=== PATIENT | female | born 1960 | race Caucasian/White ===

== ENCOUNTER 2020-02-12 13:41 | Outpatient (CLI) | payer MEDICARE, OTHER, SELFPAY ==
--- NOTE | ~2020-02-12 | XR_ITS ---
EXAMINATION: XR wrist RT min 3V DATE: 02/12/2020 13:56 INDICATION: Right wrist pain post fall 2 days prior TECHNIQUE: Posteroanterior, ulnar deviation, oblique, and lateral views of the right wrist were obtai [place]. COMPARISON: none FINDINGS: Oblique fracture extending across the metaphyseal region of the distal right radius. There appears to be approximately 1 mm step-off along the articular cortex at the radial styloid process suggesting i ntra-articular extension. Although no discernible fracture gap is identified along the articular surf katie on the provided projections there is up to 3 mm palmar displacement on the lateral projection. No other fractures identified. Joint spaces are relatively preserved. Diffuse osteopenia. Extensive vas cular calcification in the right forearm and carpus along the ulnar and radial arteries. IMPRESSION: 1. Mildly displaced likely intra-articular fracture of the distal right radius. Reviewed, dictated and finalized at location A.
== END 2020-02-12 13:42 | disposition home or self-care (01) ==
PROVIDERS: PCP Family Medicine; Visit Provider Family Medicine
DX: M25.531 Pain in right wrist (principal)
CPT/HCPCS: 73110

== ENCOUNTER 2021-12-29 13:36 | Outpatient (CLI) | payer MEDICARE, OTHER, SELFPAY ==
--- NOTE | ~2021-12-29 | XR_ITS ---
EXAMINATION: XR lumbar spine 2-3V DATE: 12/29/2021 14:18 INDICATION: Low back pain TECHNIQUE: Anteroposterior and lateral views of the lumbar spine, and cone-down lateral view of the l umbosacral junction were obtained. COMPARISON: 11/04/2013 FINDINGS: There is no fracture, dislocation, or subluxation of the lumbar spine. There is an age-inde terminate compression fracture of T12 with 30% loss of anterior vertebral body height. There is compl ete loss of intervertebral disc space height at L1-2. Mild loss of disc space height is present throu ghout the remainder of the lumbar spine. The lumbar vertebral body heights are maintained. There is m ild facet osteoarthritis of the lower lumbar spine. Calcified atherosclerosis is noted. IMPRESSION: 1. Lumbar spondylosis, severe at L1-2, without acute findings of the lumbar spine. 2. Age indeterminate T12 compression fracture with 30% loss of anterior vertebral body height. Reviewed, dictated and finalized at location A. IMPRESSION: 1. Lumbar spondylosis, severe at L1-2, without acute findings of the lumbar spi ne. 2. Age indeterminate T12 compression fracture with 30% loss of anterior vertebr al body height.
[2021-12-29 13:54] LABS: Basophils Absolute Auto 0.03 K/mm3 (0.00-0.10); Basophils Percent Auto 0.4 % (0.0-1.0); Eosinophils Absolute Auto 0.29 K/mm3 (0.02-0.50); Eosinophils Percent Auto 4.1 % (1.0-6.0); Hematocrit 39.3 % (35.0-49.0); Hemoglobin 12.1 g/dL (12.0-15.0); Immature Granulocyte Absolute 0.03 K/mm3 (0.00-0.00); Immature Granulocyte Percent A 0.4 % (0.0-0.0); Lymphocytes Absolute Auto 0.58 K/mm3 (1.10-4.50); Lymphocytes Percent Auto 8.3 % (18.0-42.0); Mean Corpuscular HGB Conc 30.8 g/dL (32.0-36.0); Mean Corpuscular Hemoglobin 29.6 pg (27.0-31.0); Mean Corpuscular Volume 96.1 fL (78.0-102.0); Mean Platelet Volume 9.9 fl (9.2-11.8); Monocytes Percent Auto 7.2 % (2.0-11.0); Neutrophils Absolute Auto 5.6 K/mm3 (1.7-7.2); Neutrophils Percent Auto 79.6 % (50.0-70.0); Platelet Count Result 202 K/mm3 (150-420); Red Blood Count 4.09 M/mm3 (4.20-5.40); Red Cell Distribution Width 12.9 % (11.6-14.4)
[2021-12-29 13:59] LABS: Add Urine Microscopic? YES; Appearance Urine Clear (Clear); Bilirubin Urine Negative (Negative); Blood Urine Negative (Negative); Color Urine Light Yellow (Yellow); Glucose Urine UA Negative (Negative); Ketones Urine Negative (Negative); Leukocyte Esterase Ur 3+ (Negative); Nitrate Urine Negative (Negative); Protein Urine Negative (Negative); Specific Grav Ur <= 1.005 (1.010-1.020); Urobilinogen Urine 0.2 mg/dL (0.2-1.0)
[2021-12-29 14:10] LABS: Alanine Aminotransferase 28 U/L (14-59); Albumin Level 3.4 g/dL (3.4-5.0); Alkaline Phosphatase 94 U/L (46-116); Anion Gap 7 mmol/L (8-16); Aspartate Amino Transferase 21 U/L (15-37); Bacteria Urine Trace /hpf; Bilirubin,Total 0.4 mg/dL (0.00-1.00); Blood Urea Nitrogen 30 mg/dL (7-18); CRP < 0.5 mg/dL (0.0-0.9); Calcium 9.5 mg/dL (8.5-10.1); Carbon Dioxide 29 mmol/L (21-32); Chloride 102 mmol/L (98-108); Estimated Glomerular Filt Rate 53; Glucose 223 mg/dL (70-99); Osmolality Calculated 299 mOsm/kg (285-295); Potassium 4.8 mmol/L (3.5-5.1); RBC Urine None seen /hpf (0-2); Sodium 138 mmol/L (136-145); Squamous Epithelial Cell Urine Rare /hpf (Few); Total Protein 6.9 g/dL (6.4-8.2); WBC Urine 21-30 /hpf (0-3)
== END 2021-12-29 13:37 | disposition home or self-care (01) ==
LOC: CHSLAB 13:39
PROVIDERS: PCP Internal Medicine; Visit Provider Internal Medicine
DX: M54.50 Low back pain, unspecified (principal); Z79.899 Other long term (current) drug therapy; N39.0 Urinary tract infection, site not specified
CPT/HCPCS: 36415; 72100; 80053; 81001; 85025; 86140; 87077; 87086; 87088; 87186

== ENCOUNTER 2022-02-24 09:40 | Outpatient (CLI) | payer MEDICARE, OTHER, SELFPAY ==
--- NOTE | ~2022-02-24 | MMUS_ITS ---
EXAMINATION: MM diagnostic neto BI w lynne, US breast LT complete HISTORY: Left breast enlargement. No discrete palpable lump. TECHNIQUE: Additional 3-D tomosynthesis images of the breasts were performed and synthetic 2-D images were generated. CAD analysis was submitted and interpreted. High resolution left complete breast ult rasound was performed. Automated exposure control and iterative reconstruction technique were employe d. COMPARISON: 10/24/2012 BREAST PARENCHYMAL COMPOSITION: Breast composed of scattered areas of fibroglandular density FINDINGS: MAMMOGRAPHIC FINDINGS: The breasts are stable. No new masses, calcifications or architectural distortion ULTRASOUND: Complete bilateral US of all 4 quadrants of the left breast and retroareolar region was reviewed. Nor mal heterogeneous echotexture without focal solid or cystic mass. IMPRESSION: 1. No evidence for malignancy in either breast. 2. Routine yearly screening mammogram and regular clinical breast examination are recommended. BI-RADS Category 1: Negative Reviewed, dictated and finalized at location A. IMPRESSION: 1. No evidence for malignancy in either breast. 2. Routine yearly screening mammogram and regular clinical breast examination a re recommended. BI-RADS Category 1: Negative
== END 2022-02-24 09:41 | disposition home or self-care (01) ==
LOC: CHSIMG 09:42
PROVIDERS: PCP Internal Medicine; Visit Provider Internal Medicine
DX: N62 Hypertrophy of breast (principal); N64.4 Mastodynia
CPT/HCPCS: 76641; 77062; 77066; G0279

== ENCOUNTER 2022-03-04 11:33 | Outpatient (CLI) | payer MEDICARE, OTHER, SELFPAY ==
--- NOTE | ~2022-03-04 | XR_ITS ---
XR thoracic spine 3V DATE: 03/04/2022 11:53 INDICATION: T12 compression fracture TECHNIQUE: AP, lateral, swimmer views COMPARISON: CT thorax 06/17/2015 FINDINGS: There is moderately severe anterior wedge compression fracture deformity of T12. No other fracture or bone destruction is evident. The thoracic pedicles are intact. No paraspinal sof t tissue thickening. Diffuse osteopenia. Approximately 16 degrees dextroscoliosis of the thoracic spine. IMPRESSION: Moderately prominent anterior wedge compression fracture deformity of T12 Dextroscoliosis Osteopenia Reviewed, dictated and finalized at location B.
== END 2022-03-04 11:34 | disposition home or self-care (01) ==
LOC: CHSIMG 11:37
PROVIDERS: PCP Internal Medicine; Visit Provider Internal Medicine
DX: M48.54XD Collapsed vertebra, not elsewhere classified, thoracic region, subsequent encounter for fracture with routine healing (principal)
CPT/HCPCS: 72072

== ENCOUNTER 2022-03-10 12:27 | Outpatient (CLI) | payer MEDICARE, OTHER, SELFPAY ==
--- NOTE | ~2022-03-10 | DEXA_ITS ---
Bone Density Report Name: DEVIKA SOMERS Age: 61 Sex: Female Ethnicity: White Date of : 1960 Indication: postmenopausal; screening for osteoporosis; height loss; prior fracture; end stage renal disease; Referring Provider: Juan F Avila Study: Bone densitometry was performed. Exam Date: March 10, 2022 Accession number: [id number] Bone Density: Region BMD T-score Z-score Classification AP Spine(L1-L4) 0.905 -1.3 0.1 Osteopenia Femoral Neck (Left) 0.536 -2.8 -1.5 Osteoporosis Total Hip (Left) 0.672 -2.2 -1.3 Osteopenia Femoral Neck (Right) 0.598 -2.3 -1.0 Osteopenia Total Hip (Right) 0.718 -1.8 -0.9 Osteopenia Femoral Neck Mean 0.567 -2.5 -1.3 Osteoporosis Total Hip Mean 0.695 -2.0 -1.1 Osteopenia World Health Organization criteria for BMD impression classify patients as: Normal (T-score at or above -1.0), Osteopenia (T-score between -1.0 and -2.5), or Osteoporosis (T-score at or below -2.5). 10-year Fracture Risk: FRAX not reported because: Some T-score for Spine Total or Hip Total or Femoral Neck at or below -2.5 Clinical Information Provided by Patient: Has had a low trauma fracture Has used the following medications: Vitamin D Has the following medical conditions: End stage renal disease Patient maximum height was 61 No regular weight bearing exercise Does not regularly consume dairy products Drinks caffeinated beverages Onset of menses at age 15 Number of children 2 Impression: The patient has established osteoporosis, based on the Left Femoral Neck T-score and the existence of a prior fracture. The patient has risk factors, including: previous fracture. Discussion: HIGH RISK OF FRACTURE. BONE DENSITY IS UNDESIRABLY LOW AT ONE OR MORE SKELETAL SITES, CONSISTENT WITH POSTMENOPAUSAL OSTEOPOROSIS. This patient's lowest T-score, in a patient who has previously fractured, meets the World Health Organization's (WHO) criteria for severe osteoporosis. In untreated patients, the risk of osteoporotic fracture increases approximately two-fold for each 1.0 SD decrease in T-score. Low bone density is not the only risk factor for fracture; also consider factors such as patient's age, frailty or poor health, risk of falling, risk of injury, previous osteoporotic fracture, family history of osteoporosis, cigarette smoking, low body weight, etc. Not everyone with low bone mineral density has osteoporosis; osteomalacia and other metabolic bone disorders should also be considered. Patients who have osteoporosis should be evaluated for specific diseases and conditions (secondary causes) that may cause or contribute to bone loss. The [place] [employer] Endocrinologists (AACE) and National Osteoporosis Foundation (NOF) recommend pharmacologic intervention for all postmenopaus
== END 2022-03-10 12:28 | disposition home or self-care (01) ==
LOC: CHSIMG 12:29
PROVIDERS: PCP Internal Medicine; Visit Provider Internal Medicine
DX: M81.0 Age-related osteoporosis without current pathological fracture (principal)
CPT/HCPCS: 77080

== ENCOUNTER 2022-12-28 12:20 | Outpatient (CLI) | payer MEDICARE, OTHER, SELFPAY ==
--- NOTE | ~2022-12-28 | XR_ITS ---
Thoracolumbar spine: Clinical Indication: Back pain AP and lateral views were performed. Mild compression deformity of T12 present. No other fracture or subluxation evident. There is advance d degenerative disc narrowing at L1-L2. Paravertebral soft tissues appear normal. Impression: T12 compression fracture, essentially stable since 03/04/2022. Reviewed, dictated and finalized at [facility]. Impression: T12 compression fracture, essentially stable since 03/04/2022.
== END 2022-12-28 12:21 | disposition home or self-care (01) ==
LOC: CHSIMG 12:23
PROVIDERS: PCP Internal Medicine; Visit Provider Internal Medicine
DX: M54.50 Low back pain, unspecified (principal); M48.54XA Collapsed vertebra, not elsewhere classified, thoracic region, initial encounter for fracture
CPT/HCPCS: 72080

== ENCOUNTER 2023-12-19 11:26 | Outpatient (CLI) | payer MEDICARE, OTHER, SELFPAY ==
--- NOTE | ~2023-12-19 | XR_ITS ---
XR abdomen/kub 1V Ordering provider: Gifty Cardenas, CARBIDE OPERATOR History: . constipation STOMACH ACHE X 2 WEEKS HX OF KIDNEY TRANSPLANTS . Comparison: None. FINDINGS: BOWEL: Nonobstructive bowel gas pattern. ORGANOMEGALY: None. SIGNIFICANT PATHOLOGIC CALCIFICATIONS: None. OTHER: No free air is seen under the diaphragm. Splenic artery calcification. Degenerative spine. IMPRESSION: NO ACUTE ABDOMINAL FINDINGS. Reviewed, dictated and finalized at location A.
[2023-12-19 11:44] LABS: Basophils Absolute Auto 0.03 K/mm3 (0.00-0.10); Basophils Percent Auto 0.6 % (0.0-1.0); Eosinophils Absolute Auto 0.41 K/mm3 (0.02-0.50); Eosinophils Percent Auto 8.3 % (1.0-6.0); Hematocrit 35.6 % (35.0-49.0); Hemoglobin 11.5 g/dL (12.0-15.0); Immature Granulocyte Absolute 0.01 K/mm3 (0.00-0.00); Immature Granulocyte Percent A 0.2 % (0.0-0.0); Lymphocytes Absolute Auto 0.97 K/mm3 (1.10-4.50); Lymphocytes Percent Auto 19.7 % (18.0-42.0); Mean Corpuscular HGB Conc 32.3 g/dL (32-36); Mean Platelet Volume 10.2 fl (9.2-11.8); Monocytes Absolute Auto 0.64 K/mm3 (0.10-0.90); Neutrophils Absolute Auto 2.87 K/mm3 (1.70-7.20); Neutrophils Percent Auto 58.2 % (50.0-70.0); Platelet Count Result 182 K/mm3 (150-420); Red Blood Count 3.71 M/mm3 (4.20-5.40); Red Cell Distribution Width 12.6 % (11.6-14.4); White Blood Count 4.9 K/mm3 (4.8-10.8)
[2023-12-19 11:54] LABS: Appearance Urine Clear (Clear); Bilirubin Urine Negative (Negative); Blood Urine Negative (Negative); Color Urine Yellow (Yellow); Glucose Urine UA Negative (Negative); Ketones Urine Trace (Negative); Leukocyte Esterase Ur Negative (Negative); Nitrate Urine Negative (Negative); Protein Urine Negative (Negative); Specific Grav Ur 1.025 (1.010-1.020); Urobilinogen Urine 0.2 mg/dL (0.2-1.0)
[2023-12-19 12:06] LABS: Add Urine Microscopic? YES; RBC Urine None seen /hpf (0-2); Squamous Epithelial Cell Urine Few /hpf (Few); WBC Urine None seen /hpf (0-3)
[2023-12-19 12:07] LABS: Alanine Aminotransferase 40 U/L (14-59); Albumin Level 3.1 g/dL (3.4-5.0); Alkaline Phosphatase 95 U/L (46-116); Anion Gap 8 mmol/L (4-12); Aspartate Amino Transferase 39 U/L (15-37); Bacteria Urine None seen /hpf; Bilirubin,Total 0.3 mg/dL (0.00-1.00); Blood Urea Nitrogen 21 mg/dL (7-18); Carbon Dioxide 29 mmol/L (21-32); Chloride 105 mmol/L (98-108); Estimated Glomerular Filt Rate 55; Glucose 201 mg/dL (70-99); Osmolality Calculated 303 mOsm/kg (285-295); Potassium 4.1 mmol/L (3.5-5.1); Sodium 142 mmol/L (136-145); Total Protein 6.1 g/dL (6.4-8.2)
== END 2023-12-19 11:27 | disposition home or self-care (01) ==
LOC: CHSLAB 11:29
PROVIDERS: PCP Internal Medicine; Visit Provider Nurse Practitioner Family
DX: K59.00 Constipation, unspecified (principal); K21.9 Gastro-esophageal reflux disease without esophagitis
CPT/HCPCS: 36415; 74018; 80053; 81001; 85025

== ENCOUNTER 2024-02-29 01:31 | Day surgery (SDC) | payer MEDICARE, OTHER, SELFPAY ==
[2024-02-15 09:49] VITALS: BMI 36.9
[2024-02-29 08:54] VITALS: BP 117/51; PULSE 73; RESP 18; TEMP 36; O2SAT 97; BMI 36.4
--- NOTE | 2024-02-29 08:56 | SUR.PREOP ---
Blood sugar checked per patient dexcom.
--- NOTE | 2024-02-29 09:20 | WPDANESEPPF ---
Anes - Initial Pre Proc Eval Procedure: Operation Date: 02/29/24 10:00 Proposed Procedures p Esophagogastroduodenoscopy - Kenyon Jiang DO Date/Time: 02/29/24 09:20 Surgeon: Kenyon Jiang DO Pre Op Diagnosis: GERD Patient Data Age: 63 Gender: F Height: 1.5 m Weight: 81.9 kg Last Vital Signs Temp 96.8 F L 02/29/24 08:54 Pulse 73 02/29/24 08:54 Resp 18 02/29/24 08:54 BP 117/51 L 02/29/24 08:54 Pulse Ox 97 02/29/24 08:54 O2 Del Method Room Air 02/29/24 08:54 Allergies Allergy/AdvReac Type Severity Reaction Status Date / Time lisinopril Allergy Cough Verified 02/29/24 08:51 fentanyl AdvReac Loss of Verified 02/29/24 08:51 Consciousness Home Medications Medication Instructions Recorded Confirmed Type alendronate 35 mg tablet 35 mg PO WEEKLY 02/15/24 02/29/24 History amlodipine 5 mg tablet 5 mg PO DAILY 02/15/24 02/29/24 History aspirin 81 mg capsule 81 mg PO DAILY 02/15/24 02/29/24 History carvedilol 25 mg tablet 25 mg PO BID 02/15/24 02/29/24 History cholecalciferol (vitamin D3) 50 2,000 unit PO DAILY 02/15/24 02/29/24 History mcg (2,000 unit) tablet duloxetine 30 mg capsule,delayed 30 mg PO BID 02/15/24 02/29/24 History release famotidine 40 mg tablet 40 mg PO DAILY 02/15/24 02/29/24 History fluconazole 200 mg tablet 200 mg PO DAILY 02/15/24 02/29/24 History furosemide 40 mg tablet 40 mg PO DAILY 02/15/24 02/29/24 History glucagon 3 mg/actuation nasal 3 mg intranasal DAILY PRN low 02/15/24 02/29/24 History spray (Baqsimi) blood sugar insulin lispro 100 unit/mL 66 unit continuous subcutaneous 02/15/24 02/29/24 History subcutaneous solution (Humalog infusion DAILY U-100 Insulin) ketorolac 0.5 % eye drops 1 drp RIGHT EYE DAILY 02/15/24 02/29/24 History losartan 100 mg tablet 100 mg PO DAILY 02/15/24 02/29/24 History mycophenolate sodium 360 mg 360 mg PO DAILY 02/15/24 02/29/24 History tablet,delayed release prednisone 5 mg tablet 5 mg PO DAILY 02/15/24 02/29/24 History rosuvastatin 40 mg tablet 40 mg PO DAILY 02/15/24 02/29/24 History tacrolimus 0.75 mg tablet,extended 0.75 mg PO DAILY 02/15/24 02/29/24 History release 24 hr (Envarsus XR) Patient hx anesthesia problems: none Family hx anesthesia problems: none Results Review: All pre-operative results and documents have been reviewed as part of the pre-operative evaluation. [facility] Social History Social History Smoking status: Never smoker Alcohol intake: never Substance use: never Substance use type: does not use Living arrangements: with family Spiritual care concerns: No Anes - Eval Final PreProcedure Day of Procedure 02/29/24 09:20 Patient weight: obese Heart: regular rate and rhythm Lungs: clear to auscultation Airway: Mallampati scale class II Neurological: alert and oriented Last oral intake: >/= 8 hours ASA classification: III Emergent: no Anesthetic plan: proceed Anesthesia type and monitoring: general GIVS and standard monitoring Results Review: All pre-operative results and documents have been reviewed as part of the pre-operative evaluation. Informed Consent: The patient's anesthetic plan and its attendant risks and benefits were discussed with the patient/family/POA. Questions were solicited and answers provided to the satisfaction of the patient/family/POA.
[2024-02-29] MEDS: LACTATED RINGERS 1,000 ML 150 ML IV CONT (09:23)
--- NOTE | 2024-02-29 09:47 | PM.IMHP ---
H&P: HPI History of Present Illness Date/Time: 02/29/24 09:47 Chief Complaint: GERD Narrative: this is a 63-year-old woman who presents for EGD. She has been experiencing heartburn and acid reflux symptoms. She does take famotidine daily and occasionally takes Tums. She denies being NSAIDs blood thinners. She is on a baby aspirin. Review of Systems Review of Systems: All systems reviewed & are unremarkable except as noted in HPI and below Constitutional: Constitutional: Denies chills, Denies fever(s), Denies headache(s) and Denies weight loss Eyes: Eyes: Denies change in vision ENT: Denies dizziness, Denies headache(s), Denies neck mass and Denies throat swelling Cardiovascular: Cardiovascular: Denies chest pain, Denies lightheadedness and Denies dyspnea Respiratory: Respiratory: Denies cough, Denies dyspnea and Denies wheezing Gastrointestinal: Gastrointestinal: Denies abdominal pain, Denies change in bowel habits, Denies nausea and Denies vomiting Genitourinary: Genitourinary: Denies hematuria and Denies dysuria Musculoskeletal: Musculoskeletal: Reports as per HPI Integumentary/Breasts: Skin/Breast: Reports as per HPI Neurologic: Denies dizziness and Denies headache(s) Allergic/Immunologic: Allergic/Immunologic: Denies throat swelling and Denies wheezing PMFSH Social History Social History Smoking status: Never smoker Alcohol intake: never Substance use: never Substance use type: does not use Living arrangements: with family Spiritual care concerns: No Meds Home Medications and Allergies Home Medications Medication Instructions Recorded Confirmed Type alendronate 35 mg tablet 35 mg PO WEEKLY 02/15/24 02/29/24 History amlodipine 5 mg tablet 5 mg PO DAILY 02/15/24 02/29/24 History aspirin 81 mg capsule 81 mg PO DAILY 02/15/24 02/29/24 History carvedilol 25 mg tablet 25 mg PO BID 02/15/24 02/29/24 History cholecalciferol (vitamin D3) 50 2,000 unit PO DAILY 02/15/24 02/29/24 History mcg (2,000 unit) tablet duloxetine 30 mg capsule,delayed 30 mg PO BID 02/15/24 02/29/24 History release famotidine 40 mg tablet 40 mg PO DAILY 02/15/24 02/29/24 History fluconazole 200 mg tablet 200 mg PO DAILY 02/15/24 02/29/24 History furosemide 40 mg tablet 40 mg PO DAILY 02/15/24 02/29/24 History glucagon 3 mg/actuation nasal 3 mg intranasal DAILY PRN low 02/15/24 02/29/24 History spray (Baqsimi) blood sugar insulin lispro 100 unit/mL 66 unit continuous subcutaneous 02/15/24 02/29/24 History subcutaneous solution (Humalog infusion DAILY U-100 Insulin) ketorolac 0.5 % eye drops 1 drp RIGHT EYE DAILY 02/15/24 02/29/24 History losartan 100 mg tablet 100 mg PO DAILY 02/15/24 02/29/24 History mycophenolate sodium 360 mg 360 mg PO DAILY 02/15/24 02/29/24 History tablet,delayed release prednisone 5 mg tablet 5 mg PO DAILY 02/15/24 02/29/24 History rosuvastatin 40 mg tablet 40 mg PO DAILY 02/15/24 02/29/24 History tacrolimus 0.75 mg tablet,extended 0.75 mg PO DAILY 02/15/24 02/29/24 History release 24 hr (Envarsus XR) Allergies Allergy/AdvReac Type Severity Reaction Status Date / Time lisinopril Allergy Cough Verified 02/29/24 08:51 fentanyl AdvReac Loss of Verified 02/29/24 08:51 Consciousness Vital Signs Vital Signs - 24 hr 02/29/24 08:54 Temperature 36.0 C L Pulse Rate 73 Respiratory Rate 18 Blood Pressure 117/51 L Pulse Oximetry 97 Oxygen Delivery Room Air Exam Const: General: no acute distress and alert Orientation/consciousness: patient oriented x3 HENMT: Head: normocephalic and atraumatic Ears: hearing grossly normal bilaterally Face/Nose/Sinus: Normal nares present Mouth: Yes Normal oral and palatal mucosa present Eyes: Periorbital: periorbital findings normal Sclera: sclerae normal EOM: EOMs intact bilaterally Neck: Neck: normal visual inspection, no lymphadenopathy and trachea midline Chest: Chest palpation & inspection: normal inspect
[2024-02-29 10:06] VITALS: BP 111/51; PULSE 66; RESP 19; O2SAT 98
[2024-02-29 10:16] VITALS: BP 129/56; PULSE 70; RESP 29; O2SAT 97
[2024-02-29 10:26] VITALS: BP 136/59; PULSE 71; RESP 17; O2SAT 97
[2024-02-29 11:08] LABS: HPYLORIRESULT Negative
== END 2024-02-29 10:33 | disposition home or self-care (01) ==
PROVIDERS: PCP Internal Medicine; Visit Provider Surgery
PROC: 0DJ08ZZ Inspection of Upper Intestinal Tract, Via Natural or Artificial Opening Endoscopic (ICD-10-PCS; CPT 43235; principal; 2024-02-29 10:00)
DX: K21.00 Gastro-esophageal reflux disease with esophagitis, without bleeding (principal); K29.00 Acute gastritis without bleeding; K29.50 Unspecified chronic gastritis without bleeding; Z79.82 Long term (current) use of aspirin; Z79.4 Long term (current) use of insulin; Z79.621 Long term (current) use of calcineurin inhibitor; E66.9 Obesity, unspecified; Z68.36 Body mass index [BMI] 36.0-36.9, adult
CPT/HCPCS: 43239; 87081; 88305; J2704; J7120

== ENCOUNTER 2024-09-09 15:48 | Outpatient (CLI) | payer MEDICARE, OTHER, SELFPAY ==
--- NOTE | ~2024-09-09 | CT_ITS ---
EXAMINATION: CT abdomen pelvis wo con DATE: 09/09/2024 17:21 INDICATION: R LQ PAIN, RENAL TRANSPLANT PT TECHNIQUE: Computed tomography (CT) of the abdomen and pelvis was performed without intravenous contr ast. 16 ounces Omnipaque 340 oral contrast. Automated exposure control and iterative reconstruction t echnique were employed. The dose-length product was 689.14 mGy-cm. COMPARISON: CT abdomen 10/03/2012; x-ray abdomen 12/19/2023. FINDINGS: Lower thorax: Aortic valve and coronary artery calcification. Cardiomegaly. Mild left basilar scar/at electasis. Liver: Normal. Biliary/Gallbladder: Gallbladder is normal. No bile duct dilation. Pancreas: Moderate fatty atrophy. Spleen: Normal. Adrenals:No mass. Kidneys: Severe bilateral renal atrophy. Atrophic right lower quadrant transplant kidney. Left lower quadrant transplant kidney with grossly normal cortical thickness, no obstructing calcification, and no hydronephrosis. GI tract: No small or large bowel dilation. Appendix not confidently visualized. No acute right lower quadrant or pericecal inflammatory process detected. Mesentery/Peritoneum: No ascites, mass, or free air. Retroperitoneum: No mass. Atherosclerotic calcifications of intra-abdominal arterial vessels. Pelvis: Pelvic organs are within normal limits. Mildly prominent right gonadal vein which is a chroni c finding. Soft Tissues: Bilateral lower quadrant injection sites. Small fat-containing uncomplicated umbilical hernia. Bones: No acute osseous finding. Chronic moderate height loss at T12. L1-2 effusion. IMPRESSION: No acute abdominopelvic process detected. Reviewed, dictated and finalized at location K.
[2024-09-09 16:04] LABS: Basophils Absolute Auto 0.02 K/mm3 (0.00-0.10); Basophils Percent Auto 0.2 % (0.0-1.0); Eosinophils Absolute Auto 0.06 K/mm3 (0.02-0.50); Eosinophils Percent Auto 0.5 % (1.0-6.0); Hematocrit 40.2 % (35.0-49.0); Hemoglobin 12.3 g/dL (12.0-15.0); Immature Granulocyte Absolute 0.04 K/mm3 (0.00-0.00); Immature Granulocyte Percent A 0.3 % (0.0-0.0); Lymphocytes Absolute Auto 0.63 K/mm3 (1.10-4.50); Lymphocytes Percent Auto 5.5 % (18.0-42.0); Mean Corpuscular HGB Conc 30.6 g/dL (32-36); Mean Corpuscular Hemoglobin 28.3 pg (27.0-31.0); Mean Corpuscular Volume 92.6 fL (78.0-102.0); Mean Platelet Volume 10.2 fl (9.2-11.8); Monocytes Absolute Auto 0.75 K/mm3 (0.10-0.90); Monocytes Percent Auto 6.5 % (2.0-11.0); Neutrophils Absolute Auto 9.99 K/mm3 (1.70-7.20); Platelet Count Result 184 K/mm3 (150-420); Red Blood Count 4.34 M/mm3 (4.20-5.40); Red Cell Distribution Width 13.7 % (11.6-14.4); White Blood Count 11.5 K/mm3 (4.8-10.8)
[2024-09-09 16:16] LABS: Add Urine Microscopic? YES; Appearance Urine Clear (Clear); Bilirubin Urine Negative (Negative); Blood Urine 1+ (Negative); Color Urine Yellow (Yellow); Glucose Urine UA Negative (Negative); Ketones Urine Negative (Negative); Leukocyte Esterase Ur Trace LEU/UL (Negative); Nitrate Urine Negative (Negative); Protein Urine Negative (Negative); Specific Grav Ur 1.025 (1.010-1.020); Urobilinogen Urine 0.2 mg/dL (0.2-1.0); pH Urine 5.5 (5.0-8.0)
[2024-09-09 16:25] LABS: WBC Urine 0-3 /hpf (0-3)
[2024-09-09 16:26] LABS: Bacteria Urine Trace /hpf; Renal Epithelial Cells Urine Few /hpf; Squamous Epithelial Cell Urine Few /hpf (Few)
[2024-09-09 16:52] LABS: Alanine Aminotransferase 16 U/L (14-59); Albumin Level 3.2 g/dL (3.4-5.0); Alkaline Phosphatase 111 U/L (46-116); Amylase 24 U/L (25-115); Anion Gap 11 mmol/L (4-12); Aspartate Amino Transferase 15 U/L (15-37); Bilirubin,Total 0.6 mg/dL (0.00-1.00); Blood Urea Nitrogen 31 mg/dL (7-18); Calcium 9.1 mg/dL (8.5-10.1); Carbon Dioxide 28 mmol/L (21-32); Chloride 100 mmol/L (98-108); Estimated Glomerular Filt Rate 33; Glucose 298 mg/dL (70-99); Lipase 10 U/L (16-77); Osmolality Calculated 305 mOsm/kg (285-295); Potassium 4.1 mmol/L (3.5-5.1); Sodium 139 mmol/L (136-145); Total Protein 6.5 g/dL (6.4-8.2)
--- OUTSIDE RECORDS SUMMARY | 2024-09-09 18:29 | XMS_ITS | Encounter Summary ---
Author Organization [facility] Health Address [address] [place] [address] [place] [address] Care Team Providers Care Weighmaster Name Role Phone Juan F Avila MD Primary Care Provider [phone] Sandy White RN Unavailable [phone] Encounter Details Date Type Department Care Team (Late st Contact Info) Description 03/02/2015 [facility] DEPT Nael Bunn MD [address] [place] [phone] Social History Tobacco Use Types Packs/Day Years Used Date Smoking Tobacco: Never Smokeless Tobacco: Never Alcohol Use Standard Drinks/Week Comments No 0 (1 standard drink = 0.6 oz pur e alcohol) Sex and Gender Information Value Date Recorded Sex Assigned at Not on file Gender Identity Not on file Sexual Orientation Not on file documented as of this encounter Plan of Treatment Not on file documented as of this encounter Visit Diagnoses Not on filedocumented in this encounter Care Teams Weighmaster Relationship Specialty Start Date End Date Juan F Avila MD [address] [place] [address] PCP - General Internal Medicine 03/02/15 Sandy White, RN [address] [place] [address] Attorney Lawyer 08/18/15 documented as of this encounter
--- OUTSIDE RECORDS SUMMARY | 2024-09-09 18:29 | XMS_ITS | Referral Summary ---
Author Organization [facility] Address [address] [place] [address] Care Team Providers Care Care Administrative Tech Name Role Phone Juan F Avila MD Primary Care Provider [phone] Sandy White RN Unavailable [phone] Source Comments [facility],non-owned Affiliates and Associated Physician Practices is amultiple site organization consisting of ambulatory clinics and hospital sitesin [place], [place], [place] and [place]. This disclosure is being madepursuant to the Care Everywhere program and may not contain all information available regarding this patient. Last updated 18.[facility] Allergies Active Allergy Reactions Criticality Noted Date Comments Fentanyl Anaphylaxis High 06/05/2015 Lisinopril Cough Low 11/10/2017 Medications * Be aware that medications may not be up to date on this document. Alwaysverify current medications with the patient. Medication Sig Dispensed Refills Start Date End Date Status aspirin (ASPIRIN) 81 MG tablet Take 81 mg by mouth once daily Active Multiple Vitamin (MULTI VITAMIN DAILY PO)Indications:wit h iron Take 1 Tab by mouth once daily Reasons: with iron Active predniSONE EC (NANCY) 5 MG tablet Take 1 mg by mouth once daily [employer] [phone] (Aaliyah) Active Cholecalciferol (VITAMIN D-3 PO) Take 1 Tab by mouth once daily Active Calcium Carbonate-Vitamin D (CALCIUM + D PO) Take 500 mg by mouth 3 times daily as needed Active carvedilol (COREG) 25 MG tablet Take 25 mg by mouth 2 times daily with morning and evening meal [employer] [phone] (Aaliyah) Active insulin lispro (HUMALOG) for insulin pump Inject 50 Units subcutaneously as directed Per pharmacy: the patient uses about 50 units for a total daily dose. Active ONETOUCH ULTRA TEST STRIPS test strip 6 07/31/2015 Active nitroGLYCERIN (NITROSTAT) 0.4 MG tabletIndications: Acute Angina Pectoris Dissolve 1 Tab under the tongue intra-Procedure multiple Reasons: Acute Angina Pectoris 50 Tab 1 08/19/2015 Active PROAIR HFA 108 (90 BASE) MCG/ACT inhaler U 1 TO 2 PUFFS PO Q 4 TO 6 H PRN 2 02/02/2016 Active losartan (COZAAR) 100 MG tablet Take 100 mg by mouth once daily Active minoxidil (LONITEN) 2.5 MG tablet Take 5 mg by mouth once daily Active fluconazole (DIFLUCAN) 100 MG tablet Take 100 mg by mouth once daily Active rosuvastatin (CRESTOR) 20 MG tablet Take 20 mg by mouth once daily Active calcium carbonate (TUMS) 500 MG chew tablet Take 1 Tab by mouth 3 times daily with meals Activ e amLODIPine (NORVASC) 10 MG tablet Take 10 mg by mouth once daily 5 06/14/2017 Active Active Problems Problem Noted Date Diagnosed Date Diabetes mellitus type 2, uncomplicated 02/17/20 17 YUNI to mid LAD in 08/201510/05/2015 Bilateral carotid bruits 08/04/2015 CKD stage 5, on HD 07/31/2015 HTN (hypertension), benign 07/31/2015 Left arm swelling Complication of dialysis access insertion Resolved Problems Problem Noted Date Diagnosed Date Resolved Date Coronary artery disease invo lving [place] coronary artery of [place] heart with angina pectoris 08/19/2015 10/05/2015 Overview (08/19/2015): 08/18/15 Cath/PCI - 3.0x24 Resolute YUNI mLAD; mod mRCA and mCx; EF 65% Diabetes type 1, controlled 08/04/2015 02/16/2017 Abnormal stress test 08/04/2015 016 Syncope, needs stress test 07/31/2015 0 07/31/2015 Syncope 07/31/2015 10/05/2015 Social History Tobacco Use Types Packs/Day Years Used Date Smoking Tobacco: Never Smokeless Tobacco: Never Alcohol Use Standard Drinks/Week Comments No 0 (1 standard drink = 0.6 oz pur e alcohol) Sex and Gender Information Value Date Recorded Sex Assigned at Not on file Gender Identity Not on file Sexual Orientation Not on file Last Filed Vital Signs Vital Sign Reading Time Taken Comments Blood Pressure 169/67 04/25/2018 9:40 AM CDT Pulse 73 04/25/2018 9:40 AM CDT Temperature 36.7 C (98.1 F) 04/25/2018 8:52 AM CDT Respiratory Rate 18 04/25/2018 9:40 AM CDT Oxygen Saturation 99% 04/25/2018 9:40 AM CDT Inhaled Oxygen Concentration - - Weight 78 kg (171 lb 15.3 oz) 04/25/2018 8:52 AM CDT Height 154.9 cm (5' 1 ) 04/25/2018 8:52 AM CDT Body Mass Index 32.49 04/25/2018 8:52 AM CDT Functional Status Functional Status Response Date of Assess ment Is person deaf or have serious hearing difficult y? No 08/18/2015 Is person blind or have serious difficulty seein g? No 08/18/2015 Does person have serious dif ficulty walking/climbing stairs? No 08/18/2015 Does person have difficulty dressing/bathing? No 08/18/2015 Does person have difficulty doing errands alone? No 08/18/2015 Cognitive Status Response Date of Assessm ent Does person have difficulty concentrating/remembering/making decisions? No 08/18/2015 Plan of Treatment Not on file Medical Devices Implanted Type Area Boiler House Mechanic Device Identifier Shelf Expiration Date Model / Serial / Lot Patrick Cates Gwt-[id number] Dbl Gds 4-7mm X 35mm Implanted:Qty: 1 on 05/12/2015 by Nael Bunn MD at [facility] Left: Arm Tj 05/12/2019 [id number] / / [id number] Procedures Procedure Name Priority Date/Time Associated Diagnosis Comments HEMOGLOBIN A1C Routine 06/06/2015 4:28 AM [employer] from Last 3 Months or Most Recently Relevant to Health Maintenance Results * (ABNORMAL) HEMOGLOBIN A1C (06/06/2015 4:28 AM [employer]) Hemoglobin A1c 8.3(H) 4.2 - 6.3 % 06/06/2015 6:19 AM [employer] [facility] Estimated Average Glucose 192 mg/dL 06/06/2015 6:19 AM [employer] [facility] Whole Blood BLOOD SPECIMEN WITH EDTA / Unknown 06/06/2015 4:28 AM [employer] 06/06/2015 6:00 AM [employer] Edy Erazo DO LAB - CHEMISTRY OR DERABLES [facility] [address] [place] [address] from Last 3 Months or Most Recently Relevant to Health Maintenance Advance Directives * Full Code (Latest Code Status on File) Date Activated Date Inactivated Comments 08/18/2015 2:57 PM 08/20/2015 3:36 PM * Full Code Date Activated Date Inactivated Comments 08/18/2015 2:53 PM 08/18/2015 2:57 PM * Full Code Date Activated Date Inactivated Comments 06/05/2015 10:34 PM 06/08/2015 11:13 PM Care Teams Care Administrative Tech Relationship Specialty Start Date End Date Juan F Avila MD [address] [place] [address] PCP - General Internal Medicine 03/02/15 Sandy White, RN [address] [place] [address] Senior Program Analyst 08/18/15
--- OUTSIDE RECORDS SUMMARY | 2024-09-09 18:29 | XMS_ITS | Clinical Summary ---
Author Organization [facility] [employer] Address [address] [place] [address] Care Team Providers Care Exam Proctor Name Role Phone Juan F Avila MD Primary Care Provider [phone] Sandy White RN Unavailable [phone] Source Comments [facility],non-owned Affiliates and Associated Physician Practices is amultiple site organization consisting of ambulatory clinics and hospital sitesin [place], [place], [place] and [place]. This disclosure is being madepursuant to the Care Everywhere program and may not contain all information available regarding this patient. Last updated 18.[facility] [employer] 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 08/19/2015 10/05/2015 Overview (08/19/2015): 08/18/15 Cath/PCI - 3.0x24 Resolute YUNI mLAD; mod mRCA and mCx; EF 65% Diabetes type 1, controlled 08/04/2015 02/16/2017 Abnormal stress test 08/04/2015 016 Syncope, needs stress test 07/31/2015 0 07/31/2015 Syncope 07/31/2015 10/05/2015 Family History Medical History Relation Name Comments Diabetes Brother 4 Cancer Maternal Grandfather Diabetes Maternal Grandmother HI Mother Stroke Mother HI Paternal Grandfather HI Paternal Grandmother Relation Name Status Comments Brother 1 Alive Brother 2 Alive Brother 3 Brother 4 Father Alive Maternal Grandfather Maternal Grandmother Mother Paternal Grandfather Paternal Grandmother Sister Alive Social History Tobacco Use Types Packs/Day Years [...] Mass Index 32.49 04/25/2018 8:52 AM CDT Plan of Treatment Health Maintenance Due Date Last Done Comments COLOGUARD (AGES 45-75) - COL ON CA SCREENING 1962 COLON MONITORING 1962 COLONOSCOPY - COLON CA SCREENING 1962 CT COLONOGRAPHY - COLON CA SCREENING 1962 Colorectal Cancer Screening 1962 FIT - COLON CA SCREENING 1962 FLEX SIG - COLON CA SCREENING 1962 MAMMOGRAM 1962 MEDICARE AWV 12 MONTHS 1962 PAP SMEAR 1962 COVID-19 VACCINE (#1) 1967 HIV SCREENING 1977 HEPATITIS C SCREENING 03/31/1980 DTAP/TDAP/TD VACCINES (1 - Tdap) 1981 PNEUMOCOCCAL VACCINE 50+ (1 of 2 - PCV) 1981 PNEUMOCOCCAL VACCINE (1 of 2 - PCV) 1981 ZOSTER VACCINE (1 of 2) 1981 DIABETES RETINOPATHY SCREENING 10/06/2015 DIABETES-FOOT EXAM WITH MONOFILAMENT 10/06/2015 DIABETES-HGB A1C 12/06/2015 06/06/2015 Respiratory Syncytial Virus (RSV) Vaccine Pt: or over 60 yrs (1 - Risk 60-74 years 1-dose series) 2022 INFLUENZA VACCINE (#1) 2024 DEPRESSION SCREENING 07/03/2024 HEPATITIS B VACCINE Aged Out No longe r eligible based on patient's age to complete this topic HIB VACCINE Aged Out No longer eligi ble based on patient's age to complete this topic HPV VACCINE Aged Out No longer eligi ble based on patient's age to complete this topic MENINGOCOCCAL (Group B) VACCINE Aged Out No longer eligible based on patient's age to complete this topic MENINGOCOCCAL VACCINE Aged Out No rose bladimir eligible based on patient's age to complete this topic Medical Devices Implanted Type Area Prop Making Supervisor Device Identifier Shelf Expiration Date Model / Serial / Lot Patrick Cates Gwt-Gw Dbl Gds 4-7mm X 35mm Implanted:Qty: 1 on 05/12/2015 by Nael Bunn MD at [facility] Left: Arm Maquet 05/12/2019 [id number] / / [id number] Procedures Procedure Name Priority Date/Time Associated Diagnosis Comments HEMOGLOBIN A1C Routine 06/06/2015 4:28 AM STACKING MACHINE OPERATOR from Last 3 Months or Most Recently Relevant to Health Maintenance Results * (ABNORMAL) HEMOGLOBIN A1C (06/06/2015 4:28 AM STACKING MACHINE OPERATOR) Hemoglobin A1c 8.3(H) 4.2 - 6.3 % 06/06/2015 6:19 AM STACKING MACHINE OPERATOR [facility] Estimated Average Glucose 192 mg/dL 06/06/2015 6:19 AM STACKING MACHINE OPERATOR [facility] Whole Blood BLOOD SPECIMEN WITH EDTA / Unknown 06/06/2015 4:28 AM STACKING MACHINE OPERATOR 06/06/2015 6:00 AM STACKING MACHINE OPERATOR Edy Erazo DO LAB - CHEMISTRY OR DERABLES [facility] [address] [place] [address] from Last 3 Months or Most Recently Relevant to Health Maintenance Advance Directives * Full Code (Latest Code Status on File) Date Activated Date Inactivated Comments 08/18/2015 2:57 PM 08/20/2015 3:36 PM * Full Code Date Activated Date Inactivated Comments 08/18/2015 2:53 PM 08/18/2015 2:57 PM * Full Code Date Activated Date Inactivated Comments 06/05/2015 10:34 PM 06/08/2015 11:13 PM Care Teams Exam Proctor Relationship Specialty Start Date End Date Juan F Avila MD [address] [place] [address] PCP - General Internal Medicine 03/02/15 Sandy White RN [address] [place] [address] City Bus Driver 08/18/15
--- OUTSIDE RECORDS SUMMARY | 2024-09-09 18:29 | XMS_ITS | Patient Health Summary ---
Author Organization [facility] Address [address] [place] [address] Care Team Providers Care Manager Studio Name Role Phone Juan F Avila MD Primary Care Provider Sandy White RN Unavailable [phone] Note from [facility],non-owned Affiliates and Associated Physician Practices is amultiple site organization consisting of ambulatory clinics and hospital sitesin [place], [place], [place] and [place]. This disclosure is being madepursuant to the Care Everywhere program and may not contain all information available regarding this patient. Last updated 18.[facility] Allergies * Fentanyl(Anaphylaxis) -High Criticality * Lisinopril(Cough) -Low Criticality Medications * Be aware that medications may not be up to date on this document. Alwaysverify current medications with the patient. * aspirin (ASPIRIN) 81 MG tablet Take 81 mg by mouth once daily * Multiple Vitamin (MULTI VITAMIN DAILY PO) Take 1 Tab by mouth once daily Reasons: with iron * predniSONE EC (NANCY) 5 MG tablet Take 1 mg by mouth once daily DEMANDITs [phone] (Aaliyah) * Cholecalciferol (VITAMIN D-3 PO) Take 1 Tab by mouth once daily * Calcium Carbonate-Vitamin D (CALCIUM + D PO) Take 500 mg by mouth 3 times daily as needed * carvedilol (COREG) 25 MG tablet Take 25 mg by mouth 2 times daily with morning and evening meal [employer] [phone] (Aaliyah) * insulin lispro (HUMALOG) for insulin pump Inject 50 Units subcutaneously as directed Per pharmacy: the patient uses about 50 units for a total daily dose. * ONETOUCH ULTRA TEST STRIPS test strip(Started 07/31/2015) 6 refills left * nitroGLYCERIN (NITROSTAT) 0.4 MG tablet(Started 08/19/2015) Dissolve 1 Tab under the tongue intra-Procedure multiple Reasons: Acute Angina Pectoris 1 refill left * PROAIR HFA 108 (90 BASE) MCG/ACT inhaler(Started 02/02/2016) U 1 TO 2 PUFFS PO Q 4 TO 6 H PRN 2 refills left * losartan (COZAAR) 100 MG tablet Take 100 mg by mouth once daily * minoxidil (LONITEN) 2.5 MG tablet Take 5 mg by mouth once daily * fluconazole (DIFLUCAN) 100 MG tablet Take 100 mg by mouth once daily * rosuvastatin (CRESTOR) 20 MG tablet Take 20 mg by mouth once daily * calcium carbonate (TUMS) 500 MG chew tablet Take 1 Tab by mouth 3 times daily with meals * amLODIPine (NORVASC) 10 MG tablet(Started 06/14/2017) Take 10 mg by mouth once daily 5 refills left Active Problems Problem Noted Date Diagnosed Date Diabetes mellitus type 2, uncomplicated 02/17/20 17 YUNI to mid LAD in 08/201510/05/2015 Bilateral carotid bruits 08/04/2015 CKD stage 5, on HD 07/31/2015 HTN (hypertension), benign 07/31/2015 Left arm swelling Complication of dialysis access insertion Resolved Problems Problem Noted Date Diagnosed Date Resolved Date Coronary artery disease invo lving [place] coronary artery of [place] heart with angina pectoris 08/19/2015 10/05/2015 Diabetes type 1, controlled 08/04/2015 02/16/2017 Abnormal [...] Mass Index 32.49 04/25/2018 8:52 AM CDT Medical Devices Implanted Type Area Ferry Operator Device Identifier Shelf Expiration Date Model / Serial / Lot Grft Darryn Gwt-Gw Dbl Gds 4-7mm X 35mm Implanted:Qty: 1 on 05/12/2015 by Nael Bunn MD at [facility] Left: Arm Maquet 05/12/2019 [id number] / / [id number] Procedures * CARDIAC RHYTHM STRIP ORDER(Performed 05/03/2018) * IR AV FISTULA GRAFT ARTERIAL PLASTY(Performed 04/25/2018) Performed for Left arm swelling, Complication of dialysis access insertion, initial encounter * CARDIAC RHYTHM STRIP ORDER(Performed 11/23/2017) * IR AV FISTULA GRAFT ARTERIAL PLASTY(Performed 11/10/2017) Performed for CKD stage 5, on HD * CARDIAC RHYTHM STRIP ORDER(Performed 07/06/2017) * IR ANGIO AV SHUNT(Performed 06/23/2017) Performed for ESRD (end stage renal disease) ([facility]) * CARDIAC RHYTHM STRIP ORDER(Performed 06/06/2017) * IR ANGIO AV SHUNT(Performed 06/02/2017) Performed for End stage renal disease (HCC) * CARDIAC RHYTHM STRIP ORDER(Performed 01/24/2017) * IR ANGIO AV SHUNT(Performed 01/19/2017) Performed for End stage renal disease (HCC) * CARDIAC RHYTHM STRIP ORDER(Performed 09/28/2016) * IR ANGIO AV SHUNT(Performed 09/15/2016) Performed for End stage renal disease (HCC) * STRESS TEST LEXISCAN (NUCLEAR)(Performed 09/01/2016) * CARDIAC RHYTHM STRIP ORDER(Performed 07/29/2016) * IR ANGIO AV SHUNT(Performed 07/21/2016) Performed for End stage renal disease (HCC) * CARDIAC RHYTHM STRIP ORDER(Performed 03/01/2016) * IR ANGIO AV SHUNT(Performed 02/25/2016) Performed for CKD stage 5, on HD * CARDIAC RHYTHM STRIP ORDER(Performed 10/23/2015) * IR ANGIO AV SHUNT(Performed 10/20/2015) Performed for CKD stage 5, on HD * CARDIAC RHYTHM STRIP ORDER(Performed 09/26/2015) * IR ANGIO AV SHUNT(Performed 09/18/2015) Performed for ESRD (end stage renal disease) (HCC) * CARDIAC PROCEDURE ORDER(Performed 08/21/2015) * CARDIAC RHYTHM STRIP ORDER(Performed 08/21/2015) * GLUCOSE - POINT OF CARE(Performed 08/20/2015) * GLUCOSE - POINT OF CARE(Performed 08/20/2015) * HEPATITIS B SURFACE ANTIGEN W RFLX CONFIRMATION(Performed 08/20/2015) Performed for CKD stage 5, on HD * GLUCOSE - POINT OF CARE(Performed 08/20/2015) * GLUCOSE - POINT OF CARE(Performed 08/19/2015) * GLUCOSE - POINT OF CARE(Performed 08/19/2015) * GLUCOSE - POINT OF CARE(Performed 08/19/2015) * GLUCOSE - POINT OF CARE(Performed 08/19/2015) * GLUCOSE - POINT OF CARE(Performed 08/19/2015) * HEMODIALYSIS INPATIENT(Performed 08/19/2015) * GLUCOSE - POINT OF CARE(Performed 08/19/2015) * GLUCOSE - POINT OF CARE(Performed 08/19/2015) * GLUCOSE - POINT OF CARE(Performed 08/19/2015) * GLUCOSE - POINT OF CARE(Performed 08/18/2015) * GLUCOSE - POINT OF CARE(Performed 08/18/2015) * ACT - POINT OF CARE(Performed 08/18/2015) * CARDIAC CATH CONSULT(Performed 08/18/2015) * CARDIAC CATH(Performed 08/18/2015) * CBC W AUTO DIFFERENTIAL(Performed 08/18/2015) Performed for Pre-op testing * BASIC METABOLIC PANEL (CALCIUM TOTAL)(Performed 08/18/2015) Performed for Pre-op testing * VAS CAROTID DUPLEX BILATERAL(Performed 08/11/2015) Performed for Bilateral carotid bruits * EKG 12-LEAD(Performed 08/08/2015) Performed for Abnormal stress test * CARDIAC RHYTHM STRIP ORDER(Performed 07/13/2015) * IR ANGIO AV SHUNT(Performed 07/07/2015) Performed for ESRD (end stage renal disease) ([facility]) * CARDIAC RHYTHM STRIP ORDER(Performed 06/09/2015) * GLUCOSE - POINT OF CARE(Performed 06/08/2015) * GLUCOSE - POINT OF CARE(Performed 06/08/2015) * ECHOCARDIOGRAM 2D WITH DOPPLER(Performed 06/08/2015) Performed for Successful cardiopulmonary resuscitation, Respiratory arrest (HCC) * GLUCOSE - POINT OF CARE(Performed 06/08/2015) * GLUCOSE - POINT OF CARE(Performed 06/08/2015) * GLUCOSE - POINT OF CARE(Performed 06/07/2015) * GLUCOSE - POINT OF CARE(Performed 06/07/2015) * GLUCOSE - POINT OF CARE(Performed 06/07/2015) * GLUCOSE - POINT OF CARE(Performed 06/07/2015) * XR HAND LEFT 3VW OR MORE(Performed 06/07/2015) Performed for Hand pain, left * GLUCOSE - POINT OF CARE(Performed 06/07/2015) * GLUCOSE - POINT OF CARE(Performed 06/07/2015) * HEMODIALYSIS INPATIENT(Performed 06/07/2015) * GLUCOSE - POINT OF CARE(Performed 06/07/2015) * GLUCOSE - POINT OF CARE(Performed 06/07/2015) * CARDIAC RHYTHM STRIP ORDER(Performed 06/06/2015) * GLUCOSE - POINT OF CARE(Performed 06/06/2015) * GLUCOSE - POINT OF CARE(Performed 06/06/2015) * XR HUMERUS LEFT 2VW OR MORE(Performed 06/06/2015) Performed for Respiratory arrest (HCC) * GLUCOSE - POINT OF CARE(Performed 06/06/2015) * GLUCOSE - POINT OF CARE(Performed 06/06/2015) * GLUCOSE - POINT OF CARE(Performed 06/06/2015) * GLUCOSE - POINT OF CARE(Performed 06/06/2015) * GLUCOSE - POINT OF CARE(Performed 06/06/2015) * GLUCOSE - POINT OF CARE(Performed 06/06/2015) * HEMOGLOBIN A1C(Performed 06/06/2015) * CBC W AUTO DIFFERENTIAL(Performed 06/06/2015) * BASIC METABOLIC PANEL (CALCIUM TOTAL)(Performed 06/06/2015) * GLUCOSE - POINT OF CARE(Performed 06/05/2015) * GLUCOSE - POINT OF CARE(Performed 06/05/2015) * TROPONIN I(Performed 06/05/2015) * HEPATITIS B SURFACE ANTIGEN W RFLX CONFIRMATION(Performed 06/05/2015) Performed for ESRD (end stage renal disease) (HCC) * HEPATITIS B SURFACE ANTIBODY QUANT(Performed 06/05/2015) Performed for ESRD (end stage renal disease) (HCC) * TROPONIN I(Performed 06/05/2015) * HEMODIALYSIS INPATIENT(Performed 06/05/2015) * XR CHEST 1VW PORTABLE(Performed 06/05/2015) Performed for Successful cardiopulmonary resuscitation * EKG 12-LEAD(Performed 06/05/2015) Performed for Successful cardiopulmonary resuscitation * TROPONIN I(Performed 06/05/2015) * COMPREHENSIVE METABOLIC PANEL(Performed 06/05/2015) * CBC W AUTO DIFFERENTIAL(Performed 06/05/2015) * IR ANGIO AV SHUNT(Performed 06/05/2015) Performed for ESRD (end stage renal disease) ([facility]) * ARTERIOVENOUS ANASTOMOSIS OPEN BY UPPER ARM BASILIC VEIN TRANSPOSITION (Performed 05/12/2015) Performed for Renal failure * GLUCOSE - POINT OF CARE(Performed 05/12/2015) * GLUCOSE - POINT OF CARE(Performed 05/12/2015) * HCG URINE QUALITATIVE - POINT OF CARE(Performed 05/12/2015) * VAS DIALYSIS EXIST ACCESS SCAN(Performed 04/13/2015) Performed for End stage renal disease ([facility]) * CREATE FISTULA A-V(Performed 03/05/2015) * GLUCOSE - POINT OF CARE(Performed 03/05/2015) * VAS BILAT MAPPING FOR HEMODIALYSIS(Performed 03/02/2015) Performed for End stage renal disease ([facility]) Results * CARDIAC RHYTHM STRIP ORDER (05/03/2018 3:51 AM CDT) Only the most recent of14 resultswithin the time period is included. Narrative 05/03/2018 3:51 AM CDT Ordered by an unspecified provider. Scanned Document CARDIAC SERVICES ORD ERABLES * IR AV FISTULA GRAFT ARTERIAL PLASTY (04/25/2018 9:40 AM CDT) Only the most recent of2 resultswithin the time period is included. Anatomical Region Laterality Modality X-Ray Angiograph y Narrative 04/29/2018 7:46 AM CDT Randell Jama MD 04/29/2018 7:46 AM [facility] [place] Maureen Somers 1960 DATE OF PROCEDURE: 04/25/2018 ORDERING PHYSICIAN: Randell Jama MD PROCEDURE: Left upper arm hemodialysis graft angiogram, with angioplasty within the peripheral dialysis circuit, angioplasty within the central dialysis circuit at the left subclavian vein INDICATIONS FOR PROCEDURE: Pulsatility to left upper arm hemodialysis graft on physical examination. left arm swelling. DESCRIPTION OF PROCEDURE:The patient s left upper arm was prepped and draped in the normal sterile manner. Using local anesthesia and ultrasound guidance the graft was punctured with the needle directed towards the central circulation. A guidewire was advanced under fluoroscopy and a 5 Djiboutian catheter placed. Digital subtraction images were obtained from the arterial anastomosis to the level of the SVC. Angioplasty was performed of a moderate stenosis at the leading edge of a previously placed stent graft at the venous anastomosis of the graft with an 8 mm angioplasty balloon. Angioplasty was performed of high-grade stenosis at the level of a diseased venous valve within the left axillary vein with a 9 mm angioplasty balloon. Balloon dilatation was performed of focal moderate stenosis at the left subclavian vein at the 1st rib clavicle junction with the 12 mm angioplasty balloon. Postangioplasty views were obtained. A total of 70 ml of Isovue 300 contrast was used for the examination. Fluoroscopy time was 4.4 minutes. The patient cumulative radiation dose in milligray and milligray2, as well as the number of still images obtained are documented for the exam in PACS. FINDINGS: Left upper arm hemodialysis graft angiogram: The arterial anastomosis is patent to the brachial artery without stenosis. A patent stent graft is seen at the venous anastomosis with a moderate stenosis of the leading edge of the stent consistent with intimal hyperplasia. A high-grade web-like stenosis is seen in the axillary vein at the level of a diseased venous valve. There is high-grade stenosis seen at the left subclavian vein at the 1st rib clavicle junction. Angioplasty within the peripheral and central hemodialysis circuits: Balloon dilatation of the stenoses at the edge of the stent at the venous anastomosis of the graft with the 8 mm angioplasty balloon which showed good postangioplasty result without significant residual stenosis. Balloon dilatation of the axillary vein stenosis with a 9 mm balloon also showed good postangioplasty results. Balloon dilatation at the stenosis of the left subclavian vein at the 1st rib clavicle junction showed improvement in luminal diameter with mild elastic recoil. There was improved thrill within the graft. IMPRESSION: Patent left upper arm hemodialysis graft with venous stenoses in the peripheral and central dialysis segments which were successfully dilated as described above DICTATED BY: Randell Jama M.D. DATE DICTATED: 04/29/2018 Randell Jama MD IR ORDERABLES * IR ANGIO AV SHUNT (06/23/2017 10:05 AM FLIGHT DISPATCHER) Only the most recent of10 resultswithin the time period is included. Anatomical Region Laterality Modality Upper Extremity X-Ray Angiograph y Narrative 06/23/2017 10:12 AM FLIGHT DISPATCHER Nael Bunn MD 06/23/2017 10:12 AM [facility] [place] Maureen Ameser 1960 DATE OF PROCEDURE: 06/23/2017 ORDERING PHYSICIAN: Nael Bunn MD PROCEDURE: 1. Left upper arm AV graft fistulogram showing high-grade stenosis in the axillary vein and also in the innominate vein. 2. Central venous angioplasty of the left innominate vein with a 12 x 2 balloon with excellent results. 3. Peripheral venous angioplasty of the left axillary vein with a 9 x 4 balloon with excellent results. INDICATIONS FOR PROCEDURE: Increased pulsatility of left upper arm AV graft on physical examination by the quencher operator and a whistling sound in the graft at the dialysis center. DESCRIPTION OF PROCEDURE: Once the patient was prepped and draped in the usual sterile fashion she was given 1 percent lidocaine as local anesthetic. She tolerated this well. The micropuncture set was used to cannulate the proximal graft and fistulogram was obtained. There was excellent retrograde flow back to the arterial anastomosis. There was an excellent flow through the graft and into a axillary vein stent. There was however high-grade stenosis of the axillary vein past the stent. There was also high-grade stenosis of the left innominate vein just as the subclavian vein turns at the clavicle into the innominate vein. There was good flow into the superior vena cava. A 7 Djiboutian sheath was inserted and then a 9 x 4 balloon was inserted. Angioplasty of the peripheral axillary vein was performed with excellent results on completion angiography. We then removed this balloon and inserted a 12 x 2 balloon and angioplasty of the left innominate vein which also had excellent results on completion angiography. Patient tolerated the procedure well was found to be stable postoperatively. Preoperatively the patient understood the risks of the procedure to include bleeding, infection and recurrence stenosis. With all this in mind she want to go ahead with today's procedure. During the procedure we used 40 cc of Omnipaque and 1.5 minutes of fluoro time. DICTATED BY: Nael Bunn M.D./bertrand Interventional Post-Operative/Procedure Notes Surgeon: Nael Bunn MD Pre Procedure Diagnosis: ESRD Post Procedure Diagnosis: ESRD Anesthesia: Local 1% lidocaine and IV sedation Disposition: OPS Status: Stable Drain or Pack: None Additional Information/Complications: None Estimated Blood Loss: Negligible Specimen: None Surinder Whitaker MD IR ORDERABLES * STRESS TEST LEXISCAN (NUCLEAR) (09/01/2016) Marah Mittal MD CARDIAC SERVICES ORD ERABLES * CARDIAC PROCEDURE ORDER (08/21/2015 5:00 PM FLIGHT DISPATCHER) Narrative 08/21/2015 5:00 PM FLIGHT DISPATCHER Ordered by an unspecified provider. Scanned Document CARDIAC SERVICES ORD ERABLES * (ABNORMAL) GLUCOSE - POINT OF CARE (08/20/2015 12:49 PM FLIGHT DISPATCHER) Only the most recent of38 resultswithin the time period is included. Glucose WB/POC 127(H) 70 - 106 mg/dL 08/20/2015 1:17 PM FLIGHT DISPATCHER [facility] Blood BLOOD SPECIMEN / Unknown 08/20/2015 12:49 PM FLIGHT DISPATCHER 08/20/2015 1:17 PM FLIGHT DISPATCHER Sascha Alcaraz MD LAB - POINT OF CARE ORDERABLES [facility] [address] [place] [address] * HEPATITIS B SURFACE ANTIGEN (08/20/2015 6:11 AM FLIGHT DISPATCHER) Only the most recent of2 resultswithin the time period is included. HBsAg Non Reactive Non Reactive 08/20/2015 11:48 AM FLIGHT DISPATCHER [facility] Blood BLOOD SPECIMEN / Unknown 08/20/2015 6:11 AM FLIGHT DISPATCHER 08/20/2015 5:54 AM FLIGHT DISPATCHER Surinder Whitaker MD LAB - CHEMISTRY ORDE DANIKA [facility] [address] [place] [address] * (ABNORMAL) ACT - POINT OF CARE (08/18/2015 2:40 PM FLIGHT DISPATCHER) ACT POCT 250(A) 125 - 187 Seconds [facility] POCT TESTING QC Verified Yes Yes [facility] POC T TESTING Blood specimen (specimen) BLOOD SPECIMEN / Unknown 08/18/2015 2:40 PM FLIGHT DISPATCHER Sascha Alcaraz MD LAB - POINT OF CARE ORDERABLES [facility] POCT TESTING [address] [phone] * CARDIAC CATH PROCEDURE (08/18/2015 12:00 PM FLIGHT DISPATCHER) 08/18/2015 12:0 0 PM FLIGHT DISPATCHER Narrative Transcriptions Sascha Alcaraz MD - 08/18/2015 3:29 PM CST [facility] CARDIAC CATHETERIZATION PATIENT: MAUREEN SOMERS MR#: [id number] ADMIT DATE: 08/18/2015 CSN: [id number] PROCEDURE DATE: 08/18/2015 :1960 PHYSICIAN: Sascha Alcaraz MD ROOM: [facility] REFERRING PHYSICIAN: SASCHA ALCARAZ PROCEDURE: 1. Left heart catheterization. 2. Left ventriculography. 3. Selective coronary arteriography. CLINICAL SUMMARY: This is a 55-year-old white female with renal failureon hemodialysis. She presents with an abnormal dobutamine echo stress test showing reversible distal anterior and apical ischemia. Coronaryangiography was undertaken. TECHNIQUE: Katherin retrograde femoral percutaneous. SITE OF ENTRY: Right femoral artery. LOCAL ANESTHESIA: Xylocaine 1%. PREMEDICATIONS: Versed 2 mg IV. CATHETERS: A 5-Djiboutian arterial sheath, 5-Djiboutian pigtail, 5-Djiboutian JL4,5- [place]iboutian 3 DRC. PROCEDURE: The patient was brought to the catheterization laboratoryand prepped and draped in the usual sterile fashion. The right groin was anesthetized locally and the arterial sheath was inserted withoutdifficulty. Right heart catheterization was performed with blood gas samples andpressures obtained throughout the right heart chambers and the pulmonary artery. Cardiac outputs were determined by thermodilution and Haylie methods.Left ventriculogram was performed in the 30-degree GARCIA projection using 35 ccof Visipaque contrast at 14 cc per second. At the end of the procedure,the sheath was left in place for intervention to follow. COMPLICATIONS: None. HEMODYNAMICS: Preangiography Pressures: Aorta: 168/67 Left ventricle: 137/21. LEFT VENTRICULOGRAM: Left ventricular systolic and diastolic volumesare normal. Left ventricular contractility is normal without focalhypokinesis. No mitral valve prolapse or mitral insufficiency. CORONARY ARTERIOGRAM: This is a right dominant coronary circulation. Left main coronary artery: Normal. Left anterior descending artery: An 80% tubular mid LAD stenosis. Circumflex artery: A 60% mid circumflex stenosis. Right coronary artery: A 70% mid right coronary artery stenosis. FINDINGS: 1. Normal left ventricular systolic function. 2. Significant mid left anterior descending stenosis. 3. Borderline stenoses of the mid circumflex and mid right coronaryartery. RECOMMENDATIONS: Ad hoc stenting of the mid LAD will be undertaken. SASCHA ALCARAZ MD SIB/MODL #: [id number] cc: Juan F Avila Dr. MEDICAL/SURGICAL CARDIAC CATHETERIZATION - DP Sascha Alcaraz MD CARDIAC SERVICES ORD ERABLES [facility] * CARDIAC CATH CONSULT (for Epic Reporting) (08/18/2015 12:00 PM FLIGHT DISPATCHER) 08/18/2015 12:0 0 PM FLIGHT DISPATCHER Narrative Transcriptions Sascha Alcaraz MD - 08/18/2015 3:38 PM CST [facility] CARDIAC CATHETERIZATION PATIENT: MAUREEN SOMERS MR#: [id number] ADMIT DATE: 08/18/2015 CSN: [id number] PROCEDURE DATE: 08/18/2015 :1960 PHYSICIAN: Sascha Alcaraz MD ROOM: [facility] REFERRING PHYSICIAN: SASCHA ALCARAZ PROCEDURE: Drug-eluting stent deployment in the mid left anteriordescending artery. ARTERIAL SHEATH: A 6-Djiboutian short. GUIDING CATHETER: A 6-Djiboutian CLS 3.5. GUIDEWIRE: A 0.014 BMW and 0.014 Whisper. PROCEDURE DETAILS: The existing 5-Djiboutian arterial sheath was exchangedfor a 6-Djiboutian sheath without difficulty. Heparin 4500 units was given intravenously. The patient was given Brilinta 180 mg p.o. The leftcoronary guiding catheter was seated and guiding angiogram taken. The Whisper wirewas advanced into the 1st diagonal branch. The BMW wire was advanced to the distal LAD without difficulty. I attempted to pass a 3 x 24 mm Resolutedrug- eluting stent across the mid LAD stenosis, but it would not pass. Thestent was removed intact. The lesion was pre-dilated using a 3 x 20 mm balloonwith good expansion. Balloon was removed. The stent was readvanced acrossthe lesion and deployed at 14 atmospheres of pressure for 25 secondsinflation time with full balloon expansion. Balloon was deflated and removed.Final angiogram showed excellent angiographic result with 0% residual stenosisat the stent site. No edge dissection, thrombus formation or distal embolization. The jailed 1st diagonal branch remained patent withTIMI-3 distal flow. Guiding catheter, and guidewires were removed. Femoral angiogram showed good sheath position in the common femoralartery. The sheath was removed and a 6-Djiboutian Angio-Seal device deployed withgood hemostasis. No femoral hematoma. Pedal pulses intact. ACT at the endof procedure was 250 seconds. Patient returned to the holding area instable condition. COMPLICATIONS: None. CONCLUSIONS: Successful drug-eluting stent deployment in the mid left anterior descending coronary artery. SASCHA ALCARAZ MD SIB/MODL #: [id number] MEDICAL/SURGICAL CARDIAC CATHETERIZATION - DP Sascha Alcaraz MD ECHO ORDERABLES [facility] * (ABNORMAL) CBC W AUTO DIFFERENTIAL (08/18/2015 11:41 AM FLIGHT DISPATCHER) Only the most recent of3 resultswithin the time period is included. WBC 7.8 4.4 - 10.7 x10^9/L 08/18/2015 11:59 AM [facility] WBC Corrected x10^9/L 08/18/2015 11:59 AM [facility] RBC 3.73(L) 3.80 - 5.20 x10^12/L 08/18/2015 11:59 AM [facility] Hemoglobin 11.2(L) 12.0 - 15.6 gm/dL 08/18/2015 11:59 AM [facility] Hematocrit 36.1 35.9 - 45.5 % 08/18/2015 11:59 AM [facility] MCV 96.8 80.7 - 98.3 fl 08/18/2015 11:59 AM [facility] MCH 30.0 26.7 - 34.0 pg 08/18/2015 11:59 AM [facility] MCHC 31.0 30.8 - 35.9 gm/dL 08/18/2015 11:59 AM [facility] Platelet Count 250 153 - 416 x10^9/L 08/18/2015 11:59 AM [facility] RDW-CV 15.9(H) 12.1 - 14.9 % 08/18/2015 11:59 AM [facility] MPV 10.7 9.4 - 12.9 fl 08/18/2015 11:59 AM [facility] Neutrophils % 67.2 44.0 - 73.0 % 08/18/2015 11:59 AM [facility] Lymphocytes % 16.3(L) 20.0 - 43.0 % 08/18/2015 11:59 AM [facility] Monocytes % 9.4 5.0 - 13.0 % 08/18/2015 11:59 AM [facility] Eosinophils % 5.7 0.0 - 6.0 % 08/18/2015 11:59 AM [facility] Basophils % 0.9 0.0 - 2.0 % 08/18/2015 11:59 AM [facility] Immature Granulocytes 0.5 0 - 1 % 08/18/2015 11:59 AM [facility] Neutrophil Absolute 5.26 2.01 - 7.14 x10^9/L 08/18/2015 11:59 AM [facility] Lymphocytes Absolute 1.28 1.07 - 3.94 x10^9/L 08/18/2015 11:59 AM [facility] Monocytes Absolute 0.74 0.26 - 1.07 x10^9/L 08/18/2015 11:59 AM [facility] Eosinophils Absolute 0.45 0 - 0.47 x10^9/L 08/18/2015 11:59 AM [facility] Basophils Absolute 0.07 0 - 0.08 x10^9/L 08/18/2015 11:59 AM [facility] Immature Granulocytes Absolute 0.04 0.00 - 0.06 x10^9/L 08/18/2015 11:59 AM [facility] nRBC Auto 0 /100 WBC 08/18/2015 11:59 AM [facility] Blood BLOOD SPECIMEN / Unknown Lab Venipuncture / Unknown 08/18/2015 11:41 AM FLIGHT DISPATCHER 08/18/2015 11:54 AM [facility] Sascha Alcaraz MD LAB - HEMATOLOGY ORD ERABLES [facility] [address] [place] [address] * (ABNORMAL) BASIC METABOLIC PANEL (CALCIUM TOTAL) (08/18/2015 11:41 AM [facility]) Only the most recent of2 resultswithin the time period is included. Glucose 88 74 - 106 mg/dL 08/18/2015 12:16 PM [facility] Sodium 142 136 - 145 mmol/L 08/18/2015 12:16 PM [facility] Potassium 4.7 3.5 - 5.1 mmol/L 08/18/2015 12:16 PM [facility] Chloride 102 98 - 107 mmol/L 08/18/2015 12:16 PM [facility] CO2 35(H) 22 - 31 mmol/L 08/18/2015 12:16 PM [facility] Calcium 9.0 8.5 - 10.1 mg/dL 08/18/2015 12:16 PM [facility] Anion Gap 5 5 - 20 mmol/L 08/18/2015 12:16 PM FLIGHT DISPATCHER [facility] BUN 23(H) 7 - 21 mg/dL 08/18/2015 12:16 PM FLIGHT DISPATCHER [facility] Creatinine 2.90(H) 0.50 - 1.30 mg/dL 08/18/2015 12:16 PM FLIGHT DISPATCHER [facility] eGFR by MDRD 17(L) >60 mL/min/1.7 3m2 08/18/2015 12:16 PM FLIGHT DISPATCHER [facility] eGFR by MDRD 21(L) >60 mL/min/1.7 3m2 08/18/2015 12:16 PM FLIGHT DISPATCHER [facility] Blood BLOOD SPECIMEN / Unknown Lab Venipuncture / Unknown 08/18/2015 11:41 AM FLIGHT DISPATCHER 08/18/2015 11:54 AM FLIGHT DISPATCHER Sascha Alcaraz MD LAB - CHEMISTRY LYNDSEY [facility] Organization Address City/State/ZIP Co de Phone Number [facility] [address] [place] [id number] * VAS CAROTID DUPLEX BILATERAL (08/11/2015 9:22 AM FLIGHT DISPATCHER) Anatomical Region Laterality Modality Ultrasound 08/11/2015 8:43 AM FLIGHT DISPATCHER Narrative Procedure Note Randell Cruz MD - 08/11/[address] [address] Carotid Duplex Report Pat.Name: MAUREEN SOMERS Pat.ID: [id number] .Date: 08/11/2015 Exam Time: 8:43:00 AM Study Type:Carotid Age: 10 1960,55Y Sex: FEMALE Sonogrphr: Yasmnay Kirby RVT Pat. Stat.:Outpatient Reason for Study:Carotid bruit Procedures:Carotid Duplex - Bilateral Race: 2 Visit ID: [id number] SUMMARY: 50-69% stenosis of the left internal carotid artery. less than 50% stenosis of the right internal carotid artery. Arteriosclerotic plaque as described above. Antegrade flow in both vertebral arteries. FINDINGS: Procedure: The extracranial carotid systems were examined bilaterally with duplex and color flow imaging as well as spectral Doppler analysis. Study Quality: This study is of adequate technical quality. Rt Bulb: There is irregular, heterogenous and calcific plaque in the bulb.. Rt ICA: No obvious plaquing seen. Lt Bulb: There is irregular, heterogenous and calcific plaque in the bulb, extending into the ICA. Lt ICA: There is irregular, heterogenous and calcific plaque in the proximal ICA. Carotid Findings: Right Left Verteb.Flw Antegrade Antegrade MEASUREMENTS: DOPPLER ICA Prox ICA Prox PSV 170 cm/s ICA Prox EDV 65.5 cm/s Left CCA Dist CCA Dist PSV 89.6 cm/s CCA Dist EDV 29.1 cm/s Left CCA Mid CCA Mid PSV 96.6 cm/s CCA Mid EDV 29.9 cm/s Left CCA Prox CCA Prox PSV 130 cm/s CCA Prox EDV 28.3 cm/s Left ECA ECA PSV 137 cm/s ECA EDV 0 cm/s Left ICA Dist ICA Dist PSV 123 cm/s ICA Dist EDV 42.2 cm/s Left ICA Mid ICA Mid PSV 147 cm/s ICA Mid EDV 54.8 cm/s Left ICA/CCA ICA/CCA PSV 1.76 Left Vertebral Vertebral PSV 80.5 cm/s Vertebral EDV 29.5 cm/s Right CCA Dist CCA Dist PSV 60.4 cm/s CCA Dist EDV 9.97 cm/s Right CCA Mid CCA Mid PSV 77.4 cm/s CCA Mid EDV 6.45 cm/s Right CCA Prox CCA Prox PSV 80.9 cm/s CCA Prox EDV 7.04 cm/s Right ECA ECA PSV 101 cm/s ECA EDV 7.86 cm/s Right ICA Dist ICA Dist PSV 59.6 cm/s ICA Dist EDV 24.4 cm/s Right ICA Prox ICA Prox PSV 46 cm/s ICA Prox EDV 15.9 cm/s Right ICA/CCA ICA/CCA PSV 0.59 Right Vertebral Vertebral PSV 55.1 cm/s Vertebral EDV 9.97 cm/s Signed 08/11/2015 11:30 AM Randell Cruz MD Sascha Alcaraz MD VASCULAR LAB ORDERAB LES * EKG 12-LEAD (SPECIFY TIME) (08/08/2015 3:12 PM FLIGHT DISPATCHER) Only the most recent of2 resultswithin the time period is included. Ventricular Rate 72 BPM [facility] Atrial Rate 72 BPM [facility] P-R Interval 166 ms [facility] QRS Duration ms 92 ms [facility] Q-T Interval ms 444 ms [facility] QTC Calculation (Bezet) 486 ms [facility] Calculated P [place] 6 degrees [facility] Calculated R [place] -61 degrees [facility] Calculated T [place] 21 degrees [facility] Interpretation EKG Normal sinus rhythm Possible Left atrial enlargement Left axis deviation Anteroseptal infarct (cited on or before 05-JUN-2015) Abnormal ECG When compared with ECG of 05-JUN-2015 11:10, No significant change was found Confirmed by ISAI BISHOP ([id number]) on 08/19/2015 9:58:38 AM [facility] 08/08/2015 3:12 PM FLIGHT DISPATCHER 08/19/2015 9:58 AM FLIGHT DISPATCHER Sascha Alcaraz MD ECG ORDERABLES [facility] * ECHOCARDIOGRAM 2D WITH DOPPLER (06/08/2015 5:19 PM FLIGHT DISPATCHER) 06/08/2015 5:19 PM FLIGHT DISPATCHER [facility] CARDIAC SERVICES - 06/08/2015 7:06 PM FLIGHT DISPATCHER [address] [address] Transthoracic Echocardiogram 2D, M-mode, Doppler, and Color Doppler Patient: MAUREEN SOMERS MR number: [id number] Height: 60 in Weight: 140 lb BSA: 1.61 m Study date: 08-Jun-2015 : 1960 Age: 55 years Gender: Female Race: Allergies: FENTANYL Diagnoses: 427.5 - CARDIAC ARREST Reading Physician: Sascha Alcaraz MD Referring Physician: Earl Sin MD SCHOOL BUS DISPATCHER: Yonatan Kimbrough [facility] Cardiology Group: [facility] [facility] Room 623 @ 4415 Summary: - QUICK REPORTS: - Room 623 @ 6881 - Clinical question: - Cardiac/Pulmonary Arrest, Successful Resusitation - History: - Hypertension, Diabetes, Dialysis patient - Left ventricle: - Systolic function was normal. Ejection fraction was estimated in the range of 55 % to 65 %. - There were no regional wall motion abnormalities. - Wall thickness was normal. - Left atrium: - The atrium was mildly dilated. - Right ventricle: - The ventricle was mildly dilated. - Estimated peak pressure was 40 mmHg. - Tricuspid valve: - There was mild regurgitation. - Right atrium: - The atrium was mildly dilated. Indications: Cardiac/Pulmonary Arrest, Successful Resusitation History: Prior history: Hypertension, Diabetes, Dialysis patient Procedure: The study was performed in the [facility]. The transthoracic approach was used. The study included complete 2D imaging, M-mode, complete spectral Doppler, and color Doppler. Systolic blood pressure was 148 mmHg. Diastolic blood pressure was 57 mmHg. Image quality was adequate. Left ventricle: Size was normal. Systolic function was normal. Ejection fraction was estimated in the range of 55 % to 65 %. There were no regional wall motion abnormalities. Wall thickness was normal. Aortic valve: The valve was trileaflet. Leaflets exhibited mildly increased thickness and normal cuspal separation. Doppler: There was no stenosis. There was no regurgitation. Aorta: The root exhibited normal size. Mitral valve: Valve structure was normal. There was mild thickening. There was normal leaflet separation. Doppler: The transmitral velocity was within the normal range. There was no evidence for stenosis. There was no regurgitation. Left atrium: The atrium was mildly dilated. Right ventricle: The ventricle was mildly dilated. Systolic function was normal. Wall thickness was normal. Doppler: Estimated peak pressure was 40 mmHg. Pulmonic valve: Leaflets exhibited normal thickness, no calcification, and normal cuspal separation. Doppler: There was no regurgitation. Pulmonary artery: The size was normal. Doppler: Systolic pressure was within the normal range. Tricuspid valve: The valve structure was normal. There was normal leaflet separation. Doppler: The transtricuspid velocity was within the normal range. There was no evidence for tricuspid stenosis. There was mild regurgitation. Right atrium: The atrium was mildly dilated. Pericardium: The pericardium was normal in appearance. System measurement tables 2D LVOT Diam: 2 cm IVSd: 1.3 cm LVEDV MOD A4C: 74.7 ml LVESV MOD A4C: 35.1 ml LVIDd: 4.3 cm LVIDs: 2.8 cm LVPWd: 1.5 cm CW PV Vmax: 0.8 m/s AV Vmax: 1.3 m/s AV maxP.4 mmHg MV VTI: 47.8 cm MV Vmax: 1.7 m/s MV Vmean: 1.1 m/s MV maxP.6 mmHg MV meanP.5 mmHg PV maxP.7 mmHg TR Vmax: 2.9 m/s TR maxP.4 mmHg MM LA Diam: 4.3 cm AV Cusp: 2 cm Ao Diam: 2.6 cm PW LVOT Vmax: 1.1 m/s Septal E/e': 14.5 MIRNA Vmax, Pt: 2.9 cm2 MV A Larry: 1.2 m/s MV Dec [place]: 6.8 m/s2 MV E Larry: 1.3 m/s MV E/A Ratio: 1.1 MV PHT: 54.1 ms MVA By PHT: 4.1 cm2 Septal e': 0.1 m/s Prepared and signed by Sascha Alcaraz MD Signed 08-Jun-2015 19:06:21 Procedure Note Sascha Alcaraz MD - 06/08/[address] [address] Transthoracic Echocardiogram 2D, M-mode, Doppler, and Color Doppler Patient: MAUREEN SOMERS MR number: [id number] Height: 60 in Weight: 140 lb BSA: 1.61 m Study date: 08-Jun-2015 : 1960 Age: 55 years Gender: Female Race: Allergies: FENTANYL Diagnoses: 427.5 - CARDIAC ARREST Reading Physician: Sascha Alcaraz MD Referring Physician: Earl Sin MD SCHOOL BUS DISPATCHER: Yonatan Kimbrough [facility] Cardiology Group: [facility] Room 623 @ 7117 Summary: - QUICK REPORTS: - Room 623 @ 171 - Clinical question: - Cardiac/Pulmonary Arrest, Successful Resusitation - History: - Hypertension, Diabetes, Dialysis patient - Left ventricle: - Systolic function was normal. Ejection fraction was estimated in the range of 55 % to 65 %. - There were no regional wall motion abnormalities. - Wall thickness was normal. - Left atrium: - The atrium was mildly dilated. - Right ventricle: - The ventricle was mildly dilated. - Estimated peak pressure was 40 mmHg. - Tricuspid valve: - There was mild regurgitation. - Right atrium: - The atrium was mildly dilated. Indications: Cardiac/Pulmonary Arrest, Successful Resusitation History: Prior history: Hypertension, Diabetes, Dialysis patient Procedure: The study was performed in the [facility]. The transthoracic approach was used. The study included complete 2D imaging, M-mode, complete spectral Doppler, and color Doppler. Systolic blood pressure was 148 mmHg. Diastolic blood pressure was 57 mmHg. Image quality was adequate. Left ventricle: Size was normal. Systolic function was normal. Ejection fraction was estimated in the range of 55 % to 65 %. There were no regional wall motion abnormalities. Wall thickness was normal. Aortic valve: The valve was trileaflet. Leaflets exhibited mildly increased thickness and normal cuspal separation. Doppler: There was no stenosis. There was no regurgitation. Aorta: The root exhibited normal size. Mitral valve: Valve structure was normal. There was mild thickening. There was normal leaflet separation. Doppler: The transmitral velocity was within the normal range. There was no evidence for stenosis. There was no regurgitation. Left atrium: The atrium was mildly dilated. Right ventricle: The ventricle was mildly dilated. Systolic function was normal. Wall thickness was normal. Doppler: Estimated peak pressure was 40 mmHg. Pulmonic valve: Leaflets exhibited normal thickness, no calcification, and normal cuspal separation. Doppler: There was no regurgitation. Pulmonary artery: The size was normal. Doppler: Systolic pressure was within the normal range. Tricuspid valve: The valve structure was normal. There was normal leaflet separation. Doppler: The transtricuspid velocity was within the normal range. There was no evidence for tricuspid stenosis. There was mild regurgitation. Right atrium: The atrium was mildly dilated. Pericardium: The pericardium was normal in appearance. System measurement tables 2D LVOT Diam: 2 cm IVSd: 1.3 cm LVEDV MOD A4C: 74.7 ml LVESV MOD A4C: 35.1 ml LVIDd: 4.3 cm LVIDs: 2.8 cm LVPWd: 1.5 cm CW PV Vmax: 0.8 m/s AV Vmax: 1.3 m/s AV maxP.4 mmHg MV VTI: 47.8 cm MV Vmax: 1.7 m/s MV Vmean: 1.1 m/s MV maxP.6 mmHg MV meanP.5 mmHg PV maxP.7 mmHg TR Vmax: 2.9 m/s TR maxP.4 mmHg MM LA Diam: 4.3 cm AV Cusp: 2 cm Ao Diam: 2.6 cm PW LVOT Vmax: 1.1 m/s Septal E/e': 14.5 MIRNA Vmax, Pt: 2.9 cm2 MV A Larry: 1.2 m/s MV Dec [place]: 6.8 m/s2 MV E Larry: 1.3 m/s MV E/A Ratio: 1.1 MV PHT: 54.1 ms MVA By PHT: 4.1 cm2 Septal e': 0.1 m/s Prepared and signed by Sascha Alcaraz MD Signed 08-Jun-2015 19:06:21 Earl Sin MD ECHO ORDERABLES [facility] * XR HAND 3+ VW LEFT (06/07/2015 2:02 PM FLIGHT DISPATCHER) Anatomical Region Laterality Modality Wrist / Hand Radiographic Loli ging 06/07/2015 2:33 PM FLIGHT DISPATCHER Narrative 06/07/2015 2:34 PM FLIGHT DISPATCHER Left hand Indication for examination: Swelling and pain left hand 3 views of the left hand show no acute fracture. There is no bone destruction or erosive arthritis. There is considerable arterial calcification. Articulations appear intact. Conclusion: No fracture or bone destruction identified. Considerable arterial calcification. Procedure Note Delio Guillory MD - 06/07/2015 Left hand Indication for examination: Swelling and pain left hand 3 views of the left hand show no acute fracture. There is no bone destruction or erosive arthritis. There is considerable arterial calcification. Articulations appear intact. Conclusion: No fracture or bone destruction identified. Considerable arterial calcification. David Winkler MD DIAGNOSTIC IMAGING O RDERABLES * XR HUMERUS 2+ VW LEFT (06/06/2015 2:35 PM FLIGHT DISPATCHER) Anatomical Region Laterality Modality Upper Extremity Radiographic Loli ging 06/06/2015 3:09 PM FLIGHT DISPATCHER Narrative 06/06/2015 3:11 PM FLIGHT DISPATCHER Left humerus Indication for examination: Left arm pain and reduced range of motion A two-view examination of the left humerus shows acute fracture left humeral neck with near-anatomic alignment. No other fracture is identified. There is no bone destruction. Conclusion: Left humeral neck fracture. Dr. Sin is aware of this finding. Procedure Note Delio Guillory MD - 06/06/2015 Left humerus Indication for examination: Left arm pain and reduced range of motion A two-view examination of the left humerus shows acute fracture left humeral neck with near-anatomic alignment. No other fracture is identified. There is no bone destruction. Conclusion: Left humeral neck fracture. Dr. Sin is aware of this finding. David Winkler MD DIAGNOSTIC IMAGING O RDERABLES * (ABNORMAL) HEMOGLOBIN A1C (06/06/2015 4:28 AM FLIGHT DISPATCHER) Hemoglobin A1c 8.3(H) 4.2 - 6.3 % 06/06/2015 6:19 AM FLIGHT DISPATCHER [facility] Estimated Average Glucose 192 mg/dL 06/06/2015 6:19 AM FLIGHT DISPATCHER [facility] Whole Blood BLOOD SPECIMEN WITH EDTA / Unknown 06/06/2015 4:28 AM FLIGHT DISPATCHER 06/06/2015 6:00 AM FLIGHT DISPATCHER Edy Erazo DO LAB - CHEMISTRY OR DERABLES Performing Organization Address [facility] de Phone Number [facility] [address] [place] [address] * TROPONIN I (06/05/2015 5:19 PM FLIGHT DISPATCHER) Only the most recent of3 resultswithin the time period is included. Pathologist [facility] Troponin I 0.025 0.000 - 0.049 ng/mL 06/05/2015 5:45 PM FLIGHT DISPATCHER [facility] Blood BLOOD SPECIMEN / Unknown 06/05/2015 5:19 PM FLIGHT DISPATCHER 06/05/2015 5:19 PM FLIGHT DISPATCHER Narrative [facility] - 06/05/2015 5:45 PM FLIGHT DISPATCHER Note: Diagnosis of myocardial infarction requires symptoms of ischemia or EKG changes of ischemia and Troponin I >99th of normal (0.05 ng/mL). Troponin should be drawn on initial assessment and 3-6 hours later as clinically indicated. Any condition resulting in myocardial cell damage can increase cardiac troponin levels. In addition to myocardial infarction, these include but are not limited to congestive heart failure (CHF), arrhythmia, myocarditis, and non-cardiac related causes such as pulmonary embolism, renal failure and sepsis. Edy Grace Castro LAB - CHEMISTRY OR DERABLES Performing Organization Address [facility] de Phone Number [facility] [address] [place] [address] * HEPATITIS B SURFACE ANTIBODY QUANT (06/05/2015 2:41 PM FLIGHT DISPATCHER) [facility] Hepatitis B Virus Surface Antibody <3.10 IU/L 06/08/2015 4:21 PM FLIGHT DISPATCHER [facility] ([facility]) Comment: The anti-HBs is less than 10 IU/L and is therefore negative. There is no evidence of recovery from hepatitis B infection or evidence of antibody response to HBV vaccination. An anti-HBs result greater than or equal to 10 IU/L implies immunity. For post-vaccination antibody testing guidelines for the general public refer to MMWR June 24, 2005/Vol. 54(No. 16);1-23, and for healthcare workers refer to MMWR June 21, 2013/Vol. 62(No. 10);1-19. Reference Interval: anti-HBs 9.99 IU/L or less ....... Negative 10.00 IU/L or greater .... Positive Results greater than 1,000.00 IU/L are reported as greater than 1,000.00 IU/L. Blood specimen (specimen) BLOOD SPECIMEN / Unknown 06/05/2015 2:41 PM FLIGHT DISPATCHER 06/05/2015 2:43 PM FLIGHT DISPATCHER Surinder Whitaker MD LAB - SEROLOGY ORDER [facility] ([facility]) [address] [place], [place] [id number], [facility] * XR CHEST 1VW PORTABLE (06/05/2015 11:25 AM FLIGHT DISPATCHER) Anatomical Region Laterality Modality Chest Radiographic Loli ging 06/05/2015 11:2 8 AM FLIGHT DISPATCHER Impressions 06/05/2015 11:28 AM FLIGHT DISPATCHER Normal AP chest x-ray. Narrative 06/05/2015 11:28 AM FLIGHT DISPATCHER PORTABLE AP CHEST INDICATION: Personal history of other medical treatment unresponsive, altered mental status DATE AND TIME OF EXAMINATION: 06/05/2015 11:28 AM FINDINGS: Single AP view of the chest shows the lungs to be expanded and clear. The cardiac and mediastinal silhouettes and pulmonary vascularity are within normal limits. Procedure Note Marika Gonzales MD - 06/05/2015 PORTABLE AP CHEST INDICATION: Personal history of other medical treatment unresponsive, altered mental status DATE AND TIME OF EXAMINATION: 06/05/2015 11:28 AM FINDINGS: Single AP view of the chest shows the lungs to be expanded and clear. The cardiac and mediastinal silhouettes and pulmonary vascularity are within normal limits. IMPRESSION Normal AP chest x-ray. Edy Erazo DO DIAGNOSTIC IMAGING ORDERABLES * (ABNORMAL) COMPREHENSIVE METABOLIC PANEL (06/05/2015 10:20 AM FLIGHT DISPATCHER) Glucose 132(H) 74 - 106 mg/dL 06/05/2015 10:45 AM FLIGHT DISPATCHER [facility] Sodium 140 136 - 145 mmol/L 06/05/2015 10:45 AM FLIGHT DISPATCHER [facility] Potassium 4.7 3.5 - 5.1 mmol/L 06/05/2015 10:45 AM [facility] Chloride 105 98 - 107 mmol/L 06/05/2015 10:45 AM [facility] CO2 29 22 - 31 mmol/L 06/05/2015 10:45 AM [facility] Calcium 8.4(L) 8.5 - 10.1 mg/dL 06/05/2015 10:45 AM [facility] Anion Gap 6 5 - 20 mmol/L 06/05/2015 10:45 AM [facility] BUN 66(H) 7 - 21 mg/dL 06/05/2015 10:45 AM [facility] Creatinine 5.60(H) 0.50 - 1.30 mg/dL 06/05/2015 10:45 AM [facility] Alkaline Phosphatase 104 38 - 126 U/L 06/05/2015 10:45 AM [facility] ALT 17 12 - 78 U/L 06/05/2015 10:45 AM [facility] AST 20 5 - 40 U/L 06/05/2015 10:45 AM [facility] Protein Total 6.1(L) 6.4 - 8.2 gm/dL 06/05/2015 10:45 AM [facility] Albumin 3.0(L) 3.4 - 5.0 gm/dL 06/05/2015 10:45 AM [facility] Bilirubin Total 0.2 0.2 - 1.0 mg/dL 06/05/2015 10:45 AM [facility] eGFR by MDRD 8(L) >60 mL/min/1.7 3m2 06/05/2015 10:45 AM [facility] eGFR by MDRD 10(L) >60 mL/min/1.7 3m2 06/05/2015 10:45 AM [facility] Blood BLOOD SPECIMEN / Unknown 06/05/2015 10:20 AM [facility] 06/05/2015 10:23 AM [facility] Edy Erazo DO LAB - CHEMISTRY OR DERABLES [facility] [address] [place] [address] * HCG URINE QUALITATIVE - POINT OF CARE (IP) (05/12/2015 9:07 AM FLIGHT DISPATCHER) HCG Qual Urine Negative Negative [facility] POCT TEST[facility] QC Verified Yes Yes [facility] POC T TESTING Urine specimen (specimen) URINE / Unknown 05/12/2015 9:07 AM FLIGHT DISPATCHER Nikko Reid MD LAB - POINT OF CARE ORDERABLES [facility] [address] [phone] * VAS HEMODIALYSIS ACCESS SCAN (04/13/2015 11:07 AM CDT) Anatomical Region Laterality Modality Ultrasound 04/13/2015 10:5 4 AM CDT Narrative Procedure Note Nael Bunn MD - 04/13/2015 [facility] [address] [address] [facility], [address] [place] [address] Hemodialysis Graft Report Pat.Name: MAUREEN SOMERS Dean Pat.ID: [id number] St.Date: 04/13/2015 Exam Time: 10:54:00 AM Study Type:Hemodialysis Graft Age: 10 1960,55Y Sex: FEMALE Sonogrphr: Sam Oglesby RVT Pat. Stat.:Outpatient ICD - 9: I77.0 Arteriovenous fistula CPT - 4: 20802 Procedures:AV Fistula Evaluation Race: 1 Visit ID: [id number] SUMMARY: Patent left upper basilic AV fistula FINDINGS: Procedure: B-mode imaging, color flow Doppler and spectral analysis were used to evaluate the AV fistula in the upper arm of the left upper extremity. Study Quality: This study is of adequate technical quality. Lt Arm: There is patent AV fistula involving the Lt basilic vein and the brachial artery. The average diameter measured 4.6 mm proximally, 4.5 mm mid, and 5.6 mm distally. Signed 04/13/2015 02:42 PM Nael Bunn MD Nael Bunn MD VASCULAR LAB ORDER [facility] * VAS VESSEL MAPPING FOR HEMODIALYSIS (03/02/2015 12:17 PM CDT) Anatomical Region Laterality Modality Ultrasound 03/02/2015 11:3 5 AM CDT Narrative Procedure Note Nael Bunn MD - 03/02/2015 [facility] [address], [address] [place] [address] Vessel Mapping for Hemodialysis Report Pat.Name: MAUREEN SOMESR Pat.ID: [id number] St.Date: 03/02/2015 Exam Time: 11:35:00 AM Study Type:Vessel Mapping for Hemodialysis Age: 10 1960,54Y Sex: FEMALE Sonogrphr: Sam Oglesby RVT Pat. Stat.:Outpatient ICD - 9: 585.6 CPT - 4: G0365 Procedures:Vessel Mapping for Hemodialysis Visit ID: [id number] SUMMARY: The left basilic vein in the upper arm is adequate for access. FINDINGS: Procedure: Duplex vein mapping was carried out in the left upper extremity. Study Quality: This study is of adequate technical quality. Mapping Lt: The left cephalic vein is not patent and compressible. The left basilic vein is patent and compressible. The left basilic vein measured .31 cm just below the antecubital fossa, .36 cm in the mid arm, and .64 cm in the upper portion of the arm. Signed 03/02/2015 03:01 PM Nael Bunn MD Nael Bunn MD VASCULAR LAB ORDER [facility] Care Teams Manager Studio Relationship Specialty Start Date End Date Juan F Avila MD [address] [place] [address] PCP - General Internal Medicine 03/02/15 Sandy White, RN [address] [place] [address] Call Manager 08/18/15
--- OUTSIDE RECORDS SUMMARY | 2024-09-09 18:29 | XMS_ITS | Clinical Summary ---
Author Organization [facility] Address [address] [place] [address] Phone Care Team Providers Care Piping Designer Name Role Phone Juan F Avila MD Primary Care Provider [phone] Allergies Active Allergy Reactions Criticality Noted Date Comments Fentanyl Anaphylaxis High 08/02/2016 Heart stops Medications atorvastatin (LIPITOR) 40 MG Tablet Take 40 mg by mouth nightly. 6 Active carvedilol (COREG) 25 MG Tablet Take 25 mg by mouth 2 times daily. 7 Active clopidogrel (PLAVIX) 75 MG Tablet Take 75 mg by mouth daily. 6 Active fluconazole (DIFLUCAN) 100 MG Tablet Take 100 mg by mouth daily. 7 Active GLUCAGON EMERGENCY 1 MG Kit 1 mg by Subcutaneous route as needed. 6 Active hydrALAZINE 50 MG Tablet Take 100 mg by mouth daily. 6 Active HUMALOG 100 UNIT/ML Solution by Subcutaneous route continuous. 6 Active losartan (COZAAR) 50 MG Tablet Take 100 mg by mouth daily. 6 Active minoxidil (LONITEN) 2.5 MG Tablet Take 2.5 mg by mouth 2 times daily. 7 Active predniSONE (DELTASONE) 1 MG Tablet Take 1 mg by mouth daily. 7 Active neomycin-polymy izzy-dexamethaso ne (MAXITROL) 3.5-72015-2.1 Ointment Admin uses topical on dialysis 6 Active Active Problems Problem Noted Date Diagnosed Date Carpal tunnel syndrome, right 08/11/2016 Family History Medical History Relation Name Comments No Known Problems Father Heart Attack Mother Relation Name Status Comments Father Alive Mother Social History Tobacco Use Types Packs/Day Years Used Date Smoking Tobacco: Never Smokeless Tobacco: Never Alcohol Use Standard Drinks/Week Comments No 0 (1 standard drink = 0.6 oz pur e alcohol) Comments Unknown Sex and Gender Information Value Date Recorded Sex Assigned at Not on file Legal Sex Female 8:00 PM CDT Gender Identity Not on file Sexual Orientation Not on file Last Filed Vital Signs Vital Sign Reading Time Taken Comments Blood Pressure 157/68 08/11/2016 2:35 PM TARIFF CLERK Pulse 75 08/11/2016 2:35 PM TARIFF CLERK Temperature 35.3 C (95.5 F) 08/11/2016 2:35 PM TARIFF CLERK Respiratory Rate 16 08/11/2016 2:35 PM TARIFF CLERK Oxygen Saturation 98% 08/11/2016 2:35 PM TARIFF CLERK Inhaled Oxygen Concentration - - Weight 63.5 kg (140 lb) 08/01/2016 1:00 PM TARIFF CLERK Height 154.9 cm (5' 1 ) 08/01/2016 1:00 PM TARIFF CLERK Body Mass Index 26.45 08/01/2016 1:00 PM TARIFF CLERK Plan of Treatment Health Maintenance Due Date Last Done Comments Hepatitis C Virus (HCV) Screening 1962 TdaP Immunization 1962 SARS-COV-2 Immunization (#1) 1967 Pneumococcal Immunization Co mbined (1 of 2 - PCV) 1968 Pneumococcal Immunization (5 0+ years) (1 of 2 - PCV) 1981 Zoster Immunization (1 of 2) 1981 Pap Smear 1983 Cervical Cancer Screening (CCS) 1992 HPV/Cotest 1992 Colonoscopy 2007 Colorectal Cancer Screening 2007 Cologuard 2012 Immunochemical Fecal Occult Blood 2012 Mammogram 2012 Respiratory Syncytial Virus (RSV) Immunization (Adult) (1 - Risk 60-74 years 1-dose series) 2022 Influenza Immunization (#1) 2024 Hepatitis B Immunization Aged Out No longer eligible based on patient's age to complete this topic Meningococcal Immunization (ACWY) Aged Out No longer eligible based on patient's age to complete this topic Rotavirus Immunization Aged Out No lo nger eligible based on patient's age to complete this topic Insurance MEDICARE Care Teams Piping Designer Relationship Specialty Start Date End Date Juan F Avila MD [address] [place] [address] PCP - General Internal Medicine 07/28/16
--- OUTSIDE RECORDS SUMMARY | 2024-09-09 18:30 | XMS_ITS | Clinical Summary ---
Author Organization [facility] Address [address] [place] [id number] Care Team Providers Care Sccm Administrator Name Role Phone Unavailable Primary Care Provider Unavailabl e Social History Tobacco Use Types Packs/Day Years Used Date Smoking Tobacco: Never Assessed Comments Unknown Sex and Gender Information Value Date Recorded Sex Assigned at Not on file Legal Sex Female 9:47 PM CDT Gender Identity Not on file Sexual Orientation Not on file Last Filed Vital Signs Vital Sign Reading Time Taken Comments Blood Pressure 118/56 02/02/2016 9:35 AM CDT Pulse 77 02/02/2016 9:35 AM CDT Temperature - - Respiratory Rate - - Oxygen Saturation - - Inhaled Oxygen Concentration - - Weight 63.1 kg (139 lb) 02/02/2016 9:35 AM CDT Height 152.4 cm (5') 02/02/2016 9:35 AM CDT Body Mass Index 27.15 02/02/2016 9:35 AM CDT Plan of Treatment Health Maintenance Due Date Last Done Comments Cervical Cancer Screening Pa p Smear (Age 30 to 64) Every 3 Years 1962 Colorectal Cancer Screening Colonoscopy (10 Years) 1962 Annual Physical 1965 Hepatitis C 1980 DTaP, Tdap and Td Vaccines ( 1 - Tdap) 1981 Cervical Cancer Screening Pa p with HPV Testing (Age 30 to 64) Every 5 Years 1992 Cervical Cancer Screening with HPV 1992 Mammogram Screening 2002 Zoster Vaccines (1 of 2) 2012 COVID-19 Vaccine (2023-2 5 season) 2024 Influenza Adult (#1) 2024 04/02/2015 RSV Immunization or 60+ Years (1 - 1-dose 75+ series) 2037 Pneumococcal Vaccine: Pediat rics (0 to 5 Years) and At-Risk Patients (6 to 64 Years) Aged Out 04/02/2015 No longer eligi ble based on patient's age to complete this topic Meningococcal B Vaccine Aged Out No l onger eligible based on patient's age to complete this topic Meningococcal Vaccine Aged Out No rose bladimir eligible based on patient's age to complete this topic RSV Immunizations Under 20 Months Aged Out No longer eligible based on patient's age to complete this topic
--- OUTSIDE RECORDS SUMMARY | 2024-09-09 18:30 | XMS_ITS ---
Author Organization [facility] ([facility]) Address [address] [place] [id number] Care Team Providers Care Digital Marketing Associate Name Role Phone Unavailable Unavailable Unavailable Allergies, Adverse Reactions, Alerts This patient has no known allergies or adverse reactions. Problems This patient has no known problems.
== END 2024-09-09 15:49 | disposition home or self-care (01) ==
PROVIDERS: PCP Internal Medicine; Visit Provider Internal Medicine
DX: R10.31 Right lower quadrant pain (principal); Z94.0 Kidney transplant status
CPT/HCPCS: 36415; 74176; 80053; 81001; 82150; 83690; 85025

== ENCOUNTER 2024-09-13 12:58 | Outpatient (CLI) | payer MEDICARE, SELFPAY ==
--- OUTSIDE RECORDS SUMMARY | 2024-09-13 13:09 | XMS_ITS | Referral Summary ---
Author Organization [facility] Address [address] [place] [address] Care Team Providers Care Master Chef Name Role Phone Mayela Greenberg RN Unavailable Mayela Greenberg RN Unavailable [phone] Jacqueline Baum PT Unavailable Unavailabl Ricco Hall MD Unavailable [phone] Juan F Avila MD Primary Care Provider [phone] Encounters Date Type Department Care Team Description 09/11/2024 Telephone [facility] Endocrinology Metabolism and Lipid [address] [facility] [address] [place] [address] [place] [address] Lashay Hein RN [facility] 08/30/2024 Documentation [facility] and [facility] Transplant Kidney [address] Mailstop [id number] [place] [address] Maria Isabel Peterson 08/02/2024 Telephone [facility] Endocrinology Metabolism and Lipid [address] [facility] [address] [place] [address] [place] [address] Jovita Langford RMA CMN ([employer]) 07/21/2024 Telephone [facility] Endocrinology Metabolism and Lipid [address] [facility] [address] [place] [address] [place] [address] Lashay Hein RN [employer] pump supplies 07/17/2024 11:00 AM IGNITER CAPPER Clinical Support [facility] Endocrinology Metabolism and Lipid [address]th [place] [address] [place] [address] Maxine Freire RN 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) (Primary Dx) 07/17/2024 1:00 PM IGNITER CAPPER Office Visit [facility] Endocrinology Metabolism and Lipid [address] [place] [address] [place] [address] Ricco Dunn MD 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) (Primary Dx); Dyslipidemia 07/15/2024 Telephone [facility] Gastroenterology [address] [place] [address] [place] [address] Gillian Castillo LPN 07/15/2024 Orders Only [facility] [address] [place] [address] Shawna Jovel NP Elevated liver enzymes (Primary Dx) 07/12/2024 Orders Only [facility] Nephrology [address] 5[address] [place] [address] [place] [address] Gabby Cardoza MD 07/10/2024 2:30 PM IGNITER CAPPER - 07/10/2024 11:59 PM IGNITER CAPPER Hospital Encounter [facility] Pain Center at the [facility] Advanced Medicine [address] [place] [address] Delio Jimenez MD Connective tissue and disc stenosis of intervertebral foramina of lumbar region; Spinal stenosis of lumbar region with neurogenic claudication Discharge Disposition: Discharge to home or self care 07/05/2024 Telephone [facility] Pain Center at the [facility] [address] [place] [address] Delio Jimenez MD PMC Preprocedure from Last 3 Months Allergies Active Allergy Reactions Criticality Noted Date Comments Fentanyl Anaphylaxis High 06/05/2015 Heart stops Lisinopril Cough Low 05/12/2016 Medications aspirin 81 mg tabletIndicatio ns:prevention of thrombosis Take 1 tablet (81 mg total) by mouth every morning 04/26/20 07 Active blood-glucose sensor (DEXCOM G6 SENSOR) device Use one Dexcom G6 sensor every 10 days 1 Device 11 04/18/20 19 Active blood-glucose transmitter (DEXCOM G6 TRANSMITTER) device Use one Dexcom G6 transmitter every 90 days 1 Device 3 04/18/20 19 Active senna-docusate (PERICOLACE) 8.6-50 mgIndications:c onstipation Take 1 tablet by mouth as needed for constipation 04/24/20 19 Active multivitamin with iron tabletIndicatio ns:Vitamin Deficiency Prevention Take 1 tablet by mouth every morning 30 tablet 11 04/24/20 19 Active cholecalciferol (VITAMIN D-3) 2000 unit capsuleIndicati ons:Vitamin D Deficiency Take 1 capsule (2,000 Units total) by mouth every morning 90 capsule 3 07/31/19 21 Active triamcinolone (KENALOG) 0.1 % ointment Apply topically 2 (two) times a day as needed for rash Apply on itchy areas on upper arms/chest/back 180 g 2 11/07/19 21 Active acetaminophen (TYLENOL) 500 mg tabletIndicatio ns:Pain Take 1 tablet (500 mg total) by mouth as needed for pain Active alendronate (FOSAMAX) 35 mg tablet 03/25/20 22 Active ketorolac (ACULAR) 0.5 % ophthalmic solution INSTILL 1 DROP INTO BOTH EYES TWICE DAILY NEEDED FOR PAIN 04/20/20 23 Active insulin glargine (LANTUS) 100 unit/mL (3 mL) pen for injection ADMINISTER 20 UNITS UNDER THE SKIN ONCE DAILY IN CASE OF PUMP FAILURE 15 mL 3 06/05/[address] (CYMBALTA) 30 mg capsule Take 1 capsule (30 mg total) by mouth daily 07/12/19 24 Active predniSONE (DELTASONE) 5 mg tabletIndicatio ns:Kidney replaced by transplant TAKE 1 TABLET(5 MG) BY MOUTH DAILY 90 tablet 3 09/11/19 24 Active fluconazole (DIFLUCAN) 200 mg tabletIndicatio ns:Fungal Infection of Lung Take 1 tablet (200 mg total) by mouth daily 30 tablet 2 12/04/19 [address] (MYFORTIC) 360 mg EC tabletIndicatio ns:Prevention of Kidney Transplant Rejection Take 1 tablet (360 mg total) by mouth daily 30 tablet 11 01/01/20 24 2024 Active furosemide (LASIX) 40 mg tablet Take 1 tablet (40 mg total) by mouth daily 30 tablet 11 01/03/20 24 2024 Active glucagon (Baqsimi) 3 mg/actuation spray,non-aeros olIndications:T ype 1 diabetes mellitus with other kidney complication (HCC) mg (one actuation) into a single nostril for low blood sugar that does not correct with oral intake or if confused; if no response, may repeat in 15 minutes using a new intranasal device. 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 MAXIMUM TOTAL DAILY DOSE 66 UNITS DAILY 20 mL 6 03/19/20 24 Active amLODIPine (NORVASC) 5 mg tablet TAKE 1 TABLET(5 MG) BY MOUTH EVERY NIGHT 90 tablet 3 06/10/20 24 Active omeprazole (PriLOSEC) 20 mg capsule Take 1 capsule (20 mg total) by mouth daily 05/30/20 24 Active tacrolimus XR (Envarsus XR) 0.75 mg tablet extended release 24 hrIndications:K idney replaced by transplant Take 2 tablets (1.5 mg total) by mouth daily 60 tablet 06/14/20 24 2024 Active carvediloL (COREG) 25 mg tablet TAKE 1 TABLET(25 MG) BY MOUTH TWICE DAILY 180 tablet 3 08/16/19 25 Active rosuvastatin (CRESTOR) 40 mg tablet TAKE 1 TABLET(40 MG) BY MOUTH EVERY NIGHT 90 tablet 2 08/20/19 25 Active carvediloL (COREG) 25 mg tablet TAKE 1 TABLET(25 MG) BY MOUTH TWICE DAILY 180 tablet 3 08/18/19 24 2024 Discontinued rosuvastatin (CRESTOR) 40 mg tablet TAKE 1 TABLET(40 MG) BY MOUTH EVERY NIGHT 90 tablet 2 11/20/19 24 2024 Discontinued Active Problems Patient Care Coordination No te Formatting of this note migh t be different from the original. Lab: [facility] SO: Q-Monthly FK; Q-3 Routine HgbA1C (02/27/2025) Home Health: [facility] Local Pharmacy: [facility] Problem Noted Date Diagnosed Date Abnormal cardiovascular stress test 02/26/2024 Chronic systolic heart failure 01/24/2024 Assessment & Plan (04/30/2024 2:43 PM CDT): On therapeutic dosing of carvedilol and losartan. Volume status well controlled on Lasix. If continued decline in LV function, can add SGLT2 inhibitor and spironolactone. Also has left bundle-branch block Assessment & Plan (01/24/2024 4:55 PM CDT): Echo with new mild LV dysfunction. In the setting of known coronary disease and also left bundle-branch block. Will check nuclear stress test for further evaluation. In the interim continue current medical therapy. She is euvolemic on current diuretic dosing. We will recheck follow-up echo with next visit. If there is decline over time can consider MINE SUPERVISOR referral if no other explanation Spondylosis of lumbar region without myelopathy or radiculopathy 09/26/2023 Connective tissue and disc s tenosis of intervertebral foramina of lumbar region 04/15/2023 Thoracic back pain 03/30/2023 Spinal stenosis of lumbar re gion with neurogenic claudication 03/30/2023 Compression fracture of T12 vertebra with routin e healing 01/30/2022 Age-related osteoporosis wit h current pathological fracture with routine healing 01/30/2022 Female stress incontinence 12/07/2021 Overview (12/07/2021): Added automatically from request for surgery [id number] Urinary incontinence 09/10/2021 Urinary incontinence without sensory awareness 0 03/05/2021 Diastolic dysfunction 07/31/2020 Assessment & Plan (07/31/2020 9:03 AM IGNITER CAPPER): She has a history of grade 1 diastolic dysfunction on her most recent echo. She is euvolemic on examination today. We will continue to monitor. Complication of dialysis access insertion 2019 Left arm swelling 02/19/2020 Insulin pump fitting or adjustment 01/18/2019 Elevated liver enzymes 10/17/2018 Assessment & Plan (01/29/2024 2:29 PM CDT): Maureen Somers presents for evaluation of elevated liver tests. Lab work 12/18/2023 reveals AST 39, ALT 40, most recent lab work 01/02/2024 reveals AST 23, ALT 20. Patient denies alcohol. I have suspicion for metabolic associated steatotic liver dysfunction (MASLD) with patient's underling metabolic conditions of hyperlipidemia, hypertension, Type 1 DM, Obesity BMI 36. I will rule out other etiologies of elevated liver tests including autoimmune, genetic, iron overload and viral. I will obtain right upper quadrant ultrasound for further evaluation of the liver and bile ducts. I will obtain Fibroscan to evaluate degree of hepatic steatosis and fibrosis. Avoid alcohol and supplements. Limit Tylenol to < 2,000 mg/day. Further recommendations and management based on the above findings. Follow up in 1 year. Assessment & Plan (10/17/2018 9:31 AM CDT): Patient's recent labs 10/10/2018 notable for elevated liver enzymes. She is asymptomatic. Will repeat CMP next week. In discussion with the pharmacist following review of patient's med list, she has other medications that could potentially be contributing to elevated liver enzymes. Encounter for removal of ureteral stent 08/27/19 19 Kidney replaced by transplant 07/27/2018 Assessment & Plan (01/23/2023 11:50 AM CDT): -long-term use of immunosuppressants in steroids complicates diabetes management Assessment & Plan (07/18/2022 5:31 PM IGNITER CAPPER): -long-term use of immunosuppressants in steroids complicates diabetes management Assessment & Plan (01/04/2022 2:54 PM CDT): -long-term use of immunosuppressants in steroids complicates diabetes management Assessment & Plan (06/02/2021 4:25 PM IGNITER CAPPER): -long-term use of immunosuppressants in steroids complicates diabetes management Assessment & Plan (07/31/2019 10:10 AM IGNITER CAPPER): The patient has history of renal transplant. Long-term use of immunosuppressants and steroids complicates diabetes management. Assessment & Plan (07/30/2018 4:16 PM IGNITER CAPPER): -Cr continues to downtrend, patient's UOP more than adequate -Continue Bactrim as ppx; Valcyte to start 2/ -Continue Vit D -Richards x 2 wks d/t small bladder Assessment & Plan (07/27/2018 5:05 PM IGNITER CAPPER): -IVF decreased today -Cr continues to downtrend, patient's UOP more than adequate -Continue Bactrim as ppx; Valcyte to start POD #8 -Continue Vit D Essential hypertension 07/19/2018 Assessment & Plan (04/24/2023 11:16 AM CDT): SBP improved after increasing losartan to 100 mg daily, continue coreg 25 mg BID. Assessment & Plan (01/25/2023 1:25 PM CDT): -BP today is 116/75 -Will continue same antihypertensive medications at this time. Assessment & Plan (10/21/2022 10:45 AM CDT): Her blood pressure log shows suboptimal control at home. I will increase her losartan to 100 mg going to follow up basic metabolic profile in 1 week. I asked her to monitor her blood pressure twice a day at home to ensure adequate control. Assessment & Plan (07/19/2022 2:08 PM IGNITER CAPPER): -BP today is 139/77 -Will continue same antihypertensive medications at this time. Assessment & Plan (01/10/2022 1:47 PM CDT): -BP today is 147/78 -Will continue same antihypertensive medications at this time. Assessment & Plan (01/29/2021 11:25 AM CDT): Her blood pressure is at goal. She monitors her blood pressure closely at home with trans generally in the 110s/50-60s. We will continue losartan 50 mg daily, carvedilol 25 mg twice daily. Assessment & Plan (07/31/2020 9:03 AM IGNITER CAPPER): She has a history of hypertension and brings in a blood pressure log for review today. Approximately 50% of her values are above a systolic of 130. We will add losartan 50 mg daily due to her history of allergy to lisinopril. We will plan to check labs in a week or so. We have reviewed all recent labs and data. She continues on carvedilol 25 mg twice a day. Assessment & Plan (12/13/2019 8:38 AM CDT): Her blood pressure is a at home is measure lower than expected. She does have very mild orthostatics symptoms. However she does have several systolics over 130. I will increase her carvedilol to 25 mg twice a day. I asked her to monitor her blood pressure at home and to call with any worsening orthostatic symptoms Assessment & Plan (06/07/2019 9:15 AM IGNITER CAPPER): Her blood pressure goal should be systolic of less than 130. She is not consistently achieving this. I have asked her to increase carvedilol to 12.5 mg b.i.d. And monitor blood pressure at home. Assessment & Plan (04/18/2019 11:44 AM CDT): Blood pressure 158/77 today. Continue same medications. Continue to monitor. Assessment & Plan (11/23/2018 9:11 AM CDT): Blood pressure has been under good control both here and her home readings. She should continue to check her blood pressure at home. Continue carvedilol 6.25 mg twice daily. Dyslipidemia 07/19/2018 Assessment & Plan (01/23/2023 11:51 AM CDT): -last lipid panel dated 10/14/2022: Total cholesterol 128, triglycerides 141, HDL 64, LDL 42 -continue same medication management Assessment & Plan (10/21/2022 10:45 AM CDT): She had a recent lipid profile on a high-intensity statin which shows excellent control. I will maintain her current dose. Assessment & Plan (07/18/2022 5:30 PM IGNITER CAPPER): -Last labs dated 04/29/22: TC 134, trig 120, HDL 61, LDL 52 -Continue rosuvastatin as she is tolerating it without side effects. Assessment & Plan (01/10/2022 2:07 PM CDT): -Last labs dated 10/07/21: TC 135, trig 99, HDL 66, LDL 51 -Continue rosuvastatin as she is tolerating it without side effects. Assessment & Plan (07/31/2019 10:09 AM IGNITER CAPPER): Continue Crestor. Tolerating without side effects. Assessment & Plan (04/18/2019 11:44 AM CDT): Continue Crestor. Tolerating without side effects. ESRD (end stage renal disease) 06/06/2018 Overview (06/06/2018): Added automatically from request for surgery [id number] Assessment & Plan (07/30/2018 1:07 PM IGNITER CAPPER): S/p renal transplant. On immunosuppressants and steroids which complicate diabetes management. Assessment & Plan (07/29/2018 4:32 PM IGNITER CAPPER): S/p renal transplant. On immunosuppressants and steroids which complicate diabetes management. Assessment & Plan (07/27/2018 10:54 AM IGNITER CAPPER): S/p renal transplant. On immunosuppressants and steroids which complicate diabetes management. Assessment & Plan (07/26/2018 5:54 PM IGNITER CAPPER): S/p renal transplant. On immunosuppressants and steroids which complicate diabetes management. Non-rheumatic mitral regurgitation 05/12/2018 Overview (10/21/2022): Mild echo 2021 Assessment & Plan (04/24/2023 11:17 AM CDT): Mild in 2021. Monitor clinically. Assessment & Plan (10/21/2022 10:45 AM CDT): Shehad an echo in March of 2022 which continues to show mild mitral regurgitation. Will continue to monitor this clinically. Assessment & Plan (01/29/2021 11:23 AM CDT): She is euvolemic on exam and has no complaints of increasing dyspnea on exertion. Her regurgitation was mild on her last echo in 2019. We will continue follow this clinically. If no clinical indication, will repeat an echo assessment in 3-5 years. Assessment & Plan (07/31/2020 9:02 AM IGNITER CAPPER): She has a history of mild mitral regurgitation on TTE in 2018. We will repeat an echo every 3-5 years for surveillance if not sooner should she develop other symptoms. We have reviewed all recent labs and data. Assessment & Plan (12/13/2019 8:37 AM CDT): This was mild on echo 2 years ago. She does have some ongoing dyspnea on exertion. I will check an NT proBNP for monitoring. If this is elevated, I will repeat an echocardiogram. Assessment & Plan (06/07/2019 9:02 AM IGNITER CAPPER): This was mild on echo with a little over year ago. She is having no signs or symptoms to suggest this is worsened. In the absence of signs or sent symptoms to suggest worsening mitral regurgitation, I will likely grade 2023 before repeating an echo. Assessment & Plan (11/23/2018 9:11 AM CDT): Her mitral regurgitation was mild on echo in 2018. Unless she develops further symptoms, she can have surveillance repeat echocardiography in 5 years. 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 Patient understands that she should stay on the Fluconazole indefinitely since she requires immune suppression after her kidney transplant. Assessment & Plan (10/17/2018 9:30 AM CDT): CT in July 2018 was stable/slightly improved Continue Fluconazole for maintenance at dose of 200 mg po daily given her improved renal function continuous churn buttermaker fluconazole routine lab monitoring: CMP 10/10/2018 concerning for elevated liver enzymes. Will follow with repeat CMP next week. Patient understands that she should stay on the Fluconazole indefinitely since she requires immune suppression after her recent kidney transplant. Assessment & Plan (07/30/2018 4:18 PM IGNITER CAPPER): -Continue Diflucan as chronic suppression Assessment & Plan (07/27/2018 5:04 PM IGNITER CAPPER): -Continue Diflucan as chronic suppression Encounter for long-term (current) use of antibio tics 04/21/2018 Assessment & Plan (10/25/2019 6:08 PM CDT): Recent labs reviewed without concern for antibiotic toxicities. RTC 6 months for standard office visit this year. Atherosclerosis of [place] co ronary artery of [place] heart without angina pectoris 11/24/2016 Overview (05/18/2018): Coronary artery disease with history of previous Resolute drug-eluting stent to the mid LAD. Most recent cardiac catheterization in October of 2016 demonstrated a patent stent in the mid LAD. There was a 70% lesion in the [id number] right coronary artery with an iFR value of 0.68. This was treated with a 225 x 38 and and two 5 x 32 Synergy drug-eluting stents. Nuclear stress test November 29, 2017 showed normal perfusion without ischemia Assessment & Plan (04/30/2024 2:42 PM CDT): TRAVELING CLERK of the circumflex, well collateralized by the RCA. No angina at this time. Shortness of breath resolved with Lasix. We will make no changes to regimen at this time. On aspirin, high-intensity statin. LDL at goal Assessment & Plan (01/24/2024 4:55 PM CDT): Recheck stress test given new LV systolic dysfunction in the setting of known coronary disease Assessment & Plan (04/24/2023 11:41 AM CDT): CAD with YUNI to Mid LAD, PCI with mid-distal RCA in 2017. Asymptomatic in clinic. Continue ASA, Coreg 25 mg BID, losartan 100 mg daily and crestor 40 mg daily. LDL 54 in April 2023 Follow up in [address] Meek. Assessment & Plan (10/21/2022 10:45 AM CDT): She remains angina free. We will continue her current medical therapy. Assessment & Plan (01/29/2021 11:20 AM CDT): She has no anginal complaints. Will continue medical therapy with aspirin, beta-rolando, high-intensity statin. Assessment & Plan (07/31/2020 9:01 AM IGNITER CAPPER): She has a history of coronary disease with stenting with her last drug-eluting stent placed in 2016. She has no angina symptoms currently. We will continue her aspirin and rosuvastatin. We have reviewed all recent labs and documentation. Assessment & Plan (12/13/2019 8:39 AM CDT): She remained angina free and a good medical regimen. I will make no changes. Assessment & Plan (06/07/2019 9:04 AM IGNITER CAPPER): She is angina free. She is on excellent medical regimen. I will make no changes to it. Assessment & Plan (11/23/2018 9:12 AM CDT): She is status post placement of 2 drug-eluting stents to the right coronary artery in 2017 as well as previously PCI to the LAD as well. She is not having any angina at this time. She should continue to take her aspirin, beta-rolando and statin (increase rosuvastatin to 40 mg daily). Assessment & Plan (05/18/2018 9:32 AM IGNITER CAPPER): Currently angina free and had recent nuclear stress test in the last 6 months that was negative for ischemia. - Continue ASA 81mg daily, rosuvastatin 20mg daily, coreg 25mg BID - No further workup necessary prior to proceeding with renal transplant - Continue betablocker in the perioperative period Carpal tunnel syndrome, right 08/11/2016 Bilateral carotid bruits 08/04/2015 Overview (12/13/2019): 50-69% stenosis of the left internal carotid artery. less than 50% stenosis of the right internal carotid artery. Arteriosclerotic plaque as described above. Antegrade flow in both vertebral arteries. carotid Dopplers 2017 Assessment & Plan (12/13/2019 8:39 AM CDT): She had she carotid Dopplers 2 years ago is which showed 50-69% stenosis of the left internal carotid artery. less than 50% stenosis of the right internal carotid artery. She had no circ detail like symptoms. We will continue the be pursued on of anti-platelet therapy, blood pressure control, and the above management. Assessment & Plan (06/07/2019 9:04 AM IGNITER CAPPER): She is 50-69% stenosis in left internal carotid and left 50% stenosis in the right internal carotid on carotid Dopplers in 2015. She has not had any TIA or stroke- like symptoms. I will continue to maximize risk factor modification with blood pressure control, antiplatelet therapy and high-intensity statin. Complication of transplanted organ 07/30/2015 Immunosuppression 01/14/2015 Proteinuria 05/21/2014 Diabetic hypoglycemia 10/25/2013 Onychomycosis due to dermatophyte 04/25/2013 Obstructive sleep apnea syndrome 03/14/2013 Migraine headache 11/28/2012 Snoring 11/28/2012 Osteoarthritis 08/01/2012 Callus 07/26/2012 Chronic tension headache 02/16/2011 Insomnia 02/16/2011 Aftercare following organ transplant 10/30/2010 Type 1 diabetes mellitus with kidney complicatio n 07/10/2006 Assessment & Plan (01/25/2023 1:25 PM CDT): -Currently using tandem insulin pump and Dexcom, with control IQ -A1C on 01/25/23 was 7.3% -There is a pattern of blood sugars dropping around 5-7 am. Will adjust 4 am-11 am basal rate from 0.5-->0.45 units/hr. There are days where she only has one carb amount entered. She is having spikes at times where it appears she has eaten but carbs are not entered. Will continue same carb ratios for now, and she will focus to ensure she is entering carbs consistently. If she continues to have post-meal spikes, will tighten carb ratio. Will follow with her response. -Advised to call with any concerns/complaints regarding glucose readings -Eye exam is up to date -Will be seen by the foot nurse today Assessment & Plan (07/19/2022 2:08 PM IGNITER CAPPER): -Currently using tandem insulin pump and Dexcom, with control IQ -A1C on 07/19/22 was 6.7% -Dexcom download indicates post-meal spikes, most notably after lunch. Will adjust ICR at 11 am from 6-->5.5, and 12:30 pm from 5-->4.5. She has noticed drops in blood sugar after getting up, before eating. Will decrease 4 am- 11 am basal from 0.55-->0.5 units/hr. Will follow with her response. -Advised to call with any concerns/complaints regarding glucose readings -Eye exam is scheduled for the end of July 2022 -Was seen by the foot nurse today Assessment & Plan (01/10/2022 2:05 PM CDT): -Currently using tandem insulin pump and Dexcom, with control IQ -A1C on 01/10/22 was 7.2% -Dexcom download indicates some post meal excursions related to timing of boluses, occasionally missing boluses. Will continue same pump settings for now, and continue to work on taking boluses prior to meals. -Advised to call with any concerns/complaints regarding glucose readings -Eye exam is up to date -Was seen by the foot nurse today Assessment & Plan (06/02/2021 4:24 PM IGNITER CAPPER): -Currently using tandem insulin pump and Dexcom, with control IQ -Dexcom download indicates some post meal glucose excursions. Will adjust carb ratio at 12:30 p.m. from 5.5--> 5, 6:00 p.m. from 6.5--> 6, and at 9:00 p.m. from 6.5--> 6. Will follow with her response. -Advised to call with any concerns/complaints regarding glucose readings -Eye exam is up to date; she will be having upcoming surgery for a wrinkle in her eye Assessment & Plan (10/10/2019 8:55 AM CDT): The patient has type 1 diabetes, currently using a Medtronic insulin pump and dex com G6 for her diabetes management. Hemoglobin A1c was 8.5% at today's visit of July 31, 2019. Dex com download indicates time in range of 41.6%. She has a pattern a persistent hyperglycemia overnight. Throughout the day her glucose readings are more variable. She is bolusing 10-15 minutes prior to her meal. At this time, will increase her midnight basal rate from 0.55 units/hour to 0.6 units/hour and follow with her response. Her eye exam is up-to-date. Labs are up-to-date per the transplant team. I would recommend prescriptive footwear due to her foot deformity and callouses. She will return in 3 months for follow-up. Assessment & Plan (04/18/2019 11:46 AM CDT): The patient has type 1 diabetes, status post renal transplant. She is currently using a Medtronic insulin pump and a dex com G5 for her diabetes management. Her hemoglobin A1c on April 16, 2019 was 8.3%. Dex com download indicates overnight hyperglycemia and some post meal glucose excursions. Will increase her basal rate overnight from 0.5 units/hour to 0.55 units/hour. Will follow with her response. Labs were reviewed and are up-to-date. She was seen by the foot nurse today. Labs are up-to-date per the transplant team. Flu shot given today. She will return in 3 months for follow- up. Assessment & Plan (07/30/2018 4:18 PM IGNITER CAPPER): Patient to have insulin pump placed back on today -F/U with Endocrine recommendations Assessment & Plan (07/30/2018 1:07 PM IGNITER CAPPER): Maureen Somers is a 58 y.o. female with PMHx of ESRD secondary to HTN, type 1 DM, CAD s/p PCO, HLD, ALFREDO, kidney transplant in 200, failed in 2013 presents for renal transplant. On medtronic pump at home, seen by Dr. Mayfield, A1C 7.3%. Prednisone decreased to 20 mg daily today. BG at goal yesterday. Plan: NPH 3 units q 8 hrs. Humalog 4 units tid with meals. Will resume back on insulin pump prior to discharge at previous home settings (simmilar to current requirements). Follow up with Dr. Mayfield. Assessment & Plan (07/29/2018 4:35 PM IGNITER CAPPER): Maureen Somers is a 58 y.o. female with PMHx of ESRD secondary to HTN, type 1 DM, CAD s/p PCO, HLD, ALFREDO, kidney transplant in , failed in 2013 presents for renal transplant. On medtronic pump at home, seen by Dr. Mayfield, A1C 7.3%. Prednisone decreased to 20 mg daily today. BG at goal yesterday. Plan: Does not want to be on pump while in hospital and would prefer us managing her insulin regimen. She has all supplies with her to restart when ready. NPH 3 units q8h Humalog 3 units tid with meals Low dose sliding scale ac + hs Assessment & Plan (07/27/2018 5:04 PM IGNITER CAPPER): Patient wears an insulin pump at baseline. She does not feel comfortable restarting this today -Endocrine c/s, currently on insulin gtt, will f/u recommendations Assessment & Plan (07/27/2018 10:54 AM IGNITER CAPPER): Maureen Somers is a 58 y.o. female with PMHx of ESRD secondary to HTN, type 1 DM, CAD s/p PCO, HLD, ALFREDO, kidney transplant in 200, failed in 2013 presents for renal transplant. F/u with Dr. Mayfield. A1C 7.3%. Wt 80kg Steroids- Received Methylprednisolone 500 mg in OR. Insulin pump= Medtronic minimed Basal 000-- 0.375 0900- 0.425 Total basal 9.75 Carb ratio 0000-10 1200-8 Sensitivity 85 Target- [phone] [id number]. Prednisone 80 mg on 07/27 and 07/28. Prednisone 20 mg starting 07/29/18. Plan: Continues on insulin drip. Does not want to be on pump while in hospital and would prefer us managing her insulin regimen. Recommend transitioning off insulin drip with NPH 4 units. NPH 4 units 10 am NPH 4 units 6 pm NPH 3 units at 2 am. Humalog 4 units tid with meals Low dose sliding scale ac + hs Will continue to monitor for further adjustments as the dose of steroids changes. Assessment & Plan (07/26/2018 5:53 PM IGNITER CAPPER): Maureen Somers is a 58 y.o. female with PMHx of ESRD secondary to HTN, type 1 DM, CAD s/p PCO, HLD, ALFREDO, kidney transplant in 200, failed in 2013 presents for renal transplant. F/u with Dr. Mayfield. A1C 7.3%. Wt 80kg Steroids- Received Methylprednisolone 500 mg in OR. Insulin pump= Medtronic minimed Basal 000-- 0.375 0900- 0.425 Total basal 9.75 Carb ratio 0000-10 1200-8 Sensitivity 85 Target- [id number]. Plan: Recommend continuing on insulin drip tonight. Difficult to assess needs with postoperative stress, high dose steroids on board and very sensitive type 1 diabetic. Will reassess the needs tomorrow. Please continue the drip at atleast 0.5 units/kg body weight. If blood sugars are trending low, can titrate the dextrose drip. Assessment & Plan (06/27/2018 4:58 PM IGNITER CAPPER): Her overall blood sugar average on the dex com is 205 for the last 2 weeks and above goal She is using a dex com an insulin pump but needs a minor adjustment. See the dex com above Her total daily dose is about 20 units Will adjust her carb ratio at dinner and this will allow her to have a little more insulin for food and will adjust her sensitivity around the clock to avoid hypoglycemia I am going to gently decrease the midnight through 3:00 a.m. Basal setting a little bit to avoid getting low overnight I have asked her to see our educator in the next 2 weeks prior to her surgery Basal Change midnight 0.375 per hour and then the rest the same Change the dinner carb ratio to 1 unit per 8 g Change the sensitivity 85 from 80 See educator July 13, 2017 surgery is scheduled July 26 for transplant Will alert the diabetes team so they can be involved in her care in the hospital She also needs to avoid the central abdomen which has a large area of lipohypertrophy present Anemia 07/10/2006 Diabetic peripheral neuropathy 07/10/2006 SOB (shortness of breath) Assessment & Plan (12/13/2019 8:36 AM CDT): She complains of dyspnea on exertion. This is somewhat of a chronic finding. She appears euvolemic on examination. She did have mild mitral regurgitation echocardiogram 2 years ago. I feel deconditioning is playing a prominent role. I would like to check an NT proBNP to further assess this. Resolved Problems Problem Noted Date Diagnosed Date Resolved Date CKD (chronic kidney disease) stage 3, GFR 30-59 ml/min 08/06/2018 03/05/2021 History of renal transplant 08/06/2018 10/23/2018 Encounter for aftercare foll owing kidney transplant 07/19/2018 08/14/2018 Diabetes mellitus type 2, uncomplicated 02/16/2017 04/12/2022 High risk medications (not a nticoagulants) long-term use 08/25/2016 03/05/2021 Assessment & Plan (07/30/2018 4:17 PM IGNITER CAPPER): -Continue Myfortic 360 BID -Decrease Envarsus to 4 mg/day; levels 9.8 today<--7.6 -Continue Pred 20 Assessment & Plan (07/27/2018 5:07 PM IGNITER CAPPER): -Continue Myfortic 720 BID -Per patient's body weight, call for Envarsus 6; however, patient on chronic Diflucan, consider starting lower dose -Patient was 5 mg/kg Thymo; received 75 07/27 and will receive 175 today and 150 tomorrow -Continue Pred 80 CKD (chronic kidney disease) stage 5, GFR less than 15 ml/min ([facility]) 07/31/2015 03/05/2021 Overview (05/12/2018): T End-stage renal disease, on hemodialysis Ewdzjqq-Sjzqlqdv-Uuxtjzpy. 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 Currently being evaluated for repeat transplantation with another living-related donor (her sister). HTN (hypertension), benign 07/31/2015 0 10/23/2018 Assessment & Plan (05/18/2018 9:31 AM IGNITER CAPPER): Well controlled today - Continue carvedilol 25mg BID, hydralazine 100mg, losartan 100mg daily, minoxidil 2.5mg daily Dependent on hemodialysis ([facility]) 09/26/2013 03/05/2021 Diabetes mellitus type 1, un controlled, with complications 07/26/2012 04/12/2022 Assessment & Plan (08/08/2018 5:28 PM IGNITER CAPPER): Patient is currently on insulin pump - glycemic control has been complicated by recent renal transplant resulting in improved creatinine clearance and prednisone 20 mg which have increased patient's insulin requirements. KALEB, hyperkalemia, and hyperglycemia have been improving since presentation but control of latter has been sub-optimal. Presentation was likely multifactorial with interplay between hyperglycemia, Bactrim, and calcineurin inhibitor. - Increase basal rate for period from 9:00 AM to 12 AM from 0.475 --> 0.525 and 12 AM to 9:00 AM from 0.425 --> 0.475, decrease carbohydrate ratio to 1:6 for meals, decrease sensitivity correction to 1 unit for 30 > 125. Pump adjustment performed at bedside and patient was educated on correctional bolus dosing. She will follow up in endocrine clinic early next week - patient is aware that appt has already been scheduled. - Continue rosuvastatin 20 mg Hyperlipidemia 07/10/2006 03/05/2021 Assessment & Plan (01/29/2021 11:25 AM CDT): Her LDL was suppressed to 52 on lipid panel in October of this year. Her last LFTs were within normal limits at this time as well. We will continue high-intensity statin with rosuvastatin 40 mg daily. Assessment & Plan (07/31/2020 9:03 AM IGNITER CAPPER): She continues on high-intensity statin and her LDL checked yesterday was 52. We will make no changes. Assessment & Plan (12/13/2019 8:40 AM CDT): She has excellent control 6 months ago under high-intensity statin. I will continue her current dose of rosuvastatin. Assessment & Plan (06/07/2019 9:01 AM IGNITER CAPPER): She is on a high-intensity statin. A lipid profile earlier this year shield she has good control on her current dose of rosuvastatin. I will make no changes to her regimen. Assessment & Plan (11/23/2018 9:12 AM CDT): In an effort to get her LDL below 70, we will increase her rosuvastatin 40 mg daily at this time. Assessment & Plan (05/18/2018 9:31 AM IGNITER CAPPER): Last LDL 58 in 10/2017 - Continue statin at current dose Immunizations Immunization Administration Dates Next Due Influenza, Quadrivalent, Jovita l Culture-based MDCK, Preservative Free, Antibiotic Free, Intramuscular 04/18/2019 Influenza, Quadrivalent, Spl it, Preservative Free, Intramuscular 04/30/2021,03/12/2020 Influenza, Trivalent, IM (MDV) 04/18/2016,2012 Influenza, Trivalent, Preser vative Free, Intramuscular 07/02/2199,04/24/2014,05/02/2012,04/05 Influenza, Unspecified 04/02/2013 Pfizer SARS-CoV-2 Monovalent Vaccination (12+ Yrs) PURPLE 09/03/2021,03/05/2021,10/02/2020,09/14 Pneumococcal Conjugate PCV 13 02/09/2015, 014 Pneumococcal Conjugate, Unspecified 04/02/2011 Pneumococcal Polysaccharide PPV23 04/26/2007 Social History Tobacco Use Types Packs/Day Years Used Date Smoking Tobacco: Never Smokeless Tobacco: Never Tobacco Cessation:Counseling Given: No Alcohol Use Standard Drinks/Week Comments No 0 (1 standard drink = 0.6 oz pur e alcohol) AUDIT-C Answer Date Recorded Q1: How often do you have a drink containing alcohol? Never 03/14/2024 Q2: How many drinks containi ng alcohol do you have on a typical day when you are drinking? Patient does not drink Q3: How often do you have si x or more drinks on one occasion? Never 03/14/2024 Hunger Vital Sign Answer Date Recorded Within the past 12 months, y ou worried that your food would run out before you got the money to buy more. Never true 03/30/20 23 Within the past 12 months, t he food you bought just didn't last and you didn't have money to get more. Never true 03/30/2023 Personal Safety Answer Date Recorded Have you ever been in or are you currently in a harmful physical or emotional relationship or is someone making you feel afraid or unsafe? Denies 03/14/2024 Comments No Sex and Gender Information Value Date Recorded Sex Assigned at Not on file Legal Sex Female 3:45 AM IGNITER CAPPER Gender Identity Female 07/04/2024 5:02 PM IGNITER CAPPER Sexual Orientation Not on file Last Filed Vital Signs Vital Sign Reading Time Taken Comments Blood Pressure 137/77 07/17/2024 11:05 AM IGNITER CAPPER Pulse 74 07/17/2024 11:05 AM IGNITER CAPPER Temperature 36.7 C (98 F) 07/17/2024 11:05 AM IGNITER CAPPER Respiratory Rate 19 07/10/2024 4:52 PM IGNITER CAPPER Oxygen Saturation 97% 07/10/2024 5:13 PM IGNITER CAPPER Inhaled Oxygen Concentration - - Weight 84.8 kg (187 lb) 07/17/2024 11:05 AM IGNITER CAPPER Height 149.9 cm (4' 11 ) 07/17/2024 11:05 AM IGNITER CAPPER Body Mass Index 37.77 07/17/2024 11:05 AM IGNITER CAPPER Plan of Treatment Not on file Goals Goal Patient Goal Type Associated Problems Recent Progress Patient-Stated? Author CCM Chronic Pain Care Plan Chronic Care Management On track(2024 2:54 PM IGNITER CAPPER) Luz Sandoval RN Note: Problem: Chronic Pain Goals: 1. Minimize further functional decline 2. Maximize quality of life 3. Control pain Strategies: - Activity/exercise program recommendation - Conservative stepwise pain medicine strategy with multi-disciplinary approach - Recommend healthy lifestyle strategies and compensatory methods as needed Medical Devices Implanted Type Area Facilities Manager Device Identifier Shelf Expiration Date Model / Serial / Lot [employer] Sophie Angio-Seal Vip 6fr Closere Device [id number] - [id number] - [id number] Implanted:Qty: 1 on 03/14/2024 by Richar Gurrola MD at [facility] Collagen Left: Common Femoral Artery [employer] Sophie 10/15/2024 [id number] / [id number] / [id number] Cardiac Stent X 2 N/A: Heart [employer] Gynecare Tvt 18x.5in System Transobturator Midurethral Sling [id number] - [id number] Implanted:Qty: 1 on 01/24/2022 by Norman Carver MD at [facility] N/A: Urethra [employer] [id number] 06/01/2022 [id number] / / Explanted Type Area Facilities Manager Device Identifier Shelf Expiration Date Model / Serial / Lot Circon-Surgite k [id number]-J 6fr 20cm 100cm 1 Step Insert Push Catheter Narberth Suture - Sxx - [id number] Implanted:Qty: 1 on 07/26/2018 by Rachelle Austin MD PhD at [facility] Explanted:Qty: 1 on 08/27/2018 by Jean Claude Coffey, DANIA Stent Left: Ureter Circon-Surgitek 01/19/2023 [id number] / XX / [id number] Description:Transplant urete r Procedures Procedure Name Priority Date/Time Associated Diagnosis Comments POCT GLUCOSE 32928 Routine 07/17/2024 11:09 AM IGNITER CAPPER 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) TACROLIMUS, HIGHLY SENSITIVE, LC/MS/MS Routine 07/12/2024 9:06 AM IGNITER CAPPER RENAL FUNCTION PANEL Routine 07/12/2024 9:06 AM IGNITER CAPPER HEPATIC FUNCTION PANEL, SERUM Routine 07/12/2024 9:06 AM IGNITER CAPPER LIPID PANEL Routine 07/12/2024 9:06 AM IGNITER CAPPER CBC WITH AUTO DIFFERENTIAL Routine 07/12/2024 9:06 AM IGNITER CAPPER HEMOGLOBIN A1C Routine 07/12/2024 9:06 AM IGNITER CAPPER COPY(IES) SENT TO: Routine 07/12/2024 9: 06 AM IGNITER CAPPER PAIN MGMT IMAGING LUMBAR/CAUDAL EPIDURAL STEROID INJ Schedule Routine, Read Routine (OP Routine) 07/10/2024 5:02 PM IGNITER CAPPER Connective tissue and disc stenosis of intervertebral foramina of lumbar region Spinal stenosis of lumbar region with neurogenic claudication HEPATITIS C ANTIBODY Routine 01/29/2024 2:27 PM CDT Elevated liver enzymes TSH Routine 01/29/2024 2:27 PM CDT Elevated liver enzymes Other hyperlipidemia COLONOSCOPY IMAGES 04/26/2016 from Last 3 Months or Most Recently Relevant to Health Maintenance Results * POCT glucose (07/17/2024 11:09 AM IGNITER CAPPER) Glucose Blood, POC 133 mg/dL Blood 07/17/2024 11:0 9 AM IGNITER CAPPER us Ricco Dunn MD POINT OF CARE TEST ORDERABLES F inal Result * (ABNORMAL) Tacrolimus, Highly Sensitive, LC/MS/MS (07/12/2024 9:06 AM IGNITER CAPPER) [facility] Tacrolimus, Highly Sensitive, LC/MS/MS 4.5(L) mcg/L [facility] Comment: No definitive therapeutic or toxic ranges have been established. Optimal blood drug levels are influenced by type of transplant, patient response, time post- transplant, co-administration of other drugs, and drug formulation. The following trough range is a suggested guideline: 5.0-20.0 mcg/L. 07/12/2024 9:06 AM IGNITER CAPPER 07/12/2024 9:07 AM IGNITER CAPPER Narrative [facility] - 07/15/2024 3:19 PM IGNITER CAPPER AP FASTING:YES FASTING: YES Gabby Cardoza MD LAB BLOOD ORDERABLES Final Resu lt Performing Organization Address City/[facility]/ZIP Co de Phone Number [facility] [address] [place] [address] * COPY(IES) SENT TO: (07/12/2024 9:06 AM IGNITER CAPPER) [facility] COPY(IES) SENT TO: [facility]YA Comment: [facility] - COPY TO [facility] [address] [place] [address] 07/12/2024 9:06 AM IGNITER CAPPER 07/12/2024 9:07 AM IGNITER CAPPER Narrative [facility] - 07/15/2024 3:19 PM IGNITER CAPPER AP FASTING:YES FASTING: YES Gabby Cardoza MD LAB BLOOD ORDERABLES Final Resu lt [facility] * Hepatic Function Panel, Serum (07/12/2024 9:06 AM IGNITER CAPPER) [facility] Protein, sr 7.0 6.1 - 8.1 g/dL [facility] Albumin 4.2 3.6 - 5.1 g/dL [facility] GLOBULIN 2.8 1.9 - 3.7 g/dL (calc) [facility] Alb/glob ratio 1.5 1.0 - 2.5 (calc) [facility] Bilirubin, total 0.4 0.2 - 1.2 mg/dL [facility] Bilirubin, direct 0.1 < OR = 0.2 mg/dL [facility] Bilirubin, indirect 0.3 0.2 - 1.2 mg/dL (calc) [facility] Alk phos 91 37 - 153 U/L [facility] AST 19 10 - 35 U/L [facility] ALT (SGPT) 18 6 - 29 U/L [facility] 07/12/2024 9:06 AM IGNITER CAPPER 07/12/2024 9:07 AM IGNITER CAPPER Narrative [facility] - 07/15/2024 3:19 PM IGNITER CAPPER AP FASTING:YES FASTING: YES us Gabby Cardoza MD LAB BLOOD ORDERABLES Final Resu lt [facility] [address] [facility] [place] [address] * (ABNORMAL) CBC with auto differential (07/12/2024 9:06 AM IGNITER CAPPER) WBC 6.7 3.8 - 10.8 Thousand/u L [facility] RBC, POC 4.06 3.80 - 5.10 Million/uL [facility] Hgb 11.9 11.7 - 15.5 g/dL [facility] Hct 38.2 35.0 - 45.0 % [facility] MCV 94.1 80.0 - 100.0 fL [facility] MCH 29.3 27.0 - 33.0 pg [facility] MCHC 31.2(L) 32.0 - 36.0 g/dL [facility] Comment: For adults, a slight decrease in the calculated MCHC value (in the range of 30 to 32 g/dL) is most likely not clinically significant; however, it should be interpreted with caution in correlation with other red cell parameters and the patient's clinical condition. Rdw 12.9 11.0 - 15.0 % [facility] Platelets 244 140 - 400 Thousand/u L [facility] MPV 10.9 7.5 - 12.5 fL [facility] Neutrophils, abs 4,636 1,500 - 7,800 cells/uL [facility] Lymphocytes, abs 1,126 850 - 3,900 cells/uL [facility] Monocyte abs 690 200 - 950 cells/uL [facility] Eosinophils, abs 221 15 - 500 cells/uL [facility] Basophils, abs 27 0 - 200 cells/uL [facility] Neutrophils 69.2 % [facility] Lymphocyte pct 16.8 % [facility] Monocytes 10.3 % [facility] Eosinophils 3.3 % [facility] Basophils 0.4 % [facility] 07/12/2024 9:06 AM IGNITER CAPPER 07/12/2024 9:07 AM IGNITER CAPPER Narrative [facility] - 07/15/2024 3:19 PM IGNITER CAPPER AP FASTING:YES FASTING: YES us Gabby Cardoza MD LAB BLOOD ORDERABLES Final Resu lt [facility] [address] [place] [address] * (ABNORMAL) Hemoglobin A1c (07/12/2024 9:06 AM IGNITER CAPPER) Hgb A1C 7.2(H) <5.7 % of total Hgb [facility] Comment: For someone without known diabetes, a hemoglobin A1c value of 6.5% or greater indicates that they may have diabetes and this should be confirmed with a follow-up test. For someone with known diabetes, a value <7% indicates that their diabetes is well controlled and a value greater than or equal to 7% indicates suboptimal control. A1c targets should be individualized based on duration of diabetes, age, comorbid conditions, and other considerations. Currently, no consensus exists regarding use of hemoglobin A1c for diagnosis of diabetes for children. 07/12/2024 9:06 AM IGNITER CAPPER 07/12/2024 9:07 AM IGNITER CAPPER Narrative [facility] - 07/15/2024 3:19 PM IGNITER CAPPER AP FASTING:YES FASTING: YES Gabby Cardoza MD LAB BLOOD ORDERABLES Final Resu lt Performing Organization Address City/[facility] Co de Phone Number [facility] [address] [place] [address] * (ABNORMAL) Renal function panel (07/12/2024 9:06 AM IGNITER CAPPER) Glucose 150(H) 65 - 99 mg/dL [facility] Comment: Fasting reference interval For someone without known diabetes, a glucose value >125 mg/dL indicates that they may have diabetes and this should be confirmed with a follow-up test. BUN 27(H) 7 - 25 mg/dL [facility] Creatinine 1.08(H) 0.50 - 1.05 mg/dL [facility] eGFR 58(L) > OR = 60 mL/min/1.7 3m2 [facility] BUN/creat ratio 25(H) 6 - 22 (calc) [facility] Sodium 138 135 - 146 mmol/L [facility] Potassium, pl 4.0 3.5 - 5.3 mmol/L [facility] Chloride 99 98 - 110 mmol/L [facility] CO2 31 20 - 32 mmol/L [facility] Calcium 9.5 8.6 - 10.4 mg/dL [facility] Phosphorus, sr 4.0 2.5 - 4.5 mg/dL [facility] Albumin 4.2 3.6 - 5.1 g/dL [facility] 07/12/2024 9:06 AM IGNITER CAPPER 07/12/2024 9:07 AM IGNITER CAPPER Narrative [facility] - 07/15/2024 3:19 PM IGNITER CAPPER AP FASTING:YES FASTING: YES Gabby Cardoza MD LAB BLOOD ORDERABLES Final Resu lt [facility] [address] [address] * Lipid panel (07/12/2024 9:06 AM IGNITER CAPPER) Cholesterol 149 <200 mg/dL [facility] HDL 66 > OR = 50 mg/dL [facility] Triglycerides 58 <150 mg/dL [facility] LDL 70 mg/dL (calc) [facility] Comment: Reference range: <100 Desirable range <100 mg/dL for primary prevention; <70 mg/dL for patients with CHD or diabetic patients with > or = 2 CHD risk factors. LDL-C is now calculated using the Genevieve calculation, which is a validated novel method providing better accuracy than the Friedewald equation in the estimation of LDL-C. Vega SS et al. IRON. 2013;310(19): 1090-1612 (http://education.[facility]/faq/JEK433) Chol/HDL ratio 2.3 <5.0 (calc) [facility] Non-HDL, (LDL+VLDL) 83 <130 mg/dL (calc) [facility] Comment: For patients with diabetes plus 1 major ASCVD risk factor, treating to a non-HDL-C goal of <100 mg/dL (LDL-C of <70 mg/dL) is considered a therapeutic option. 07/12/2024 9:06 AM IGNITER CAPPER 07/12/2024 9:07 AM IGNITER CAPPER Narrative [facility] - 07/15/2024 3:19 PM IGNITER CAPPER AP FASTING:YES FASTING: YES us Gabby Cardoza MD LAB BLOOD ORDERABLES Final Resu lt Performing Organization Address [facility] Co de Phone Number TOYA Ortega [address] [address] [id number] * Imaging Lumbar/Caudal Epidural Steroid INJ ([id number]) (07/10/2024 5:02 PM IGNITER CAPPER) Narrative RAD_PACS_[facility] - 07/10/2024 5:03 PM IGNITER CAPPER The images from this study are not interpreted by Radiology. Please refer to the physician's procedure / OR operative note. Monique Fung NP IMG PAIN MGMT PROCEDURES Eleanor l Result Performing Organization Address City/[facility]/ZIP Co de Phone Number RAD_PACS_[facility] * Hepatitis C antibody Blood (01/29/2024 2:27 PM CDT) Hep C Ab Nonreactive Nonreactive Comment: Interpretive Data Nonreactive: Antibodies to HCV not detected. Does NOT exclude the possibility of recent exposure to HCV. Equivocal: Equivocal for HCV antibodies. Supplemental molecular testing will be automatically performed to determine infection status in accordance with current CDC screening recommendations. Reactive: Positive for HCV antibodies. This may represent current or past HCV infection. Supplemental molecular testing will be automatically performed to determine current infection status in accordance with current CDC screening recommendations. Interpretive data was last revised on 2019. Testing performed by: [facility], [address] [place] [address]., [id number] Blood 01/29/2024 2:27 PM CDT 01/29/2024 5:02 PM CDT Result [facility] Shawna Jovel NP LAB MICROBIOLOGY - GENERAL ORDERABLES Final Result Performing Organization Address [facility] Co de Phone Number PASHA BJWCH [address] [employer] [place], [place] [id number] * TSH (01/29/2024 2:27 PM CDT) Thyroid Stimulating Hormone 0.99 0.30 - 4.20 mcIUnit/mL Blood 01/29/2024 2:27 PM CDT 01/29/2024 2:39 PM CDT Result [facility] Shawna Jovel NP LAB BLOOD ORDERABLES Edite d Result - Final Performing Organization Address [facility] Co de Phone Number PASAH BJWCH [address] [employer]. Department [place] [address] * COLONOSCOPY IMAGES (04/26/2016) Anatomical Region Laterality Modality Other Narrative 04/26/2016 Ordered by an unspecified provider. Historical Provider GI PROCEDURE ORDERABLES F inal Result from Last 3 Months or Most Recently Relevant to Health Maintenance Insurance [facility] MEDICARE MEDICARE [facility] MEDICARE [place] MEDICARE [facility] MEDICARE [facility] Advance Directives For more information, please contact: [phone] * Full Code (Latest Code Status on File) Date Activated Date Inactivated Comments 03/14/2024 5:32 PM 03/14/2024 11:43 PM * Full Code Date Activated Date Inactivated Comments 01/24/2022 1:48 PM 01/25/2022 6:48 PM * Full Code Date Activated Date Inactivated Comments 09/11/2018 10:36 AM 09/11/2018 3:34 PM * Full Code Date Activated Date Inactivated Comments 08/07/2018 3:48 AM 08/08/2018 9:44 PM * Full Code Date Activated Date Inactivated Comments 07/26/2018 5:06 PM 07/30/2018 8:04 PM Healthcare Agents on File Name Relationship Healthcare Agent Relationship Communication Atul Somers Spouse Health Care Agent Care Teams Master Chef Relationship Specialty Start Date End Date Juan F Avila MD [address] [place] [address] PCP - General Internal Medicine 07/10/24 Mayela Greenberg RN [address] [address] Registered Nurse 07/27/18 Mayela Greenberg RN [address] [address] Registered Nurse 08/07/18 Jacqueline Baum, PT Physical Therapist Physical Therapy 10/30/23 [place] [address] [place] [address] ENDOCRINOLOGY, [facility] [address] [address] Referring Physician Endocrinology Diabetes & Metabolism 07/10/24
--- OUTSIDE RECORDS SUMMARY | 2024-09-13 13:09 | XMS_ITS | Encounter Summary ---
Author Organization [facility] Healthcare Address [address] [place] [address] Care Team Providers Care Diagnostic Imaging Manager Name Role Phone Juan F Avila MD Primary Care Provider [phone] Mayela Greenberg RN Unavailable [phone] Mayela Greenberg RN Unavailable [phone] Jacqueline Baum PT Unavailable Unavailabl e Ricco Dunn MD Unavailable [phone] Juan F Avila MD Primary Care Provider [phone] Reason for Visit * Reason Onset Date Comments PMC Preprocedure 07/05/2024 Encounter Details Date Type Department Care Team (Late st Contact Info) Description 07/05/2024 Telephone [facility] [address] [place] [address] Delio Jimenez MD [address] [facility] [phone] [place] [address] PMC Preprocedure Social History Tobacco Use Types Packs/Day Years [...] on file Legal Sex Female 3:45 AM PRINT CUTTER Gender Identity Female 07/04/2024 5:02 PM PRINT CUTTER Sexual Orientation Not on file documented as of this encounter Plan of Treatment Not on file documented as of this encounter Goals Goal Patient Goal Type Associated Problems Recent Progress Patient-Stated? Author CCM Chronic Pain Care Plan Chronic Care Management On track(2024 2:54 PM PRINT CUTTER) No Luz Weaver RN Note: Problem: Chronic Pain Goals: 1. Minimize further functional decline 2. Maximize quality of life 3. Control pain Strategies: - Activity/exercise program recommendation - Conservative stepwise pain medicine strategy with multi-disciplinary approach - Recommend healthy lifestyle strategies and compensatory methods as needed documented as of this encounter Visit Diagnoses Not on filedocumented in this encounter Care Teams Diagnostic Imaging Manager Relationship Specialty Start Date End Date Juan F Avila MD PCP - General 09/01/16 07/09/24 Juan F Avila MD [address] [place] [address] PCP - General Internal Medicine 07/10/24 Mayela Greenberg, KAVITHA [address] [facility] [address] [place] [address] Registered Nurse 07/27/18 Mayela Greenberg RN [address] [facility] [address] [place] [address] Registered Nurse 08/07/18 Jacqueline Baum, PT Physical Therapist Physical Therapy 10/30/23 Ricco Dunn MD [address] [place] [address] DIV IM ENDOCRINOLOGY, [facility] [address] [place] [address] Referring Physician Endocrinology Diabetes & Metabolism 07/10/24 documented as of this encounter
--- OUTSIDE RECORDS SUMMARY | 2024-09-13 13:09 | XMS_ITS | Clinical Summary ---
Author Organization [facility] Address [address] [place] [address] Care Team Providers Care Gmat Instructor Name Role Phone Juan F Avila MD Primary Care Provider [phone] Sandy White RN Unavailable [phone] Source Comments [facility],non-owned Affiliates and Associated Physician Practices is amultiple site organization consisting of ambulatory clinics and hospital sitesin [place], [place], [place] and [place]. This disclosure is being madepursuant to the Care Everywhere program and may not contain all information available regarding this patient. 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 08/19/2015 10/05/2015 Overview (08/19/2015): 08/18/15 Cath/PCI - 3.0x24 Resolute YUNI mLAD; mod mRCA and mCx; EF 65% Diabetes type 1, controlled 08/04/2015 02/16/2017 Abnormal stress test 08/04/2015 016 Syncope, needs stress test 07/31/2015 0 07/31/2015 Syncope 07/31/2015 10/05/2015 Family History Medical History Relation Name Comments Diabetes Brother 4 Cancer Maternal Grandfather Diabetes Maternal Grandmother SD Mother Stroke Mother SD Paternal Grandfather SD Paternal Grandmother Relation Name Status Comments Brother [...] to complete this topic MENINGOCOCCAL (Group B) VACC INE SHARED DECISION-MAKING Aged Out No longer eligibl e based on patient's age to complete this topic MENINGOCOCCAL GROUPS A/C/Y/W VACCINE Aged Out No longer eligible b ased on patient's age to complete this topic Medical Devices Implanted Type Area Internal Sales Device Identifier Shelf Expiration Date Model / Serial / Lot Patrick Cates Gwt-Gw Dbl Gds 4-7mm X 35mm Implanted:Qty: 1 on 05/12/2015 by Nael Bunn MD at [facility] Left: Arm Maquet 05/12/2019 [id number] / / [id number] Procedures Procedure Name Priority Date/Time Associated Diagnosis Comments HEMOGLOBIN A1C Routine 06/06/2015 4:28 AM INDUSTRIAL ROBOTICS MECHANIC from Last 3 Months or Most Recently Relevant to Health Maintenance Results * (ABNORMAL) HEMOGLOBIN A1C (06/06/2015 4:28 AM INDUSTRIAL ROBOTICS MECHANIC) Hemoglobin A1c 8.3(H) 4.2 - 6.3 % 06/06/2015 6:19 AM INDUSTRIAL ROBOTICS MECHANIC [facility] Estimated Average Glucose 192 mg/dL 06/06/2015 6:19 AM INDUSTRIAL ROBOTICS MECHANIC [facility] Whole Blood BLOOD SPECIMEN WITH EDTA / Unknown 06/06/2015 4:28 AM INDUSTRIAL ROBOTICS MECHANIC 06/06/2015 6:00 AM INDUSTRIAL ROBOTICS MECHANIC Edy Erazo DO LAB - CHEMISTRY OR DERABLES [facility] [address] [place] [address] from Last 3 Months or [...] 10:34 PM 06/08/2015 11:13 PM Care Teams Gmat Instructor Relationship Specialty Start Date End Date Juan F Avila MD [address] [place] [address] PCP - General Internal Medicine 03/02/15 Sandy White, RN [address] [place], [place] [id number] Warehouse Logistics Coordinator 08/18/15
--- OUTSIDE RECORDS SUMMARY | 2024-09-13 13:09 | XMS_ITS | Patient Health Summary ---
Author Organization [facility] Address [address] [place] [address] Care Team Providers Care Acid Maker Name Role Phone Juan F Avila MD Primary Care Provider [phone] Sandy White RN Unavailable Note from [facility],non-owned Affiliates and Associated Physician Practices is amultiple site organization consisting of ambulatory clinics and hospital sitesin [place], [place], [place] and [place]. This disclosure is being madepursuant to the Care Everywhere program and may not contain all information available regarding this patient. Last updated 18.[facility] Allergies * Fentanyl(Anaphylaxis) -High Criticality * Lisinopril(Cough) [...] Take 1 mg by mouth once daily Advice Companys [phone] (Aaliyah) * Cholecalciferol (VITAMIN D-3 PO) Take 1 Tab by mouth once daily * Calcium Carbonate-Vitamin D (CALCIUM + D PO) Take 500 mg by mouth 3 times daily as needed * carvedilol (COREG) 25 MG tablet Take 25 mg by mouth 2 times daily with morning and evening meal [employer] [phone] (Aaliyah) * insulin lispro (HUMALOG) for insulin [...] Resolved Date Coronary artery disease invo lving ekuk coronary artery of ekuk heart with angina pectoris 08/19/2015 10/05/2015 Diabetes [...] AM CDT Medical Devices Implanted Type Area Manual Writer Device Identifier Shelf Expiration Date Model / Serial / Lot Grft Darryn Gwt-Gw Dbl Gds 4-7mm X 35mm Implanted:Qty: 1 on 05/12/2015 by Nael Bunn MD at [facility] Left: Arm Maquet 05/12/2019 [id number] / / [id number] Procedures * CARDIAC RHYTHM STRIP ORDER(Performed 05/03/2018) [...] ESRD (end stage renal disease) ([facility]) * CARDIAC RHYTHM STRIP ORDER(Performed 06/06/2017) [...] ESRD (end stage renal disease) ([facility]) * CARDIAC RHYTHM STRIP ORDER(Performed 06/09/2015) [...] ESRD (end stage renal disease) ([facility]) * ARTERIOVENOUS ANASTOMOSIS OPEN BY UPPER ARM BASILIC VEIN TRANSPOSITION (Performed 05/12/2015) Performed for Renal failure * GLUCOSE - POINT OF CARE(Performed 05/12/2015) * GLUCOSE - POINT OF CARE(Performed 05/12/2015) * HCG URINE QUALITATIVE - POINT OF CARE(Performed 05/12/2015) * VAS DIALYSIS EXIST ACCESS SCAN(Performed 04/13/2015) Performed for End stage renal disease ([facility]) * CREATE FISTULA A-V(Performed 03/05/2015) * GLUCOSE - POINT OF CARE(Performed 03/05/2015) * VAS BILAT MAPPING FOR HEMODIALYSIS(Performed 03/02/2015) Performed for End stage renal disease ([facility]) Results * CARDIAC RHYTHM STRIP ORDER [...] CDT Randell Jama MD 04/29/2018 7:46 AM [facility] [place] Maureen Somers 1960 DATE OF PROCEDURE: 04/25/2018 [...] was advanced under fluoroscopy and a 5 Welsh catheter placed. Digital subtraction images were obtained [...] IR ANGIO AV SHUNT (06/23/2017 10:05 AM CD MIXER HELPER) Only the most recent of10 resultswithin the time period is included. Anatomical Region Laterality Modality Upper Extremity X-Ray Angiograph y Narrative 06/23/2017 10:12 AM CD MIXER HELPER Nael Bunn MD 06/23/2017 10:12 AM [facility] [place] Maureen Ameser 1960 DATE OF PROCEDURE: 06/23/2017 [...] AV graft on physical examination by the vest presser and a whistling sound in the graft [...] into the superior vena cava. A 7 Welsh sheath was inserted and then a 9 [...] * CARDIAC PROCEDURE ORDER (08/21/2015 5:00 PM CD MIXER HELPER) Narrative 08/21/2015 5:00 PM CD MIXER HELPER Ordered by an unspecified provider. Scanned Document CARDIAC SERVICES ORD ERABLES * (ABNORMAL) GLUCOSE - POINT OF CARE (08/20/2015 12:49 PM CD MIXER HELPER) Only the most recent of38 resultswithin the time period is included. Glucose WB/POC 127(H) 70 - 106 mg/dL 08/20/2015 1:17 PM CD MIXER HELPER [facility] Blood BLOOD SPECIMEN / Unknown 08/20/2015 12:49 PM CD MIXER HELPER 08/20/2015 1:17 PM CD MIXER HELPER Sascha Alcaraz MD LAB - POINT OF CARE ORDERABLES [facility] [address] [place] [address] * HEPATITIS B SURFACE ANTIGEN (08/20/2015 6:11 AM CD MIXER HELPER) Only the most recent of2 resultswithin the time period is included. HBsAg Non Reactive Non Reactive 08/20/2015 11:48 AM CD MIXER HELPER [facility] Blood BLOOD SPECIMEN / Unknown 08/20/2015 6:11 AM CD MIXER HELPER 08/20/2015 5:54 AM CD MIXER HELPER Surinder Whitaker MD LAB - CHEMISTRY ORDE DANIKA [facility] [address] [place] [address] * (ABNORMAL) ACT - POINT OF CARE (08/18/2015 2:40 PM CD MIXER HELPER) ACT POCT 250(A) 125 - 187 Seconds [facility] POCT TESTING QC Verified Yes Yes [facility] POC T TESTING Blood specimen (specimen) BLOOD SPECIMEN / Unknown 08/18/2015 2:40 PM CD MIXER HELPER Sascha Alcaraz MD LAB - POINT OF CARE ORDERABLES [facility] [address] [phone] * CARDIAC CATH PROCEDURE (08/18/2015 12:00 PM CD MIXER HELPER) 08/18/2015 12:0 0 PM CD MIXER HELPER Narrative Transcriptions Sascha Alcaraz MD - 08/18/2015 3:29 PM CST [facility] CARDIAC CATHETERIZATION PATIENT: MAUREEN SOMERS MR#: [id number] ADMIT DATE: 08/18/2015 CSN: [id number] PROCEDURE DATE: 08/18/2015 :1960 PHYSICIAN: Sascha Alcaraz MD ROOM: [facility] REFERRING PHYSICIAN: SASCHA ALCARAZ PROCEDURE: 1. Left [...] PREMEDICATIONS: Versed 2 mg IV. CATHETERS: A 5-Welsh arterial sheath, 5-Welsh pigtail, 5-Welsh JL4,5- Welsh 3 DRC. PROCEDURE: The patient was brought [...] be undertaken. SASCHA ALCARAZ MD SIB/MODL #: [id number] cc: Juan F Avila Dr. MEDICAL/SURGICAL CARDIAC CATHETERIZATION - DP Sascha Alcaraz MD CARDIAC SERVICES ORD ERABLES [facility] * CARDIAC CATH CONSULT (for Epic Reporting) (08/18/2015 12:00 PM CD MIXER HELPER) 08/18/2015 12:0 0 PM CD MIXER HELPER Narrative Transcriptions Sascha Alcaraz MD - 08/18/2015 3:38 PM CST [facility] CARDIAC CATHETERIZATION PATIENT: MAUREEN SOMERS MR#: [id number] ADMIT DATE: 08/18/2015 CSN: [id number] PROCEDURE DATE: 08/18/2015 :1960 PHYSICIAN: Sascha Alcaraz MD ROOM: [facility] REFERRING PHYSICIAN: SASCHA ALCARAZ PROCEDURE: Drug-eluting stent deployment in the mid left anteriordescending artery. ARTERIAL SHEATH: A 6-Welsh short. GUIDING CATHETER: A 6-Welsh CLS 3.5. GUIDEWIRE: A 0.014 BMW and 0.014 Whisper. PROCEDURE DETAILS: The existing 5-Welsh arterial sheath was exchangedfor a 6-Welsh sheath without difficulty. Heparin 4500 units was [...] femoralartery. The sheath was removed and a 6-Welsh Angio-Seal device deployed withgood hemostasis. No femoral hematoma. Pedal pulses intact. ACT at the endof procedure was 250 seconds. Patient returned to the holding area instable condition. COMPLICATIONS: None. CONCLUSIONS: Successful drug-eluting stent deployment in the mid left anterior descending coronary artery. SASCHA ALCARAZ MD SIB/MODL #: [id number] MEDICAL/SURGICAL CARDIAC CATHETERIZATION - DP Sascha Alcaraz MD ECHO ORDERABLES [facility] CARDIAC SERVICES * (ABNORMAL) CBC W AUTO DIFFERENTIAL (08/18/2015 11:41 AM CD MIXER HELPER) Only the most recent of3 resultswithin the time period is included. WBC 7.8 4.4 - 10.7 x10^9/L 08/18/2015 11:59 AM [facility] WBC Corrected x10^9/L 08/18/2015 11:59 AM [facility] RBC 3.73(L) 3.80 - 5.20 x10^12/L 08/18/2015 11:59 AM [facility] Hemoglobin 11.2(L) 12.0 - 15.6 gm/dL 08/18/2015 11:59 AM [facility] Hematocrit 36.1 35.9 - 45.5 % 08/18/2015 11:59 AM [facility] MCV 96.8 80.7 - 98.3 fl 08/18/2015 11:59 AM [facility] MCH 30.0 26.7 - 34.0 pg 08/18/2015 11:59 AM [facility] MCHC 31.0 30.8 - 35.9 gm/dL 08/18/2015 11:59 AM [facility] Platelet Count 250 153 - 416 x10^9/L 08/18/2015 11:59 AM [facility] RDW-CV 15.9(H) 12.1 - 14.9 % 08/18/2015 11:59 AM [facility] MPV 10.7 9.4 - 12.9 fl 08/18/2015 11:59 AM [facility] Neutrophils % 67.2 44.0 - 73.0 % 08/18/2015 11:59 AM [facility] Lymphocytes % 16.3(L) 20.0 - 43.0 % 08/18/2015 11:59 AM [facility] Monocytes % 9.4 5.0 - 13.0 % 08/18/2015 11:59 AM [facility] Eosinophils % 5.7 0.0 - 6.0 % 08/18/2015 11:59 AM [facility] Basophils % 0.9 0.0 - 2.0 % 08/18/2015 11:59 AM [facility] Immature Granulocytes 0.5 0 - 1 % 08/18/2015 11:59 AM [facility] Neutrophil Absolute 5.26 2.01 - 7.14 x10^9/L 08/18/2015 11:59 AM [facility] Lymphocytes Absolute 1.28 1.07 - 3.94 x10^9/L 08/18/2015 11:59 AM [facility] Monocytes Absolute 0.74 0.26 - 1.07 x10^9/L 08/18/2015 11:59 AM [facility] Eosinophils Absolute 0.45 0 - 0.47 x10^9/L 08/18/2015 11:59 AM [facility] Basophils Absolute 0.07 0 - 0.08 x10^9/L 08/18/2015 11:59 AM [facility] Immature Granulocytes Absolute 0.04 0.00 - 0.06 x10^9/L 08/18/2015 11:59 AM [facility] nRBC Auto 0 /100 WBC 08/18/2015 11:59 AM [facility] Blood BLOOD SPECIMEN / Unknown Lab Venipuncture / Unknown 08/18/2015 11:41 AM CD MIXER HELPER 08/18/2015 11:54 AM [facility] Sascha Alcaraz MD LAB - HEMATOLOGY ORD ERABLES [facility] [address] [place] [address] * (ABNORMAL) BASIC METABOLIC PANEL (CALCIUM TOTAL) (08/18/2015 11:41 AM [facility]) Only the most recent of2 resultswithin the time period is included. Glucose 88 74 - 106 mg/dL 08/18/2015 12:16 PM [facility] Sodium 142 136 - 145 mmol/L 08/18/2015 12:16 PM [facility] Potassium 4.7 3.5 - 5.1 mmol/L 08/18/2015 12:16 PM [facility] Chloride 102 98 - 107 mmol/L 08/18/2015 12:16 PM [facility] CO2 35(H) 22 - 31 mmol/L 08/18/2015 12:16 PM [facility] Calcium 9.0 8.5 - 10.1 mg/dL 08/18/2015 12:16 PM [facility] Anion Gap 5 5 - 20 mmol/L 08/18/2015 12:16 PM CD MIXER HELPER [facility] BUN 23(H) 7 - 21 mg/dL 08/18/2015 12:16 PM CD MIXER HELPER [facility] Creatinine 2.90(H) 0.50 - 1.30 mg/dL 08/18/2015 12:16 PM CD MIXER HELPER [facility] eGFR by MDRD 17(L) >60 mL/min/1.7 3m2 08/18/2015 12:16 PM CD MIXER HELPER [facility] eGFR by MDRD 21(L) >60 mL/min/1.7 3m2 08/18/2015 12:16 PM CD MIXER HELPER [facility] Blood BLOOD SPECIMEN / Unknown Lab Venipuncture / Unknown 08/18/2015 11:41 AM CD MIXER HELPER 08/18/2015 11:54 AM CD MIXER HELPER Sascha Alcaraz MD LAB - CHEMISTRY LYNDSEY GARNICA [facility] Organization Address City/State/ZIP Co de Phone Number [facility] [address] [place] [phone] * VAS CAROTID DUPLEX BILATERAL (08/11/2015 9:22 AM CD MIXER HELPER) Anatomical Region Laterality Modality Ultrasound 08/11/2015 8:43 AM CD MIXER HELPER Narrative Procedure Note Randell Cruz MD - 08/11/[address] [address] Carotid Duplex Report Pat.Name: MAUREEN SOMERS Pat.ID: [id number] .Date: 08/11/2015 Exam Time: 8:43:00 AM Study Type:Carotid Age: 10 1960,55Y Sex: FEMALE Sonogrphr: Yasmany Kirby RVT Pat. Stat.:Outpatient Reason for Study:Carotid bruit Procedures:Carotid Duplex - Bilateral Race: 2 Visit ID: [id number] SUMMARY: 50-69% stenosis of the left internal [...] EKG 12-LEAD (SPECIFY TIME) (08/08/2015 3:12 PM CD MIXER HELPER) Only the most recent of2 resultswithin the time period is included. Ventricular Rate 72 BPM [facility] MUSE Atrial Rate 72 BPM [facility] M[facility] P-R Interval 166 ms [facility] QRS Duration ms 92 ms [facility] Q-T Interval ms 444 ms [facility] QTC Calculation (Bezet) 486 ms [facility] MUSE Calculated P [place] 6 degrees [facility] MUSE Calculated R [place] -61 degrees [facility] MUSE Calculated T [place] 21 degrees [facility] M[facility] Interpretation EKG Normal sinus rhythm Possible Left atrial enlargement Left axis deviation Anteroseptal infarct (cited on or before 05-JUN-2015) Abnormal ECG When compared with ECG of 05-JUN-2015 11:10, No significant change was found Confirmed by ISAI BISHOP ([id number]) on 08/19/2015 9:58:38 AM [facility] MUSE 08/08/2015 3:12 PM CD MIXER HELPER 08/19/2015 9:58 AM CD MIXER HELPER Sascha Alcaraz MD ECG ORDERABLES [facility] * ECHOCARDIOGRAM 2D WITH DOPPLER (06/08/2015 5:19 PM CD MIXER HELPER) 06/08/2015 5:19 PM CD MIXER HELPER [facility] CARDIAC SERVICES - 06/08/2015 7:06 PM CD MIXER HELPER [address] [address] Transthoracic Echocardiogram 2D, M-mode, Doppler, and Color Doppler Patient: MAUREEN SOMERS MR number: [id number] Height: 60 in Weight: 140 lb BSA: 1.61 m Study date: 08-Jun-2015 : 1960 Age: 55 years Gender: Female Race: Allergies: FENTANYL Diagnoses: 427.5 - CARDIAC ARREST Reading Physician: Sascha Alcaraz MD Referring Physician: Earl Sin MD PROFESSOR OF COMMUNICATION AND WRITING: Yonatan Kimbrough [facility] Cardiology Group: [place] [facility] Room 623 @ 6170 Summary: - QUICK REPORTS: - Room 623 @ 1335 - Clinical question: - Cardiac/Pulmonary Arrest, Successful [...] Procedure: The study was performed in the [facility]. The transthoracic approach was used. The study [...] MV A Larry: 1.2 m/s MV Dec [place]: 6.8 m/s2 MV E Larry: 1.3 m/s MV E/A Ratio: 1.1 MV PHT: 54.1 ms MVA By PHT: 4.1 cm2 Septal e': 0.1 m/s Prepared and signed by Sascha Alcaraz MD Signed 08-Jun-2015 19:06:21 Procedure Note Sascha Alcaraz MD - 06/08/[address] [address] Transthoracic Echocardiogram 2D, M-mode, Doppler, and Color Doppler Patient: MAUREEN SOMERS MR number: [id number] Height: 60 in Weight: 140 lb BSA: 1.61 m Study date: 08-Jun-2015 : 1960 Age: 55 years Gender: Female Race: Allergies: FENTANYL Diagnoses: 427.5 - CARDIAC ARREST Reading Physician: Sascha Alcaraz MD Referring Physician: Earl Sin MD PROFESSOR OF COMMUNICATION AND WRITING: Yonatan Kimbrough [facility] Cardiology Group: [place] [facility] Room 623 @ 1419 Summary: - QUICK REPORTS: - Room 623 @ 1710 - Clinical question: - Cardiac/Pulmonary Arrest, Successful [...] Procedure: The study was performed in the [facility]. The transthoracic approach was used. The study [...] MV A Larry: 1.2 m/s MV Dec [place]: 6.8 m/s2 MV E Larry: 1.3 m/s MV E/A Ratio: 1.1 MV PHT: 54.1 ms MVA By PHT: 4.1 cm2 Septal e': 0.1 m/s Prepared and signed by Sascha Alcaraz MD Signed 08-Jun-2015 19:06:21 Earl Sin MD ECHO ORDERABLES [facility] CARDIAC SERVICES * XR HAND 3+ VW LEFT (06/07/2015 2:02 PM CD MIXER HELPER) Anatomical Region Laterality Modality Wrist / Hand Radiographic Loli ging 06/07/2015 2:33 PM CD MIXER HELPER Narrative 06/07/2015 2:34 PM CD MIXER HELPER Left hand Indication for examination: Swelling and [...] HUMERUS 2+ VW LEFT (06/06/2015 2:35 PM CD MIXER HELPER) Anatomical Region Laterality Modality Upper Extremity Radiographic Loli ging 06/06/2015 3:09 PM CD MIXER HELPER Narrative 06/06/2015 3:11 PM CD MIXER HELPER Left humerus Indication for examination: Left arm [...] * (ABNORMAL) HEMOGLOBIN A1C (06/06/2015 4:28 AM CD MIXER HELPER) Hemoglobin A1c 8.3(H) 4.2 - 6.3 % 06/06/2015 6:19 AM CD MIXER HELPER [facility] Estimated Average Glucose 192 mg/dL 06/06/2015 6:19 AM CD MIXER HELPER [facility] Whole Blood BLOOD SPECIMEN WITH EDTA / Unknown 06/06/2015 4:28 AM CD MIXER HELPER 06/06/2015 6:00 AM CD MIXER HELPER Edy Erazo DO LAB - CHEMISTRY OR DERABLES Performing Organization Address [facility] de Phone Number [facility] [address] [place] [address] * TROPONIN I (06/05/2015 5:19 PM CD MIXER HELPER) Only the most recent of3 resultswithin the time period is included. Pathologist [facility] Troponin I 0.025 0.000 - 0.049 ng/mL 06/05/2015 5:45 PM CD MIXER HELPER [facility] Blood BLOOD SPECIMEN / Unknown 06/05/2015 5:19 PM CD MIXER HELPER 06/05/2015 5:19 PM CD MIXER HELPER Narrative [facility] - 06/05/2015 5:45 PM CD MIXER HELPER Note: Diagnosis of myocardial infarction requires symptoms [...] - CHEMISTRY OR DERABLES Performing Organization Address [facility] de Phone Number [facility] [address] [place] [address] * HEPATITIS B SURFACE ANTIBODY QUANT (06/05/2015 2:41 PM CD MIXER HELPER) [facility] Hepatitis B Virus Surface Antibody <3.10 IU/L 06/08/2015 4:21 PM CD MIXER HELPER [facility] ([facility]) Comment: The anti-HBs is less than 10 [...] BLOOD SPECIMEN / Unknown 06/05/2015 2:41 PM CD MIXER HELPER 06/05/2015 2:43 PM CD MIXER HELPER Surinder Whitaker MD LAB - SEROLOGY ORDER [facility] ([facility]) [address] [place], [place] [id number], [facility] * XR CHEST 1VW PORTABLE (06/05/2015 11:25 AM CD MIXER HELPER) Anatomical Region Laterality Modality Chest Radiographic Loli ging 06/05/2015 11:2 8 AM CD MIXER HELPER Impressions 06/05/2015 11:28 AM CD MIXER HELPER Normal AP chest x-ray. Narrative 06/05/2015 11:28 AM CD MIXER HELPER PORTABLE AP CHEST INDICATION: Personal history of [...] (ABNORMAL) COMPREHENSIVE METABOLIC PANEL (06/05/2015 10:20 AM CD MIXER HELPER) Glucose 132(H) 74 - 106 mg/dL 06/05/2015 10:45 AM CD MIXER HELPER [facility] Sodium 140 136 - 145 mmol/L 06/05/2015 10:45 AM CD MIXER HELPER [facility] Potassium 4.7 3.5 - 5.1 mmol/L 06/05/2015 10:45 AM [facility] Chloride 105 98 - 107 mmol/L 06/05/2015 10:45 AM [facility] CO2 29 22 - 31 mmol/L 06/05/2015 10:45 AM [facility] Calcium 8.4(L) 8.5 - 10.1 mg/dL 06/05/2015 10:45 AM [facility] Anion Gap 6 5 - 20 mmol/L 06/05/2015 10:45 AM [facility] BUN 66(H) 7 - 21 mg/dL 06/05/2015 10:45 AM [facility] Creatinine 5.60(H) 0.50 - 1.30 mg/dL 06/05/2015 10:45 AM [facility] Alkaline Phosphatase 104 38 - 126 U/L 06/05/2015 10:45 AM [facility] ALT 17 12 - 78 U/L 06/05/2015 10:45 AM [facility] AST 20 5 - 40 U/L 06/05/2015 10:45 AM [facility] Protein Total 6.1(L) 6.4 - 8.2 gm/dL 06/05/2015 10:45 AM [facility] Albumin 3.0(L) 3.4 - 5.0 gm/dL 06/05/2015 10:45 AM [facility] Bilirubin Total 0.2 0.2 - 1.0 mg/dL 06/05/2015 10:45 AM [facility] eGFR by MDRD 8(L) >60 mL/min/1.7 3m2 06/05/2015 10:45 AM [facility] eGFR by MDRD 10(L) >60 mL/min/1.7 3m2 06/05/2015 10:45 AM [facility] Blood BLOOD SPECIMEN / Unknown 06/05/2015 10:20 AM [facility] 06/05/2015 10:23 AM [facility] Edy Erazo DO LAB - CHEMISTRY OR DERABLES [facility] [address] [place] [address] * HCG URINE QUALITATIVE - POINT OF CARE (IP) (05/12/2015 9:07 AM CD MIXER HELPER) HCG Qual Urine Negative Negative [facility] POCT TESTING QC Verified Yes Yes [facility] POC T TESTING Urine specimen (specimen) URINE / Unknown 05/12/2015 9:07 AM CD MIXER HELPER Nikko Reid MD LAB - POINT OF CARE ORDERABLES [facility] POCT TESTING [address] [phone] * VAS HEMODIALYSIS ACCESS SCAN (04/13/2015 11:07 AM CDT) Anatomical Region Laterality Modality Ultrasound 04/13/2015 10:5 4 AM CDT Narrative Procedure Note Nael Bunn MD - 04/13/2015 [facility] [address] [address], [address] [place] [address] Hemodialysis Graft Report Pat.Name: MAUREEN SOMERS Dean Pat.ID: [id number] St.Date: 04/13/2015 Exam Time: 10:54:00 AM Study Type:Hemodialysis Graft Age: 10 1960,55Y Sex: FEMALE Sonogrphr: Sam Oglesby RVT Pat. Stat.:Outpatient ICD - 9: I77.0 Arteriovenous fistula CPT - 4: 98852 Procedures:AV Fistula Evaluation Race: 1 Visit ID: [id number] SUMMARY: Patent left upper basilic AV fistula [...] Procedure Note Nael Bunn MD - 03/02/2015 [facility] [address], [address] [place] [address] Vessel Mapping for Hemodialysis Report Pat.Name: MAUREEN SOMERS Pat.ID: [id number] St.Date: 03/02/2015 Exam Time: 11:35:00 AM Study Type:Vessel Mapping for Hemodialysis Age: 10 1960,54Y Sex: FEMALE Sonogrphr: Sam Oglesby RVT Pat. Stat.:Outpatient ICD - 9: 585.6 CPT - 4: G0365 Procedures:Vessel Mapping for Hemodialysis Visit ID: [id number] SUMMARY: The left basilic vein in the [...] MD VASCULAR LAB ORDER [place] Care Teams Acid Maker Relationship Specialty Start Date End Date Juan F Avila MD [address] [place] [address] PCP - General Internal Medicine 03/02/15 Sandy White, RN [address] [place] [address] Sequins Slinger 08/18/15
--- OUTSIDE RECORDS SUMMARY | 2024-09-13 13:09 | XMS_ITS | Clinical Summary ---
Author Organization [facility] Address [address] [place] [address] Phone Care Team Providers Care General Store Manager Name Role Phone Juan F Avila MD Primary Care Provider [phone] Allergies Active Allergy Reactions Criticality Noted Date [...] daily. 7 Active neomycin-polymy izzy-dexamethaso ne (MAXITROL) 3.5-69655-8.1 Ointment Admin uses topical on dialysis 6 [...] Comments Blood Pressure 157/68 08/11/2016 2:35 PM AIR CONDITIONING SUPERVISOR Pulse 75 08/11/2016 2:35 PM AIR CONDITIONING SUPERVISOR Temperature 35.3 C (95.5 F) 08/11/2016 2:35 PM AIR CONDITIONING SUPERVISOR Respiratory Rate 16 08/11/2016 2:35 PM AIR CONDITIONING SUPERVISOR Oxygen Saturation 98% 08/11/2016 2:35 PM AIR CONDITIONING SUPERVISOR Inhaled Oxygen Concentration - - Weight 63.5 kg (140 lb) 08/01/2016 1:00 PM AIR CONDITIONING SUPERVISOR Height 154.9 cm (5' 1 ) 08/01/2016 1:00 PM AIR CONDITIONING SUPERVISOR Body Mass Index 26.45 08/01/2016 1:00 PM AIR CONDITIONING SUPERVISOR Plan of Treatment Health Maintenance Due Date [...] complete this topic Insurance MEDICARE Care Teams General Store Manager Relationship Specialty Start Date End Date Juan F Avila MD [address] [place] [address] PCP - General Internal Medicine 07/28/16
--- OUTSIDE RECORDS SUMMARY | 2024-09-13 13:09 | XMS_ITS | Encounter Summary ---
Author Organization [facility] Healthcare Address [address] [place] [address] Care Team Providers Care Computer Technician Name Role Phone Juan F Avila MD Primary Care Provider [phone] Mayela Greenberg RN Unavailable [phone] Mayela Greenberg RN Unavailable [phone] Jacqueline Baum PT Unavailable Unavailabl Ricco Hall MD Unavailable [phone] Juan F Avila MD Primary Care Provider [phone] Encounter Details Date Type Department Care Team (Late st Contact Info) Description 01/31/2019 Patient Outreach [facility] Transplant Kidney [id number] [place] [address] Nova Mitchell Social History Tobacco Use Types Packs/Day Years Used Date Smoking Tobacco: Never Smokeless Tobacco: Never Alcohol Use Standard Drinks/Week Comments No 0 (1 standard drink = 0.6 oz pur e alcohol) Comments Unknown Sex and Gender Information Value Date Recorded Sex Assigned at Not on file Legal Sex Female 3:45 AM FRUIT DUMPER Gender Identity Female 07/04/2024 5:02 PM FRUIT DUMPER Sexual Orientation Not on file documented as of this encounter Plan of Treatment Not on file documented as of this encounter Visit Diagnoses Not on filedocumented in this encounter Additional Health Concerns Infection Onset Date Last Indicated Resolved Time COVID19 01/24/2022 01/24/2022 02/04/2022 3:05 AM CDT COVID: Recovered Comment:Added based on recent COVID infection. 02/04/2022 02/04/2022 06/04/2022 3:[address] documented as of this encounter Care Teams Computer Technician Relationship Specialty Start Date End Date Juan F Avila MD PCP - General 09/01/16 07/09/24 Juan F Avila MD [address] [place] [address] PCP - General Internal Medicine 07/10/24 Mayela Greenberg RN [address] [address] Registered Nurse 07/27/18 Mayela Greenberg RN [address] [address] Registered Nurse 08/07/18 Jacqueline Baum, PT Physical Therapist Physical Therapy 10/30/23 Ricco Dunn MD [address] [facility], [facility] [address] [address] Referring Physician Endocrinology Diabetes & Metabolism 07/10/24 documented as of this encounter
--- OUTSIDE RECORDS SUMMARY | 2024-09-13 13:09 | XMS_ITS | Referral Summary ---
Author Organization [facility] Address [address] [facility] [place] [address] Care Team Providers Care Silk Hanger Name Role Phone Juan F Avila MD Primary Care Provider [phone] Sandy White RN Unavailable [phone] Source Comments [facility],non-owned Affiliates and Associated Physician Practices is amultiple site organization consisting of ambulatory clinics and hospital sitesin [place], [place], [place] and [place]. This disclosure is being madepursuant to the Care Everywhere program and may not contain all information available regarding this patient. 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 08/19/2015 10/05/2015 Overview [...] on file Medical Devices Implanted Type Area Bus Greaser Device Identifier Shelf Expiration Date Model / Serial / Lot Patrick Cates Gwt-[id number] Dbl Gds 4-7mm X 35mm Implanted:Qty: 1 on 05/12/2015 by Nael Bunn MD at [facility] Left: Arm Tj 05/12/2019 [id number] / / [id number] Procedures Procedure Name Priority Date/Time Associated Diagnosis Comments HEMOGLOBIN A1C Routine 06/06/2015 4:28 AM TAX MANAGER PUBLIC from Last 3 Months or Most Recently Relevant to Health Maintenance Results * (ABNORMAL) HEMOGLOBIN A1C (06/06/2015 4:28 AM TAX MANAGER PUBLIC) Hemoglobin A1c 8.3(H) 4.2 - 6.3 % 06/06/2015 6:19 AM TAX MANAGER PUBLIC [facility] Estimated Average Glucose 192 mg/dL 06/06/2015 6:19 AM TAX MANAGER PUBLIC [facility] Whole Blood BLOOD SPECIMEN WITH EDTA / Unknown 06/06/2015 4:28 AM TAX MANAGER PUBLIC 06/06/2015 6:00 AM TAX MANAGER PUBLIC Edy Erazo DO LAB - CHEMISTRY OR DERABLES [facility] [address] [place] [address] from Last 3 Months or Most Recently Relevant to Health Maintenance Advance Directives * Full Code (Latest Code Status on File) Date Activated Date Inactivated Comments 08/18/2015 2:57 PM 08/20/2015 3:36 PM * Full Code Date Activated Date Inactivated Comments 08/18/2015 2:53 PM 08/18/2015 2:57 PM * Full Code Date Activated Date Inactivated Comments 06/05/2015 10:34 PM 06/08/2015 11:13 PM Care Teams Silk Hanger Relationship Specialty Start Date End Date Juan F Avila MD [address] [place] [address] PCP - General Internal Medicine 03/02/15 Sandy White, RN [address] [place] [address] Publicity Writer 08/18/15
--- OUTSIDE RECORDS SUMMARY | 2024-09-13 13:10 | XMS_ITS | Clinical Summary ---
Author Organization [facility] Address [address] [place] [address] Care Team Providers Care Software Engineering Specialist Name Role Phone Mayela Greenberg RN Unavailable Mayela Greenberg RN Unavailable [phone] Jacqueline Baum PT Unavailable UnavailRicco Myers MD Unavailable [phone] Juan F Avila MD Primary Care Provider [phone] Allergies Active Allergy Reactions Criticality Noted Date [...] mg total) by mouth daily 60 tablet 11 06/14/20 24 2024 Active carvediloL (COREG) 25 [...] FK; Q-3 Routine HgbA1C (02/27/2025) Home Health: [facility] Problem Noted Date Diagnosed Date Abnormal cardiovascular [...] there is decline over time can consider TAX [employer]ER referral if no other explanation Spondylosis of [...] (12/07/2021): Added automatically from request for surgery [id number] Urinary incontinence 09/10/2021 Urinary incontinence without sensory awareness 0 03/05/2021 Diastolic dysfunction 07/31/2020 Assessment & Plan (07/31/2020 9:03 AM BRICK POINTER): She has a history of grade 1 [...] management Assessment & Plan (07/18/2022 5:31 PM BRICK POINTER): -long-term use of immunosuppressants in steroids complicates diabetes management Assessment & Plan (01/04/2022 2:54 PM CDT): -long-term use of immunosuppressants in steroids complicates diabetes management Assessment & Plan (06/02/2021 4:25 PM BRICK POINTER): -long-term use of immunosuppressants in steroids complicates diabetes management Assessment & Plan (07/31/2019 10:10 AM BRICK POINTER): The patient has history of renal transplant. Long-term use of immunosuppressants and steroids complicates diabetes management. Assessment & Plan (07/30/2018 4:16 PM BRICK POINTER): -Cr continues to downtrend, patient's UOP more than adequate -Continue Bactrim as ppx; Valcyte to start 2/1 -Continue Vit D -Richards x 2 wks d/t small bladder Assessment & Plan (07/27/2018 5:05 PM BRICK POINTER): -IVF decreased today -Cr continues to downtrend, [...] control. Assessment & Plan (07/19/2022 2:08 PM BRICK POINTER): -BP today is 139/77 -Will continue same [...] daily. Assessment & Plan (07/31/2020 9:03 AM BRICK POINTER): She has a history of hypertension and [...] symptoms Assessment & Plan (06/07/2019 9:15 AM BRICK POINTER): Her blood pressure goal should be systolic [...] dose. Assessment & Plan (07/18/2022 5:30 PM BRICK POINTER): -Last labs dated 04/29/22: TC 134, trig 120, HDL 61, LDL 52 -Continue rosuvastatin as she is tolerating it without side effects. Assessment & Plan (01/10/2022 2:07 PM CDT): -Last labs dated 10/07/21: TC 135, trig 99, HDL 66, LDL 51 -Continue rosuvastatin as she is tolerating it without side effects. Assessment & Plan (07/31/2019 10:09 AM BRICK POINTER): Continue Crestor. Tolerating without side effects. Assessment & Plan (04/18/2019 11:44 AM CDT): Continue Crestor. Tolerating without side effects. ESRD (end stage renal disease) 06/06/2018 Overview (06/06/2018): Added automatically from request for surgery [id number] Assessment & Plan (07/30/2018 1:07 PM BRICK POINTER): S/p renal transplant. On immunosuppressants and steroids which complicate diabetes management. Assessment & Plan (07/29/2018 4:32 PM BRICK POINTER): S/p renal transplant. On immunosuppressants and steroids which complicate diabetes management. Assessment & Plan (07/27/2018 10:54 AM BRICK POINTER): S/p renal transplant. On immunosuppressants and steroids which complicate diabetes management. Assessment & Plan (07/26/2018 5:54 PM BRICK POINTER): S/p renal transplant. On immunosuppressants and steroids [...] years. Assessment & Plan (07/31/2020 9:02 AM BRICK POINTER): She has a history of mild mitral regurgitation on TTE in 2019. We will repeat an echo every 3-5 [...] echocardiogram. Assessment & Plan (06/07/2019 9:02 AM BRICK POINTER): This was mild on echo with a [...] years. 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 Patient understands that she should stay on the Fluconazole indefinitely since she requires immune suppression after her kidney transplant. Assessment & Plan (10/17/2018 9:30 AM CDT): CT in July 2018 was stable/slightly improved Continue Fluconazole for maintenance at dose of 200 mg po daily given her improved renal function intermediate accountant fluconazole routine lab monitoring: CMP 10/10/2018 concerning for elevated liver enzymes. Will follow with repeat CMP next week. Patient understands that she should stay on the Fluconazole indefinitely since she requires immune suppression after her recent kidney transplant. Assessment & Plan (07/30/2018 4:18 PM BRICK POINTER): -Continue Diflucan as chronic suppression Assessment & Plan (07/27/2018 5:04 PM BRICK POINTER): -Continue Diflucan as chronic suppression Encounter for long-term (current) use of antibio tics 04/21/2018 Assessment & Plan (10/25/2019 6:08 PM CDT): Recent labs reviewed without concern for antibiotic toxicities. RTC 6 months for standard office visit this year. Atherosclerosis of [place] co ronary artery of [place] heart without angina pectoris 11/24/2016 Overview (05/18/2018): Coronary artery disease with history of previous Resolute drug-eluting stent to the mid LAD. Most recent cardiac catheterization in October of 2016 demonstrated a patent stent in the mid LAD. There was a 70% lesion in the sro-dh-xcropk right coronary artery with an iFR value of 0.68. This was treated with a 225 x 38 and and two 5 x 32 Synergy drug-eluting stents. Nuclear stress test November 29, 2017 showed normal perfusion without ischemia Assessment & Plan (04/30/2024 2:42 PM CDT): STONER HAND of the circumflex, well collateralized by the [...] statin. Assessment & Plan (07/31/2020 9:01 AM BRICK POINTER): She has a history of coronary disease [...] changes. Assessment & Plan (06/07/2019 9:04 AM BRICK POINTER): She is angina free. She is on [...] daily). Assessment & Plan (05/18/2018 9:32 AM BRICK POINTER): Currently angina free and had recent nuclear [...] management. Assessment & Plan (06/07/2019 9:04 AM BRICK POINTER): She is 50-69% stenosis in left internal [...] today Assessment & Plan (07/19/2022 2:08 PM BRICK POINTER): -Currently using tandem insulin pump and Dexcom, [...] today Assessment & Plan (06/02/2021 4:24 PM BRICK POINTER): -Currently using tandem insulin pump and Dexcom, [...] up. Assessment & Plan (07/30/2018 4:18 PM BRICK POINTER): Patient to have insulin pump placed back on today -F/U with Endocrine recommendations Assessment & Plan (07/30/2018 1:07 PM BRICK POINTER): Maureen Somers is a 58 y.o. female [...] [place]. Assessment & Plan (07/29/2018 4:35 PM BRICK POINTER): Maureen Somers is a 58 y.o. female [...] hs Assessment & Plan (07/27/2018 5:04 PM BRICK POINTER): Patient wears an insulin pump at baseline. She does not feel comfortable restarting this today -Endocrine c/s, currently on insulin gtt, will f/u recommendations Assessment & Plan (07/27/2018 10:54 AM BRICK POINTER): Maureen Somers is a 58 y.o. female [...] Carb ratio 0000-10 1200-8 Sensitivity 85 Target- [phone]. Prednisone 80 mg on 07/27 and 07/28. [...] changes. Assessment & Plan (07/26/2018 5:53 PM BRICK POINTER): Maureen Somers is a 58 y.o. female [...] Carb ratio 0000-10 1200-8 Sensitivity 85 Target- [phone]. Plan: Recommend continuing on insulin drip tonight. Difficult to assess needs with postoperative stress, high dose steroids on board and very sensitive type 1 diabetic. Will reassess the needs tomorrow. Please continue the drip at atleast 0.5 units/kg body weight. If blood sugars are trending low, can titrate the dextrose drip. Assessment & Plan (06/27/2018 4:58 PM BRICK POINTER): Her overall blood sugar average on the [...] 03/05/2021 Assessment & Plan (07/30/2018 4:17 PM BRICK POINTER): -Continue Myfortic 360 BID -Decrease Envarsus to 4 mg/day; levels 9.8 today<--7.6 -Continue Pred 20 Assessment & Plan (07/27/2018 5:07 PM BRICK POINTER): -Continue Myfortic 720 BID -Per patient's body weight, call for Envarsus 6; however, patient on chronic Diflucan, consider starting lower dose -Patient was 5 mg/kg Thymo; received 75 07/27 and will receive 175 today and 150 tomorrow -Continue Pred 80 CKD (chronic kidney disease) stage 5, GFR less than 15 ml/min ([facility]) 07/31/2015 03/05/2021 Overview (05/12/2018): T End-stage renal disease, on hemodialysis Bcxcymn-Btekbpst-Ismyomka. 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 Currently being evaluated for repeat transplantation with another living-related donor (her sister). HTN (hypertension), benign 07/31/2015 0 10/23/2018 Assessment & Plan (05/18/2018 9:31 AM BRICK POINTER): Well controlled today - Continue carvedilol 25mg BID, hydralazine 100mg, losartan 100mg daily, minoxidil 2.5mg daily Dependent on hemodialysis (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 Assessment & Plan (07/31/2020 9:03 AM BRICK POINTER): She continues on high-intensity statin and her LDL checked yesterday was 52. We will make no changes. Assessment & Plan (12/13/2019 8:40 AM CDT): She has excellent control 6 months ago under high-intensity statin. I will continue her current dose of rosuvastatin. Assessment & Plan (06/07/2019 9:01 AM BRICK POINTER): She is on a high-intensity statin. A [...] time. Assessment & Plan (05/18/2018 9:31 AM BRICK POINTER): Last LDL 58 in 10/2017 - Continue statin at current dose Encounters Date Type Department Care Team Description 09/11/2024 Telephone [facility] Endocrinology Metabolism and Lipid [address] [facility] [address] [place] [address] [place] [address] Lashay Hein RN [facility] 08/30/2024 Documentation [facility] Trans[facility] Kidney [address] [facility] [address] Mailstop [phone] [place] [address] Maria Isabel Peterson 08/02/2024 Telephone [facility] Metabolism and Lipid [address] [facility] [address]th [place] [address] [place] [address] Jovita Langford RMA CMN (Tandem) 07/21/2024 Telephone [facility] Metabolism and Lipid [address] [facility] [address] [place] [address] [place] [address] Lashay Hein RN [employer] pump supplies 07/17/2024 1:00 PM BRICK POINTER Office Visit [facility] Metabolism and Lipid [address] [facility] [address] [place] [address] [place] [address] Ricco Dunn MD 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) (Primary Dx); Dyslipidemia 07/17/2024 11:00 AM BRICK POINTER Clinical Support [facility] End[facility]in[facility] Metabolism and Lipid [address] [facility] [address] [place] [address] [place] [address] Maxine Freire RN 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) (Primary Dx) 07/15/2024 Telephone [facility] Gastroenter[facility] [address] [facility] 12[address] [place] [address] [place] [address] Gillian Castillo LPN 07/15/2024 Orders Only [facility] [address] [place] [address] Shawna Jovel NP Elevated liver enzymes (Primary Dx) 07/12/2024 Orders Only [facility] Neph[facility] [address] [facility] 5th [place] [address] [place] [address] Gabby Cardoza MD 07/10/2024 2:30 PM BRICK POINTER - 07/10/2024 11:59 PM BRICK POINTER Hospital Encounter [facility] [address] [facility] [address] [place] [address] Delio Jimenez MD Connective tissue and disc stenosis of intervertebral foramina of lumbar region; Spinal stenosis of lumbar region with neurogenic claudication Discharge Disposition: Discharge to home or self care 07/05/2024 Telephone [facility] Medicine [address] [facility] [address] [place] [address] Delio Jimenez MD PMC Preprocedure from Last 3 Months Immunizations Immunization Administration Dates Next Due Influenza, Quadrivalent, Jovita l Culture-based MDCK, Preservative Free, Antibiotic Free, Intramuscular 04/18/2019 Influenza, Quadrivalent, Spl it, Preservative Free, Intramuscular 04/30/2021,03/12/2020 Influenza, Trivalent, IM (MDV) 04/18/2016,2012 Influenza, Trivalent, Preser vative Free, Intramuscular 07/02/2199,04/24/2014,05/02/2012,04/05 Influenza, Unspecified 04/02/2013 Pfizer SARS-CoV-2 Monovalent Vaccination (12+ Yrs) PURPLE 09/03/2021,03/05/2021,10/02/2020,09/14 Pneumococcal Conjugate PCV 13 02/09/2015, 014 Pneumococcal Conjugate, Unspecified 04/02/2011 Pneumococcal Polysaccharide PPV23 04/26/2007 Surgical History Surgery Date Site/Laterality Comments TUNNELED LINE PLACEMENT <5 YEARS 02/03/2015 N/A CENTRAL LINE PLACEMENT > 5 YEARS 08/21/2013 N/A LUMBAR PUNCTURE WO INJECTION, DIAGNOSTIC 07/31/2013 N/A CENTRAL LINE PLACEMENT > 5 YEARS 07/27/2018 N/A KIDNEY TRANSPLANT 07/03/2018 - 08/02/2018 CARPAL TUNNEL RELEASE 08/03/2016 - 08/30/2016 Right AV FISTULA PLACEMENT 03/03/2015 - 04/01/2015 Left ARTERIOVENOUS GRAFT PLACEMENT 05/03/2015 - 06/01/2015 Left SECTION 07/03/1984 - 07/02/1985 COLONOSCOPY unsure on year CARDIAC STENT PLACEMENT 07/03/2014 - 07/02/2015 2 stents BRONCHOSCOPY URETHRAL SLING 12/31/2021 - 01/30/2022 transvaginal tape w/midurethral sling Medical History Medical History Date Comments Hemodialysis patient Pt. reports she recieved hemodialysis on Monday, and Saturdays HTN (hypertension), benign 07/31/2015 CKD (chronic kidney disease) stage 5, GFR less than 15 ml/min ([facility]) 07/31/2015 T End-stage renal diseas e, on hemodialysis Aclzvut-Rfxrbqfd-Jeyfxmts. 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 Currently being evaluated for repeat transplantation with another living-related donor (her sister). ESRD (end stage renal disease) ([facility]) 06/06/2018 Added automatically from request for surgery [id number] Hyperlipidemia 07/10/2006 Diabetes mellitus type 1, uncontrolled, with complications 07/26/2012 Insulin Pump and Dexc om Anemia 07/10/2006 PONV (postoperative nausea a nd vomiting) nausea only Arthritis Sleep apnea Wears CPAP Coronary artery disease LBBB (left bundle branch block) Family History Medical History Relation Name Comments No Known Problems Father Heart attack Mother Hypertension Mother Stroke Mother Cerebral Artery Occlusion With Cerebral Infarction - (Added by TW Conv)/Cerebral Artery Occlusion With Cerebral Infarction - (Added by TW Conv) Stroke Other 1 Cerebral Artery Occlusion With Cerebral Infarction - (Added by TW Conv) Stroke Other 2 Cerebral Artery Occlusion With Cerebral Infarction - (Added by TW Conv) Anesthesia problems Neg Hx Relation Name Status Comments Father Mother Other 1 Other 2 Social History Tobacco Use Types Packs/Day Years [...] on file Legal Sex Female 3:45 AM BRICK POINTER Gender Identity Female 07/04/2024 5:02 PM BRICK POINTER Sexual Orientation Not on file Obstetrics History Last Filed Vital Signs Vital Sign Reading Time Taken Comments Blood Pressure 137/77 07/17/2024 11:05 AM BRICK POINTER Pulse 74 07/17/2024 11:05 AM BRICK POINTER Temperature 36.7 C (98 F) 07/17/2024 11:05 AM BRICK POINTER Respiratory Rate 19 07/10/2024 4:52 PM BRICK POINTER Oxygen Saturation 97% 07/10/2024 5:13 PM BRICK POINTER Inhaled Oxygen Concentration - - Weight 84.8 kg (187 lb) 07/17/2024 11:05 AM BRICK POINTER Height 149.9 cm (4' 11 ) 07/17/2024 11:05 AM BRICK POINTER Body Mass Index 37.77 07/17/2024 11:05 AM BRICK POINTER Plan of Treatment Health Maintenance Due Date Last Done Comments Albumin Creatinine Ratio, Urine 1962 Breast Cancer Screening-Mammogram 1962 Cervical Cancer Screening 1962 Depression Screening 1962 Dilated Eye Exam 1972 DTaP/Tdap/Td Vaccine (1 - Tdap) 1973 Regular Well Visit/Exam 18-64 1980 Zoster Vaccine (1 of 2) 1981 Pneumococcal vaccine <65 (3 of 3 - PPSV23, PCV20 or PCV21) 04/06/2015 02/09/2015, 05/21/2014, 04/02/2011, Additional history exists Foot Exam 11/17/2020 11/18/2019, 07/04, 04/18/2019, Additional history exists Covid-19 Vaccine ( - 2023-2 5 season) 2024 09/03/2021, 03/05/2021, 10/02/2020, Additional history exists Hemoglobin A1C 01/09/2025 07/12/2024, 110 01/2024, 04/16/2024, Additional history exists TSH Level 01/28/2025 01/29/2024 Influenza Vaccine (Season Ended) 2025 07/02/2199, 04/30/2021, 03/12/2020, Additional history exists Lipid Panel 07/12/2025 07/12/2024, 11/0 01/2024, 09/29/2023, Additional history exists eGFR 07/12/2025 07/12/2024, 11/0 01/2024, 03/05/2024, Additional history exists Colon Cancer Screening-Colonoscopy 04/26/2026 04/26/2016, 04/26/2016 Colon Cancer Screening-CT Colonography Discontinued 04/26/2016, 04/26/2016 Colon Cancer Screening-DNA Stool Discontinued 04/26/20 16, 04/26/2016 Colon Cancer Screening-FIT Discontinued 04/26/2016, Colon Cancer Screening-Sigmoidoscopy Discontinued 04/26/2016, 04/26/2016 Hepatitis B Screening Completed 01/29/2024 Hepatitis C Screening Completed 01/29/2024 , 07/12/2018, 11/29/2017, Additional history exists Goals Goal Patient Goal Type Associated Problems Recent Progress Patient-Stated? Author CCM Chronic Pain Care Plan Chronic Care Management On track(2024 2:54 PM BRICK POINTER) Luz Sandoval RN Note: Problem: Chronic Pain Goals: 1. Minimize further functional decline 2. Maximize quality of life 3. Control pain Strategies: - Activity/exercise program recommendation - Conservative stepwise pain medicine strategy with multi-disciplinary approach - Recommend healthy lifestyle strategies and compensatory methods as needed Medical Devices Implanted Type Area Skip Pit Worker Device Identifier Shelf Expiration Date Model / Serial / Lot Sisteer Sophie Angio-Seal Vip 6fr Closere Device [id number] - [id number] - [id number] Implanted:Qty: 1 on 03/14/2024 by Richar Gurrola MD at [facility] Collagen Left: Common Femoral Artery [employer] 10/15/2024 [id number] / [id number] / [id number] Cardiac Stent X 2 N/A: Heart [employer] Gynecare Tvt 18x.5in System Transobturator Midurethral Sling [id number] - [id number] Implanted:Qty: 1 on 01/24/2022 by Norman Carver MD at [facility] N/A: Urethra [employer] [id number] 06/01/2022 [id number] / / Explanted Type Area Skip Pit Worker Device Identifier Shelf Expiration Date Model / Serial / Lot Circon-Surgite k [id number] Double-J 6fr 20cm 100cm 1 Step Insert Push Catheter [place] Suture - Sxx - [id number] Implanted:Qty: 1 on 07/26/2018 by Rachelle Austin MD PhD at [facility] Explanted:Qty: 1 on 08/27/2018 by Jean Claude Coffey, DANIA Stent Left: Ureter Circon-Surgitek 01/19/2023 [id number] / [id number] / [id number] Description:Transplant urete r Procedures Procedure Name Priority Date/Time Associated Diagnosis Comments POCT GLUCOSE [id number] Routine 07/17/2024 11:09 AM BRICK POINTER 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) TACROLIMUS, HIGHLY SENSITIVE, LC/MS/MS Routine 07/12/2024 9:06 AM BRICK POINTER RENAL FUNCTION PANEL Routine 07/12/2024 9:06 AM BRICK POINTER HEPATIC FUNCTION PANEL, SERUM Routine 07/12/2024 9:06 AM BRICK POINTER LIPID PANEL Routine 07/12/2024 9:06 AM BRICK POINTER CBC WITH AUTO DIFFERENTIAL Routine 07/12/2024 9:06 AM BRICK POINTER HEMOGLOBIN A1C Routine 07/12/2024 9:06 AM BRICK POINTER COPY(IES) SENT TO: Routine 07/12/2024 9: 06 AM BRICK POINTER PAIN MGMT IMAGING LUMBAR/CAUDAL EPIDURAL STEROID INJ Schedule Routine, Read Routine (OP Routine) 07/10/2024 5:02 PM BRICK POINTER Connective tissue and disc stenosis of intervertebral foramina of lumbar region Spinal stenosis of lumbar region with neurogenic claudication HEPATITIS C ANTIBODY Routine 01/29/2024 2:27 PM CDT Elevated liver enzymes TSH Routine 01/29/2024 2:27 PM CDT Elevated liver enzymes Other hyperlipidemia COLONOSCOPY IMAGES 04/26/2016 from Last 3 Months or Most Recently Relevant to Health Maintenance Results * POCT glucose (07/17/2024 11:09 AM BRICK POINTER) Glucose Blood, POC 133 mg/dL Blood 07/17/2024 11:0 9 AM BRICK POINTER us Ricco Dunn MD POINT OF CARE TEST ORDERABLES F inal Result * (ABNORMAL) Tacrolimus, Highly Sensitive, LC/MS/MS (07/12/2024 9:06 AM BRICK POINTER) Pathologist [facility] Tacrolimus, Highly Sensitive, LC/MS/MS 4.5(L) mcg/L [facility] Comment: No definitive therapeutic or toxic ranges have been established. Optimal blood drug levels are influenced by type of transplant, patient response, time post- transplant, co-administration of other drugs, and drug formulation. The following trough range is a suggested guideline: 5.0-20.0 mcg/L. 07/12/2024 9:06 AM BRICK POINTER 07/12/2024 9:07 AM BRICK POINTER Narrative [facility] - 07/15/2024 3:19 PM BRICK POINTER AP FASTING:YES FASTING: YES Gabby Cardoza MD LAB BLOOD ORDERABLES Final Resu lt Performing Organization Address City/[facility]/ZIP Co de Phone Number [facility] [address] [place] [address] * COPY(IES) SENT TO: (07/12/2024 9:06 AM BRICK POINTER) [facility] COPY(IES) SENT TO: [facility] Comment: [facility] - COPY TO [address] [address] 07/12/2024 9:06 AM BRICK POINTER 07/12/2024 9:07 AM BRICK POINTER Narrative [facility] - 07/15/2024 3:19 PM BRICK POINTER AP FASTING:YES FASTING: YES Gabby Cardoza MD LAB BLOOD ORDERABLES Final Resu lt [facility] * Hepatic Function Panel, Serum (07/12/2024 9:06 AM BRICK POINTER) [facility] Protein, sr 7.0 6.1 - 8.1 g/dL [...] U/L [facility] 07/12/2024 9:06 AM BRICK POINTER 07/12/2024 9:07 AM BRICK POINTER Narrative [facility] - 07/15/2024 3:19 PM BRICK POINTER AP FASTING:YES FASTING: YES us Gabby Cardoza MD LAB BLOOD ORDERABLES Final Resu lt [facility] [address] [place] [address] * (ABNORMAL) CBC with auto differential (07/12/2024 9:06 AM BRICK POINTER) Pathologist [facility] WBC 6.7 3.8 - 10.8 Thousand/u L [...] % [facility] 07/12/2024 9:06 AM BRICK POINTER 07/12/2024 9:07 AM BRICK POINTER Narrative [facility] - 07/15/2024 3:19 PM BRICK POINTER AP FASTING:YES FASTING: YES us Gabby Cardoza MD LAB BLOOD ORDERABLES Final Resu lt [facility] [address] [place] [address] * (ABNORMAL) Hemoglobin A1c (07/12/2024 9:06 AM BRICK POINTER) Hgb A1C 7.2(H) <5.7 % of total [...] of diabetes for children. 07/12/2024 9:06 AM BRICK POINTER 07/12/2024 9:07 AM BRICK POINTER Narrative [facility] - 07/15/2024 3:19 PM BRICK POINTER AP FASTING:YES FASTING: YES Gabby Cardoza MD LAB BLOOD ORDERABLES Final Resu lt [facility] [address] [place] [address] * (ABNORMAL) Renal function panel (07/12/2024 9:06 AM BRICK POINTER) Glucose 150(H) 65 - 99 mg/dL [facility] [...] g/dL [facility] 07/12/2024 9:06 AM BRICK POINTER 07/12/2024 9:07 AM BRICK POINTER Narrative [facility] - 07/15/2024 3:19 PM BRICK POINTER AP FASTING:YES FASTING: YES Gabby Cardoza MD LAB BLOOD ORDERABLES Final Resu lt [facility] [address] [address] * Lipid panel (07/12/2024 9:06 AM BRICK POINTER) Cholesterol 149 <200 mg/dL [facility] [...] equation in the estimation of LDL-C. Vega JACINTO et al. IRON. 2013;310(19): 7701-6073 (http://education.Guarnic/faq/ZST825) Chol/HDL ratio 2.3 <5.0 (calc) [facility] Non-HDL, (LDL+VLDL) 83 <130 mg/dL (calc) [facility] Comment: For patients with diabetes plus 1 major ASCVD risk factor, treating to a non-HDL-C goal of <100 mg/dL (LDL-C of <70 mg/dL) is considered a therapeutic option. 07/12/2024 9:06 AM BRICK POINTER 07/12/2024 9:07 AM BRICK POINTER Narrative [facility] - 07/15/2024 3:19 PM BRICK POINTER AP FASTING:YES FASTING: YES us Gabby Cardoza MD LAB BLOOD ORDERABLES Final Resu lt TOYA Ortega [address] [address] [id number] * Imaging Lumbar/Caudal Epidural Steroid INJ ([id number]) (07/10/2024 5:02 PM BRICK POINTER) Narrative [facility] - 07/10/2024 5:03 PM BRICK POINTER The images from this study are not interpreted by Radiology. Please refer to the physician's procedure / OR operative note. Monique Fung NP IMG PAIN MGMT PROCEDURES Eleanor l Result Performing Organization Address [facility] Co de Phone Number [facility] * Hepatitis [...] last revised on 2019. Testing performed by: [facility], [address] [place] [address], [place]., [address] Blood 01/29/2024 2:27 PM CDT 01/29/2024 5:02 PM CDT Shawna Jovel NP LAB MICROBIOLOGY - GENERAL ORDERABLES Final Result Performing Organization Address [facility] Co de Phone Number PASHA CREWSCH [address] [employer] Department of [employer] [place], [place] [id number] * TSH (01/29/2024 2:27 PM CDT) Thyroid Stimulating Hormone 0.99 0.30 - 4.20 mcIUnit/mL Blood 01/29/2024 2:27 PM CDT 01/29/2024 2:39 PM CDT Shawna Jovel NP LAB BLOOD ORDERABLES Edite d Result - Final Performing Organization Address [facility] Co de Phone Number PASHA BJWCH [address] [employer] [place] [address] * COLONOSCOPY IMAGES (04/26/2016) Anatomical Region Laterality Modality Other Narrative 04/26/2016 Ordered by an unspecified provider. us Historical Provider GI PROCEDURE ORDERABLES F inal Result from Last 3 Months or Most Recently Relevant to Health Maintenance Insurance [facility] MEDICARE MEDICARE [facility] MEDICARE [facility] MEDICARE [facility] MEDICARE [facility] Address: [address] [place] [phone] [facility] Advance Directives For more information, please contact: [phone] * Full Code (Latest Code Status on [...] Communication Atul Somers Spouse Health Care Agent [email or web address] Software Engineering Specialist Relationship Specialty Start Date End Date Juan F Avila MD [address] [place] [address] PCP - General Internal Medicine 07/10/24 Mayela Greenberg, RN [address] [address] Registered Nurse 07/27/18 Mayela Greenberg RN [address] [address] Registered Nurse 08/07/18 Jacqueline Baum, PT Physical Therapist Physical Therapy 10/30/23 Ricco Dunn MD [address] [facility] DIV ENDOCRINOLOGY, [facility] [address] [place] [address] Referring Physician Endocrinology Diabetes & Metabolism 07/10/24
--- OUTSIDE RECORDS SUMMARY | 2024-09-13 13:10 | XMS_ITS | Clinical Summary ---
Author Organization [facility] Address [address] [place] [address] Care Team Providers Care Terrazzo Supervisor Name Role Phone Unavailable Primary Care Provider [...]
--- OUTSIDE RECORDS SUMMARY | 2024-09-13 13:10 | XMS_ITS ---
Author Organization [facility] Address [address] [place] [address] Care Team Providers Care Rehab Trainer Name Role Phone Mayela Greenberg RN Unavailable [phone] Mayela Greenberg RN Unavailable [phone] Jacqueline Baum PT Unavailable Unavailabl e Ricco Dunn MD Unavailable [phone] Juan F Avila MD Primary Care Provider [phone] Transplant Episode Kidney Recipient [facility] ([place], [place]) - [facility] Organ Received: Left Kidney Transplanted on 07/26/2018 Marked as Active Follow-up on 07/26/2018 Kidney CoordinatorMayela Greenberg RN Fax: N/A Email: N/A [place] Organ Diagnosis Organ Primary Contributory Kidney Diabetes - Type II Insulin Dep/A dult Onset Retransplant Diagnosis Organ Primary Contributory Kidney Diabetes Mellitus - Type I Donor Information Organ ABO Source Meets Risk Criteria HLA Match Mismatches Cross Match Left Kidney Transplanted A Positive Live A: B: DR: Left Kidney Donor Serology Results Anti-CMV CMV IgG: Negative EBV IgG EBV VCA IgG: Positive Anti-HBcAb HBC Total: Nonreactive HBsAg HBsAg: Nonreactive HBV DNA No results on file Anti-HCV HCV Ab: Nonreactive Anti-HIV I/II HIV Ag/Ab Combo Assay: Nonreactive Anti-HTLV I/II No results on file RPR/VDRL RPR: Nonreactive EBV IgM No results on file HBsAb HBsAb: Nonreactiv e EBNA No results on file SARS CoV-2 No results on file Care Team Name Role Phone Fax Email Mayela Greenberg, RN Kidney Coordinator [phone] N/A N/A Maria Isabel Peterson Primary Last Scourer N/A N/A N/A Mayela Greenberg, ball assemblerCasting Molder [phone] N/A N/A Arabella Cerda Secondary Last Scourer N/A N/A N/A Surinder Whitaker MD Referring Physician [phone] N/A Amelie Lona Lens Examiner [phone] N/A N/A Randee Navarro RN Secondary Coordinator Secondary Kidney Coordinator [phone] N/A N/A Rachelle Austin MD PhD Surgeon [phone] N/A Events Post-Transplant Pre-Transplant Admitted: 07/26/2018 Referred: 02/11/2015 Transplanted: 07/26/2018 Evaluation began: 5 Discharged: 07/30/2018 UNOS qualified: 01/28/2015 Center waitlisted: 7 Dialysis History Dialysis History Start End Type Comments Center 01/28/2015 07/26/2018 [facility] Information Center Phone Fax Address [facility] [phone] [facility] [address]
--- OUTSIDE RECORDS SUMMARY | 2024-09-13 13:10 | XMS_ITS | Encounter Summary ---
Author Organization [facility] Address [address] [place] [address] [place] [address] Care Team Providers Care Sole Conditioner Name Role Phone Juan F Avila MD Primary Care Provider [phone] Sandy White RN Unavailable [phone] Encounter Details Date Type Department Care Team (Late st Contact Info) Description 03/02/2015 [facility] Nael Bunn MD [address] [place] [phone] Social History Tobacco Use Types Packs/Day Years [...] on filedocumented in this encounter Care Teams Sole Conditioner Relationship Specialty Start Date End Date Juan F Avila MD [address] [place] [address] PCP - General Internal Medicine 03/02/15 Sandy White, RN [address] [place] [address] Log Manager 08/18/15 documented as of this encounter
--- OUTSIDE RECORDS SUMMARY | 2024-09-13 13:10 | XMS_ITS | Encounter Summary ---
Author Organization [facility] Address [address] [place] [address] Phone Care Team Providers Care Intel Recruiter Name Role Phone Juan F Avila MD Primary Care Provider [phone] Mayela Greenberg RN Unavailable [phone] Mayela Greenberg RN Unavailable [phone] Jacqueline Baum PT Unavailable Unavailabl Ricco Hall MD Unavailable [phone] Juan F Avila MD Primary Care Provider [phone] Encounter Details Date Type Department Care Team (Latest Contact Info) Description 02/03/2020 Orders Only [facility] Scanning, Provider Social History Tobacco Use Types Packs/Day Years Used Date Smoking Tobacco: Never Smokeless Tobacco: Never Alcohol Use Standard Drinks/Week Comments No 0 (1 standard drink = 0.6 oz pur e alcohol) Comments Unknown Sex and Gender Information Value Date Recorded Sex Assigned at Not on file Legal Sex Female 3:45 AM ZOO CARETAKER Gender Identity Female 07/04/2024 5:02 PM ZOO CARETAKER Sexual Orientation Not on file documented as of this encounter Plan of Treatment Not on file documented as of this encounter Procedures Procedure Name Priority Date/Time Associated Diagnosis Comments SCAN - LABS 02/03/2020 documented in this encounter Results * SCAN - LABS (02/03/2020) us Provider Scanning Final Result documented in this encounter Visit Diagnoses Not on filedocumented in this encounter Additional Health Concerns Infection Onset Date Last Indicated Resolved Time COVID19 01/24/2022 01/24/2022 02/04/2022 3:05 AM CDT COVID: Recovered Comment:Added based on recent COVID infection. 02/04/2022 02/04/2022 06/04/2022 3:[address] documented as of this encounter Care Teams Intel Recruiter Relationship Specialty Start Date End Date Juan F Avila MD PCP - General 09/01/16 07/09/24 Juan F Avila MD [address] [place] [address] PCP - General Internal Medicine 07/10/24 Mayela Greenberg RN [address] [address] Registered Nurse 07/27/18 Mayela Greenberg RN [address] [address] Registered Nurse 08/07/18 Jacqueline Baum, PT Physical Therapist Physical Therapy 10/30/23 Ricco Dunn MD [address] [place] [address] DIV IM ENDOCRINOLOGY, [facility] [address] [place] [address] Referring Physician Endocrinology Diabetes & Metabolism 07/10/24 documented as of this encounter
[2024-09-13 13:13] LABS: Basophils Absolute Auto 0.01 K/mm3 (0.00-0.10); Basophils Percent Auto 0.1 % (0.0-1.0); Eosinophils Absolute Auto 0.07 K/mm3 (0.02-0.50); Hematocrit 37.6 % (35.0-49.0); Hemoglobin 11.5 g/dL (12.0-15.0); Immature Granulocyte Absolute 0.03 K/mm3 (0.00-0.00); Immature Granulocyte Percent A 0.4 % (0.0-0.0); Lymphocytes Absolute Auto 0.66 K/mm3 (1.10-4.50); Lymphocytes Percent Auto 9.6 % (18.0-42.0); Mean Corpuscular HGB Conc 30.6 g/dL (32-36); Mean Corpuscular Hemoglobin 28.5 pg (27.0-31.0); Mean Corpuscular Volume 93.3 fL (78.0-102.0); Mean Platelet Volume 9.9 fl (9.2-11.8); Monocytes Percent Auto 5.8 % (2.0-11.0); Neutrophils Percent Auto 83.1 % (50.0-70.0); Platelet Count Result 226 K/mm3 (150-420); Red Blood Count 4.03 M/mm3 (4.20-5.40); Red Cell Distribution Width 13.5 % (11.6-14.4); White Blood Count 6.9 K/mm3 (4.8-10.8)
[2024-09-13 13:48] LABS: Alanine Aminotransferase 20 U/L (14-59); Albumin Level 2.9 g/dL (3.4-5.0); Alkaline Phosphatase 104 U/L (46-116); Anion Gap 9 mmol/L (4-12); Aspartate Amino Transferase 15 U/L (15-37); Bilirubin,Total 0.4 mg/dL (0.00-1.00); Blood Urea Nitrogen 27 mg/dL (7-18); Carbon Dioxide 29 mmol/L (21-32); Chloride 102 mmol/L (98-108); Estimated Glomerular Filt Rate 39; Glucose 275 mg/dL (70-99); Osmolality Calculated 305 mOsm/kg (285-295); Potassium 4.6 mmol/L (3.5-5.1); Sodium 140 mmol/L (136-145); Total Protein 6.2 g/dL (6.4-8.2)
== END 2024-09-13 12:59 | disposition home or self-care (01) ==
PROVIDERS: PCP Internal Medicine; Visit Provider Internal Medicine
DX: E86.0 Dehydration (principal); R94.4 Abnormal results of kidney function studies
CPT/HCPCS: 36415; 80053; 85025

== ENCOUNTER 2025-01-31 15:21 | Emergency (ER) | payer MEDICARE, OTHER, SELFPAY ==
[2025-01-31] VITALS (52 sets, daily range): BP systolic 106–182; BP diastolic 60–78; PULSE 70–81; RESP 14–22; TEMP 36.6; O2SAT 97–100
--- NOTE | ~2025-01-31 | XR_ITS ---
CHEST RADIOGRAPH CLINICAL HISTORY: dizziness/weakness x2 days . COMPARISON: None available TECHNIQUE: Single portable view of the chest. FINDINGS The cardiomediastinal silhouette is unremarkable. Platelike atelectasis within the left upper lobe. The remainder of the lungs are clear. IMPRESSION: Platelike atelectasis within the left upper lobe without focal infiltrate or effusion. Reviewed, dictated and finalized at location A. IMPRESSION: Platelike atelectasis within the left upper lobe without focal infiltrate or ef fusion.
--- NOTE | 2025-01-31 15:25 | ED.FALL ---
HPI - Fall General Chief Complaint: Dizziness Stated Complaint: fall Time Seen by Provider: 01/31/25 15:25 Source: patient Mode of arrival: ambulatory Limitations: no limitations History of Present Illness HPI Narrative: patient is a 64-year-old female with a left kidney transplant 2018 and prior dialysis here for dizziness and a fall today. Yesterday she had diarrhea and vomiting. The vomiting and diarrhea is resolved at this time. Her sugars have been variable with some hypoglycemia prior to the vomiting and diarrhea and she used a lot of apple juice to repair her sugar levels. Sugar has been back to normal at this time. No complaints to include chest pain or shortness of breath. No abdominal pain. She fell without injuries. No head or neck injuries. She fell due to dizziness. left arm graft with flow. MD complaint: fall Onset (ago): day(s) ( One) Fall from: standing Fall witnessed: yes, by family Place fall occurred: home Loss of consciousness: none Prolonged down time: no Symptoms prior to fall: dizziness Context: other ( patient had low sugar and then drank a lot of apple juice and then further had diarrhea and further dizziness at this time with a fall) Location of injury: other ( no injuries; fell onto her bottom) Severity: mild Severity scale (1-10): 2 Quality: other ( no pain) Associated symptoms (after fall): lightheaded Related Data Home Medications ?Medication ?Instructions ?Recorded ?Confirmed ?Last Taken ?Type amlodipine 5 mg tablet 5 mg PO DAILY 02/15/24 02/29/24 02/28/24 History aspirin 81 mg capsule 81 mg PO DAILY 02/15/24 02/29/24 02/28/24 History carvedilol 25 mg tablet 25 mg PO BID 02/15/24 02/29/24 02/29/24 History cholecalciferol (vitamin D3) 50 2,000 unit PO DAILY 02/15/24 02/29/24 02/28/24 History mcg (2,000 unit) tablet famotidine 40 mg tablet 40 mg PO DAILY 02/15/24 02/29/24 02/28/24 History fluconazole 200 mg tablet 200 mg PO DAILY 02/15/24 02/29/24 02/28/24 History furosemide 40 mg tablet 40 mg PO DAILY 02/15/24 02/29/24 02/28/24 History glucagon 3 mg/actuation nasal 3 mg intranasal DAILY PRN low 02/15/24 02/29/24 02/28/24 History spray (Baqsimi) blood sugar ketorolac 0.5 % eye drops 1 drp RIGHT EYE DAILY 02/15/24 02/29/24 02/28/24 History losartan 100 mg tablet 100 mg PO DAILY 02/15/24 02/29/24 02/29/24 History mycophenolate sodium 360 mg 360 mg PO DAILY 02/15/24 02/29/24 02/28/24 History tablet,delayed release prednisone 5 mg tablet 5 mg PO DAILY 02/15/24 02/29/24 02/28/24 History rosuvastatin 40 mg tablet 40 mg PO DAILY 02/15/24 02/29/24 02/28/24 History tacrolimus 0.75 mg tablet,extended 0.75 mg PO DAILY 02/15/24 02/29/24 02/28/24 History release 24 hr (Envarsus XR) Allergies Allergy/AdvReac Type Severity Reaction Status Date / Time lisinopril Allergy Cough Verified 01/31/25 15:35 fentanyl AdvReac Loss of Verified 01/31/25 15:35 Consciousness Review of Systems Review of Systems: All systems reviewed & are unremarkable except as noted in HPI and below Constitutional: Constitutional: Reports no additional constitutional complaints Eyes: Eyes: Reports no additional eye complaints ENT: Reports system reviewed and no additional complaints, except as documented Cardiovascular: Cardiovascular: Reports no additional cardiovascular complaints Respiratory: Respiratory: Reports no additional respiratory complaints Gastrointestinal: Gastrointestinal: Reports no additional gastrointestinal complaints Genitourinary: Genitourinary: Reports no additional female genitourinary complaints Musculoskeletal: Musculoskeletal: Reports no additional musculoskeletal complaints Integumentary/Breasts: Skin/Breast: Reports system reviewed and no additional complaints, except as docu Neurologic: Reports system reviewed and no additional complaints, except as documented Psychiatric: Psychiatric: Reports no additional psychiatric complaints Endocrine: Endocrine: Reports no additional endocrine complaints Hematologic/Lymphatic: Hematologic/Lymphatic: Reports no additional hematologic/lymphatic complaints Allergic/Immunologic: Allergic/Immunologic: Reports no additional allergic/immunologic complaints PMFSH Social History Social History Smoking status: Never smoker Alcohol intake: never Substance use: never Substance use type: does not use Living arrangements: with family Spiritual care concerns: No Exam Const: General: healthy appearing Nutritional Appearance: well nourished Orientation/consciousness: patient oriented x3 Limitations: no limitations HENMT: Head: normal to inspection Ears: external ears normal Face/Nose/Sinus: Normal external nose present Eyes: Conjunctivae: conjunctivae normal Pupils: Equal, round and reactive pupils present EOM: EOMs intact bilaterally Neck: Neck: normal visual inspection Chest: Chest palpation & inspection: normal inspection of the chest Resp: Effort & Inspection: normal respiratory effort and not labored Auscultation: clear to auscultation bilaterally and no crackles Cardio: Rate: regular rate Rhythm: regular rhythm Heart sounds: no murmurs GI: Inspection: non-distended GI Palp: Yes Soft to palpation, No Tenderness to palpation present (GI) and No Guarding due to palpation present (GI) Auscultation: normal bowel sounds : General: Yes bladder normal to palpation Back/Spine/Pelvis: Back: no CVA tenderness Skin: General skin exam: normal color Rashes: no rashes Wounds: no wounds Neuro: General: patient oriented x3, moves all extremities, no meningeal signs, no focal motor deficits and CN's II-XI intact bilaterally Cranial nerves: Yes Nystagmus not present Speech: normal speech Gait exam (Neuro): Normal gait present Extrem: General: normal to inspection Psych: Mental Status: mental status grossly normal Affect: normal affect Attitude: cooperative Course Vital Signs Vital signs: Vital Signs Temperature 36.6 C 01/31/25 15:23 Pulse Rate 76 01/31/25 15:23 Respiratory Rate 18 01/31/25 15:23 Blood Pressure 106/60 01/31/25 15:23 Pulse Oximetry 100 01/31/25 15:23 Oxygen Delivery Room Air 01/31/25 15:23 Temperature 36.6 C 01/31/25 15:23 Pulse Rate 71 01/31/25 17:45 Respiratory Rate 19 01/31/25 17:45 Blood Pressure 142/65 H 01/31/25 16:31 Pulse Oximetry 99 01/31/25 17:45 Oxygen Delivery Room Air 01/31/25 17:00 MDM - Fall MDM Narrative Medical decision making narrative: patient is a 64-year-old female with a fall and dizziness after having a bout of diarrhea and vomiting yesterday. We will do workup and give her IV fluids. Initial labs showed a chemistry with a elevated BUN and creatinine which are higher than her baseline. She is in acute renal failure. Further her potassium is elevated. We will treat the potassium and get her transferred back to [facility] for higher level medical care. Possible dialysis. We will treat UTI. Lab Data Attestation: I reviewed the patient's lab results. 01/31/25 15:55 01/31/25 15:55 Labs: Lab Results 01/31/25 01/31/25 01/31/25 Range/Units 15:54 15:55 17:47 WBC 9.0 (4.8-10.8) K/mm3 RBC 4.51 (4.20-5.40) M/mm3 Hgb 13.0 (12.0-15.0) g/dL Hct 41.4 (35.0-49.0) % MCV 91.8 (78.0-102.0) fL MCH 28.8 (27.0-31.0) pg MCHC 31.4 L (32-36) g/dL RDW 14.4 (11.6-14.4) % Plt Count 186 (150-420) K/mm3 MPV 10.6 (9.2-11.8) fl Immature Gran % (Auto) 0.6 H (0.0-0.0) % Neut % (Auto) 82.6 H (50.0-70.0) % Lymph % (Auto) 8.6 L (18.0-42.0) % [place] % (Auto) 8.0 (2.0-11.0) % Eos % (Auto) 0.1 L (1.0-6.0) % Baso % (Auto) 0.1 (0.0-1.0) % Lymph # (Auto) 0.78 L (1.10-4.50) K/mm3 [place] # (Auto) 0.72 (0.10-0.90) K/mm3 Eos # (Auto) 0.01 L (0.02-0.50) K/mm3 Baso # (Auto) 0.01 (0.00-0.10) K/mm3 Abs Immat Gran (auto) 0.05 H (0.00-0.00) K/mm3 Absolute Neuts (auto) 7.47 H (1.70-7.20) K/mm3 Absolute Nucleated RBC 0.00 (0.00-0.00) K/mm3 Nucleated RBC % 0.0 (0-0.0) % Sodium 133 L (137-145) mmol/L Potassium 5.8 H (3.4-5.0) mmol/L Chloride 103 (98-107) mmol/L Carbon Dioxide 19 L (22-30) mmol/L Anion Gap 11 (4-12) mmol/L BUN 76 H (7-17) mg/dL Creatinine 4.16 H (0.7-1.0) mg/dL Estim Creat Clear Calc Not Reportable Estimated GFR 11 L (59 - ) Glucose 128 H (65-110) mg/dL POC Capillary Glucose 138 H (65-105) mg/dl Calculated Osmolality 300 H (285-295) mOsm/kg Lactic Acid 1.6 (0.4-2.0) mmol/L Calcium 9.2 (8.4-10.2) mg/dL Magnesium 2.2 (1.6-2.3) mg/dL Total Bilirubin 0.5 (0.2-1.3) mg/dL AST 46 H (14-36) U/L ALT 27 (6-35) U/L Alkaline Phosphatase 76 (38-126) U/L Troponin I 0.625 H* (0.000-0.034) ng/mL Total Protein 7.9 (6.3-8.2) g/dL Albumin 4.7 (3.5-5.1) g/dL Urine Color Light yellow (Yellow) Urine Appearance Clear (Clear) Urine pH 5.5 (5.0-8.0) Ur Specific [place] 1.015 (1.010-1.020) Urine Protein Negative (Negative) Urine Glucose (UA) Negative (Negative) Urine Ketones Negative (Negative) Ur Blood (Man) Trace-intact H (Negative) Urine Nitrate Negative (Negative) Urine Bilirubin Negative (Negative) Urine Urobilinogen 0.2 (0.2-1.0) mg/dL Leukocyte Esterase Rfl 1+ H (Negative) ANDRES/UL Urine RBC 0-2 (0-2) /hpf Urine WBC 7-9 H (0-3) /hpf Ur Squamous Epith Cells Few (Few) /hpf Urine Bacteria 1+ H (None) /hpf Imaging Data Attestation: I personally reviewed and interpreted this imaging study as follows: Radiologist's impression: chest x-rays negative for acute process ECG Data EKG #1: Attestation: I personally reviewed and interpreted this ECG as follows: ECG completion date: 01/31/25 ECG completion time: 16:06 Interpretation: Known left bundle branch block EKG Interpretation: normal rate, sinus rhythm, non-specific ST changes, widened QRS, LBBB, normal QT and left axis Discharge Plan Discharge Clinical Impression: Acute hyperkalemia, Elevated troponin, Acute dehydration Acute renal failure Qualifiers: Acute renal failure type: unspecified Qualified Code(s): N17.9 - Acute kidney failure, unspecified Patient Disposition: Acute Care Hospital Condition: Stable Patient Language: Tamazight Prescriptions: No Action furosemide 40 mg tablet 40 mg PO DAILY carvedilol 25 mg tablet 25 mg PO BID fluconazole 200 mg tablet 200 mg PO DAILY famotidine 40 mg tablet 40 mg PO DAILY prednisone 5 mg tablet 5 mg PO DAILY amlodipine 5 mg tablet 5 mg PO DAILY ketorolac 0.5 % drops 1 drp RIGHT EYE DAILY losartan 100 mg tablet 100 mg PO DAILY rosuvastatin 40 mg tablet 40 mg PO DAILY mycophenolate sodium 360 mg tablet,delayed release (DR/EC) 360 mg PO DAILY cholecalciferol (vitamin D3) 50 mcg (2,000 unit) Tablet 2,000 unit PO DAILY Envarsus XR 0.75 mg tablet extended release 24 hr 0.75 mg PO DAILY Baqsimi 3 mg/actuation spray,non-aerosol 3 mg INTRANASAL DAILY PRN (Reason: low blood sugar) aspirin 81 mg Capsule 81 mg PO DAILY Follow-up/Referrals: Juan F Avila MD [Primary Care Provider] - Time of Disposition: 16:28
--- NOTE | 2025-01-31 15:32 | ECG_ITS ---
Test Date: 2025-01-31 15:45:19 Measurements Intervals [place] Rate: 72 P: 54 VA: 204 QRS: -82 QRSD: 156 T: 95 QT: 431 QTc: 472 Interpretive Statements SINUS RHYTHM LEFT AXIS DEVIATION LEFT BUNDLE BRANCH BLOCK BASELINE ARTIFACT- I, II, III, AVR, AVL, AVF ABNORMAL ECG No previous ECG available for comparison Electronically Signed On 01-31-2025 19:19:44 CDT by Ward Trevino D.O.
[2025-01-31 15:59] LABS: Hematocrit 41.4 % (35.0-49.0); Hemoglobin 13.0 g/dL (12.0-15.0); Immature Granulocyte Percent A 0.6 % (0.0-0.0); Lymphocytes Absolute Auto 0.78 K/mm3 (1.10-4.50); Mean Corpuscular HGB Conc 31.4 g/dL (32-36); Mean Corpuscular Hemoglobin 28.8 pg (27.0-31.0); Mean Corpuscular Volume 91.8 fL (78.0-102.0); Nucleated Red Blood Cells Absolute Auto 0.00 K/mm3 (0.00-0.00); Nucleated Red Blood Cells Perc 0.0 % (0-0.0); Platelet Count Result 186 K/mm3 (150-420); Red Blood Count 4.51 M/mm3 (4.20-5.40); White Blood Count 9.0 K/mm3 (4.8-10.8)
[2025-01-31] MEDS: SODIUM CHLORIDE 0.9% IV 1,000 ML 999 ML IV CONT ×2 (16:02→18:20)
[2025-01-31 16:14] LABS: Alanine Aminotransferase 27 U/L (6-35); Albumin Level 4.7 g/dL (3.5-5.1); Alkaline Phosphatase 76 U/L (38-126); Anion Gap 11 mmol/L (4-12); Aspartate Amino Transferase 46 U/L (14-36); Bilirubin,Total 0.5 mg/dL (0.2-1.3); Blood Urea Nitrogen 76 mg/dL (7-17); Calcium 9.2 mg/dL (8.4-10.2); Carbon Dioxide 19 mmol/L (22-30); Chloride 103 mmol/L (98-107); Estimated Glomerular Filt Rate 11; Glucose 128 mg/dL (65-110); Osmolality Calculated 300 mOsm/kg (285-295); Potassium 5.8 mmol/L (3.4-5.0); Sodium 133 mmol/L (137-145); Total Protein 7.9 g/dL (6.3-8.2)
[2025-01-31 16:15] LABS: Add Urine Microscopic? YES; Appearance Urine Clear (Clear); Glucose Urine UA Negative (Negative); Leukocyte Esterase Ur 1+ LEU/UL (Negative); Nitrate Urine Negative (Negative); Specific Grav Ur 1.015 (1.010-1.020)
[2025-01-31 16:17] LABS: Magnesium 2.2 mg/dL (1.6-2.3)
--- OUTSIDE RECORDS SUMMARY | 2025-01-31 16:26 | XMS_ITS | Encounter Summary ---
Author Organization [facility] Address [address] [place] [address] Phone Care Team Providers Care Polymer Engineer Name Role Phone Mayela Greenberg RN Unavailable [phone] Mayela Greenberg RN Unavailable [phone] Jacqueline Baum PT Unavailable Unavailabl Ricco Hall MD Unavailable [phone] Juan F Avila MD Primary Care Provider [phone] Encounter Details Date Type Department Care Team (Late st Contact Info) Description 01/01/2025 Results Follow-Up [facility] Cardiology [facility] Medical Office Building [address] [place] [address] Richar Gurrola MD [facility] [address] [place] [address] Basic metabolic panel, Pro B-type natriuretic peptide Social History Tobacco Use Types Packs/Day Years Used Date Smoking Tobacco: Never Smokeless Tobacco: Never Alcohol Use Standard Drinks/Week Comments No 0 (1 standard drink = 0.6 oz pur e alcohol) AUDIT-C Answer Date Recorded Q1: How often do you have a drink containing alc ohol? Never 03/14/2024 Average Number of Drinks Not on file 024 Frequency of Binge Drinking Not on file 03/03 Hunger Vital Sign Answer Date Recorded Within the past 12 months, y ou worried that your food would run out before you got the money to buy more. Never true 11/23/19 25 Within the past 12 months, t he food you bought just didn't last and you didn't have money to get more. Never true 11/22/2024 Personal Safety Answer Date Recorded Have you ever been in or are you currently in a harmful physical or emotional relationship or is someone making you feel afraid or unsafe? Denies 11/22/2024 Comments No Sex and Gender Information Value Date Recorded Sex Assigned at Not on file Legal Sex Female 3:45 AM PICKLING OPERATOR Gender Identity Female 07/04/2024 5:02 PM PICKLING OPERATOR Sexual Orientation Not on file documented as of this encounter Plan of Treatment Not on file documented as of this encounter Goals Goal Patient Goal Type Associated Problems Recent Progress Patient-Stated? Author CCM Chronic Pain Care Plan Chronic Care Management On track(2024 2:54 PM PICKLING OPERATOR) No Luz Weaver RN Note: Problem: Chronic Pain Goals: 1. Minimize further functional decline 2. Maximize quality of life 3. Control pain Strategies: - Activity/exercise program recommendation - Conservative stepwise pain medicine strategy with multi-disciplinary approach - Recommend healthy lifestyle strategies and compensatory methods as needed documented as of this encounter Visit Diagnoses Not on filedocumented in this encounter Care Teams Polymer Engineer Relationship Specialty Start Date End Date Juan F Avila MD [address] [place] [address] PCP - General Internal Medicine 07/10/24 Mayela Greenberg RN [address] [address] Registered Nurse 07/27/18 Mayela Greenberg RN [address] [address] Registered Nurse 08/07/18 Jacqueline Baum, PT Physical Therapist Physical Therapy 10/30/23 Ricco Dunn MD [address] [facility] DIV ENDOCRINOLOGY, [facility] [address] [place] [address] Referring Physician Endocrinology Diabetes & Metabolism 07/10/24 documented as of this encounter
--- OUTSIDE RECORDS SUMMARY | 2025-01-31 16:26 | XMS_ITS | Clinical Summary ---
Author Organization [facility] Address [address] [place] [address] Phone Care Team Providers Care Certified Nursing Assistant Name Role Phone Juan F Avila MD Primary Care Provider [phone] Allergies Active Allergy Reactions Criticality Noted Date [...] daily. 7 Active neomycin-polymy izzy-dexamethaso ne (MAXITROL) 3.5-76410-0.1 Ointment Admin uses topical on dialysis 6 [...] Comments Blood Pressure 157/68 08/11/2016 2:35 PM DEBT COLLECTOR Pulse 75 08/11/2016 2:35 PM DEBT COLLECTOR Temperature 35.3 C (95.5 F) 08/11/2016 2:35 PM DEBT COLLECTOR Respiratory Rate 16 08/11/2016 2:35 PM DEBT COLLECTOR Oxygen Saturation 98% 08/11/2016 2:35 PM DEBT COLLECTOR Inhaled Oxygen Concentration - - Weight 63.5 kg (140 lb) 08/01/2016 1:00 PM DEBT COLLECTOR Height 154.9 cm (5' 1) 08/01/2016 1:00 PM DEBT COLLECTOR Body Mass Index 26.45 08/01/2016 1:00 PM DEBT COLLECTOR Plan of Treatment Health Maintenance Due Date Last Done Comments Hepatitis C Virus (HCV) Screening 1962 TdaP Immunization 1962 SARS-COV-2 Immunization (#1) 1967 Pneumococcal Immunization (5 0+ years) (1 of 2 - PCV) 1981 Zoster Immunization (1 of 2) 1981 Pap Smear 1983 Cervical Cancer Screening (CCS) 1992 HPV/Cotest 1992 Cologuard 2007 Colonoscopy 2007 Colorectal Cancer Screening 2007 Immunochemical Fecal Occult Blood 2007 Respiratory Syncytial Virus (RSV) Immunization (Adult) (1 - Risk 60-74 years 1-dose series) 2022 Influenza Immunization (#1) 2025 Hepatitis B Immunization Aged Out No longer eligible based on patient's age to complete this topic Human Papillomavirus (HPV) Immunization Aged Out No longer eligible b ased on patient's age to complete this topic Meningococcal Immunization (ACWY) Aged Out No longer eligible based on patient's age to complete this topic Rotavirus Immunization Aged Out No lo nger eligible based on patient's age to complete this topic Insurance MEDICARE Care Teams Certified Nursing Assistant Relationship Specialty Start Date End Date Juan F Avila MD [address] [place] [address] PCP - General Internal Medicine 07/28/16
--- OUTSIDE RECORDS SUMMARY | 2025-01-31 16:26 | XMS_ITS | Encounter Summary ---
Author Organization [facility] Healthcare Address [address] [place] [address] Care Team Providers Care Janitorial Supervisor Name Role Phone Juan F Avila MD Primary Care Provider [phone] Mayela Greenberg RN Unavailable [phone] Mayela Greenberg RN Unavailable [phone] Jacqueline Baum PT Unavailable Unavailabl Ricco Hall MD Unavailable [phone] Juan F Avila MD Primary Care Provider [phone] Reason for Visit * Reason Onset Date Comments PMC Preprocedure 07/05/2024 Encounter Details Date Type Department Care Team (Late st Contact Info) Description 07/05/2024 Telephone [facility] [address] [facility] [address] [place] [address] Delio Jimenez MD [address] [facility] [id number] [place] [address] PMC Preprocedure Social History Tobacco [...] on file Legal Sex Female 3:45 AM SENIOR CENTER MANAGER Gender Identity Female 07/04/2024 5:02 PM SENIOR CENTER MANAGER Sexual Orientation Not on file documented as of this encounter Plan of Treatment Not on file documented as of this encounter Goals Goal Patient Goal Type Associated Problems Recent Progress Patient-Stated? Author CCM Chronic Pain Care Plan Chronic Care Management On track(2024 2:54 PM SENIOR CENTER MANAGER) No Luz Weaver RN Note: Problem: Chronic Pain Goals: 1. Minimize further functional decline 2. Maximize quality of life 3. Control pain Strategies: - Activity/exercise program recommendation - Conservative stepwise pain medicine strategy with multi-disciplinary approach - Recommend healthy lifestyle strategies and compensatory methods as needed documented as of this encounter Visit Diagnoses Not on filedocumented in this encounter Care Teams Janitorial Supervisor Relationship Specialty Start Date End Date Juan F Avila MD PCP - General 09/01/16 07/09/24 Juan F Avila MD [address] [place] [address] PCP - General Internal Medicine 07/10/24 Mayela Greenberg, KAVITHA [address] [address] Registered Nurse 07/27/18 Mayela Greenberg, RN [address] [facility] [address] [place] [address] Registered Nurse 08/07/18 Jacqueline Baum, PT Physical Therapist Physical Therapy 10/30/23 Ricco Dunn MD [address] [facility] DIV ENDOCRINOLOGY, [facility] [address] [place] [address] Referring Physician Endocrinology Diabetes & Metabolism 07/10/24 documented as of this encounter
--- OUTSIDE RECORDS SUMMARY | 2025-01-31 16:26 | XMS_ITS | Encounter Summary ---
Author Organization [facility] Healthcare Address [address] [place] [address] Care Team Providers Care Leather Case Finisher Name Role Phone Juan F Avila MD Primary Care Provider [phone] Mayela Greenberg RN Unavailable [phone] Mayela Greenberg RN Unavailable [phone] Jacqueline Baum PT Unavailable Unavailabl Ricco Hall MD Unavailable [phone] Juan F Avila MD Primary Care Provider [phone] Encounter Details Date Type Department Care Team (Late st Contact Info) Description 01/31/2019 Patient Outreach [facility] [phone] [place] [address] Nova Mitchell Social History Tobacco Use Types Packs/Day Years Used Date Smoking Tobacco: Never Smokeless Tobacco: Never Alcohol Use Standard Drinks/Week Comments No 0 (1 standard drink = 0.6 oz pur e alcohol) Comments Unknown Sex and Gender Information Value Date Recorded Sex Assigned at Not on file Legal Sex Female 3:45 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 Gender Identity Female 07/04/2024 5:02 PM HOGSHEAD MAT ASSEMBLER Sexual Orientation Not on file documented as [...] documented as of this encounter Care Teams Leather Case Finisher Relationship Specialty Start Date End Date Juan F Avila MD PCP - General 09/01/16 07/09/24 Juan F Avila MD [address] [place] [address] PCP - General Internal Medicine 07/10/24 Mayela Greenberg RN [address] [address] Registered Nurse 07/27/18 Mayela Greenberg RN [address] [facility] [address] [place] [address] Registered Nurse 08/07/18 Jacqueline Baum, PT Physical Therapist Physical Therapy 10/30/23 Ricco Dunn MD [address] [facility] DIV ENDOCRINOLOGY, [facility] [address] [place] [address] Referring Physician Endocrinology Diabetes & Metabolism 07/10/24 documented as of this encounter
--- OUTSIDE RECORDS SUMMARY | 2025-01-31 16:26 | XMS_ITS | Clinical Summary ---
Author Organization [facility] [employer] Address [address] [facility] [place] [address] Care Team Providers Care Chip Mixing Machine Operator Name Role Phone Juan F Avila MD Primary Care Provider [phone] Sandy White RN Unavailable [phone] Source Comments [facility],non-owned Affiliates and Associated Physician Practices is amultiple site organization consisting of ambulatory clinics and hospital sitesin [place], [place], [place] and [place]. This disclosure is being madepursuant to the Care Everywhere program and may not contain all information available regarding this patient. Last updated 18.[facility] [employer] [facility] [employer] Allergies Active Allergy Reactions Criticality Noted Date Comments Fentanyl Anaphylaxis High 06/05/2015 Lisinopril Cough Low 11/10/2017 Medications * Be aware that medications may not be up to date on this document. Alwaysverify current medications with the patient. aspirin (ASPIRIN) 81 MG tablet Take 81 mg by mouth once daily Active Multiple Vitamin (MULTI VITAMIN DAILY PO)Indications :with iron Take 1 Tab by mouth once daily Reasons: with iron Active predniSONE EC (NANCY) 5 MG tablet Take 1 mg by mouth once daily Re-vinyls [phone] (Aaliyah) Active Cholecalcifero l (VITAMIN D-3 PO) Take 1 Tab by mouth once daily Active Calcium Carbonate-Shannon min D (CALCIUM + D PO) Take 500 mg by mouth 3 times daily as needed Active carvedilol (COREG) 25 MG tablet Take 25 mg by mouth 2 times daily with morning and evening meal Re-vinyls [phone] (Aaliyah) Active insulin lispro (HUMALOG) for insulin pump Inject 50 Units subcutaneously as directed Per pharmacy: the patient uses about 50 units for a total daily dose. Active ONETOUCH ULTRA TEST STRIPS test strip 6 6 Active nitroGLYCERIN (NITROSTAT) 0.4 MG tabletIndicati ons:Acute Angina Pectoris Dissolve 1 Tab under the tongue intra-Procedure multiple Reasons: Acute Angina Pectoris 50 Tab 1 6 Active PROAIR HFA 108 (90 BASE) MCG/ACT inhaler U 1 TO 2 PUFFS PO Q 4 TO 6 H PRN 2 6 Active losartan (COZAAR) 100 MG tablet Take [...] by mouth 3 times daily with meals Active amLODIPine (NORVASC) 10 MG tablet Take 10 mg by mouth once daily 5 7 Active Active Problems Problem Noted Date Diagnosed Date Diabetes mellitus type 2, uncomplicated 02/17/20 17 YUNI to mid LAD in 08/201510/05/2015 Bilateral carotid bruits 08/04/2015 CKD stage 5, on HD 07/31/2015 HTN (hypertension), benign 07/31/2015 Left arm swelling Complication of dialysis access insertion Resolved Problems Problem Noted Date Diagnosed Date Resolved Date Coronary artery disease invo lving [place] coronary artery of [place] heart with angina pectoris 08/19/2015 10/05/2015 Overview (08/19/2015): 08/18/15 Cath/PCI - 3.0x24 Resolute YUNI mLAD; mod mRCA and mCx; EF 65% Diabetes type 1, controlled 08/04/2015 02/16/2017 Abnormal stress test 08/04/2015 016 Syncope, needs stress test 07/31/2015 0 07/31/2015 Syncope 07/31/2015 10/05/2015 Family History Medical History Relation Name Comments Diabetes Brother 4 Cancer Maternal Grandfather Diabetes Maternal Grandmother MD Mother Stroke Mother MD Paternal Grandfather MD Paternal Grandmother Relation Name Status Comments Brother 1 Alive Brother 2 Alive Brother 3 Brother 4 Father Alive Maternal Grandfather Maternal Grandmother Mother Paternal Grandfather Paternal Grandmother Sister Alive Social History Tobacco Use Types Packs/Day Years Used Date Smoking Tobacco: Never Smokeless Tobacco: Never Alcohol Use Standard Drinks/Week Comments No 0 (1 standard drink = 0.6 oz pur e alcohol) Comments No Sex and Gender Information Value Date Recorded Sex Assigned at Not on file Legal Sex Female 6:00 AM SUMMER SCHOOL COORDINATOR Gender Identity Not on file Sexual Orientation [...] 8:52 AM CDT Height 154.9 cm (5' 1) 04/25/2018 8:52 AM CDT Body Mass Index [...] MAMMOGRAM 1962 MEDICARE AWV 12 MONTHS 1962 COVID-19 VACCINE (#1) 1967 HIV SCREENING 1977 HEPATITIS C SCREENING 03/31/1980 DTAP/TDAP/TD VACCINES (1 - Tdap) 1981 PNEUMOCOCCAL VACCINE 50+ (1 of 2 - PCV) 1981 ZOSTER VACCINE (1 of 2) 1981 PAP SMEAR 1983 DIABETES RETINOPATHY SCREENING 10/06/2015 DIABETES-FOOT EXAM WITH MONOFILAMENT 10/06/2015 DIABETES-HGB A1C 12/06/2015 06/06/2015 Respiratory Syncytial Virus (RSV) Vaccine Pt: or over 60 yrs (1 - Risk 60-74 years 1-dose series) 2022 DEPRESSION SCREENING 07/03/2024 INFLUENZA VACCINE (#1) 2025 HEPATITIS B VACCINE Aged Out No longe [...] this topic Medical Devices Implanted Type Area Louver Mortiser Operator Device Identifier Shelf Expiration Date Model / Serial / Lot Patrick Cates Gwt-Gw Dbl Gds 4-7mm X 35mm Implanted:Qty: 1 on 05/12/2015 by Nael Bunn MD at [facility] Left: Arm [place] 05/12/2019 [id number] / / [id number] Procedures Procedure Name Priority Date/Time Associated Diagnosis Comments HEMOGLOBIN A1C Routine 06/06/2015 4:28 AM SUMMER SCHOOL COORDINATOR from Last 3 Months or Most Recently Relevant to Health Maintenance Results * (ABNORMAL) HEMOGLOBIN A1C (06/06/2015 4:28 AM SUMMER SCHOOL COORDINATOR) Hemoglobin A1c 8.3(H) 4.2 - 6.3 % 06/06/2015 6:19 AM SUMMER SCHOOL COORDINATOR [facility] Estimated Average Glucose 192 mg/dL 06/06/2015 6:19 AM SUMMER SCHOOL COORDINATOR [facility] Whole Blood BLOOD SPECIMEN WITH EDTA / Unknown 06/06/2015 4:28 AM SUMMER SCHOOL COORDINATOR 06/06/2015 6:00 AM SUMMER SCHOOL COORDINATOR us Edy Erazo DO LAB - CHEMISTRY ORDERABLES Final Result [facility] [address] [place] [address] from Last 3 Months or Most Recently Relevant to Health Maintenance Insurance MEDICARE [place] [facility] RISK SELF PAY NO INSURANCE Member Subscriber Plan / Payer (Ef fective for All Dates) Name:Maureen Somers Member ID:Not on file Relation to Subscriber:Not on file Name:MAUREEN SOMERS Subscriber ID:Not on file (Home) Address: [place] [address] Payer ID:Not on file Group ID:Not on file Type:Self Pay Address: [place], [place] Advance Directives * Full Code (Latest Code Status on File) Date Activated Date Inactivated Comments 08/18/2015 2:57 PM 08/20/2015 3:36 PM * Full Code Date Activated Date Inactivated Comments 08/18/2015 2:53 PM 08/18/2015 2:57 PM * Full Code Date Activated Date Inactivated Comments 06/05/2015 10:34 PM 06/08/2015 11:13 PM Care Teams Chip Mixing Machine Operator Relationship Specialty Start Date End Date Juan F Avila MD [address] [place], [place] [id number] PCP - General Internal Medicine 03/02/15 Sandy White, RN [address] [place] [address] Outside Installer Apprentice 08/18/15
--- OUTSIDE RECORDS SUMMARY | 2025-01-31 16:27 | XMS_ITS | Clinical Summary ---
Author Organization [facility] Address [address] [place] [address] Care Team Providers Care Casing In Line Feeder Name Role Phone Unavailable Primary Care Provider [...] 2002 Zoster Vaccines (1 of 2) 2012 Pneumococcal Vaccine: 50+ Ye ars (2 of 2 - PCV) 04/02/2016 04/02/2015 COVID-19 Vaccine (2023-2 5 season) 2024 RSV Immunization or 60+ Years (1 - 1-dose 75+ series) 2037 Meningococcal B Vaccine Aged Out No l onger eligible based on patient's age to complete this topic Meningococcal Vaccine Aged Out No rose bladimir eligible based on patient's age to complete this topic RSV Immunizations Under 20 Months Aged Out No longer eligible based on patient's age to complete this topic
--- OUTSIDE RECORDS SUMMARY | 2025-01-31 16:27 | XMS_ITS | Encounter Summary ---
Author Organization [facility] Healthcare Address [address] [place] [address] Care Team Providers Care Goldbeater Name Role Phone Mayela Greenberg RN Unavailable [phone] Mayela Greenberg RN Unavailable [phone] Jacqueline Baum PT Unavailable Unavailabl Ricco Hall MD Unavailable [phone] Juan F Avila MD Primary Care Provider [phone] Encounter Details Date Type Department Care Team (Late st Contact Info) Description 12/27/2024 Results Follow-Up [facility] Transplant Kidney [address] [facility] [id number] [place] [address] Mayela Greenberg RN [address] [facility] [address] [place] [address] HLA Donor Specific Antibody Report Social History Tobacco Use Types Packs/Day Years [...] on file Legal Sex Female 3:45 AM MANAGER ORANGE Gender Identity Female 07/04/2024 5:02 PM MANAGER ORANGE Sexual Orientation Not on file documented as of this encounter Miscellaneous Notes * Result Encounter Note - Mayela Greenberg RN - 12/27/2024 9:33 AM CDT Rev'd DSA's, DSA's are negative. documented in this encounter Plan of Treatment Not on file documented as of this encounter Goals Goal Patient Goal Type Associated Problems Recent Progress Patient-Stated? Author CCM Chronic Pain Care Plan Chronic Care Management On track(2024 2:54 PM MANAGER ORANGE) No Luz Weaver RN Note: Problem: Chronic Pain Goals: 1. Minimize further functional decline 2. Maximize quality of life 3. Control pain Strategies: - Activity/exercise program recommendation - Conservative stepwise pain medicine strategy with multi-disciplinary approach - Recommend healthy lifestyle strategies and compensatory methods as needed documented as of this encounter Visit Diagnoses Not on filedocumented in this encounter Care Teams Goldbeater Relationship Specialty Start Date End Date Juan F Avila MD [address] [place] [address] PCP - General Internal Medicine 07/10/24 Mayela Greenberg RN [address] [address] Registered Nurse 07/27/18 Mayela Greenberg RN [address] [facility] [address] [address] [place] [address] Registered Nurse 08/07/18 Jacqueline Baum, PT Physical Therapist Physical Therapy 10/30/23 Ricco Dunn MD [address] [facility] DIV IM ENDOCRINOLOGY, [facility] [address] [place] [address] Referring Physician Endocrinology Diabetes & Metabolism 07/10/24 documented as of this encounter
--- OUTSIDE RECORDS SUMMARY | 2025-01-31 16:27 | XMS_ITS | Encounter Summary ---
Author Organization [facility] Health Address [address] [place] [address] [place] [address] Care Team Providers Care Treasurer Name Role Phone Juan F Avila MD Primary Care Provider [phone] Sandy White RN Unavailable [phone] Encounter Details Date Type Department Care Team (Late st Contact Info) Description 03/02/2015 [facility] Visit EXTERNAL NON-[facility] DEPT Nael Bunn MD [address] [place] [phone] Social History Tobacco Use Types Packs/Day Years Used Date Smoking Tobacco: Never Smokeless Tobacco: Never Alcohol Use Standard Drinks/Week Comments No 0 (1 standard drink = 0.6 oz pur e alcohol) Comments No Sex and Gender Information Value Date Recorded Sex Assigned at Not on file Legal Sex Female 6:00 AM PAPER SEALER Gender Identity Not on file Sexual Orientation Not on file documented as of this encounter Plan of Treatment Not on file documented as of this encounter Visit Diagnoses Not on filedocumented in this encounter Care Teams Treasurer Relationship Specialty Start Date End Date Juan F Avila MD [address] [place] [address] PCP - General Internal Medicine 03/02/15 Sandy White, RN [address] [place] [address] Research Aide 08/18/15 documented as of this encounter
--- OUTSIDE RECORDS SUMMARY | 2025-01-31 16:27 | XMS_ITS | Clinical Summary ---
Author Organization [facility] Address [address] [place] [address] Care Team Providers Care Outside Sales Account Executive Name Role Phone Mayela Greenberg RN Unavailable [phone] Mayela Greenberg RN Unavailable [phone] Jacqueline Baum PT Unavailable Unavailabl Ricco Hall MD Unavailable [phone] Juan F Avila MD Primary Care Provider [phone] Allergies Active Allergy Reactions Criticality Noted Date [...] morning 90 capsule 3 07/31/19 21 Active acetaminophen (TYLENOL) 500 mg tabletIndicatio ns:Pain Take 1 tablet (500 mg total) by mouth as needed for pain Active ketorolac (ACULAR) 0.5 % ophthalmic solution INSTILL 1 DROP INTO BOTH EYES TWICE DAILY NEEDED FOR PAIN 04/20/[address] (CYMBALTA) 30 mg capsule Take 1 capsule (30 mg total) by mouth daily 07/12/19 24 Active losartan (COZAAR) 100 mg tablet TAKE 1 TABLET(100 MG) BY MOUTH DAILY 90 tablet 1 01/26/20 24 Active omeprazole (PriLOSEC) 20 mg capsule [...] NIGHT 90 tablet 2 08/20/19 25 Active predniSONE (DELTASONE) 5 mg tabletIndicatio ns:Kidney replaced by transplant Take 1 tablet (5 mg) by mouth daily 90 tablet 3 10/01/19 25 Active insulin glargine (LANTUS) 100 unit/mL (3 mL) pen for injectionIndica tions: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 ADMINISTER 20 UNITS UNDER THE SKIN ONCE DAILY IN CASE OF PUMP FAILURE 15 mL 3 10/17/19 25 Active glucagon (Baqsimi) 3 mg/actuation spray,non-aeros olIndications:T ype 1 diabetes mellitus with other kidney complication mg (one actuation) into a single nostril for low blood sugar that does not correct with oral intake or if confused; if no response, may repeat in 15 minutes using a new intranasal device. 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 Use with an insulin pump max TDD 66 units daily 20 mL 6 12/03/[address] (MYFORTIC) 360 mg EC tabletIndicatio ns:Encounter for aftercare following kidney transplant TAKE 1 TABLET BY MOUTH DAILY 30 tablet 11 12/06/19 25 Active spironolactone (ALDACTONE) 25 mg tablet Take 0.5 tablets (12.5 mg total) by mouth daily Active furosemide (LASIX) 40 mg tablet Take 1 tablet (40 mg total) by mouth daily 90 tablet 3 01/02/20 25 2025 Active triamcinolone (KENALOG) 0.1 % ointment Apply topically 2 (two) times a day as needed for rash Apply on itchy areas on upper arms/chest/back 180 g 2 11/07/19 21 2024 Discontinued alendronate (FOSAMAX) 35 mg tablet 03/25/20 22 2024 Discontinued insulin lispro (HumaLOG, ADMELOG) 100 unit/mL vial for injectionIndica tions: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 MAXIMUM TOTAL DAILY DOSE 66 UNITS DAILY 20 mL 6 03/19/20 24 2024 Discontinued Active Problems Patient Care Coordination No te Formatting of this note migh t be different from the original. 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 -iCa low but raw Ca high - will repeat to reassess and would consider PTX for complications such as worsening hyperCa, nephrolithiasis, fractures -tHPT - mildly elevated and would continue to monitor. Would consider cinacalcet or PTX for escalating levels with other biochemical and skeletal complications -Osteoporosis - see OP section for management decisions Abnormal cardiovascular stress test 02/26/2024 Chronic systolic heart failure 01/24/2024 Assessment & Plan (10/29/2024 12:37 PM CDT): With increasing shortness of breath and lower extremity edema, weight gain, compatible with acute exacerbation. We will add spironolactone with a repeat BMP, BNP in 1-2 weeks. Asked that she send me a weight and symptom update in 2 weeks. Recheck echo with next visit. Has concomitant left bundle-branch block as well as circumflex AIRLINE SECURITY REPRESENTATIVE Assessment & Plan (04/30/2024 2:43 PM CDT): [...] there is decline over time can consider FRUIT HARVESTER referral if no other explanation Spondylosis of lumbar region without myelopathy or radiculopathy 09/26/2023 Connective tissue and disc s tenosis of intervertebral foramina of lumbar region 04/15/2023 Thoracic back pain 03/30/2023 Spinal stenosis of lumbar re gion with neurogenic claudication 03/30/2023 Compression fracture of T12 vertebra with routin e healing 01/30/2022 Other osteoporosis without current pathological fracture 01/30/2022 Assessment & Plan (10/31/2024 3:46 PM CDT): Osteoporosis, multifactorial in origin including CKD, HPT, Age with history of multiple fractures of spine and non-spine and lowest T-Score -3.2 at the FN. She has been managed with alendronate weekly. Her allograft function is good with eGFR 63 / CKD stage 2T. Her CKD MBD parameters show mild tHPT and the total Ca is high. BSAP does not suggest high turnover and the CTX is WNL - these remodeling parameters do not demonstrate suppression of remodeling by alendronate - although she is taking it correctly, she is not having good drug efficacy and we will change her to IV Reclast. We will start patient with Reclast. I reviewed the risks associated with IV bisphosphonate therapy including but not limited to a flu-like syndrome, arthralgia, myalgia, delayed jaw bone healing. Therapy plans are in and includes 250 cc pre bolus and 45 minute infusion time. Stop alendronate. We will check BMP one week after Reclast infusion. She has been counseled on non-pharm strategies for bone health, including diet and exercise. Female stress incontinence 12/07/2021 Overview (12/07/2021): Added automatically from request for surgery [id number] Urinary incontinence 09/10/2021 Urinary incontinence without sensory awareness 0 03/05/2021 Diastolic dysfunction 07/31/2020 Assessment & Plan (07/31/2020 9:03 AM DISK GRINDER): She has a history of grade 1 diastolic dysfunction on her most recent echo. She is euvolemic on examination today. We will continue to monitor. 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 She has reassuring MRI Abdomen Liver Elastography 03/18/2024 which shows fat fraction of 3.3%, no fibrosis. She has normal liver tests. No follow up is necessary at this time. Assessment & Plan (01/29/2024 2:29 PM CDT): [...] replaced by transplant 07/27/2018 Assessment & Plan (10/31/2024 10:52 AM CDT): KTx with excellent allograft function on GC based immunosuppression. GFR will not impede use of bone-targeted medications. Use of predisone based GC will be taken into consideration for bone management and treatment duration. Assessment & Plan (01/23/2023 11:50 AM CDT): -long-term use of immunosuppressants in steroids complicates diabetes management Assessment & Plan (07/18/2022 5:31 PM DISK GRINDER): -long-term use of immunosuppressants in steroids complicates diabetes management Assessment & Plan (01/04/2022 2:54 PM CDT): -long-term use of immunosuppressants in steroids complicates diabetes management Assessment & Plan (06/02/2021 4:25 PM DISK GRINDER): -long-term use of immunosuppressants in steroids complicates diabetes management Assessment & Plan (07/31/2019 10:10 AM DISK GRINDER): The patient has history of renal transplant. Long-term use of immunosuppressants and steroids complicates diabetes management. Assessment & Plan (07/30/2018 4:16 PM DISK GRINDER): -Cr continues to downtrend, patient's UOP more than adequate -Continue Bactrim as ppx; Valcyte to start 2/ -Continue Vit D -Richards x 2 wks d/t small bladder Assessment & Plan (07/27/2018 5:05 PM DISK GRINDER): -IVF decreased today -Cr continues to downtrend, [...] control. Assessment & Plan (07/19/2022 2:08 PM DISK GRINDER): -BP today is 139/77 -Will continue same [...] daily. Assessment & Plan (07/31/2020 9:03 AM DISK GRINDER): She has a history of hypertension and [...] symptoms Assessment & Plan (06/07/2019 9:15 AM DISK GRINDER): Her blood pressure goal should be systolic [...] dose. Assessment & Plan (07/18/2022 5:30 PM DISK GRINDER): -Last labs dated 04/29/22: TC 134, trig 120, HDL 61, LDL 52 -Continue rosuvastatin as she is tolerating it without side effects. Assessment & Plan (01/10/2022 2:07 PM CDT): -Last labs dated 10/07/21: TC 135, trig 99, HDL 66, LDL 51 -Continue rosuvastatin as she is tolerating it without side effects. Assessment & Plan (07/31/2019 10:09 AM DISK GRINDER): Continue Crestor. Tolerating without side effects. Assessment & Plan (04/18/2019 11:44 AM CDT): Continue Crestor. Tolerating without side effects. ESRD (end stage renal disease) 06/06/2018 Overview (06/06/2018): Added automatically from request for surgery [id number] Assessment & Plan (07/30/2018 1:07 PM DISK GRINDER): S/p renal transplant. On immunosuppressants and steroids which complicate diabetes management. Assessment & Plan (07/29/2018 4:32 PM DISK GRINDER): S/p renal transplant. On immunosuppressants and steroids which complicate diabetes management. Assessment & Plan (07/27/2018 10:54 AM DISK GRINDER): S/p renal transplant. On immunosuppressants and steroids which complicate diabetes management. Assessment & Plan (07/26/2018 5:54 PM DISK GRINDER): S/p renal transplant. On immunosuppressants and steroids [...] years. Assessment & Plan (07/31/2020 9:02 AM DISK GRINDER): She has a history of mild mitral [...] echocardiogram. Assessment & Plan (06/07/2019 9:02 AM DISK GRINDER): This was mild on echo with a [...] years. 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 Patient understands that she should stay on the Fluconazole indefinitely since she requires immune suppression after her kidney transplant. 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 Will follow with repeat CMP next week. Patient understands that she should stay on the Fluconazole indefinitely since she requires immune suppression after her recent kidney transplant. Assessment & Plan (07/30/2018 4:18 PM DISK GRINDER): -Continue Diflucan as chronic suppression Assessment & Plan (07/27/2018 5:04 PM DISK GRINDER): -Continue Diflucan as chronic suppression Encounter for long-term (current) use of antibio tics 04/21/2018 Assessment & Plan (10/25/2019 6:08 PM CDT): Recent labs reviewed without concern for antibiotic toxicities. RTC 6 months for standard office visit this year. Atherosclerosis of [place] co ronary artery of [place] heart without angina pectoris 11/24/2016 Overview (05/18/2018): Coronary artery disease with history of previous Resolute drug-eluting stent to the mid LAD. Most recent cardiac catheterization in October of 2016 demonstrated a patent stent in the mid LAD. There was a 70% lesion in the agk-sa-fuccfm right coronary artery with an iFR value of 0.68. This was treated with a 225 x 38 and and two 5 x 32 Synergy drug-eluting stents. Nuclear stress test November 29, 2017 showed normal perfusion without ischemia Assessment & Plan (10/29/2024 12:38 PM CDT): Circumflex AIRLINE SECURITY REPRESENTATIVE. We will continue medical management. If persistent LV dysfunction/symptoms, can consider a AIRLINE SECURITY REPRESENTATIVE PCI. Suspect left bundle-branch block maybe more obvious target for her LV dysfunction however if this does not improve with continued medical therapy. Recheck echo with next visit. Assessment & Plan (04/30/2024 2:42 PM CDT): AIRLINE SECURITY REPRESENTATIVE of the circumflex, well collateralized by the [...] statin. Assessment & Plan (07/31/2020 9:01 AM DISK GRINDER): She has a history of coronary disease with stenting with her last drug-eluting stent placed in 2017. She has no angina symptoms currently. We will continue her aspirin and rosuvastatin. We have reviewed all recent labs and documentation. Assessment & Plan (12/13/2019 8:39 AM CDT): She remained angina free and a good medical regimen. I will make no changes. Assessment & Plan (06/07/2019 9:04 AM DISK GRINDER): She is angina free. She is on [...] daily). Assessment & Plan (05/18/2018 9:32 AM DISK GRINDER): Currently angina free and had recent nuclear [...] management. Assessment & Plan (06/07/2019 9:04 AM DISK GRINDER): She is 50-69% stenosis in left internal [...] today Assessment & Plan (07/19/2022 2:08 PM DISK GRINDER): -Currently using tandem insulin pump and Dexcom, [...] today Assessment & Plan (06/02/2021 4:24 PM DISK GRINDER): -Currently using tandem insulin pump and Dexcom, [...] up. Assessment & Plan (07/30/2018 4:18 PM DISK GRINDER): Patient to have insulin pump placed back on today -F/U with Endocrine recommendations Assessment & Plan (07/30/2018 1:07 PM DISK GRINDER): Maureen Somers is a 58 y.o. female [...] [place]. Assessment & Plan (07/29/2018 4:35 PM DISK GRINDER): Maureen Somers is a 58 y.o. female [...] hs Assessment & Plan (07/27/2018 5:04 PM DISK GRINDER): Patient wears an insulin pump at baseline. She does not feel comfortable restarting this today -Endocrine c/s, currently on insulin gtt, will f/u recommendations Assessment & Plan (07/27/2018 10:54 AM DISK GRINDER): Maureen Somers is a 58 y.o. female [...] Carb ratio 0000-10 1200-8 Sensitivity 85 Target- [phone]. Prednisone 80 mg on 07/27 and 07/28. [...] changes. Assessment & Plan (07/26/2018 5:53 PM DISK GRINDER): Maureen Somers is a 58 y.o. female [...] Carb ratio 0000-10 1200-8 Sensitivity 85 Target- [phone]. Plan: Recommend continuing on insulin drip tonight. Difficult to assess needs with postoperative stress, high dose steroids on board and very sensitive type 1 diabetic. Will reassess the needs tomorrow. Please continue the drip at atleast 0.5 units/kg body weight. If blood sugars are trending low, can titrate the dextrose drip. Assessment & Plan (06/27/2018 4:58 PM DISK GRINDER): Her overall blood sugar average on the [...] an NT proBNP to further assess this. LBBB (left bundle branch block) Assessment & Plan (10/29/2024 12:39 PM CDT): As above. Resolved Problems Problem Noted Date Diagnosed Date Resolved Date CKD (chronic kidney disease) stage 3, GFR 30-59 ml/min 08/06/2018 03/05/2021 History of renal transplant 08/06/2018 10/23/2018 Encounter for aftercare foll owing kidney transplant 07/19/2018 08/14/2018 Diabetes mellitus type 2, uncomplicated 02/16/2017 04/12/2022 High risk medications (not a nticoagulants) long-term use 08/25/2016 03/05/2021 Assessment & Plan (07/30/2018 4:17 PM DISK GRINDER): -Continue Myfortic 360 BID -Decrease Envarsus to 4 mg/day; levels 9.8 today<--7.6 -Continue Pred 20 Assessment & Plan (07/27/2018 5:07 PM DISK GRINDER): -Continue Myfortic 720 BID -Per patient's body weight, call for Envarsus 6; however, patient on chronic Diflucan, consider starting lower dose -Patient was 5 mg/kg Thymo; received 75 07/27 and will receive 175 today and 150 tomorrow -Continue Pred 80 CKD (chronic kidney disease) stage 5, GFR less than 15 ml/min ([facility]) 07/31/2015 03/05/2021 Overview (05/12/2018): T End-stage renal disease, on hemodialysis Oikgyxf-Wluygvzr-Wvydiwnk. 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 Currently being evaluated for repeat transplantation with another living-related donor (her sister). HTN (hypertension), benign 07/31/2015 0 10/23/2018 Assessment & Plan (05/18/2018 9:31 AM DISK GRINDER): Well controlled today - Continue carvedilol 25mg BID, hydralazine 100mg, losartan 100mg daily, minoxidil 2.5mg daily Dependent on hemodialysis ([facility]) 09/26/2013 03/05/2021 Diabetes mellitus type 1, un controlled, with complications 07/26/2012 04/12/2022 Assessment & Plan (08/08/2018 5:28 PM DISK GRINDER): Patient is currently on insulin pump - [...] daily. Assessment & Plan (07/31/2020 9:03 AM DISK GRINDER): She continues on high-intensity statin and her LDL checked yesterday was 52. We will make no changes. Assessment & Plan (12/13/2019 8:40 AM CDT): She has excellent control 6 months ago under high-intensity statin. I will continue her current dose of rosuvastatin. Assessment & Plan (06/07/2019 9:01 AM DISK GRINDER): She is on a high-intensity statin. A [...] time. Assessment & Plan (05/18/2018 9:31 AM DISK GRINDER): Last LDL 58 in 10/2017 - Continue statin at current dose Encounters Date Type Department Care Team Description 01/28/2025 Telephone [facility] Transplant Kidney [address] [facility] [address] Mailstop [id number] [place] [address] Mayela Greenberg RN 01/27/2025 1:40 PM CDT Office Visit [facility] Gastroenterology [address] [facility] Medical [address], [address] [place] [phone] Shawna Jovel NP Elevated liver enzymes (Primary Dx) 01/20/2025 2:40 PM CDT Office Visit [facility] Endocrinology Metabolism and Lipid [address] [facility] 13th [place] [address] [place] [phone] Ricco Dunn MD 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) (Primary Dx); Dyslipidemia; Metabolic dysfunction-associated steatohepatitis (MASH) 01/01/2025 Telephone [facility] Transplant Kidney [address] [facility] [address] Mailstop [id number] [place] [address] Scarlett Seals 01/01/2025 Telephone [facility] Transplant Kidney [address] [facility] [address] Mailstop [phone] [place] [address] Mayela Greenberg RN 01/01/2025 Results Follow-Up [facility] Cardiology [address] [facility] [address] [place] [phone] Yovani Parks MD Basic metabolic panel, Pro B-type natriuretic peptide 12/31/2024 Orders Only [facility] Nephrology [address] [facility] 5th [place] [address] [place] [phone] Gabby Cardoza MD 12/27/2024 Results Follow-Up [facility] Transplant Kidney [address] [facility] [address] Mailstop [id number] [place] [address] Mayela Greenberg, KAVITHA HLA Donor Specific Antibody Report 12/23/2024 10:00 AM CDT - 12/23/2024 11:59 PM CDT Hospital Encounter [address] [address] Kidney replaced by transplant Discharge Disposition: Discharge to home or self care 12/20/2024 Orders Only [facility] Cardiology [address] [facility] Medical Office [address] [place] [address] Yovani Parks MD Non-rheumatic mitral regurgitation (Primary Dx); Atherosclerosis of [place] coronary artery of [place] heart without angina pectoris; Diastolic dysfunction; Chronic systolic heart failure (HCC) 12/19/2024 Orders Only [facility] Scanning, Provider 12/11/2024 Telephone [facility] Transplant Kidney [address] [facility] [address] Mailstop [phone] [place] [address] Mayela Greenberg RN 12/06/2024 Telephone [facility] Transplant Kidney [address] [facility] [address] Mailstop [id number] [place] [address] Randee Navarro RN 12/05/2024 Results Follow-Up [facility] [address] [place] [address] [place] [phone] Randell Manuel MD Renal function panel 12/03/2024 Orders Only [facility] [address] [place] [address] [place] [phone] Randell Manuel MD KALEB (acute kidney injury) (Primary Dx) 12/03/2024 Orders Only [facility] [address] [place] [address] [place] [phone] Sara Lennon NP 12/03/2024 Orders Only [facility] [address] [place] [phone] Rupinder Regan, KAVITHA 12/02/2024 Telephone [facility] Endocrinology Metabolism and Lipid [address] [place] [address] [place] [phone] Lashay Hein RN alternative to humalog vial 11/29/2024 Orders Only [facility] Nephrology [address] [facility] 5th [place] [address] [place] [address] Gabby Cardoza MD 11/27/2024 Results Follow-Up [facility] Bone Health [address] [facility] 5th [place] [address] [place] [address] Randell Manuel MD Creatinine, Basic metabolic panel, eGFR 11/22/2024 4:15 PM CDT Lab [facility] Advanced Medicine ([facility]) [address] [place] [phone] 11/22/2024 4:00 PM CDT Lab [facility] Advanced Medicine ([facility]) [address] [place] [phone] Other osteoporosis without current pathological fracture; Osteoporosis, unspecified osteoporosis type, unspecified pathological fracture presence 11/22/2024 2:30 PM CDT Infusion [facility] [address] [place] [address] Ave [address] [place] [phone] Other osteoporosis without current pathological fracture (Primary Dx); Age-related osteoporosis without current pathological fracture 11/20/2024 Orders Only [facility] [address] [place] [address] [address] [place] [phone] Rupinder Regan, KAVITHA Other osteoporosis without current pathological fracture (Primary Dx) 11/20/2024 Telephone [facility] [address] [place] [address] [address] [place] [phone] Keira Murdock, KAVITHA 11/19/2024 1:00 PM CDT Clinical Support [facility] Endocrinology Metabolism and Lipid [address] [facility] 13th [place] [address] [place] [address] Caitlyn Chandra, KAVITHA 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) (Primary Dx) 11/18/2024 Orders Only [facility] [address] [place] [address] [address] [place] [phone] Juan Alberto Cordova, KAVITHA 11/13/2024 11:00 AM CDT Clinical Support [facility] Endocrinology Metabolism and Lipid [address] [facility] 13th [place] [address] [place] [address] Maxine Freire RN 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) (Primary Dx) 11/13/2024 Orders Only [facility] Cardiology [address] [place] [address] Medical Office [address] [place] [address] Yovani Parks MD Chronic systolic heart failure (HCC) (Primary Dx); Diastolic dysfunction 11/12/2024 Results Follow-Up [facility] Cardiology [address] [place] [address] Office Building [address] [place] [address] Yovani Parks MD Transthoracic Echo (TTE) Complete W Doppler/CF 11/11/2024 1:00 PM CDT Ancillary Procedure [facility] [address] [place] [address] [address] [place] [address] Chronic systolic heart failure (HCC); Atherosclerosis of akutan coronary artery of akutan heart without angina pectoris 10/31/2024 2:20 PM CDT Office Visit [facility] [address] [facility] 5th [place] [address] [place] [address] Randell Manuel MD Osteoporosis, unspecified osteoporosis type, unspecified pathological fracture presence (Primary Dx); Other osteoporosis without current pathological fracture; Chronic kidney disease-mineral and bone disorder (CKD-MBD); Kidney replaced by transplant 10/31/2024 Telephone [facility] [address] [facility] Medical Office Building [address] [place] [address] Randell Manuel MD from Last 3 Months Immunizations Immunization Administration [...] stage 5, GFR less than 15 ml/min ([facility]) 07/31/2015 T End-stage renal diseas e, on hemodialysis Lmncmcj-Mcifgtwk-[id number]. 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 Currently being evaluated for repeat transplantation with another living-related donor (her sister). ESRD (end stage renal disease) 06/06/2018 A dded automatically from request for surgery [id number] Hyperlipidemia 07/10/2006 Diabetes mellitus type 1, uncontrolled, [...] by TW Conv) Anesthesia problems Neg Hx Broken bones Neg Hx Hip fracture Neg Hx Kyphosis Neg Hx Osteoporosis Neg Hx Scoliosis Neg Hx Relation Name Status Comments Father Mother Other 1 Other 2 Social History Tobacco Use Types Packs/Day Years Used Date Smoking Tobacco: Never Smokeless Tobacco: Never Tobacco Cessation:Counseling Given: Not Answered Alcohol Use Standard Drinks/Week Comments No 0 (1 standard drink = 0.6 oz pur e alcohol) AUDIT-C Answer Date Recorded Q1: How often do you have a drink containing alc ohol? Never 01/27/2025 Average Number of Drinks Not on file 025 Frequency of Binge Drinking Not on file 01/01 Hunger Vital Sign Answer Date Recorded Within [...] on file Legal Sex Female 3:45 AM DISK GRINDER Gender Identity Female 07/04/2024 5:02 PM DISK GRINDER Sexual Orientation Not on file Obstetrics History Last Filed Vital Signs Vital Sign Reading Time Taken Comments Blood Pressure 163/82 01/27/2025 1:35 PM CDT Pulse 73 01/27/2025 1:35 PM CDT Temperature 36.8 C (98.3 F) 01/20/2025 2:50 PM CDT Respiratory Rate 18 11/22/2024 2:13 PM CDT Oxygen Saturation 99% 01/27/2025 1:35 PM CDT Inhaled Oxygen Concentration - - Weight 78.8 kg (173 lb 12.8 oz) 01/27/2025 1:35 PM CDT Height 149.9 cm (4' 11) 01/27/2025 1:35 PM CDT Body Mass Index 35.1 01/27/2025 1:35 PM CDT Plan of Treatment Health Maintenance Due [...] 2024 09/03/2021, 03/05/2021, 10/02/2020, Additional history exists TSH Level 01/28/2025 01/29/2024 Hemoglobin A1C 07/03/2025 12/31/2024, 11/02, 10/10/2024, Additional history exists Lipid Panel 12/31/2025 12/31/2024, 11/02, 10/10/2024, Additional history exists eGFR 01/24/2026 01/24/2025, 07/0 07/2024, 12/31/2024, Additional history exists Influenza Vaccine (Season Ended) 2026 07/02/2199, 04/30/2021, 03/12/2020, Additional history exists Colon Cancer Screening-Colonoscopy 04/26/2026 [...] Chronic Care Management On track(2024 2:54 PM DISK GRINDER) Luz Sandoval RN Note: Problem: Chronic Pain Goals: 1. Minimize further functional decline 2. Maximize quality of life 3. Control pain Strategies: - Activity/exercise program recommendation - Conservative stepwise pain medicine strategy with multi-disciplinary approach - Recommend healthy lifestyle strategies and compensatory methods as needed Medical Devices Implanted Type Area Childcare Provider Device Identifier Shelf Expiration Date Model / Serial / Lot Social Moov Medical Sophie Angio-Seal Vip 6fr Closere Device [id number] - [id number] - [id number] Implanted:Qty: 1 on 03/14/2024 by Yovani Parks MD at [facility] Collagen Left: Common Femoral Artery KaldooraumAdvanova Sophie 10/15/2024 [id number] / [id number] / [id number] Cardiac Stent X 2 N/A: Heart [employer] Gynecare Tvt 18x.5in System Transobturator Midurethral Sling [id number] - [id number] Implanted:Qty: 1 on 01/24/2022 by Norman Carver MD at [facility] N/A: Urethra [employer] [id number] 06/01/2022 [id number] / / Explanted Type Area Childcare Provider Device Identifier Shelf Expiration Date Model / Serial / Lot Circon-Surgite k [id number] Double-J 6fr 20cm 100cm 1 Step Insert Push Catheter [place] Suture - Sxx - [id number] Implanted:Qty: 1 on 07/26/2018 by Rachelle Austin MD PhD at [facility] Explanted:Qty: 1 on 08/27/2018 by Jean Claude Coffey, DANIA Stent Left: Ureter Circon-Surgitek 01/19/2023 [id number] / XX / [id number] Description:Transplant urete r Procedures Procedure Name Priority Date/Time Associated Diagnosis Comments COPY(IES) SENT TO: Routine 01/24/2025 9: 24 AM CDT RENAL FUNCTION PANEL Routine 01/24/2025 9:24 AM CDT Kidney replaced by transplant POCT GLUCOSE [id number] Routine 01/20/2025 2: 52 PM CDT 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) TACROLIMUS, HIGHLY SENSITIVE, LC/MS/MS Routine 12/31/2024 9:11 AM CDT RENAL FUNCTION PANEL Routine 12/31/2024 9:11 AM CDT HEPATIC FUNCTION PANEL, SERUM Routine 12/31/2024 9:11 AM CDT LIPID PANEL Routine 12/31/2024 9:11 AM CDT CBC WITH AUTO DIFFERENTIAL Routine 12/31/2024 9:11 AM CDT HEMOGLOBIN A1C Routine 12/31/2024 9:11 AM CDT COPY(IES) SENT TO: Routine 12/31/2024 9: 11 AM CDT PRO B-TYPE NATRIURETIC PEPTIDE Routine 12/31/2024 9:08 AM CDT Non-rheumatic mitral regurgitation Atherosclerosis of akutan coronary artery of akutan heart without angina pectoris Diastolic dysfunction Chronic systolic heart failure (HCC) BASIC METABOLIC PANEL Routine 12/31/2024 9:08 AM CDT Non-rheumatic mitral regurgitation Atherosclerosis of akut[place] coronary artery of akut[place] heart without angina pectoris Diastolic dysfunction Chronic systolic heart failure (HCC) ALLOSURE KIDNEY DONOR-DERIVED CELL-FREE DNA (CFDNA) Routine 12/23/2024 4:46 PM CDT Kidney replaced by transplant HLA DONOR SPECIFIC ANTIBODY REPORT 12/23/2024 10:00 AM CDT HLA ANTIBODY SCREEN - DSA (CLASS I AND CLASS II) Routine 12/23/2024 10:00 AM CDT Kidney replaced by transplant SLEEP LAB/STUDY - RESULT 12/19/2024 4:58 PM CDT RENAL FUNCTION PANEL Routine 12/10/2024 9:41 AM CDT Chronic kidney disease-mineral and bone disorder (CKD-MBD) RENAL FUNCTION PANEL Routine 12/03/2024 1:12 PM CDT KALEB (acute kidney injury) TACROLIMUS, HIGHLY SENSITIVE, LC/MS/MS Routine 11/29/2024 9:20 AM CDT RENAL FUNCTION PANEL Routine 11/29/2024 9:20 AM CDT HEPATIC FUNCTION PANEL, SERUM Routine 11/29/2024 9:20 AM CDT LIPID PANEL Routine 11/29/2024 9:20 AM CDT CBC WITH AUTO DIFFERENTIAL Routine 11/29/2024 9:20 AM CDT HEMOGLOBIN A1C Routine 11/29/2024 9:20 AM CDT COPY(IES) SENT TO: Routine 11/29/2024 9: 20 AM CDT EGFR Routine 11/22/2024 1:22 PM CDT Other osteoporosis without current pathological fracture BASIC METABOLIC PANEL Routine 11/22/2024 1:22 PM CDT Osteoporosis, unspecified osteoporosis type, unspecified pathological fracture presence CREATININE Routine 11/22/2024 1:22 PM CDT Other osteoporosis without current pathological fracture TRANSTHORACIC ECHO (TTE) COMPLETE W DOPPLER/CF W CONTRAST Routine 11/11/2024 1:32 PM CDT Chronic systolic heart failure (HCC) Atherosclerosis of akutan coronary artery of akutan heart without angina pectoris HEPATITIS C ANTIBODY Routine 01/29/2024 2:27 PM CDT Elevated liver enzymes TSH Routine 01/29/2024 2:27 PM CDT Elevated liver enzymes Other hyperlipidemia COLONOSCOPY IMAGES 04/26/2016 from Last 3 Months or Most Recently Relevant to Health Maintenance Results * COPY(IES) SENT TO: (01/24/2025 9:24 AM CDT) COPY(IES) SENT TO: [facility] Comment: [facility] - COPY TO [place] [address] [place] [address] 01/24/2025 9:24 AM CDT 01/24/2025 9:25 AM CDT Maribel Escalera MD LAB BLOOD ORDERABL ES Final Result [facility] * (ABNORMAL) Renal function panel (01/24/2025 9:24 AM CDT) Glucose 124(H) 65 - 99 mg/dL [facility] Comment: Fasting reference interval For someone without known diabetes, a glucose value between 100 and 125 mg/dL is consistent with prediabetes and should be confirmed with a follow-up test. BUN 54(H) 7 - 25 mg/dL [facility] Creatinine 2.50(H) 0.50 - 1.05 mg/dL [facility] eGFR 21(L) > OR = 60 mL/min/1.7 3m2 [facility] BUN/creat ratio 22 6 - 22 (calc) [facility] Sodium 134(L) 135 - 146 mmol/L [facility] Potassium, pl 5.3 3.5 - 5.3 mmol/L [facility] Chloride 97(L) 98 - 110 mmol/L [facility] CO2 25 20 - 32 mmol/L [facility] Calcium 9.1 8.6 - 10.4 mg/dL [facility] Phosphorus, sr 4.5 2.5 - 4.5 mg/dL [facility] Albumin 4.0 3.6 - 5.1 g/dL [facility] Blood 01/24/2025 9:24 AM CDT 01/24/2025 9:25 AM CDT Maribel Escalera MD LAB BLOOD ORDERABL ES Final Result Performing Organization Address [facility] Co de Phone Number [facility] [address] [place] [address] * POCT glucose (01/20/2025 2:52 PM CDT) Glucose Blood, POC 298 Normal Fasting 70 - 100, Random <200 mg/dL Blood 01/20/2025 2:52 PM CDT Ricco Dunn MD POINT OF CARE TEST ORDERABLES F inal Result * Tacrolimus, Highly Sensitive, LC/MS/MS (12/31/2024 9:11 AM CDT) Tacrolimus, Highly Sensitive, LC/MS/MS 7.9 mcg/L [facility] Comment: No definitive therapeutic or toxic ranges have been established. Optimal blood drug levels are influenced by type of transplant, patient response, time post- transplant, co-administration of other drugs, and drug formulation. The following trough range is a suggested guideline: 5.0-20.0 mcg/L. 12/31/2024 9:11 AM CDT 12/31/2024 9:12 AM CDT Narrative [facility] - 01/01/2025 2:13 PM CDT AP FASTING:YES FASTING: YES Gabby Cardoza MD LAB BLOOD ORDERABLES Final Resu lt Performing Organization Address City/[facility]/ZIP Co de Phone Number [facility] [place] [address] [phone] * COPY(IES) SENT TO: (12/31/2024 9:11 AM CDT) COPY(IES) SENT TO: [facility] Comment: [facility] - COPY TO [facility] [address] [place] [address] 12/31/2024 9:11 AM CDT 12/31/2024 9:12 AM CDT Narrative [facility] - 01/01/2025 2:13 PM CDT AP FASTING:YES FASTING: YES Gabby Cardoza MD LAB BLOOD ORDERABLES Final Resu lt Performing Organization Address City/State/[facility] Co de Phone Number [facility] * Hepatic Function Panel, Serum (12/31/2024 9:11 AM CDT) Protein, sr 6.5 6.1 - 8.1 g/dL [facility] Albumin 3.9 3.6 - 5.1 g/dL [facility] GLOBULIN 2.6 1.9 - 3.7 g/dL (calc) [facility] Alb/glob ratio 1.5 1.0 - 2.5 (calc) [facility] Bilirubin, total 0.4 0.2 - 1.2 mg/dL [facility] Bilirubin, direct 0.1 < OR = 0.2 mg/dL [facility] Bilirubin, indirect 0.3 0.2 - 1.2 mg/dL (calc) [facility] Alk phos 66 37 - 153 U/L [facility] AST 17 10 - 35 U/L [facility] ALT (SGPT) 11 6 - 29 U/L [facility] 12/31/2024 9:11 AM CDT 12/31/2024 9:12 AM CDT Narrative [facility] - 01/01/2025 2:13 PM CDT AP FASTING:YES FASTING: YES Gabby Cardoza MD LAB BLOOD ORDERABLES Final Resu lt [facility] [address] [phone] * (ABNORMAL) CBC with auto differential (12/31/2024 9:11 AM CDT) WBC 5.7 3.8 - 10.8 Thousand/u L [facility] RBC, POC 3.78(L) 3.80 - 5.10 Million/uL [facility] Hgb 11.1(L) 11.7 - 15.5 g/dL [facility] Hct 35.5 35.0 - 45.0 % [facility] MCV 93.9 80.0 - 100.0 fL [facility] MCH 29.4 27.0 - 33.0 pg [facility] MCHC 31.3(L) 32.0 - 36.0 g/dL [facility] Comment: For adults, a slight decrease in the calculated MCHC value (in the range of 30 to 32 g/dL) is most likely not clinically significant; however, it should be interpreted with caution in correlation with other red cell parameters and the patient's clinical condition. Rdw 12.0 11.0 - 15.0 % [facility] Platelets 219 140 - 400 Thousand/u L [facility] MPV 10.1 7.5 - 12.5 fL [facility] Neutrophils, abs 3,312 1,500 - 7,800 cells/uL [facility] Lymphocytes, abs 1,454 850 - 3,900 cells/uL [facility] Monocyte abs 695 200 - 950 cells/uL [facility] Eosinophils, abs 200 15 - 500 cells/uL [facility] Basophils, abs 40 0 - 200 cells/uL [facility] Neutrophils 58.1 % [facility] Lymphocyte pct 25.5 % [facility] Monocytes 12.2 % [facility] Eosinophils 3.5 % [facility] Basophils 0.7 % [facility] 12/31/2024 9:11 AM CDT 12/31/2024 9:12 AM CDT Narrative [facility] - 01/01/2025 2:13 PM CDT AP FASTING:YES FASTING: YES Gabby Cardoza MD LAB BLOOD ORDERABLES Final Resu lt Performing Organization Address City/[facility] Co de Phone Number [facility] [address] [phone] * (ABNORMAL) Hemoglobin A1c (12/31/2024 9:11 AM CDT) Hgb A1C 8.1(H) <5.7 % of total Hgb [facility] Comment: For someone without known diabetes, [...] A1c for diagnosis of diabetes for children. 12/31/2024 9:11 AM CDT 12/31/2024 9:12 AM CDT Narrative [facility] - 01/01/2025 2:13 PM CDT AP FASTING:YES FASTING: YES Gabby Cardoza MD LAB BLOOD ORDERABLES Final Resu lt Performing Organization Address City/[facility] Co de Phone Number [facility] [address] [place] [address] * (ABNORMAL) Renal function panel (12/31/2024 9:11 AM CDT) Glucose 101(H) 65 - 99 mg/dL [facility] Comment: Fasting reference interval For someone without known diabetes, a glucose value between 100 and 125 mg/dL is consistent with prediabetes and should be confirmed with a follow-up test. BUN 43(H) 7 - 25 mg/dL [facility] Creatinine 2.20(H) 0.50 - 1.05 mg/dL [facility] eGFR 25(L) > OR = 60 mL/min/1.7 3m2 [facility] BUN/creat ratio 20 6 - 22 (calc) [facility] Sodium 132(L) 135 - 146 mmol/L [facility] Potassium, pl 5.6(H) 3.5 - 5.3 mmol/L [facility] Chloride 101 98 - 110 mmol/L [facility] CO2 22 20 - 32 mmol/L [facility] Calcium 9.7 8.6 - 10.4 mg/dL [facility] Phosphorus, sr 4.5 2.5 - 4.5 mg/dL [facility] Albumin 3.9 3.6 - 5.1 g/dL [facility] 12/31/2024 9:11 AM CDT 12/31/2024 9:12 AM CDT Narrative [facility] - 01/01/2025 2:13 PM CDT AP FASTING:YES FASTING: YES us Gabby Cardoza MD LAB BLOOD ORDERABLES Final Resu lt [facility] [address] [place] [address] * (ABNORMAL) Lipid panel (12/31/2024 9:11 AM CDT) [facility] Cholesterol 136 <200 mg/dL [facility] HDL 49(L) > OR = 50 mg/dL [facility] Triglycerides 205(H) <150 mg/dL [facility] Comment: If a non-fasting specimen was collected, consider repeat triglyceride testing on a fasting specimen if clinically indicated. Beatrice et al. J. of Clin. Lipidol. 2015;9:129-169. LDL 60 mg/dL (calc) [facility] Comment: Reference [...] LDL-C. Vega SS et al. IRON. 2013;310(19): 1972-9154 ([email or web address]) Chol/HDL ratio 2.8 <5.0 (calc) [facility] Non-HDL, (LDL+VLDL) 87 <130 mg/dL (calc) [facility] Comment: For patients with diabetes plus 1 major ASCVD risk factor, treating to a non-HDL-C goal of <100 mg/dL (LDL-C of <70 mg/dL) is considered a therapeutic option. 12/31/2024 9:11 AM CDT 12/31/2024 9:12 AM CDT Narrative [facility] - 01/01/2025 2:13 PM CDT AP FASTING:YES FASTING: YES us Gabby Cardoza MD LAB BLOOD ORDERABLES Final Resu lt Performing Organization Address [facility] Co de Phone Number [facility] [address] [place] [address] * (ABNORMAL) Pro B-type natriuretic peptide (12/31/2024 9:08 AM CDT) NT PROBNP 4,100(H) <125 pg/mL [facility] Blood 12/31/2024 9:08 AM CDT 12/31/2024 9:09 AM CDT Narrative [facility] - 01/01/2025 7:43 AM CDT FASTING:YES FASTING: YES us Yovani Parks MD LAB BLOOD ORDERABLES Final Result Performing Organization Address [facility] Co de Phone Number [facility] [address] [place] [address] * (ABNORMAL) Basic metabolic panel (12/31/2024 9:08 AM CDT) Glucose 100(H) 65 - 99 mg/dL [facility] Comment: Fasting reference interval For someone without known diabetes, a glucose value between 100 and 125 mg/dL is consistent with prediabetes and should be confirmed with a follow-up test. BUN 42(H) 7 - 25 mg/dL [facility] Creatinine 2.13(H) 0.50 - 1.05 mg/dL [facility] eGFR 26(L) > OR = 60 mL/min/1.7 3m2 [facility] BUN/creat ratio 20 6 - 22 (calc) [facility] Sodium 133(L) 135 - 146 mmol/L [facility] Potassium, pl 5.6(H) 3.5 - 5.3 mmol/L [facility] Chloride 101 98 - 110 mmol/L [facility] CO2 22 20 - 32 mmol/L [facility] Calcium 9.6 8.6 - 10.4 mg/dL [facility] Blood 12/31/2024 9:08 AM CDT 12/31/2024 9:09 AM CDT Narrative [facility] - 01/01/2025 7:43 AM CDT FASTING:YES FASTING: YES us Yovani Parks MD LAB BLOOD ORDERABLES Final Result [facility] [address] [place] [address] * Allosure kidney donor-derived cell-free DNA (cFDNA) (12/23/2024 4:46 PM CDT) [facility] Allosure CFDNA 0.19% [facility] Comment: INTERPRETATION OF ALLOSURE KIDNEY RESULTS AlloSure measures the percent of donor-derived cell-free DNA (dd-cfDNA) in the total cell-free DNA present in kidney transplant recipients.(1),(2) AlloSure Relative Change Value (RCV) represents the percentage change from previous AlloSure Result.(4),(5) When interpreting AlloSure Result: >=1.0% dd-cfDNA is associated with a higher probability of active rejection compared to scores less than 1.0%.(2),(3) 0.21% dd-cfDNA is the median observed in a reference population of stable recipients.(4) When interpreting AlloSure RCV:* >61% increase in AlloSure Result from prior result exceeds the biological variability observed in the reference population.(4) >=149% increase in AlloSure Result from prior result may indicate a high likelihood of allograft injury.(5) NR - No Result, US - Unacceptable Sample, N/A - RCV is not calculated due to AlloSure Result below 0.20%. *The RCV threshold for Simultaneous Pancreas-Kidney (SPK) has not been established. Clinical validity of the AlloSure test was established in kidney transplant recipients who were at least 14 days post-transplant. AlloSure should be interpreted in the context of clinical findings and relevant patient history. For more information about AlloSure, please visit [email or web address]. Specimens from kidney retransplant recipients in whom the prior kidney allograft(s) remain in situ and from SPK recipients(6),(7) are acceptable for testing. AlloSure is not intended for use in kidney transplant recipients who are , recipients of a transplant from a monozygotic twin, recipients of allogenic bone marrow transplant, or the recipients of multiple transplanted organs other than simultaneous pancreas-kidney transplant. Transfusion of blood components containing white blood cells in the 30 days prior to blood draw may lead to aberrant result. Renal biopsies performed in the 24 hours prior to AlloSure specimen collection may elevate dd-cfDNA. (1)Lelo et al., J Mol Diagn 2016; (2)Savage et al., J Am Soc Nephrol 2017; (3)Puliashley et al., Pediatric Transplantation 2020; (4)Antonio et al., J Appl Lab Med 2017; (5)Bu et al., Kidney International 2020;(6) Ramon et al.,Transplantation Direct 2021; (7)Tyler et al., Transplantation Direct 2022 The AlloSure donor-derived cell-free DNA test was developed and its performance characteristics were determined by the [facility] laboratory. The test has not been cleared or approved by the U.S. Food and Drug Administration, nor is it currently required to be. The laboratory is certified under the Clinical Laboratory Improvement Amendments of 1988 (CLIA '88) and accredited by the [employer] (CAP) as qualified to perform high complexity clinical laboratory testing. The contents of this report are confidential and intended solely for the use of authorized personnel. AlloSure testing performed at [facility]. [address] [place] [id number] (CLIA No: [id number], CAP No: [id number]) Rn Orthopaedic: Umesh Martinez M.D. Plasma 12/23/2024 4:46 PM CDT Maribel Escalera MD LAB BLOOD ORDERABL ES Final Result [facility] * HLA Donor Specific Antibody Report (12/23/2024 10:00 AM CDT) Maribel Escalera MD LAB BLOOD ORDERABL ES Final Result * HLA Antibody Screen - DSA (Class I and Class II) (12/23/2024 10:00 AM CDT) Blood 12/23/2024 10:0 0 AM CDT 12/27/2024 9:14 AM CDT Narrative [facility] - 12/27/2024 9:14 AM CDT Maribel Escalera MD LAB BLOOD ORDERABL ES Final Result [facility] * SLEEP LAB/STUDY - RESULT (12/19/2024 4:58 PM CDT) us Provider Scanning Final Result * (ABNORMAL) Renal function panel (12/10/2024 9:41 AM CDT) Glucose 148(H) 65 - 99 mg/dL [facility] Comment: Fasting reference interval For someone without known diabetes, a glucose value >125 mg/dL indicates that they may have diabetes and this should be confirmed with a follow-up test. BUN 45(H) 7 - 25 mg/dL [facility] Creatinine 2.59(H) 0.50 - 1.05 mg/dL [facility] eGFR 20(L) > OR = 60 mL/min/1.7 3m2 [facility] BUN/creat ratio 17 6 - 22 (calc) [facility] Sodium 136 135 - 146 mmol/L [facility] Potassium, pl 5.0 3.5 - 5.3 mmol/L [facility] Chloride 101 98 - 110 mmol/L [facility] CO2 24 20 - 32 mmol/L [facility] Calcium 9.6 8.6 - 10.4 mg/dL [facility] Phosphorus, sr 4.2 2.5 - 4.5 mg/dL [facility] Albumin 4.3 3.6 - 5.1 g/dL [facility] Blood 12/10/2024 9:41 AM CDT 12/10/2024 9:41 AM CDT Narrative [facility] - 12/11/2024 8:32 AM CDT FASTING:NO FASTING: NO Randell Manuel MD LAB BLOOD ORDERABLES nal Result [facility] [address] [place] [address] * (ABNORMAL) Renal function panel (12/03/2024 1:12 PM CDT) [facility] Glucose 153(H) 65 - 99 mg/dL [facility] Comment: Fasting reference interval For someone without known diabetes, a glucose value >125 mg/dL indicates that they may have diabetes and this should be confirmed with a follow-up test. BUN 39(H) 7 - 25 mg/dL [facility] Creatinine 1.86(H) 0.50 - 1.05 mg/dL [facility] eGFR 30(L) > OR = 60 mL/min/1.7 3m2 [facility] BUN/creat ratio 21 6 - 22 (calc) [facility] Sodium 138 135 - 146 mmol/L [facility] Potassium, pl 5.5(H) 3.5 - 5.3 mmol/L [facility] Chloride 104 98 - 110 mmol/L [facility] CO2 22 20 - 32 mmol/L [facility] Calcium 9.1 8.6 - 10.4 mg/dL [facility] Phosphorus, sr 3.7 2.5 - 4.5 mg/dL [facility] Albumin 4.4 3.6 - 5.1 g/dL [facility] Blood 12/03/2024 1:12 PM CDT 12/03/2024 1:13 PM CDT Randell Manuel MD LAB BLOOD ORDERABLES Fi nal Result Performing Organization Address [facility] Co de Phone Number [facility] [address] [place], [place] [id number] * Tacrolimus, Highly Sensitive, LC/MS/MS (11/29/2024 9:20 AM CDT) [facility] Tacrolimus, Highly Sensitive, LC/MS/MS 7.2 mcg/L [facility] Comment: No definitive therapeutic or toxic ranges have been established. Optimal blood drug levels are influenced by type of transplant, patient response, time post- transplant, co-administration of other drugs, and drug formulation. The following trough range is a suggested guideline: 5.0-20.0 mcg/L. 11/29/2024 9:20 AM CDT 11/29/2024 9:21 AM CDT Narrative [facility] - 11/30/2024 3:17 PM CDT AP FASTING:NO FASTING: NO Gabby Cardoza MD LAB BLOOD ORDERABLES Final Resu lt Performing Organization Address [facility]/ZIP Co de Phone Number [facility] [address] [facility] [place] [address] * COPY(IES) SENT TO: (11/29/2024 9:20 AM CDT) COPY(IES) SENT TO: [facility] Comment: [facility] [address] [place] [address] 11/29/2024 9:20 AM CDT 11/29/2024 9:21 AM CDT Narrative [facility] - 11/30/2024 3:17 PM CDT AP FASTING:NO FASTING: NO us Gabby Cardoza MD LAB BLOOD ORDERABLES Final Resu lt [facility] * Hepatic Function Panel, Serum (11/29/2024 9:20 AM CDT) Protein, sr 6.9 6.1 - 8.1 g/dL [facility] Albumin 4.1 3.6 - 5.1 g/dL [facility] GLOBULIN 2.8 1.9 - 3.7 g/dL (calc) [facility] Alb/glob ratio 1.5 1.0 - 2.5 (calc) [facility] Bilirubin, total 0.3 0.2 - 1.2 mg/dL [facility] Bilirubin, direct 0.1 < OR = 0.2 mg/dL [facility] Bilirubin, indirect 0.2 0.2 - 1.2 mg/dL (calc) [facility] Alk phos 75 37 - 153 U/L [facility] AST 24 10 - 35 U/L [facility] ALT (SGPT) 16 6 - 29 U/L [facility] 11/29/2024 9:20 AM CDT 11/29/2024 9:21 AM CDT Narrative [facility] - 11/30/2024 3:17 PM CDT AP FASTING:NO FASTING: NO us Gabby Cardoza MD LAB BLOOD ORDERABLES Final Resu lt [facility] [address] [facility] [place] [phone] * (ABNORMAL) CBC with auto differential (11/29/2024 9:20 AM CDT) [facility] WBC 7.3 3.8 - 10.8 Thousand/u L [facility] RBC, POC 4.20 3.80 - 5.10 Million/uL [facility] Hgb 12.5 11.7 - 15.5 g/dL [facility] Hct 39.9 35.0 - 45.0 % [facility] MCV 95.0 80.0 - 100.0 fL [facility] MCH 29.8 27.0 - 33.0 pg [facility] MCHC 31.3(L) 32.0 - 36.0 g/dL [facility] Comment: For adults, a slight decrease in the calculated MCHC value (in the range of 30 to 32 g/dL) is most likely not clinically significant; however, it should be interpreted with caution in correlation with other red cell parameters and the patient's clinical condition. Rdw 12.5 11.0 - 15.0 % [facility] Platelets 241 140 - 400 Thousand/u L [facility] MPV 10.5 7.5 - 12.5 fL [facility] Neutrophils, abs 4,614 1,500 - 7,800 cells/uL [facility] Lymphocytes, abs 1,540 850 - 3,900 cells/uL [facility] Monocyte abs 818 200 - 950 cells/uL [facility] Eosinophils, abs 285 15 - 500 cells/uL [facility] Basophils, abs 44 0 - 200 cells/uL [facility] Neutrophils 63.2 % [facility] Lymphocyte pct 21.1 % [facility] Monocytes 11.2 % [facility] Eosinophils 3.9 % [facility] Basophils 0.6 % [facility] 11/29/2024 9:20 AM CDT 11/29/2024 9:21 AM CDT Narrative [facility] - 11/30/2024 3:17 PM CDT AP FASTING:NO FASTING: NO Gabby Cardoza MD LAB BLOOD ORDERABLES Final Resu lt Performing Organization Address City/[facility]/ZIP Co de Phone Number [facility] [address] [address] [place] [phone] * (ABNORMAL) Hemoglobin A1c (11/29/2024 9:20 AM CDT) Hgb A1C 7.6(H) <5.7 % of total [facility] Comment: For someone without known [...] A1c for diagnosis of diabetes for children. 11/29/2024 9:20 AM CDT 11/29/2024 9:21 AM CDT Narrative [facility] - 11/30/2024 3:17 PM CDT AP FASTING:NO FASTING: NO Gabby Cardoza MD LAB BLOOD ORDERABLES Final Resu Performing Organization Address City/[facility] Co de Phone Number [facility] [address] [place] [address] * (ABNORMAL) Renal function panel (11/29/2024 9:20 AM CDT) Glucose 167(H) 65 - 99 mg/dL [facility] Comment: Fasting reference interval For someone without known diabetes, a glucose value >125 mg/dL indicates that they may have diabetes and this should be confirmed with a follow-up test. BUN 42(H) 7 - 25 mg/dL [facility] Creatinine 2.22(H) 0.50 - 1.05 mg/dL [facility] eGFR 24(L) > OR = 60 mL/min/1.7 3m2 [facility] BUN/creat ratio 19 6 - 22 (calc) [facility] Sodium 136 135 - 146 mmol/L [facility] Potassium, pl 4.9 3.5 - 5.3 mmol/L [facility] Chloride 102 98 - 110 mmol/L [facility] CO2 22 20 - 32 mmol/L [facility] Calcium 9.6 8.6 - 10.4 mg/dL [facility] Phosphorus, sr 4.4 2.5 - 4.5 mg/dL [facility] Albumin 4.1 3.6 - 5.1 g/dL [facility] 11/29/2024 9:20 AM CDT 11/29/2024 9:21 AM CDT Narrative [facility] - 11/30/2024 3:17 PM CDT AP FASTING:NO FASTING: NO us Gabby Cardoza MD LAB BLOOD ORDERABLES Final Resu lt [facility] [address] [place] [address] * (ABNORMAL) Lipid panel (11/29/2024 9:20 AM CDT) Pathologist [facility] Cholesterol 147 <200 mg/dL [facility] HDL 59 > OR = 50 mg/dL [facility] Triglycerides 215(H) <150 mg/dL [facility] Comment: If a non-fasting specimen was collected, consider repeat triglyceride testing on a fasting specimen if clinically indicated. Beatrice et al. J. of Clin. Lipidol. 2015;9:129-169. LDL 60 mg/dL (calc) [facility] Comment: Reference [...] LDL-C. Vega JACINTO et al. IRON. 2013;310(19): 3010-3374 (http://education.Atmail.DwellGreen/faq/RFW441) Chol/HDL ratio 2.5 <5.0 (calc) [facility] Non-HDL, (LDL+VLDL) 88 <130 mg/dL (calc) [facility] Comment: For patients with diabetes plus 1 major ASCVD risk factor, treating to a non-HDL-C goal of <100 mg/dL (LDL-C of <70 mg/dL) is considered a therapeutic option. 11/29/2024 9:20 AM CDT 11/29/2024 9:21 AM CDT [facility] - 11/30/2024 3:17 PM CDT AP FASTING:NO FASTING: NO us Gabby Cardoza MD LAB BLOOD ORDERABLES Final Resu lt [facility] [address] [place] [address] * (ABNORMAL) eGFR (11/22/2024 1:22 PM CDT) eGFR 45(L) >=60 mL/min/1. 73 m2 Comment: Interpretive Data Reference Interval Normal >/= 90 mL/min/1.73m2 Mildly decreased* 60 - 89 mL/min/1.73m2 Mildly to moderately decreased 45 - 59 mL/min/1.73m2 Moderately to severely decreased 30 - 44 mL/min/1.73m2 Severely decreased 15 - 29 mL/min/1.73m2 Kidney Failure < 15 mL/min/1.73m2 *Relative to young adult level Estimated glomerular filtration rate is determined by the 2020 CKD-EPI equation recommended by the National Kidney Foundation (A Unifying Approach to GFR Estimation: Recommendations of the NKF-ASK Task Force on Reassessing the Inclusion of Race in Diagnosing Kidney Disease, JASN 2020). The CKD-EPI equation should not be used for patients with unstable renal function and has not been validated in children and those over 70. Current interpretive data was last reviewed 2021. Blood 11/22/2024 1:22 PM CDT 11/22/2024 2:24 PM CDT Randell Manuel MD LAB BLOOD ORDERABLES Fi nal Result Performing Organization Address City/[facility]/ZIP Co de Phone Number [facility] [place] [address] * (ABNORMAL) Creatinine (11/22/2024 1:22 PM CDT) Pathologist [facility] Creatinine 1.34(H) 0.60 - 1.10 mg/dL Blood Venous blood specimen / Unknown 11/22/2024 1:22 PM CDT 11/22/2024 2:24 PM CDT Randell Manuel MD LAB BLOOD ORDERABLES Fi nal Result Performing Organization Address [facility] de Phone Number [facility] [place] [address] * (ABNORMAL) Basic metabolic panel (11/22/2024 1:22 PM CDT) Pathologist [facility] Sodium 136 135 - 145 mmol/L Potassium, pl 5.2(H) 3.3 - 4.9 mmol/L [facility] Chloride 99 97 - 110 mmol/L [facility] CO2 24 22 - 32 mmol/L [facility] Anion gap 13 2 - 15 mmol/L [facility] BUN 38(H) 6 - 25 mg/dL [facility] Creatinine 1.34(H) 0.60 - 1.10 mg/dL [facility] Glucose 169 70 - 199 mg/dL [facility] Comment: Interpretive Data Fasting glucose >/= 126 mg/dl is diagnostic for diabetes. Fasting is defined as no caloric intake for at least 8 hours. Fasting glucose between 100 mg/dl to 125 mg/dl is diagnostic of prediabetes. In a patient with classic symptoms of hyperglycemia or hyperglycemic crisis, a random glucose >/= 200 mg/dl is diagnostic for diabetes. In the absence of unequivocal hyperglycemia, results should be confirmed by repeat testing. The classification and Diagnosis of Diabetes Diabetes Care 2021; 46: S19-S40. Current interpretive data was last revised 2022. Calcium 9.6 8.5 - 10.3 mg/dL [facility] Blood 11/22/2024 1:22 PM CDT 11/22/2024 2:24 PM CDT Narrative [facility] CREWS - 11/22/2024 2:54 PM CDT THIS TEST TO BE DONE 7 days AFTER RECLAST INFUSION us Scott Morales MD LAB BLOOD ORDERABLES Final Resul t [facility] Department [place] [address] * TRANSTHORACIC ECHO (TTE) COMPLETE W DOPPLER/CF W CONTRAST (11/11/2024 1:32 PM CDT) EF Mod BP 42 % CONS SCIMAGE Anatomical Region Laterality Modality Ultrasound 11/11/2024 1:09 PM CDT Narrative 11/11/2024 3:43 PM CDT [facility] Diagnostic Lab [address] , [address] [place] [address] Transthoracic Echocardiographic Report Patient Name: MAUREEN SOMERS L : 1960 (64y 7m) Gender: F Study Date: 11/11/2024 01:09:39 PM Ht(Inch): 59 Wt(Lb): 186.07 BSA: 1.87 [employer] Glass Installer: Lashawn Hatch RDCS Location: [facility] Order Provider: YOVANI PARKS Heart Rate: 73 BMI: 37.58 BP: 121 / 58 Ref Provider: YOVANI PARKS PROCEDURES: Echocardiographic Report: Transthoracic complete echo with strain imaging and contrast, 2D, spectral and tissue Doppler, color flow Doppler, M-mode. Additional Procedures: Myocardial strain imaging was performed. Contrast: Contrast Enhancement was Employed: After initial imaging due to sub- optimal quality related to co-morbidity defined by patient's body habitus, due to suboptimal image quality with inadequate visualization of at least 2 of 16 LV wall segments in any view after initial imaging. Perflutren contrast was administered using the volume necessary to obtain adequate images and. 0.8 ml Optison Administered, (2.2 ml wasted). Technically difficult study due to: Body habitus. INDICATIONS: I50.22 Chronic systolic (congestive) heart failure and I25.10 Atherosclerotic heart disease of [place] coronary artery without angina pectoris. CONCLUSIONS: 1. Mildly dilated left ventricle based on volume index. Normal LV wall thickness. Mildly depressed left ventricular systolic function. The Ejection Fraction (Sparks's) is measured at 42 %. Grade II diastolic dysfunction (elevated mean LA pressure). The average global longitudinal strain is abnormal. 2. Resting Segmental Wall Motion Analysis: Total wall motion score is 1.18. There is hypokinesis of the basal to mid anterolateral wall. There is hypokinesis of the mid inferoseptal wall. The remaining left ventricular segments demonstrate normal wall motion. 3. Normal right ventricular size. Normal right ventricular systolic function. 4. Physiologic pericardial effusion. COMPARISONS: No change compared to prior study on: 01/24/24. ATTESTATION: I have personally reviewed and interpreted this study without fellow or resident. - DISCLAIMER: The study images and the final report will be retained in the patient chart by the Echo Laboratory for the legally required time period. This chart constitutes the legal record of any testing performed. FINDINGS: Left Ventricle: Mildly dilated left ventricle based on volume index. Normal LV wall thickness. Mildly depressed left ventricular systolic function. The Ejection Fraction (Sparks's) is measured at 42 %. Grade II diastolic dysfunction (elevated mean LA pressure). The average global longitudinal strain is abnormal. The LV global strain is: -12.4 %. Resting Segmental Wall Motion Analysis: Total wall motion score is 1.18. There is hypokinesis of the basal to mid anterolateral wall. There is hypokinesis of the mid inferoseptal wall. The remaining left ventricular segments demonstrate normal wall motion. Right Ventricle: Normal right ventricular size. Normal right ventricular systolic function. Left Atrium: The left atrium is normal in size. Right Atrium: The right atrium is normal in size. Atrial Septum: Normal interatrial septum. Mitral Valve: Mitral valve leaflets appear mildly thickened. Mild mitral valve regurgitation. No stenosis present. Aortic Valve: Normal trileaflet aortic valve. No aortic regurgitation. No aortic valve stenosis. The mean transaortic gradient is 4 mmHg. The aortic valve area by the continuity equation (using VTI) is 2.38 cm2. Aortic valve dimensionless index is 0.78. Tricuspid Valve: Normal tricuspid valve structure. No tricuspid regurgitation. No tricuspid valve stenosis. Pulmonic Valve: Normal pulmonic valve structure. No pulmonic regurgitation. No pulmonic valve stenosis present. Pericardium: Physiologic pericardial effusion. Aorta: Normal aortic root size when indexed. The ascending aorta is normal in size when indexed. PASP: Normal estimated pulmonary artery systolic pressure. Rhythm: Normal Sinus rhythm was seen during the study. MEASUREMENTS: 2D/MM Value Range Doppler Value Range LVIDd 2D 4.74 cm [ 3.80 - 5.20 ] AV Peak Larry 1.4 m/s [ 1.0 - 1.7 ] LVIDs 2D 3.75 cm [ 2.20 - 3.50 ] AV Peak PG 7.84 mmHg IVSd 2D 1.05 cm [ 0.60 - 0.90 ] AV Mean PG 4 mmHg LVPWd 2D 0.95 cm [ 0.60 - 0.90 ] AV VTI 28.4 cm LV Thickness Ratio 1.1 LVOT Peak Larry 1.0 m/s [ 0.7 - 1.1 ] LV FS 2D 20.97 % [ 27.00 - 45.00 ] LVOT Peak PG 4.00 mmHg LV Mass 2D 170.15 g LVOT Mean PG 2 mmHg LV Mass Index 2D 90.99 g/m2 LVOT VTI 22.2 cm RWT 0.40 LVOT Diam 1.97 cm EDV Mod BP 117.41 ml [ 46.00 - 106.00 ] MIRNA VTI 2.38 cm2 LV EDV Index 62.79 ml/m2 LVOT/AV VTI 0.78 - Dimensionless index (DVI) ESV Mod BP 68.71 ml [ 14.00 - 42.00 ] MV E Peak Larry 1.2 m/s [ 0.6 - 1.3 ] EF Mod BP 42 % [ 54 - 74 ] MV A Peak Larry 1.2 m/s [ 1.0 - 1.2 ] LV GLS -12.4 % [ -25.0 - -18.0 ] MV E/A 1.0 ratio [ 0.8 - 1.5 ] LA Length 4C 5.57 cm MV Decel Time 153.66 msec [ 104.00 - 258.00 ] LA Length 2C 4.96 cm Med E` Larry 3.8 cm/sec [ 8.0 - 25.0 ] LA Volume BP 58.61 ml Lat E` Larry 5.8 cm/sec [ 10.0 - 25.0 ] LA Volume Index 31.34 ml/m2 [ 16.00 - 34.00 ] Average E/E` 25.03 RV Base Dimen 2D 2.9 cm [ 2.5 - 4.2 ] RV S` 9.40 cm/sec RA Volume 26.44 ml PV Peak Larry 1.2 m/s [ 0.4 - 0.8 ] RA Volume Index 14.14 ml/m2 PV Peak PG 5.76 mmHg AoR Diam 2D 2.66 cm [ 2.70 - 3.70 ] Ao Root Index 1.42 cm/m2 [ 1.00 - 2.00 ] Asc Ao Diam 2D 2.74 cm Asc Ao Index 1.47 cm/m2 Electronically Signed By: Stan Mcmahon MD 11/11/2024 3:43:17 PM CDT Wall Motion Analysis - Resting Procedure Note Stan Cole MD - 11/11/2024 [facility] Cardiac Diagnostic Lab [address] , [address] [place] [address] Transthoracic Echocardiographic Report Patient Name: MAUREEN SOMERS L : 1960 (64y 7m) Gender: F Study Date: 11/11/2024 01:09:39 PM Ht(Inch): 59 Wt(Lb): 186.07 BSA: 1.87 Automotive Glass Installer: Lashawn Hatch RDCS Location: [facility] Order Provider:YOVANI PARKS Heart Rate: 73 BMI: 37.58 BP: 121 / 58 Ref Provider: YOVANI PARKS PROCEDURES: Echocardiographic Report: Transthoracic complete echo with strain imagingand contrast, 2D, spectral and tissue Doppler, color flow Doppler, M-mode. Additional Procedures: Myocardial strain imaging was performed. Contrast: Contrast Enhancement was Employed: After initial imaging due tosub- optimal quality related to co-morbidity defined by patient's body habitus, due tosuboptimal image quality with inadequate visualization of at least 2 of 16 LV wallsegments in any view after initial imaging. Perflutren contrast was administered using thevolume necessary to obtain adequate images and. 0.8 ml Optison Administered, (2.2ml wasted). Technically difficult study due to: Body habitus. INDICATIONS: I50.22 Chronic systolic (congestive) heart failure and I25.10Atherosclerotic heart disease of [place] coronary artery without angina pectoris. CONCLUSIONS: 1. Mildly dilated left ventricle based on volume index. Normal LV wallthickness. Mildly depressed left ventricular systolic function. The Ejection Fraction(Sparks's) is measured at 42 %. Grade II diastolic dysfunction (elevated mean LApressure). The average global longitudinal strain is abnormal. 2. Resting Segmental Wall Motion Analysis: Total wall motion score is1.18. There is hypokinesis of the basal to mid anterolateral wall. There is hypokinesisof the mid inferoseptal wall. The remaining left ventricular segments demonstratenormal wall motion. 3. Normal right ventricular size. Normal right ventricular systolicfunction. 4. Physiologic pericardial effusion. COMPARISONS: No change compared to prior study on: 01/24/24. ATTESTATION: I have personally reviewed and interpreted this study without fellow orresident. - DISCLAIMER: The study images and the final report will be retained in the patientchart by the Echo Laboratory for the legally required time period. This chart constitutesthe legal record of any testing performed. FINDINGS: Left Ventricle: Mildly dilated left ventricle based on volume index.Normal LV wall thickness. Mildly depressed left ventricular systolic function. TheEjection Fraction (Sparks's) is measured at 42 %. Grade II diastolic dysfunction (elevatedmean LA pressure). The average global longitudinal strain is abnormal. The LVglobal strain is: -12.4 %. Resting Segmental Wall Motion Analysis: Total wall motion score is 1.18.There is hypokinesis of the basal to mid anterolateral wall. There is hypokinesisof the mid inferoseptal wall. The remaining left ventricular segments demonstratenormal wall motion. Right Ventricle: Normal right ventricular size. Normal right ventricularsystolic function. Left Atrium: The left atrium is normal in size. Right Atrium: The right atrium is normal in size. Atrial Septum: Normal interatrial septum. Mitral Valve: Mitral valve leaflets appear mildly thickened. Mild mitralvalve regurgitation. No stenosis present. Aortic Valve: Normal trileaflet aortic valve. No aortic regurgitation. Noaortic valve stenosis. The mean transaortic gradient is 4 mmHg. The aortic valve areaby the continuity equation (using VTI) is 2.38 cm2. Aortic valve dimensionlessindex is 0.78. Tricuspid Valve: Normal tricuspid valve structure. No tricuspidregurgitation. No tricuspid valve stenosis. Pulmonic Valve: Normal pulmonic valve structure. No pulmonicregurgitation. No pulmonic valve stenosis present. Pericardium: Physiologic pericardial effusion. Aorta: Normal aortic root size when indexed. The ascending aorta is normalin size when indexed. PASP: Normal estimated pulmonary artery systolic pressure. Rhythm: Normal Sinus rhythm was seen during the study. MEASUREMENTS: 2D/MM Value Range DopplerValue Range LVIDd 2D 4.74 cm [ 3.80 - 5.20 ] AV Peak Vel1.4 m/s [ 1.0 - 1.7 ] LVIDs 2D 3.75 cm [ 2.20 - 3.50 ] AV Peak PG7.84 mmHg IVSd 2D 1.05 cm [ 0.60 - 0.90 ] AV Mean PG4 mmHg LVPWd 2D 0.95 cm [ 0.60 - 0.90 ] AV VTI28.4 cm LV Thickness Ratio 1.1 LVOT Peak Vel1.0 m/s [ 0.7 - 1.1 ] LV FS 2D 20.97 % [ 27.00 - 45.00 ] LVOT Peak PG4.00 mmHg LV Mass 2D 170.15 g LVOT Mean PG2 mmHg LV Mass Index 2D 90.99 g/m2 LVOT VTI22.2 cm RWT 0.40 LVOT Diam1.97 cm EDV Mod BP 117.41 ml [ 46.00 - 106.00 ] MIRNA VTI2.38 cm2 LV EDV Index 62.79 ml/m2 LVOT/AV VTI0.78 - Dimensionless index (DVI) ESV Mod BP 68.71 ml [ 14.00 - 42.00 ] MV E Peak Vel1.2 m/s [ 0.6 - 1.3 ] EF Mod BP 42 % [ 54 - 74 ] MV A Peak Vel1.2 m/s [ 1.0 - 1.2 ] LV GLS -12.4 % [ -25.0 - -18.0 ] MV E/A1.0 ratio [ 0.8 - 1.5 ] LA Length 4C 5.57 cm MV Decel Fbfw392.66 msec [ 104.00 - 258.00 ] LA Length 2C 4.96 cm Med E` Vel3.8 cm/sec [ 8.0 - 25.0 ] LA Volume BP 58.61 ml Lat E` Vel5.8 cm/sec [ 10.0 - 25.0 ] LA Volume Index 31.34 ml/m2 [ 16.00 - 34.00 ] Average E/E`25.03 RV Base Dimen 2D 2.9 cm [ 2.5 - 4.2 ] RV S`9.40 cm/sec RA Volume 26.44 ml PV Peak Vel1.2 m/s [ 0.4 - 0.8 ] RA Volume Index 14.14 ml/m2 PV Peak PG5.76 mmHg AoR Diam 2D 2.66 cm [ 2.70 - 3.70 ] Ao Root Index 1.42 cm/m2 [ 1.00 - 2.00 ] Asc Ao Diam 2D2.74 cm Asc Ao Index1.47 cm/m2 Electronically Signed By: Stan Mcmahon MD 11/11/2024 3:43:17 PM CDT Wall Motion Analysis - Resting us Yovani Parks MD CV ECHO PROCEDURES F inal Result * Hepatitis C antibody Blood (01/29/2024 2:27 [...] last revised on 2019. Testing performed by: [facility], [address] [place] [address], [place]., [address] Blood 01/29/2024 2:27 PM CDT 01/29/2024 5:02 PM CDT us Shawna Jovel NP LAB MICROBIOLOGY - GENERAL ORDERABLES Final Result [facility] [address] [facility]. Department [place] [address] * TSH (01/29/2024 2:27 PM CDT) Thyroid Stimulating Hormone 0.99 0.30 - 4.20 mcIUnit/mL Blood 01/29/2024 2:27 PM CDT 01/29/2024 2:39 PM CDT Shawna Jovel NP LAB BLOOD ORDERABLES Edite d Result - Final [facility] [id number] [facility]. Department [place] [address] * COLONOSCOPY IMAGES (04/26/2016) Anatomical Region Laterality Modality Other Narrative 04/26/2016 Ordered by an unspecified provider. Historical Provider GI PROCEDURE ORDERABLES F inal Result from Last 3 Months or Most Recently Relevant to Health Maintenance Insurance [facility] MEDICARE MEDICARE [facility] MEDICARE [facility] [employer] Advance Directives For more information, please contact: [phone] * Full Code (Latest Code Status on [...] Communication Atul Somers Spouse Health Care Agent [email or web address] Care Teams Outside Sales Account Executive Relationship Specialty Start Date End Date Juan F Avila MD [address], [place] [id number] PCP - General Internal Medicine 07/10/24 Mayela Greenberg RN [address] [address] Registered Nurse 07/27/18 Mayela Greenberg RN [address] [address] Registered Nurse 08/07/18 Jacqueline Baum, PT Physical Therapist Physical Therapy 10/30/23 Ricco Dunn MD [address] DIV IM ENDOCRINOLOGY, [facility] [address] [place] [address] Referring Physician Endocrinology Diabetes & Metabolism 07/10/24
--- OUTSIDE RECORDS SUMMARY | 2025-01-31 16:27 | XMS_ITS | Encounter Summary ---
Author Organization [facility] Address [address] [place] [address] Care Team Providers Care Corporate Claims Examiner Name Role Phone Mayela Greenberg RN Unavailable [phone] Mayela Greenberg RN Unavailable [phone] Jacqueline Baum PT Unavailable Unavailabl Ricco Hall MD Unavailable [phone] Juan F Avila MD Primary Care Provider [phone] Encounter Details Date Type Department Care Team (Late st Contact Info) Description 01/28/2025 Telephone [facility] Transplant Kidney [address] [facility] [id number] [place] [address] Mayela Greenberg RN [address] [facility] [address] [place] [address] Social History Tobacco Use Types Packs/Day Years [...] on file Legal Sex Female 3:45 AM 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 Ngo asking him to review her labs, per the pt she doesn't have much swelling, she hasn't checked her BP's so doesn't know what those are running, she states she has been losing weight since December. Will wait for response from Dr. Ngo. DSAs's checked-negative Allosure-negative CMV and BK have not been checked documented in this encounter Plan of Treatment Not on file documented as of this encounter Goals Goal Patient Goal Type Associated Problems Recent Progress Patient-Stated? Author CCM Chronic Pain Care Plan Chronic Care Management On track(2024 2:54 PM JUICE SCALEMAN) No Luz Weaver RN Note: Problem: Chronic Pain Goals: 1. Minimize further functional decline 2. Maximize quality of life 3. Control pain Strategies: - Activity/exercise program recommendation - Conservative stepwise pain medicine strategy with multi-disciplinary approach - Recommend healthy lifestyle strategies and compensatory methods as needed documented as of this encounter Visit Diagnoses Not on filedocumented in this encounter Care Teams Corporate Claims Examiner Relationship Specialty Start Date End Date Juan F Avila MD [address] [place] [address] PCP - General Internal Medicine 07/10/24 Mayela Greenberg, RN [address] [facility] [address] [place] [address] Registered Nurse 07/27/18 Mayela Greenberg, RN [address] [facility] [address] [place] [address] Registered Nurse 08/07/18 Jacqueline Baum, PT Physical Therapist Physical Therapy 10/30/23 Ricco Dunn MD [address] [facility] DIV IM ENDOCRINOLOGY, [facility] [address] [place] [address] Referring Physician Endocrinology Diabetes & Metabolism 07/10/24 documented as of this encounter
--- OUTSIDE RECORDS SUMMARY | 2025-01-31 16:27 | XMS_ITS | Encounter Summary ---
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 Gender Identity Female 07/04/2024 5:02 PM TANK TRUCK OPERATOR Sexual Orientation Not on file documented [...] documented as of this encounter Care Teams Automatic Chief Relationship Specialty Start Date End Date Juan F Avila MD PCP - General 09/01/16 07/09/24 Juan F Avila MD [address] [place] [address] PCP - General Internal Medicine 07/10/24 Mayela Greenberg RN [address] [address] Registered Nurse 07/27/18 Mayela Greenberg RN [address] [address] Registered Nurse 08/07/18 Jacqueline Baum, PT Physical Therapist Physical Therapy 10/30/23 Ricco Dunn MD [address] [place] [address] DIV IM ENDOCRINOLOGY, [facility] [address] [place] [address] Referring Physician Endocrinology Diabetes & Metabolism 07/10/24 documented as of this encounter
--- OUTSIDE RECORDS SUMMARY | 2025-01-31 16:27 | XMS_ITS ---
Author Organization [facility] Address [address] [place] [address] Care Team Providers Care Assistive Technology Trainer Name Role Phone Mayela Greenberg RN Unavailable [phone] Mayela Greenberg RN Unavailable [phone] Jacqueline Baum PT Unavailable Unavailabl e Ricco Dunn MD Unavailable Juan F Avila MD Primary Care Provider [phone] Transplant Episode Kidney Recipient [facility] ([place], [place]) - [facility] Organ Received: Left Kidney Transplanted on 07/26/2018 Marked as Active Follow-up on 07/26/2018 Kidney CoordinatorMayela Greenberg RN Fax: N/A Email: N/A [place] Organ Diagnosis Organ Primary Contributory Kidney Diabetes [...] Fax Email Mayela Greenberg, RN Kidney Coordinator [phone] N/A N/A Maria Isabel Peterson Primary Alligator Trapper N/A N/A N/A Mayela Greenberg, fur ironerImmigration Manager [phone] N/A N/A Arabella Cerda Secondary Alligator Trapper N/A N/A N/A Surinder Whitaker MD Referring Physician [phone] N/A Amelie Lona Custodial Laborer [phone] N/A N/A Randee Navarro RN Secondary Coordinator Secondary Kidney Coordinator [phone] N/A N/A Rachelle Austin MD PhD Surgeon [phone] N/A Events Post-Transplant Pre-Transplant Admitted: 07/26/2018 Referred: 02/11/2015 Transplanted: 07/26/2018 Evaluation began: 5 Discharged: 07/30/2018 [facility] qualified: 01/28/2015 Center waitlisted: 7 Dialysis History Dialysis History Start End Type Comments Center 01/28/2015 07/26/2018 [facility] Information Center Phone Fax Address [facility] [phone] [facility] [address]
--- OUTSIDE RECORDS SUMMARY | 2025-01-31 16:27 | XMS_ITS | Referral Summary ---
Author Organization [facility] Address [address] [place] [address] Care Team Providers Care Healthcare Marketer Name Role Phone Mayela Greenberg RN Unavailable [phone] Mayela Greenberg RN Unavailable Jacqueline Baum PT Unavailable Unavailabl e Ricco Dunn MD Unavailable [phone] Juan F Avila MD Primary Care Provider [phone] Encounters Date Type Department Care Team Description 01/28/2025 Telephone [facility] Trans[facility] Kidney [address] 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 [address] Mailstop [phone] [place] [address] Mayela Greenberg RN 01/01/2025 Results Follow-Up [facility] [address] [place] [address] Office Building [address] [place] [address] Yovani Parks MD Basic metabolic panel, Pro B-type natriuretic peptide 12/31/2024 Orders Only [facility] 5th [place] [address] [place] [address] Gabby Cardoza MD 12/27/2024 Results Follow-Up [facility] Transplant Kidney [address] [facility] [address] Mailstop [phone] [place] [address] Mayela Greenberg RN HLA Donor Specific Antibody Report 12/23/2024 10:00 AM CDT - 12/23/2024 11:59 PM CDT Hospital Encounter [address] [address] Kidney replaced by transplant Discharge Disposition: Discharge to home or self care 12/20/2024 Orders Only [facility] Medical Office Building 3 [address] [place] [address] Yovani Parks MD Non-rheumatic mitral regurgitation (Primary Dx); Atherosclerosis of chemehuevi coronary artery of chemehuevi heart without angina pectoris; Diastolic dysfunction; Chronic systolic heart failure (HCC) 12/19/2024 Orders Only [facility] SLEEP Scanning, Provider 12/11/2024 Telephone [facility] Transplant Kidney [address] [facility] [address] Mailstop [phone] [place] [address] Mayela Greenberg, KAVITHA 12/06/2024 Telephone [facility] Transplant Kidney [address] [facility] [address] Mailstop [phone] [place] [address] Randee Navarro, KAVITHA 12/05/2024 Results Follow-Up [facility] [address] [facility] 5th [place] [address] [place] [address] Randell Manuel MD Renal function panel 12/03/2024 Orders Only [facility] [address] [facility] 5th [place] [address] [place] [address] Randell Manuel MD KALEB (acute kidney injury) (Primary Dx) 12/03/2024 Orders Only [facility] [address] [place] [address] [place] [address] Sara Lennon NP 12/03/2024 Orders Only [facility] [address] [facility] [address] [place] [address] Rupinder Regan, KAVITHA 12/02/2024 Telephone [facility]id [address] [place] [address] [place] [address] Lashay Hein, KAVITHA alternative to humalog vial 11/29/2024 Orders Only [facility] [address] [facility] 5th [place] [address] [place] [address] Gabby Cardoza MD 11/27/2024 Results Follow-Up [facility] [address] [facility] 5th [place] [address] [place] [address] Randell Manuel MD Creatinine, Basic metabolic panel, eGFR 11/22/2024 4:15 PM CDT Lab [facility] [address] [place] [address] 11/22/2024 4:00 PM CDT Lab [facility] ([facility] [address] [place] [address] Other osteoporosis without current pathological fracture; Osteoporosis, unspecified osteoporosis type, unspecified pathological fracture presence 11/22/2024 2:30 PM CDT [facility]fusion [facility] [address] [facility] [place] [address] Other osteoporosis without current pathological fracture (Primary Dx); Age-related osteoporosis without current pathological fracture 11/20/2024 Orders Only [facility] [address] [place] [address] Rupinder Regan, KAVITHA Other osteoporosis without current pathological fracture (Primary Dx) 11/20/2024 Telephone [facility] [address] [facility] [place] [address] Keira Murdock RN 11/19/2024 1:00 PM CDT Clinical Support [facility]id [address] [facility] 13th [place] [address] [place] [address] Caitlyn Chandra RN 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) (Primary Dx) 11/18/2024 Orders Only [facility] [address] [facility] [place] [address] Juan Alberto Cordova RN 11/13/2024 Orders Only [facility] [address] [place] [address] Medical Office Building [address] [place] [address] Yovani Parks MD Chronic systolic heart failure (HCC) (Primary Dx); Diastolic dysfunction 11/13/2024 11:00 AM CDT Clinical Support [facility]id [address] [facility] 13th [place] [address] [place] [address] Maxine Freire RN 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) (Primary Dx) 11/12/2024 Results Follow-Up [facility] [address] [place] [address] Medical Office Building [address] [place] [address] Yovani Parks MD Transthoracic Echo (TTE) Complete W Doppler/CF 11/11/2024 1:00 PM CDT Ancillary Procedure [facility] [address] [facility] [address] [place] [phone] Chronic systolic heart failure (HCC); Atherosclerosis of chemehuevi coronary artery of chemehuevi heart without angina pectoris 10/31/2024 Telephone [facility] [address] [facility] Medical Office Building 2 [address] [place] [address] Randell Manuel MD 10/31/2024 2:20 PM CDT Office Visit [place] [address] [facility] 5th [place] [address] [place] [address] Randell Manuel MD Osteoporosis, unspecified osteoporosis type, unspecified pathological fracture presence (Primary Dx); Other osteoporosis without current pathological fracture; Chronic kidney disease-mineral and bone disorder (CKD-MBD); Kidney replaced by transplant from Last 3 Months Allergies Active Allergy [...] FK; Q-3 Routine HgbA1C (02/27/2025) Home Health: [facility] Problem Noted Date Diagnosed Date Chronic kidney [...] left bundle-branch block as well as circumflex 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 Assessment & Plan (04/30/2024 2:43 PM CDT): [...] there is decline over time can consider JEWEL DIAMETER GAUGER referral if no other explanation Spondylosis of [...] (12/07/2021): Added automatically from request for surgery [id number] Urinary incontinence 09/10/2021 Urinary incontinence without sensory awareness 0 03/05/2021 Diastolic dysfunction 07/31/2020 Assessment & Plan (07/31/2020 9:03 AM WASTEWATER TREATMENT PLANT ATTENDANT): She has a history of grade 1 [...] management Assessment & Plan (07/18/2022 5:31 PM WASTEWATER TREATMENT PLANT ATTENDANT): -long-term use of immunosuppressants in steroids complicates diabetes management Assessment & Plan (01/04/2022 2:54 PM CDT): -long-term use of immunosuppressants in steroids complicates diabetes management Assessment & Plan (06/02/2021 4:25 PM WASTEWATER TREATMENT PLANT ATTENDANT): -long-term use of immunosuppressants in steroids complicates diabetes management Assessment & Plan (07/31/2019 10:10 AM WASTEWATER TREATMENT PLANT ATTENDANT): The patient has history of renal transplant. Long-term use of immunosuppressants and steroids complicates diabetes management. Assessment & Plan (07/30/2018 4:16 PM WASTEWATER TREATMENT PLANT ATTENDANT): -Cr continues to downtrend, patient's UOP more than adequate -Continue Bactrim as ppx; Valcyte to start 2/ -Continue Vit D -Richards x 2 wks d/t small bladder Assessment & Plan (07/27/2018 5:05 PM WASTEWATER TREATMENT PLANT ATTENDANT): -IVF decreased today -Cr continues to downtrend, [...] control. Assessment & Plan (07/19/2022 2:08 PM WASTEWATER TREATMENT PLANT ATTENDANT): -BP today is 139/77 -Will continue same [...] daily. Assessment & Plan (07/31/2020 9:03 AM WASTEWATER TREATMENT PLANT ATTENDANT): She has a history of hypertension and [...] symptoms Assessment & Plan (06/07/2019 9:15 AM WASTEWATER TREATMENT PLANT ATTENDANT): Her blood pressure goal should be systolic [...] dose. Assessment & Plan (07/18/2022 5:30 PM WASTEWATER TREATMENT PLANT ATTENDANT): -Last labs dated 04/29/22: TC 134, trig 120, HDL 61, LDL 52 -Continue rosuvastatin as she is tolerating it without side effects. Assessment & Plan (01/10/2022 2:07 PM CDT): -Last labs dated 10/07/21: TC 135, trig 99, HDL 66, LDL 51 -Continue rosuvastatin as she is tolerating it without side effects. Assessment & Plan (07/31/2019 10:09 AM WASTEWATER TREATMENT PLANT ATTENDANT): Continue Crestor. Tolerating without side effects. Assessment & Plan (04/18/2019 11:44 AM CDT): Continue Crestor. Tolerating without side effects. ESRD (end stage renal disease) 06/06/2018 Overview (06/06/2018): Added automatically from request for surgery [id number] Assessment & Plan (07/30/2018 1:07 PM WASTEWATER TREATMENT PLANT ATTENDANT): S/p renal transplant. On immunosuppressants and steroids which complicate diabetes management. Assessment & Plan (07/29/2018 4:32 PM WASTEWATER TREATMENT PLANT ATTENDANT): S/p renal transplant. On immunosuppressants and steroids which complicate diabetes management. Assessment & Plan (07/27/2018 10:54 AM WASTEWATER TREATMENT PLANT ATTENDANT): S/p renal transplant. On immunosuppressants and steroids which complicate diabetes management. Assessment & Plan (07/26/2018 5:54 PM WASTEWATER TREATMENT PLANT ATTENDANT): S/p renal transplant. On immunosuppressants and steroids [...] years. Assessment & Plan (07/31/2020 9:02 AM WASTEWATER TREATMENT PLANT ATTENDANT): She has a history of mild mitral [...] echocardiogram. Assessment & Plan (06/07/2019 9:02 AM WASTEWATER TREATMENT PLANT ATTENDANT): This was mild on echo with a [...] years. 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 Patient understands that she should stay on the Fluconazole indefinitely since she requires immune suppression after her kidney transplant. 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 Will follow with repeat CMP next week. Patient understands that she should stay on the Fluconazole indefinitely since she requires immune suppression after her recent kidney transplant. Assessment & Plan (07/30/2018 4:18 PM WASTEWATER TREATMENT PLANT ATTENDANT): -Continue Diflucan as chronic suppression Assessment & Plan (07/27/2018 5:04 PM WASTEWATER TREATMENT PLANT ATTENDANT): -Continue Diflucan as chronic suppression Encounter for long-term (current) use of antibio tics 04/21/2018 Assessment & Plan (10/25/2019 6:08 PM CDT): Recent labs reviewed without concern for antibiotic toxicities. RTC 6 months for standard office visit this year. Atherosclerosis of chemehuevi co ronary artery of chemehuevi heart without angina pectoris 11/24/2016 Overview (05/18/2018): Coronary artery disease with history of previous Resolute drug-eluting stent to the mid LAD. Most recent cardiac catheterization in October of 2016 demonstrated a patent stent in the mid LAD. There was a 70% lesion in the vrr-js-nvyzti right coronary artery with an iFR value of 0.68. This was treated with a 225 x 38 and and two 5 x 32 Synergy drug-eluting stents. Nuclear stress test November 29, 2017 showed normal perfusion without ischemia Assessment & Plan (10/29/2024 12:38 PM CDT): Circumflex 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 CONTROLLER. We will continue medical management. If persistent LV dysfunction/symptoms, can consider a 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 CONTROLLER PCI. Suspect left bundle-branch block maybe more obvious target for her LV dysfunction however if this does not improve with continued medical therapy. Recheck echo with next visit. Assessment & Plan (04/30/2024 2:42 PM CDT): 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 CONTROLLER of the circumflex, well collateralized by the [...] statin. Assessment & Plan (07/31/2020 9:01 AM WASTEWATER TREATMENT PLANT ATTENDANT): She has a history of coronary disease [...] changes. Assessment & Plan (06/07/2019 9:04 AM WASTEWATER TREATMENT PLANT ATTENDANT): She is angina free. She is on [...] daily). Assessment & Plan (05/18/2018 9:32 AM WASTEWATER TREATMENT PLANT ATTENDANT): Currently angina free and had recent nuclear [...] management. Assessment & Plan (06/07/2019 9:04 AM WASTEWATER TREATMENT PLANT ATTENDANT): She is 50-69% stenosis in left internal carotid and left 50% stenosis in the right internal carotid on carotid Dopplers in 2016. She has not had any TIA or [...] today Assessment & Plan (07/19/2022 2:08 PM WASTEWATER TREATMENT PLANT ATTENDANT): -Currently using tandem insulin pump and Dexcom, [...] today Assessment & Plan (06/02/2021 4:24 PM WASTEWATER TREATMENT PLANT ATTENDANT): -Currently using tandem insulin pump and Dexcom, [...] up. Assessment & Plan (07/30/2018 4:18 PM WASTEWATER TREATMENT PLANT ATTENDANT): Patient to have insulin pump placed back on today -F/U with Endocrine recommendations Assessment & Plan (07/30/2018 1:07 PM WASTEWATER TREATMENT PLANT ATTENDANT): Maureen Somers is a 58 y.o. female [...] [place]. Assessment & Plan (07/29/2018 4:35 PM WASTEWATER TREATMENT PLANT ATTENDANT): Maureen Somers is a 58 y.o. female [...] hs Assessment & Plan (07/27/2018 5:04 PM WASTEWATER TREATMENT PLANT ATTENDANT): Patient wears an insulin pump at baseline. She does not feel comfortable restarting this today -Endocrine c/s, currently on insulin gtt, will f/u recommendations Assessment & Plan (07/27/2018 10:54 AM WASTEWATER TREATMENT PLANT ATTENDANT): Maureen Somers is a 58 y.o. female [...] Carb ratio 0000-10 1200-8 Sensitivity 85 Target- [phone]. Prednisone 80 mg on 07/27 and 07/28. [...] changes. Assessment & Plan (07/26/2018 5:53 PM WASTEWATER TREATMENT PLANT ATTENDANT): Maureen Somers is a 58 y.o. female [...] Carb ratio 0000-10 1200-8 Sensitivity 85 Target- [phone]. Plan: Recommend continuing on insulin drip tonight. Difficult to assess needs with postoperative stress, high dose steroids on board and very sensitive type 1 diabetic. Will reassess the needs tomorrow. Please continue the drip at atleast 0.5 units/kg body weight. If blood sugars are trending low, can titrate the dextrose drip. Assessment & Plan (06/27/2018 4:58 PM WASTEWATER TREATMENT PLANT ATTENDANT): Her overall blood sugar average on the [...] 03/05/2021 Assessment & Plan (07/30/2018 4:17 PM WASTEWATER TREATMENT PLANT ATTENDANT): -Continue Myfortic 360 BID -Decrease Envarsus to 4 mg/day; levels 9.8 today<--7.6 -Continue Pred 20 Assessment & Plan (07/27/2018 5:07 PM WASTEWATER TREATMENT PLANT ATTENDANT): -Continue Myfortic 720 BID -Per patient's body weight, call for Envarsus 6; however, patient on chronic Diflucan, consider starting lower dose -Patient was 5 mg/kg Thymo; received 75 07/27 and will receive 175 today and 150 tomorrow -Continue Pred 80 CKD (chronic kidney disease) stage 5, GFR less than 15 ml/min ([facility]) 07/31/2015 03/05/2021 Overview (05/12/2018): T End-stage renal disease, on hemodialysis Zqdrqbp-Ylnbpjpw-Pwjrkcep. 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 Currently being evaluated for repeat transplantation with another living-related donor (her sister). HTN (hypertension), benign 07/31/2015 0 10/23/2018 Assessment & Plan (05/18/2018 9:31 AM WASTEWATER TREATMENT PLANT ATTENDANT): Well controlled today - Continue carvedilol 25mg BID, hydralazine 100mg, losartan 100mg daily, minoxidil 2.5mg daily Dependent on hemodialysis ([facility]) 09/26/2013 03/05/2021 Diabetes mellitus type 1, un controlled, with complications 07/26/2012 04/12/2022 Assessment & Plan (08/08/2018 5:28 PM WASTEWATER TREATMENT PLANT ATTENDANT): Patient is currently on insulin pump - [...] daily. Assessment & Plan (07/31/2020 9:03 AM WASTEWATER TREATMENT PLANT ATTENDANT): She continues on high-intensity statin and her LDL checked yesterday was 52. We will make no changes. Assessment & Plan (12/13/2019 8:40 AM CDT): She has excellent control 6 months ago under high-intensity statin. I will continue her current dose of rosuvastatin. Assessment & Plan (06/07/2019 9:01 AM WASTEWATER TREATMENT PLANT ATTENDANT): She is on a high-intensity statin. A [...] time. Assessment & Plan (05/18/2018 9:31 AM WASTEWATER TREATMENT PLANT ATTENDANT): Last LDL 58 in 10/2017 - Continue [...] on file Legal Sex Female 3:45 AM WASTEWATER TREATMENT PLANT ATTENDANT Gender Identity Female 07/04/2024 5:02 PM WASTEWATER TREATMENT PLANT ATTENDANT Sexual Orientation Not on file Last Filed [...] 01/27/2025 1:35 PM CDT Plan of Treatment Not on file Goals Goal Patient Goal Type Associated Problems Recent Progress Patient-Stated? Author CCM Chronic Pain Care Plan Chronic Care Management On track(2024 2:54 PM WASTEWATER TREATMENT PLANT ATTENDANT) Luz Sandoval RN Note: Problem: Chronic Pain Goals: 1. Minimize further functional decline 2. Maximize quality of life 3. Control pain Strategies: - Activity/exercise program recommendation - Conservative stepwise pain medicine strategy with multi-disciplinary approach - Recommend healthy lifestyle strategies and compensatory methods as needed Medical Devices Implanted Type Area Anesthesiology Physician Assistant Device Identifier Shelf Expiration Date Model / Serial / Lot Managed Objects Sophie Angio-Seal Vip 6fr Closere Device [id number] - [id number] - [id number] Implanted:Qty: 1 on 03/14/2024 by Yovani Parks MD at [facility] Collagen Left: Common Femoral Artery Analyze Re 10/15/2024 [id number] / [id number] / [id number] Cardiac Stent X 2 N/A: Heart [employer] Gynecare Tvt 18x.5in System Transobturator Midurethral Sling [id number] - [id number] Implanted:Qty: 1 on 01/24/2022 by Norman Carver MD at [facility] N/A: Urethra [employer] [id number] 06/01/2022 [id number] / / Explanted Type Area Anesthesiology Physician Assistant Device Identifier Shelf Expiration Date Model / Serial / Lot Circon-Surgite k [id number] Double-J 6fr 20cm 100cm 1 Step Insert Push Catheter Higgins Suture - Sxx - [id number] Implanted:Qty: 1 on 07/26/2018 by Rachelle Austin MD PhD at [facility] Explanted:Qty: 1 on 08/27/2018 by Jean Claude Coffey NP Stent Left: Ureter Circon-Surgitek 01/19/2023 [id number] / XX / [id number] Description:Transplant urete r Procedures Procedure Name Priority Date/Time Associated Diagnosis Comments COPY(IES) SENT TO: Routine 01/24/2025 9: 24 AM CDT RENAL FUNCTION PANEL Routine 01/24/2025 9:24 AM CDT Kidney replaced by transplant POCT GLUCOSE [id number] Routine 01/20/2025 2: 52 PM CDT Type [...] AM CDT Non-rheumatic mitral regurgitation Atherosclerosis of chemehuevi coronary artery of chemehuevi heart without angina pectoris Diastolic dysfunction Chronic systolic heart failure (HCC) BASIC METABOLIC PANEL Routine 12/31/2024 9:08 AM CDT Non-rheumatic mitral regurgitation Atherosclerosis of chemehuevi coronary artery of chemehuevi heart without angina pectoris Diastolic dysfunction Chronic [...] Chronic systolic heart failure (HCC) Atherosclerosis of chemehuevi coronary artery of chemehuevi heart without angina pectoris HEPATITIS C ANTIBODY Routine 01/29/2024 2:27 PM CDT Elevated liver enzymes TSH Routine 01/29/2024 2:27 PM CDT Elevated liver enzymes Other hyperlipidemia COLONOSCOPY IMAGES 04/26/2016 from Last 3 Months or Most Recently Relevant to Health Maintenance Results * COPY(IES) SENT TO: (01/24/2025 9:24 AM CDT) COPY(IES) SENT TO: [facility] Comment: [facility] - COPY TO [place] [address] [place] [address] 01/24/2025 9:24 AM CDT 01/24/2025 9:25 AM CDT [facility] BLOOD ORDERABL ES Final [...] ORDERABL ES Final Result Performing Organization Address [facility]/ZIP Co de Phone Number [facility] [address] [facility] [place] [address] * POCT glucose (01/20/2025 2:52 PM CDT) Glucose Blood, POC 298 Normal Fasting 70 - 100, Random <200 mg/dL Blood 01/20/2025 2:52 PM CDT Ricco Dunn MD POINT OF CARE TEST ORDERABLES F inal Result * Tacrolimus, Highly Sensitive, LC/MS/MS (12/31/2024 9:11 AM CDT) Pathologist [facility] Tacrolimus, Highly Sensitive, LC/MS/MS 7.9 mcg/L [facility] [...] ORDERABLES Final Resu lt Performing Organization Address City/[facility]/ZIP Co de Phone Number [facility] [address] [place] [address] * COPY(IES) SENT TO: (12/31/2024 9:11 AM CDT) COPY(IES) SENT TO: [facility] Comment: [facility] - COPY TO [facility] [address] [place] [address] 12/31/2024 9:11 AM CDT 12/31/2024 9:12 AM CDT Narrative [facility] - 01/01/2025 2:13 PM CDT AP FASTING:YES FASTING: YES us Gabby Cardoza MD LAB BLOOD ORDERABLES Final Resu lt Performing Organization Address City/[facility] Co de Phone Number [facility] * [...] BLOOD ORDERABLES Final Resu lt [facility] [address] [address] * (ABNORMAL) CBC with auto differential (12/31/2024 [...] ORDERABLES Final Resu lt Performing Organization Address City/[facility]/ZIP Co de Phone Number [facility] [address] [address] * (ABNORMAL) Hemoglobin A1c (12/31/2024 9:11 AM CDT) Hgb A1C 8.1(H) <5.7 % of total Hgb [facility] Comment: For someone without known [...] ORDERABLES Final Resu lt Performing Organization Address City/[facility]/ZIP Co de Phone Number [facility] [address] [place] [address] * (ABNORMAL) Renal function panel (12/31/2024 9:11 [...] BLOOD ORDERABLES Final Resu lt [facility] [address] [place] [address] * (ABNORMAL) Lipid panel (12/31/2024 9:11 AM CDT) Pathologist [facility] Cholesterol 136 <200 mg/dL [facility] [...] LDL-C. Vega SS et al. IRON. 2013;310(19): 9911-8475 (http://education.Pixim/faq/TAA960) Chol/HDL ratio 2.8 <5.0 (calc) [facility] [...] ORDERABLES Final Resu lt Performing Organization Address [facility] Co de Phone Number [facility] [address] [place] [address] * (ABNORMAL) Pro B-type natriuretic peptide (12/31/2024 9:08 AM CDT) NT PROBNP 4,100(H) <125 pg/mL [facility] Blood 12/31/2024 9:08 AM CDT 12/31/2024 9:09 AM CDT Narrative [facility] - 01/01/2025 7:43 AM CDT FASTING:YES FASTING: YES Yovani Parks MD LAB BLOOD ORDERABLES Final Result Performing Organization Address [facility]/ZIP Co de Phone Number [facility] [address] [place] [address] * (ABNORMAL) Basic metabolic panel (12/31/2024 9:08 [...] MD LAB BLOOD ORDERABLES Final Result [facility] [address] [place] [address] * Allosure kidney donor-derived cell-free DNA (cFDNA) (12/23/2024 4:46 PM CDT) Allosure CFDNA 0.19% CAREDX Comment: INTERPRETATION OF [...] For more information about AlloSure, please visit [email or web address]. Specimens from kidney retransplant recipients in whom [...] et al., J Am Soc Nephrol 2017; (3)Pulibrooksda et al., Pediatric Transplantation 2020; (4)Antonio et al., J Appl Lab Med 2017; (5)Bu et al., Kidney International 2020;(6) Ramon et al.,Transplantation Direct 2021; (7)Tyler et al., Transplantation Direct 2022 The AlloSure donor-derived cell-free DNA test was developed and its performance characteristics were determined by the [facility]. The test has not been cleared or approved by the U.S. Food and Drug Administration, nor is it currently required to be. The laboratory is certified under the Clinical Laboratory Improvement Amendments of 1988 (CLIA '88) and accredited by the College of [place] Pathologists (CAP) as qualified to perform high complexity clinical laboratory testing. The contents of this report are confidential and intended solely for the use of authorized personnel. AlloSure testing performed at [facility], [place]. [address] [place] [address] (CLIA No: [id number], CAP No: [id number]) Smart Energy Specialist: Umesh Martinez M.D. Plasma 12/23/2024 4:46 PM [...] 12/11/2024 8:32 AM CDT FASTING:NO FASTING: NO us Randell Manuel MD LAB BLOOD ORDERABLES nal Result [facility] [address] [place] [address] * (ABNORMAL) Renal function panel (12/03/2024 1:12 PM CDT) Pathologist [facility] Glucose 153(H) 65 - 99 mg/dL [facility] [...] ORDERABLES Fi nal Result Performing Organization Address [facility] de Phone Number [facility] [address] [place] [address] * Tacrolimus, Highly Sensitive, LC/MS/MS (11/29/2024 9:20 AM CDT) Tacrolimus, Highly Sensitive, LC/MS/MS 7.2 mcg/L [facility] [...] ORDERABLES Final Resu lt Performing Organization Address [facility] Co de Phone Number [facility] [address] [address] [facility] [place] [address] * COPY(IES) SENT TO: (11/29/2024 9:20 AM CDT) COPY(IES) SENT TO: [facility] Comment: [facility] - COPY TO ACCT [address] [place] [address] 11/29/2024 9:20 AM CDT 11/29/2024 9:21 AM [...] ORDERABLES Final Resu lt Performing Organization Address City/[facility]/ZIP Co de Phone Number [facility] [address] [facility] [place] [address] * (ABNORMAL) CBC with auto differential (11/29/2024 9:20 AM CDT) [facility] WBC 7.3 3.8 - 10.8 Thousand/u L [...] 9:20 AM CDT 11/29/2024 9:21 AM CDT [facility] - 11/30/2024 3:17 PM CDT AP FASTING:NO FASTING: NO Gabby Cardoza MD LAB BLOOD ORDERABLES Final Resu lt [facility] [address] [place] [place] [address] * (ABNORMAL) Hemoglobin A1c (11/29/2024 9:20 AM CDT) Hgb A1C 7.6(H) <5.7 % of total Hgb [facility] Comment: For someone without known [...] 9:20 AM CDT 11/29/2024 9:21 AM CDT [facility] - 11/30/2024 3:17 PM CDT AP FASTING:NO FASTING: NO Gabby Cardoza MD LAB BLOOD ORDERABLES Final Resu Performing Organization Address [facility] Co de Phone Number [facility] [address] [place] [address] * (ABNORMAL) Renal function panel (11/29/2024 9:20 [...] BLOOD ORDERABLES Final Resu lt [facility] [address] [place] [address] * (ABNORMAL) Lipid panel (11/29/2024 9:20 AM CDT) [facility] Cholesterol 147 <200 mg/dL [facility] [...] LDL-C. Vega JACINTO et al. IRON. 2013;310(19): 2807-7152 (http://education.Pixim/faq/QWS838) Chol/HDL ratio 2.5 <5.0 (calc) [facility] Non-HDL, (LDL+VLDL) 88 <130 mg/dL (calc) [facility] Comment: For patients with diabetes plus 1 major ASCVD risk factor, treating to a non-HDL-C goal of <100 mg/dL (LDL-C of <70 mg/dL) is considered a therapeutic option. 11/29/2024 9:20 AM CDT 11/29/2024 9:21 AM CDT [facility] - 11/30/2024 3:17 PM CDT AP FASTING:NO FASTING: NO us Gabby Cardoza MD LAB BLOOD ORDERABLES Final Resu lt [facility] [address] [place] [address] * (ABNORMAL) eGFR (11/22/2024 1:22 PM CDT) [...] ORDERABLES Fi nal Result Performing Organization Address City/[facility] Co de Phone Number [facility] [place] [address] * (ABNORMAL) Creatinine (11/22/2024 1:22 PM CDT) Pathologist [facility] Creatinine 1.34(H) 0.60 - 1.10 mg/dL Blood Venous blood specimen / Unknown 11/22/2024 1:22 PM CDT 11/22/2024 2:24 PM CDT Randell Manuel MD LAB BLOOD ORDERABLES Fi nal Result Performing Organization Address [facility] de Phone Number [facility] [place] [address] * (ABNORMAL) Basic metabolic panel (11/22/2024 1:22 PM CDT) Pathologist [facility] Sodium 136 135 - 145 mmol/L Potassium, pl 5.2(H) 3.3 - 4.9 mmol/L [facility] Chloride 99 97 - 110 mmol/L [facility] CO2 24 22 - 32 mmol/L [facility] Anion gap 13 2 - 15 mmol/L [facility] BUN 38(H) 6 - 25 mg/dL [facility] Creatinine 1.34(H) 0.60 - 1.10 mg/dL [facility] Glucose 169 70 - 199 mg/dL [facility] Comment: Interpretive Data Fasting glucose >/= 126 [...] classification and Diagnosis of Diabetes Diabetes Care 202; 46: S19-S40. Current interpretive data was last revised 2022. Calcium 9.6 8.5 - 10.3 mg/dL [facility] Blood 11/22/2024 1:22 PM CDT 11/22/2024 2:24 PM CDT Narrative [facility] - 11/22/2024 2:54 PM CDT THIS TEST TO BE DONE 7 days AFTER RECLAST INFUSION us Scott Morales MD LAB BLOOD ORDERABLES Final Resul t [facility] [place] [address] * TRANSTHORACIC ECHO (TTE) COMPLETE W DOPPLER/CF W CONTRAST (11/11/2024 1:32 PM CDT) EF Mod BP 42 % CONS SCIMAGE Anatomical Region Laterality Modality Ultrasound 11/11/2024 1:09 PM CDT Narrative 11/11/2024 3:43 PM CDT [facility] [address] , [address] [place] [address] Transthoracic Echocardiographic Report Patient Name: MAUREEN SOMERS L : 1960 (64y 7m) Gender: F Study Date: 11/11/2024 01:09:39 PM Ht(Inch): 59 Wt(Lb): 186.07 BSA: 1.87 Silver Cleaner: Lashawn Hatch RDCS Location: [facility] Order Provider: YOVANI PARKS Heart Rate: 73 [...] failure and 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 CONCLUSIONS: 1. [...] Procedure Note Stan Cole MD - 11/11/2024 [facility] [address], [address] [place] [address] Transthoracic Echocardiographic Report Patient Name: MAUREEN SOMERS L : 1960 (64y 7m) Gender: F Study Date: 11/11/2024 01:09:39 PM Ht(Inch): 59 Wt(Lb): 186.07 BSA: 1.87 Silver Cleaner: Lashawn Hatch RDCS Location: [facility] Order Provider:YOVANI PARKS Heart Rate: 73 BMI: [...] heart failure and I25.10Atherosclerotic heart disease of chemehuevi coronary artery without angina pectoris. CONCLUSIONS: 1. [...] LA Length 4C 5.57 cm MV Decel Ugce043.66 msec [ 104.00 - 258.00 ] LA [...] last revised on 2019. Testing performed by: [facility], [address] [place] [address], [place]., [address] Blood 01/29/2024 2:27 PM CDT 01/29/2024 5:02 PM CDT us Shawna Jovel NP LAB MICROBIOLOGY - GENERAL ORDERABLES Final Result [facility] [address] [facility]. Department [place] [address] * TSH (01/29/2024 2:27 PM CDT) Thyroid Stimulating Hormone 0.99 0.30 - 4.20 mcIUnit/mL Blood 01/29/2024 2:27 PM CDT 01/29/2024 2:39 PM CDT Shawna Jovel NP LAB BLOOD ORDERABLES Edite d Result - Final [facility] [address] [facility]. [place] [address] * COLONOSCOPY IMAGES (04/26/2016) Anatomical Region Laterality Modality Other Narrative 04/26/2016 Ordered by an unspecified provider. Historical Provider GI PROCEDURE ORDERABLES F inal Result from Last 3 Months or Most Recently Relevant to Health Maintenance Insurance [facility] [address] MEDICARE [facility] MEDICARE [facility] MEDICARE [employer] Advance Directives For more information, please contact: [phone] * Full Code (Latest Code Status on [...] Communication Atul Somers Spouse Health Care Agent [email or web address] Care Teams Healthcare Marketer Relationship Specialty Start Date End Date Juan F Avila MD [address] [place], [place] [id number] PCP - General Internal Medicine 07/10/24 Mayela Greenberg RN [address] [address] Registered Nurse 07/27/18 Mayela Greenberg RN [address] [place] [address] Registered Nurse 08/07/18 Jacqueline Baum, PT Physical Therapist Physical Therapy 10/30/23 Ricco Dunn MD [address] [facility] [address] DIV IM ENDOCRINOLOGY, [address] [place] [address] Referring Physician Endocrinology Diabetes & Metabolism 07/10/24
[2025-01-31 16:31] LABS: Troponin I 0.625 ng/mL (0.000-0.034)
--- NOTE | 2025-01-31 16:39 | IVDEFINITY ---
Prior to administration of IV Definity the patient was educated on the risks and benefits of the imaging enhancing agent including potential adverse side effects. The patient verbalized understanding. Allergies were verified. No exclusion criteria were identified and at least one of the following inclusion criteria were met: 1) physician request, 2) patient technically difficult to image (per the [place] Society of Echocardiography guidelines of two or more segments not discernable within the apical view), or 3) questionable left ventricular function. ?
[2025-01-31] MEDS: INSULIN HUMAN REGULAR (*BKC) 1,000 UNITS/10 ML VIAL 10 UNITS IV PUSH (16:44)
[2025-01-31] MEDS: DEXTROSE 50% 25 GM/50 ML SYRINGE IV PUSH (16:44)
[2025-01-31] MEDS: cefTRIAXone 1 GM in SODIUM CHLORIDE 0.9% IV 50 ML 100 ML IVPB (17:02)
[2025-01-31 20:32] LABS: Anion Gap 7 mmol/L (4-12); Calcium 7.8 mg/dL (8.4-10.2); Carbon Dioxide 15 mmol/L (22-30); Chloride 110 mmol/L (98-107); Estimated Glomerular Filt Rate 16; Glucose 94 mg/dL (65-110); Osmolality Calculated 293 mOsm/kg (285-295); Potassium 5.6 mmol/L (3.4-5.0); Sodium 132 mmol/L (137-145)
[2025-01-31 20:34] LABS: Blood Urea Nitrogen 66 mg/dL (7-17)
[2025-01-31] MEDS: SODIUM CHLORIDE 0.9% IV 1,000 ML 150 ML IV CONT (21:00)
[2025-01-31] MEDS: SODIUM BICARBONATE 8.4% 50 MEQ/50 ML SYRINGE IV PUSH ×2 (22:16)
[2025-02-01] VITALS (40 sets, daily range): BP systolic 134–164; BP diastolic 66–68; PULSE 69–79; RESP 14–22; TEMP 36.6; O2SAT 92–100
[2025-02-01] MEDS: DEXTROSE 50% 25 GM/50 ML SYRINGE IV PUSH (01:39)
[2025-02-01] MEDS: ACETAMINOPHEN 325 MG TABLET 650 MG PO (02:23)
[2025-02-01 02:39] LABS: Anion Gap 4 mmol/L (4-12); Blood Urea Nitrogen 58 mg/dL (7-17); Calcium 7.7 mg/dL (8.4-10.2); Carbon Dioxide 19 mmol/L (22-30); Chloride 111 mmol/L (98-107); Estimated Glomerular Filt Rate 19; Glucose 188 mg/dL (65-110); Osmolality Calculated 299 mOsm/kg (285-295); Potassium 4.9 mmol/L (3.4-5.0); Sodium 134 mmol/L (137-145)
[2025-02-01 05:33] LABS: Anion Gap 4 mmol/L (4-12); Blood Urea Nitrogen 53 mg/dL (7-17); Calcium 7.8 mg/dL (8.4-10.2); Carbon Dioxide 24 mmol/L (22-30); Chloride 109 mmol/L (98-107); Estimated Glomerular Filt Rate 21; Glucose 107 mg/dL (65-110); Osmolality Calculated 298 mOsm/kg (285-295); Potassium 4.5 mmol/L (3.4-5.0); Sodium 137 mmol/L (137-145)
[2025-02-01 05:49] LABS: Troponin I 0.411 ng/mL (0.000-0.034)
--- NOTE | 2025-02-03 13:06 | PC.NURSE ---
BLOOD CULTURE , PRELIMINARY, NO GROWTH
--- NOTE | 2025-02-05 12:42 | PC.NURSE ---
urine culture, preliminary , gram neg bacilli, awaiting final
--- NOTE | 2025-02-05 12:43 | PC.NURSE ---
blood culture preliminary , no growth
--- NOTE | 2025-02-06 13:29 | PC.NURSE ---
FINAL URINE CULTURE REPORT; ESCHERICHIA COLI, ENTEROCOCCUS FAECALIS. PATIENT DISCHARGED ON CEPHALEXIN, CULTURE SUSCEPTIBLE; NO CHANGE IN TREATMENT NEEDED PER ERP DR. RALPH
--- NOTE | 2025-02-08 12:41 | PC.NURSE ---
final blood cultures x2 reviewed. no growth after 5 days. no change in plan of care
== END 2025-02-01 07:27 | disposition home or self-care (01) ==
PROVIDERS: Emergency Provider Emergency Medicine; PCP Internal Medicine
DX: E87.5 Hyperkalemia (principal); R79.89 Other specified abnormal findings of blood chemistry; E86.0 Dehydration; N17.9 Acute kidney failure, unspecified
CPT/HCPCS: 36415; 71045; 80048; 80053; 81001; 82948; 83605; 83735; 84484; 85025; 87086; 93005; 96361; 96365; 96375; 96376; 99284; A9270; J0696; J1815; J7030

== ENCOUNTER 2025-06-24 14:33 | Outpatient (CLI) | payer MEDICARE, OTHER, SELFPAY ==
--- OUTSIDE RECORDS SUMMARY | 2025-06-23 14:30 | XMS_ITS | Encounter Summary ---
Author Organization [facility] Healthcare Address [address] [place] [address] Care Team Providers Care Freight Forwarder Name Role Phone Mayela Greenberg RN Unavailable [phone] Mayela Greenberg RN Unavailable [phone] Jacqueline Baum PT Unavailable Unavailabl e Ricco Dunn MD Unavailable [phone] Juan F Avila MD Primary Care Provider [phone] Jacqueline Baum PT Unavailable Unavailabl e Reason for Visit * Reason Comments PT Treatment * Consultation (Routine) - Authorized Specialty Diagnoses / Procedures Referred By Contac t Referred To Contact Physical Therapy Diagnoses 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 Rotator cuff arthropathy of both shoulders Midline thoracic back pain, unspecified chronicity Delio Jimenez MD [address] [facility] [phone] [place] [address] Phone: tel: fax: [facility] [address] [place] [address] Phone: tel: fax: Referral ID Status Reason Start Date Expiration Date Visits Requested Visits Authorized [id number] Authorized Specialty Services Required 5 06/11/2026 20 20 Encounter Details Date Type Department Care Team (Late st Contact Info) Description 06/23/2025 2:30 PM HYBRID POWERTRAIN DEVELOPMENT ENGINEER Therapy [facility] [address] [place] [address] Padma Lance, BILLING SPECIALIST 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 Never true 11/23/19 25 Within the past 12 months, t he food you bought just didn't last and you didn't have money to get more. Never true 11/22/2024 AUDIT-C Answer Date Recorded Q1: How often do you have a drink containing alc ohol? Never 06/10/2025 Average Number of Drinks Not on file 025 Frequency of Binge Drinking Not on file 03/2025 Personal Safety Answer Date Recorded Have you ever been in or are you currently in a harmful physical or emotional relationship or is someone making you feel afraid or unsafe? Denies 11/22/2024 Comments No Sex and Gender Information Value Date Recorded Sex Assigned at Not on file Legal Sex Female 3:45 AM HYBRID POWERTRAIN DEVELOPMENT ENGINEER Gender Identity Female 07/04/2024 5:02 PM HYBRID POWERTRAIN DEVELOPMENT ENGINEER Sexual Orientation Not on file documented as of this encounter Progress Notes * Padma Lance, BILLING SPECIALIST - 06/23/2025 2:30 PM CST PT Daily Treatment Note Maureen Moran Barren 1960 Subjective : The pt states her shoulder is sore today Pain: /10 neck and left shoulder. Objective : see treatment below Treatment Provided:(Fistula in left arm, take BP in right arm) (Take vitals as needed) Seated pulleys x 10, pt needs extra cueing for proper performance At wall -towel slides into shld flexion x 10 -finger ladder left UE into flexion x 5 MHP to cervical spine while doing ROM to L shoulder Supine( manual, 20 min total) -cervical distraction x 10-did not perform -cerical right lat flexion x 5-did not perform -gentle distraction of the left shoulder -PROM Into left shoulder flex, abd, IR and ER. X 7-10- each Wand ex -supine wand ex, chest press x 10 -supine wand ex, bilat shld flex x 10 -seated wand ex, bilat shld flex. X 10 -did not perform -seated wand ex, for left shld abd x 10-did not perform` Supine CP to left shoulder x 10 min. Treatment Provided: Pt was instructed in initial HEP Access Code: [email or web address] URL: [email or web address] Exercises - Supine Shoulder Press with Dowel - 2 x daily - 7 x weekly - 1 sets - 10 reps - 3seconds hold - Supine Shoulder Flexion Extension AAROM with Dowel - 2 x daily - 7 x weekly - 1 sets - 10 reps - 3seconds hold - Seated Shoulder Shrugs - 2 x daily - 7 x weekly - 1 sets - 20 reps - 3seconds hold - Seated Scapular Retraction - 2 x daily - 7 x weekly - 1 sets - 20 reps - 3seconds hold Assessment: The pt tolerated treatment fair. Difficult for pt to relax during ROM/stretching. Pt issignificantly limited in L shoulder ER. Plan: Cont PT as per POC. Start Time: 1433 End Time: 1518 Padma Lnace, INGRID ID POWERTRAIN DEVELOPMENT ENGINEER documented in this encounter Plan of Treatment Not on file documented as of this encounter Goals Goal Patient Goal Type Associated Problems Recent Progress Patient-Stated? Author CCM Chronic Pain Care Plan Chronic Care Management On track(2024 2:54 PM HYBRID POWERTRAIN DEVELOPMENT ENGINEER) No Luz Weaver RN Note: Problem: Chronic Pain Goals: 1. Minimize further functional decline 2. Maximize quality of life 3. 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- Primary documented in this encounter Care Teams Freight Forwarder Relationship Specialty Start Date End Date Juan F Avila MD [address] [place] [address] PCP - General Internal Medicine 07/10/24 Mayela Greenberg, RN [address] [facility] [address] [place] [address] Registered Nurse 07/27/18 Mayela Greenberg RN [address] [address] Registered Nurse 08/07/18 Jacqueline Baum, PT Physical Therapist Physical Therapy 10/30/23 Ricco Dunn MD [address] [place] [address] ENDOCRINOLOGY, [facility] [[email or web address] [address] [place] [address] Referring Physician Endocrinology Diabetes & Metabolism 07/10/24 Jacqueline Baum, PT Physical Therapist Physical Therapy 06/02/25 documented as of this encounter
--- NOTE | ~2025-06-24 | XR_ITS ---
XR shoulder LT min 2V 06/24/2025 14:44 Indication: Left shoulder pain after recent fall Procedure: 4 views left shoulder Comparison: 06/06/2019 Findings: The there is a healed left humeral neck fracture. There is severe osteoarthritis of the glenohumeral joint. There is a vascular stent in the upper arm medial to the humerus. No acute fracture or traumatic malalignment. There is evidence of chondrocalcinosis. There is subsegmental atelectasis left mid thorax. Impression: 1: Severe left glenohumeral joint osteoarthritis. Reviewed, dictated and finalized at location O. ON JAVA DEVELOPER Impression: 1: Severe left glenohumeral joint osteoarthritis.
--- OUTSIDE RECORDS SUMMARY | 2025-06-24 14:41 | XMS_ITS | Encounter Summary ---
Author Organization [facility] Healthcare Address [address] [place] [address] Care Team Providers Care Spectrograph Operator Name Role Phone Juan F Avila MD Primary Care Provider [phone] Mayela Greenberg RN Unavailable [phone] Mayela Greenberg RN Unavailable [phone] Jacqueline Baum PT Unavailable Unavailabl e Ricco Dunn MD Unavailable [phone] Juan F Avila MD Primary Care Provider [phone] Jacqueline Baum PT Unavailable Unavailabl e Encounter Details Date Type Department Care Team (Late st Contact Info) Description 01/31/2019 Patient Outreach [facility] [address] [facility] [address] [place], [place] [address]op [phone] [place] [address] [place] Social History Tobacco Use Types Packs/Day Years Used Date Smoking Tobacco: Never Smokeless Tobacco: Never Alcohol Use Standard Drinks/Week Comments No 0 (1 standard drink = 0.6 oz pur e alcohol) Comments Unknown Sex and Gender Information Value Date Recorded Sex Assigned at Not on file Legal Sex Female 3:45 AM HEADING AND PRIMING TOOL SETTER Gender Identity Female 07/04/2024 5:02 PM HEADING AND PRIMING TOOL SETTER Sexual Orientation Not on file documented as [...] documented as of this encounter Care Teams Spectrograph Operator Relationship Specialty Start Date End Date Juan F Avila MD PCP - General 09/01/16 07/09/24 Juan F Avila MD [address] [place] [address] PCP - General Internal Medicine 07/10/24 Mayela Greenberg RN [address] [address] Registered Nurse 07/27/18 Mayela Greenberg RN [address] [address] Registered Nurse 08/07/18 Jacqueline Baum, PT Physical Therapist Physical Therapy 10/30/23 Ricco Dunn MD [address] [facility] DIV ENDOCRINOLOGY, [facility] [address] [address] Referring Physician Endocrinology Diabetes & Metabolism 07/10/24 Jacqueline Baum, PT Physical Therapist Physical Therapy 06/02/25 documented as of this encounter
--- OUTSIDE RECORDS SUMMARY | 2025-06-24 14:41 | XMS_ITS | Encounter Summary ---
Author Organization [facility] Healthcare Address [address] [place] [address] Phone Care Team Providers Care Scallop Dredger Name Role Phone Mayela Greenberg RN Unavailable [phone] Mayela Greenberg RN Unavailable [phone] OJacqueline Portillo PT Unavailable Unavailabl e Ricco Dunn MD Unavailable [phone] Juan F Avila MD Primary Care Provider [phone] OJacqueline Portillo PT Unavailable Unavailabl e Encounter Details Date Type Department Care Team (Late st Contact Info) Description 06/18/2025 Results Follow-Up [facility] Medicine Cardiology [address] [facility] [address] [place] [address] Sushil Reeves MD [address] [facility] [address] [place] [address] ECG 12 lead Social History Tobacco Use Types Packs/Day Years [...] on file Legal Sex Female 3:45 AM TURKEY PINNER Gender Identity Female 07/04/2024 5:02 PM TURKEY PINNER Sexual Orientation Not on file documented as of this encounter Plan of Treatment Not on file documented as of this encounter Goals Goal Patient Goal Type Associated Problems Recent Progress Patient-Stated? Author CCM Chronic Pain Care Plan Chronic Care Management On track(2024 2:54 PM TURKEY PINNER) No Luz Weaver RN Note: Problem: Chronic Pain Goals: 1. Minimize further functional decline 2. Maximize quality of life 3. Control pain Strategies: - Activity/exercise program recommendation - Conservative stepwise pain medicine strategy with multi-disciplinary approach - Recommend healthy lifestyle strategies and compensatory methods as needed documented as of this encounter Visit Diagnoses Not on filedocumented in this encounter Care Teams Scallop Dredger Relationship Specialty Start Date End Date Juan F Avila MD [address] [place] [address] PCP - General Internal Medicine 07/10/24 Mayela Greenberg RN [address] [id number] Registered Nurse 07/27/18 Mayela Greenberg RN [address] [address] Registered Nurse 08/07/18 Jacqueline Baum, PT Physical Therapist Physical Therapy 10/30/23 Ricco Dunn MD [address] [facility], [facility] [address] [place] [address] Referring Physician Endocrinology Diabetes & Metabolism 07/10/24 Jacqueline Baum, PT Physical Therapist Physical Therapy 06/02/25 documented as of this encounter
--- OUTSIDE RECORDS SUMMARY | 2025-06-24 14:41 | XMS_ITS | Encounter Summary ---
Author Organization [facility] Address [address] [place] [address] Care Team Providers Care Cashiers Bussers Food Runners Name Role Phone Juan F Avila MD Primary Care Provider [phone] Mayela Greenberg RN Unavailable [phone] Mayela Greenberg RN Unavailable [phone] Jacqueline Baum PT Unavailable Unavailabl e Ricco Dnun MD Unavailable [phone] Juan F Avila MD Primary Care Provider [phone] OJacqueline Portillo PT Unavailable Unavailabl e Reason for Visit * Reason Onset Date Comments PMC Preprocedure 07/05/2024 Encounter Details Date Type Department Care Team (Late st Contact Info) Description 07/05/[address] [facility] [address] [facility] [address] [place] [address] Delio Jimenez MD [address] [facility] [phone] [place] [address] PMC Preprocedure Social History Tobacco Use Types Packs/Day Years Used Date Smoking Tobacco: Never Smokeless Tobacco: Never Alcohol Use Standard Drinks/Week Comments No 0 (1 standard drink = 0.6 oz pur e alcohol) AUDIT-C Answer Date Recorded Q1: How often do you have a drink containing alc ohol? Never 03/14/2024 Average Number of Drinks Not on file Frequency of Binge Drinking Not on file [...] on file Legal Sex Female 3:45 AM WATER RESOURCES BUSINESS SEGMENT LEADER Gender Identity Female 07/04/2024 5:02 PM WATER RESOURCES BUSINESS SEGMENT LEADER Sexual Orientation Not on file documented as of this encounter Plan of Treatment Not on file documented as of this encounter Goals Goal Patient Goal Type Associated Problems Recent Progress Patient-Stated? Author CCM Chronic Pain Care Plan Chronic Care Management On track(2024 2:54 PM WATER RESOURCES BUSINESS SEGMENT LEADER) No Luz Weaver RN Note: Problem: Chronic Pain Goals: 1. Minimize further functional decline 2. Maximize quality of life 3. Control pain Strategies: - Activity/exercise program recommendation - Conservative stepwise pain medicine strategy with multi-disciplinary approach - Recommend healthy lifestyle strategies and compensatory methods as needed documented as of this encounter Visit Diagnoses Not on filedocumented in this encounter Care Teams Cashiers Bussers Food Runners Relationship Specialty Start Date End Date Juan F Avila MD PCP - General 09/01/16 07/09/24 Juan F Avila MD [address] [place] [address] PCP - General Internal Medicine 07/10/24 Mayela Greenberg RN [address] [address] Registered Nurse 07/27/18 Mayela Greenberg, RN [address] [place] [address] Registered Nurse 08/07/18 Jacqueline Baum, PT Physical Therapist Physical Therapy 10/30/23 Ricco Dunn MD [address] [facility], [facility] [address] [place] [address] Referring Physician Endocrinology Diabetes & Metabolism 07/10/24 Jacqueline Baum, PT Physical Therapist Physical Therapy 06/02/25 documented as of this encounter
--- OUTSIDE RECORDS SUMMARY | 2025-06-24 14:41 | XMS_ITS | Encounter Summary ---
Author Organization [facility] Address [address] [place] [address] Phone Care Team Providers Care Chick Room Supervisor Name Role Phone Mayela Greenberg RN Unavailable [phone] Mayela Greenberg RN Unavailable [phone] OJacqueline Portillo PT Unavailable Unavailabl e Ricco Dunn MD Unavailable [phone] Juan F Avila MD Primary Care Provider [phone] OJacqueline Portillo PT Unavailable Unavailabl e Reason for Referral * Consultation (Routine) - Authorized Specialty Diagnoses / Procedures Referred By Contact Referred To Contact Interventional Radiology Diagnoses 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) Osteoporosis, unspecified osteoporosis type, unspecified pathological fracture presence Low bone mass Sara Lennon, FITTER / WELDER [address] [facility] [address] [place] [address] Phone: tel: fax:[phone] Gabriel Champagne MD [address] [facility] [address] [place] [address] Phone: tel: fax: Referral ID Status Reason Start Date Expiration Date Visits Requested Visits Authorized [id number] Authorized Specialty Services Required 07/12/2026 1 1 Question Answer Please select the performing region: [facility] (All Locations) [[id number]] Subspecialty: Musculoskeletal To Provider NOTE: we will do our best to honor your provider preference, but scheduling the patient in a timely manner in our clinic will take precedence. 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) Osteoporosis, unspecified osteoporosis type, unspecified pathological fracture presence Low bone mass Procedures IR Superficial Bone Biopsy Sara Lennon NP [address] [address] Phone: tel: fax: [address] [address] Referral ID Status Reason Start Date Expiration Date V isits Requested Visits Authorized [id number] Authorized 06/12/2025 07/12/2026 1 1 STAFF Encounter Details Date Type Department Care Team (Late st Contact Info) Description 06/10/2025 Telephone [facility] [address] [facility] 13th [place] [address] [place] [address] Sara Lennon NP [address] [address] Social History Tobacco Use Types Packs/Day Years [...] on file Legal Sex Female 3:45 AM WAIT STAFF Gender Identity Female 07/04/2024 5:02 PM WAIT STAFF Sexual Orientation Not on file documented as of this encounter Ordered Prescriptions Prescription Sig Dispense Quantity Refills Last Filled Start Date End Date tetracycline (ACHROMYCIN,SUMYCI N) 500 mg capsuleIndications :Other (complete free text reason below) Take 1 capsule (500 mg total) by mouth 2 (two) times a day 12 capsule 06/12/2025 documented in this encounter Miscellaneous Notes * Telephone Encounter - Angelito Rice RN - 06/23/2025 12:03 PM CST Called patient to remind her: Bone Biopsy She will start his TCN 06/30/25-07/02/25 (500mg BID) Holding phosphate binders, Ca, Mg, Iron, D, MVI, Dairy, and prilosec Drug Holiday 07/03/25-07/16/25 STAFF * Addendum Note - Angelito Rice RN - 06/12/2025 10:26 AM CSTAddended by: ANGELITO RICE on: 06/12/2025 10:26 AM Modules accepted: Orders STAFF * Telephone Encounter - Angelito Rice RN - 06/12/2025 10:22 AM CST Bone Biopsy She will start his TCN 06/30/25-07/02/25 (500mg BID) Holding phosphate binders, Ca, Mg, Iron, D, MVI, Dairy, and prilosec Drug Holiday 07/03/25-07/16/25 She will begin his 2nd round of TCN 07/17/25-07/19/25 (TCN 500mg BID) Holding phosphate binders, Ca, Mg, Iron, D, MVI, Dairy, and prilosec Drug Holiday 07/20/25 Procedure 07/21/25 She was instructed to hold: ASA 07/16/25 Informed to have labs 07/14/25 All orders have been placed. If you should have any questions, please call Angelito [phone]. STAFF * Telephone Encounter - Kayli Casey CMA - 06/10/2025 2:31 PM CST Patient was seen by Sara Lennon NP today for an office visit. The following was recommended for the patient Conservative. Had reclast 11/22/24. Will get bone biopsy. 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) Osteoporosis, unspecified osteoporosis type, unspecified pathological fracture presence Low bone mass Expected: 07/14/2025, Expires: 06/12/2026 Protime-INR Lab Routine 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) Osteoporosis, unspecified osteoporosis type, unspecified pathological fracture presence Low bone mass Expected: 07/14/2025, Expires: 06/12/2026 aPTT Lab Routine 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) Osteoporosis, unspecified osteoporosis type, unspecified pathological fracture presence Low bone mass Expected: 07/14/2025, Expires: 06/12/2026 CBC without differential Lab Routine 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) Osteoporosis, unspecified osteoporosis type, unspecified pathological fracture presence Low bone mass Expected: 07/14/2025, Expires: 06/12/2026 Scheduled Referrals Name Type Priority Associated Diagnoses Orde r Schedule Ambulatory referral to Interventional Radiology Outpatient Referral Routine 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 Author CCM Chronic Pain Care Plan Chronic Care Management On track(2024 2:54 PM WAIT STAFF) Luz Sandoval RN Note: Problem: Chronic Pain Goals: 1. Minimize further functional decline 2. Maximize quality of life 3. 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 ENDOCRINOLOGY, [facility] [address] [address] Referring Physician Endocrinology Diabetes & Metabolism 07/10/24 Jacqueline Baum, PT Physical Therapist Physical Therapy 06/02/25 documented as of this encounter
--- OUTSIDE RECORDS SUMMARY | 2025-06-24 14:41 | XMS_ITS | Encounter Summary ---
Author Organization [facility] Address [address] [place] [address] Phone Care Team Providers Care Tunnel Kiln Operator Name Role Phone Mayela Greenberg RN Unavailable [phone] Mayela Greenberg RN Unavailable [phone] OJacqueline Portillo PT Unavailable Unavailabl e Ricco Dunn MD Unavailable [phone] Juan F Avila MD Primary Care Provider [phone] OJacqueline Portillo PT Unavailable Unavailabl e Encounter Details Date Type Department Care Team (Late st Contact Info) Description 06/12/2025 Telephone [facility] Medicine Radiology, Interventional Radiology [address] [facility] [address] [place] [address] Crista Moore LPN Social History Tobacco Use Types Packs/Day Years [...] on file Legal Sex Female 3:45 AM RADIAL ROUTER OPERATOR Gender Identity Female 07/04/2024 5:02 PM RADIAL ROUTER OPERATOR Sexual Orientation Not on file documented as of this encounter Miscellaneous Notes * Telephone Encounter - Crista Moore LPN - 06/23/2025 2:01 PM RADIAL ROUTER OPERATOR Spoke with patient consult scheduled for 07/10 with LB. Appointment information sent via ASSET4 AL ROUTER OPERATOR * Telephone Encounter - Crista Moore LPN - 06/12/2025 11:36 AM RADIAL ROUTER OPERATOR Please schedule a consult with LIBAN ANDINO/SURGERY ASSISTANT for sometime in July 2025 (prior to scheduled TCN labelbiopsy date of 07-21-25) . Thank you Ambulatory Referral is in place Reason for consult/referral and reviewed by what attending: Zoila Browne; Sanam/discuss/plan TCN label biopsy Referring provider: Sara Lennon NP (Agustina Rice) Pt aware of referral/OK to call?: yes Dx: osteoporosis; s/p kidney transplant-no dialysis per referring greenhouse or nursery transplanter done: n/a Medication Allergies: FENTANYL (Anaphylaxis); Lisinopril Recent labs: 06-04-25--Plam for repeat labs closer to date on 07-14-25, arranged by referring seal delivery vehicle officer Blood thinners/ASA/NSAIDS: ASA 81 mg Tribute Research: No AL ROUTER OPERATOR AL ROUTER OPERATOR documented in this encounter Plan of Treatment Not on file documented as of this encounter Goals Goal Patient Goal Type Associated Problems Recent Progress Patient-Stated? Author CCM Chronic Pain Care Plan Chronic Care Management On track(2024 2:54 PM RADIAL ROUTER OPERATOR) Luz Sandoval, RN Note: Problem: Chronic Pain Goals: 1. Minimize further functional decline 2. Maximize quality of life 3. Control pain Strategies: - Activity/exercise program recommendation - Conservative stepwise pain medicine strategy with multi-disciplinary approach - Recommend healthy lifestyle strategies and compensatory methods as needed documented as of this encounter Visit Diagnoses Not on filedocumented in this encounter Care Teams Tunnel Kiln Operator Relationship Specialty Start Date End Date Juan F Avila MD [address] [place], [place] [address] PCP - General Internal Medicine 07/10/24 Mayela Greenberg RN [address] [address] Registered Nurse 07/27/18 Mayela Greenberg RN [address] [address] Registered Nurse 08/07/18 Jacqueline Baum, PT Physical Therapist Physical Therapy 10/30/23 Ricco Dunn MD [address] [facility] ENDOCRINOLOGY, [facility] [[email or web address] [address] [place] [address] Referring Physician Endocrinology Diabetes & Metabolism 07/10/24 Jacqueline Baum, PT Physical Therapist Physical Therapy 06/02/25 documented as of this encounter
--- OUTSIDE RECORDS SUMMARY | 2025-06-24 14:41 | XMS_ITS | Clinical Summary ---
Author Organization [facility] Address [address] [facility] [place] [address] Care Team Providers Care Guide Dog Mobility Instructor Name Role Phone Juan F Avila MD Primary Care Provider Sandy White RN Unavailable [phone] Source Comments [facility],non-owned Affiliates and Associated Physician Practices is amultiple site organization consisting of ambulatory clinics and hospital sitesin [place], [place], [place] and [place]. This disclosure is being madepursuant to the Care Everywhere program and may not contain all information available regarding this patient. Last updated 18.[facility] Allergies Active Allergy Reactions Criticality Noted Date [...] Take 1 mg by mouth once daily [employer] [phone] (Aaliyah) Active Cholecalcifero l (VITAMIN D-3 PO) Take 1 Tab by mouth once daily Active Calcium Carbonate-Shannon min D (CALCIUM + D PO) Take 500 mg by mouth 3 times daily as needed Active carvedilol (COREG) 25 MG tablet Take 25 mg by mouth 2 times daily with morning and evening meal [employer] [phone] (Aaliyah) Active insulin lispro (HUMALOG) for insulin [...] Resolved Date 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 08/19/2015 10/05/2015 Overview (08/19/2015): 08/18/15 Cath/PCI - 3.0x24 Resolute YUNI mLAD; mod mRCA and mCx; EF 65% Diabetes type 1, controlled 08/04/2015 02/16/2017 Abnormal stress test 08/04/2015 016 Syncope, needs stress test 07/31/2015 0 07/31/2015 Syncope 07/31/2015 10/05/2015 Family History Medical History Relation Name Comments Diabetes Brother 4 Cancer Maternal Grandfather Diabetes Maternal Grandmother IA Mother Stroke Mother IA Paternal Grandfather IA Paternal Grandmother Relation Name Status Comments Brother [...] on file Legal Sex Female 6:00 AM UNIT SUPERVISOR Gender Identity Not on file Sexual Orientation [...] (1 of 2) 1981 PAP SMEAR 1983 Respiratory Syncytial Virus (RSV) Vaccine Pt: or over 60 yrs (1 - Risk 50-74 years 1-dose series) 2012 DIABETES RETINOPATHY SCREENING 10/06/2015 DIABETES-FOOT EXAM WITH MONOFILAMENT 10/06/2015 DIABETES-HGB A1C 12/06/2015 06/06/2015 DEPRESSION SCREENING 07/03/2024 INFLUENZA VACCINE (#1) 2025 [...] this topic Medical Devices Implanted Type Area Burn Out Tender Lace Device Identifier Shelf Expiration Date Model / Serial / Lot Patrick Cates Gwt-Gw Dbl Gds 4-7mm X 35mm Implanted:Qty: 1 on 05/12/2015 by Nael Bunn MD at [facility] Left: Arm Maquet 05/12/2019 [id number] / / [id number] Procedures Procedure Name Priority Date/Time Associated Diagnosis Comments HEMOGLOBIN A1C Routine 06/06/2015 4:28 AM UNIT SUPERVISOR from Last 3 Months or Most Recently Relevant to Health Maintenance Results * (ABNORMAL) HEMOGLOBIN A1C (06/06/2015 4:28 AM UNIT SUPERVISOR) Hemoglobin A1c 8.3(H) 4.2 - 6.3 % 06/06/2015 6:19 AM UNIT SUPERVISOR [facility] Estimated Average Glucose 192 mg/dL 06/06/2015 6:19 AM UNIT SUPERVISOR [facility] Whole Blood BLOOD SPECIMEN WITH EDTA / Unknown 06/06/2015 4:28 AM UNIT SUPERVISOR 06/06/2015 6:00 AM UNIT SUPERVISOR Edy Erazo DO LAB - CHEMISTRY ORDERABLES Final Result [facility] [address] [place] [address] from Last 3 Months or Most Recently Relevant to Health Maintenance Insurance MEDICARE [facility] RISK SELF PAY NO INSURANCE Member Subscriber Plan / Payer (Ef fective for All Dates) Name:Maureen Somers Member ID:Not on file Relation to Subscriber:Not on file Name:MAUREEN SOMERS Subscriber ID:Not on file (Home) Address: [place] [address] Payer ID:Not on file Group ID:Not on file Type:Self Pay Address: [place], [place] Advance Directives * Full Code (Latest Code Status on File) Date Activated Date Inactivated Comments 08/18/2015 2:57 PM 08/20/2015 3:36 PM * Full Code Date Activated Date Inactivated Comments 08/18/2015 2:53 PM 08/18/2015 2:57 PM * Full Code Date Activated Date Inactivated Comments 06/05/2015 10:34 PM 06/08/2015 11:13 PM Care Teams Guide Dog Mobility Instructor Relationship Specialty Start Date End Date Juan F Avila MD [address] [place] [address] PCP - General Internal Medicine 03/02/15 Sandy White, RN [address] [place] [address] Universal Branch Consultant 08/18/15
--- OUTSIDE RECORDS SUMMARY | 2025-06-24 14:41 | XMS_ITS | Clinical Summary ---
Author Organization [facility] Address [address] [place] [address] Phone Care Team Providers Care Campus Recruiting Intern Name Role Phone Juan F Avila MD Primary Care Provider [phone] Allergies Active Allergy Reactions Criticality Noted Date [...] daily. 7 Active neomycin-polymy izzy-dexamethaso ne (MAXITROL) 3.5-41112-0.1 Ointment Admin uses topical on dialysis 6 [...] Comments Blood Pressure 157/68 08/11/2016 2:35 PM EMOTIONAL DISABILITIES TEACHER Pulse 75 08/11/2016 2:35 PM EMOTIONAL DISABILITIES TEACHER Temperature 35.3 C (95.5 F) 08/11/2016 2:35 PM EMOTIONAL DISABILITIES TEACHER Respiratory Rate 16 08/11/2016 2:35 PM EMOTIONAL DISABILITIES TEACHER Oxygen Saturation 98% 08/11/2016 2:35 PM EMOTIONAL DISABILITIES TEACHER Inhaled Oxygen Concentration - - Weight 63.5 kg (140 lb) 08/01/2016 1:00 PM EMOTIONAL DISABILITIES TEACHER Height 154.9 cm (5' 1) 08/01/2016 1:00 PM EMOTIONAL DISABILITIES TEACHER Body Mass Index 26.45 08/01/2016 1:00 PM EMOTIONAL DISABILITIES TEACHER Plan of Treatment Health Maintenance Due Date [...] complete this topic Insurance MEDICARE Care Teams Campus Recruiting Intern Relationship Specialty Start Date End Date Juan F Avila MD [address] [place] [address] PCP - General Internal Medicine 07/28/16
--- OUTSIDE RECORDS SUMMARY | 2025-06-24 14:41 | XMS_ITS ---
Author Organization [facility] Address [address] [place] [address] Care Team Providers Care Manager Statistical Name Role Phone Unavailable Unavailable Unavailable Allergies, Adverse Reactions, Alerts This patient has no known allergies or adverse reactions. Problems This patient has no known problems.
--- OUTSIDE RECORDS SUMMARY | 2025-06-24 14:42 | XMS_ITS | Encounter Summary ---
Author Organization [facility] Address [address] [place] [address] [place] [address] Care Team Providers Care Designer And Patternmaker Name Role Phone Juan F Avila MD Primary Care Provider [phone] Sandy White RN Unavailable [phone] Encounter Details Date Type Department Care Team (Late st Contact Info) Description 03/02/2015 [facility] EXTERNAL NON[facility] DEPT Nael Bunn MD [address] [place] [phone] Social History Tobacco Use Types Packs/Day Years Used Date Smoking Tobacco: Never Smokeless Tobacco: Never Alcohol Use Standard Drinks/Week Comments No 0 (1 standard drink = 0.6 oz pur e alcohol) Comments No Sex and Gender Information Value Date Recorded Sex Assigned at Not on file Legal Sex Female 6:00 AM MANAGER CORPORATE Gender Identity Not on file Sexual Orientation Not on file documented as of this encounter Plan of Treatment Not on file documented as of this encounter Visit Diagnoses Not on filedocumented in this encounter Care Teams Designer And Patternmaker Relationship Specialty Start Date End Date Juan F Avila MD [address] [place] [address] PCP - General Internal Medicine 03/02/15 Sandy White, RN [address] [place] [address] Window Shade Ring Coverer 08/18/15 documented as of this encounter
--- OUTSIDE RECORDS SUMMARY | 2025-06-24 14:42 | XMS_ITS | Clinical Summary ---
Author Organization [facility] Address [address] [place] [address] Care Team Providers Care Job Placement Specialist Name Role Phone Mayela Greenberg RN Unavailable Mayela Greenberg RN Unavailable [phone] Jacqueline Baum PT Unavailable Unavailabl e Ricco Dunn MD Unavailable [phone] Juan F Avila MD Primary Care Provider [phone] OJacqueline Portillo. PT Unavailable Unavailabl e Allergies Active Allergy Reactions Criticality Noted Date Comments Fentanyl Anaphylaxis,Other (See comments) High 10/2014 Heart stops Lisinopril Cough Low 05/12/2016 Medications aspirin 81 mg tabletIndication s:prevention of thrombosis Take 1 tablet (81 mg total) by mouth every morning 7 Active blood-glucose sensor (DEXCOM G6 SENSOR) device Use one Dexcom G6 sensor every 10 days 1 Device 11 9 Active blood-glucose transmitter (DEXCOM G6 TRANSMITTER) device Use one Dexcom G6 transmitter every 90 days 1 Device 3 9 Active senna-docusate (PERICOLACE) 8.6-50 mgIndications:co nstipation Take 1 tablet by mouth as needed for constipation 9 Active multivitamin with iron tabletIndication s:Vitamin Deficiency Prevention Take 1 tablet by mouth every morning 30 tablet 11 9 Active cholecalciferol (VITAMIN D-3) 2000 unit capsuleIndicatio ns:Vitamin D Deficiency Take 1 capsule (2,000 Units total) by mouth every morning 90 capsule 3 1 Active acetaminophen (TYLENOL) 500 mg tabletIndication s:Pain Take 1 tablet (500 mg total) by mouth as needed for pain Active DULoxetine DR (CYMBALTA) 30 mg capsule Take 1 capsule (30 mg total) by mouth daily 4 Active omeprazole (PriLOSEC) 20 mg capsule Take 1 capsule (20 mg total) by mouth daily 4 Active carvediloL (COREG) 25 mg tablet TAKE 1 TABLET(25 MG) BY MOUTH TWICE DAILY 180 tablet 3 5 Active Additional Information Patient taking differently: 12.5 mgoral 2 times daily, Reported on 06/12/2025 predniSONE (DELTASONE) 5 mg tabletIndication s:Kidney replaced by transplant Take 1 tablet (5 mg) by mouth daily 90 tablet 3 5 Active insulin glargine (LANTUS) 100 unit/mL (3 mL) pen for injectionIndicat ions: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 ADMINISTER 20 UNITS UNDER THE SKIN ONCE DAILY IN CASE OF PUMP FAILURE 15 mL 3 5 Active glucagon (Baqsimi) 3 mg/actuation spray,non-aeroso lIndications:Typ e 1 diabetes mellitus with other kidney complication mg (one actuation) into a single nostril for low blood sugar that does not correct with oral intake or if confused; if no response, may repeat in 15 minutes using a new intranasal device. 2 each 1 5 Active insulin aspart (NovoLOG) 100 unit/mL vial for injectionIndicat ions: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 Use with an insulin pump max TDD 66 units daily 20 mL [address] (MYFORTIC) 360 mg EC tabletIndication s:Encounter for aftercare following kidney transplant TAKE 1 TABLET BY MOUTH DAILY 30 tablet 11 5 Active furosemide (LASIX) 40 mg tablet Take 1 tablet (40 mg total) by mouth daily 90 tablet 3 5 026 Active fluconazole (DIFLUCAN) 200 mg tablet Take 1 tablet (200 mg total) by mouth daily Active spironolactone (ALDACTONE) 25 mg tablet Take 0.5 tablets (12.5 mg total) by mouth daily 15 tablet 11 5 Active ezetimibe (ZETIA) 10 mg tabletIndication s:Dyslipidemia Take 1 tablet (10 mg total) by mouth daily 90 tablet 3 5 026 Active tacrolimus XR (Envarsus XR) 0.75 mg tablet extended release 24 hrIndications:Ki dney replaced by transplant Take 1 tablet (0.75 mg total) by mouth daily 30 tablet 11 5 026 Active mupirocin (BACTROBAN) 2 % ointment Apply topically 3 (three) times a day To open wounds, until healed 22 g 3 5 Active rosuvastatin (CRESTOR) 40 mg tablet TAKE 1 TABLET(40 MG) BY MOUTH EVERY NIGHT 90 tablet 2 5 Active tetracycline (ACHROMYCIN,SUMY ROHIT) 500 mg capsuleIndicatio ns:Other (complete free text reason below) Take 1 capsule (500 mg total) by mouth 2 (two) times a day 12 capsule 5 Active Active Problems Patient Care Coordination No te Formatting of this note migh t be different from the original. 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 05/06/2025 Rotator cuff arthropathy 05/06/2025 Cervicalgia 04/01/2025 Acute dehydration 03/27/2025 Acute hyperkalemia 03/27/2025 Acute renal failure 03/27/2025 Acute UTI 03/27/2025 GERD (gastroesophageal reflux disease) Chronic kidney disease-mineral and bone disorder (CKD-MBD) [...] left bundle-branch block as well as circumflex HANDICAPPER HARNESS RACING Assessment & Plan (04/30/2024 2:43 PM CDT): [...] there is decline over time can consider WELL SITE DRILLING ENGINEER referral if no other explanation Spondylosis of [...] (12/07/2021): Added automatically from request for surgery [id number] Urinary incontinence 09/10/2021 Urinary incontinence without sensory awareness 0 03/05/2021 Diastolic dysfunction 07/31/2020 Assessment & Plan (07/31/2020 9:03 AM BRINE TANK TENDER): She has a history of grade 1 diastolic dysfunction on her most recent echo. She is euvolemic on examination today. We will continue to monitor. Complication of dialysis access insertion 2019 Left arm swelling 02/19/2020 Insulin pump fitting or adjustment 01/18/2019 Elevated troponin 10/17/2018 Assessment & Plan (01/27/2025 4:59 PM [...] management Assessment & Plan (07/18/2022 5:31 PM BRINE TANK TENDER): -long-term use of immunosuppressants in steroids complicates diabetes management Assessment & Plan (01/04/2022 2:54 PM CDT): -long-term use of immunosuppressants in steroids complicates diabetes management Assessment & Plan (06/02/2021 4:25 PM BRINE TANK TENDER): -long-term use of immunosuppressants in steroids complicates diabetes management Assessment & Plan (07/31/2019 10:10 AM BRINE TANK TENDER): The patient has history of renal transplant. Long-term use of immunosuppressants and steroids complicates diabetes management. Assessment & Plan (07/30/2018 4:16 PM BRINE TANK TENDER): -Cr continues to downtrend, patient's UOP more than adequate -Continue Bactrim as ppx; Valcyte to start 2/ -Continue Vit D -Richards x 2 wks d/t small bladder Assessment & Plan (07/27/2018 5:05 PM BRINE TANK TENDER): -IVF decreased today -Cr continues to downtrend, [...] control. Assessment & Plan (07/19/2022 2:08 PM BRINE TANK TENDER): -BP today is 139/77 -Will continue same [...] daily. Assessment & Plan (07/31/2020 9:03 AM BRINE TANK TENDER): She has a history of hypertension and [...] symptoms Assessment & Plan (06/07/2019 9:15 AM BRINE TANK TENDER): Her blood pressure goal should be systolic [...] dose. Assessment & Plan (07/18/2022 5:30 PM BRINE TANK TENDER): -Last labs dated 04/29/22: TC 134, trig 120, HDL 61, LDL 52 -Continue rosuvastatin as she is tolerating it without side effects. Assessment & Plan (01/10/2022 2:07 PM CDT): -Last labs dated 10/07/21: TC 135, trig 99, HDL 66, LDL 51 -Continue rosuvastatin as she is tolerating it without side effects. Assessment & Plan (07/31/2019 10:09 AM BRINE TANK TENDER): Continue Crestor. Tolerating without side effects. Assessment & Plan (04/18/2019 11:44 AM CDT): Continue Crestor. Tolerating without side effects. ESRD (end stage renal disease) 06/06/2018 Overview (06/06/2018): Added automatically from request for surgery [id number] Assessment & Plan (07/30/2018 1:07 PM BRINE TANK TENDER): S/p renal transplant. On immunosuppressants and steroids which complicate diabetes management. Assessment & Plan (07/29/2018 4:32 PM BRINE TANK TENDER): S/p renal transplant. On immunosuppressants and steroids which complicate diabetes management. Assessment & Plan (07/27/2018 10:54 AM BRINE TANK TENDER): S/p renal transplant. On immunosuppressants and steroids which complicate diabetes management. Assessment & Plan (07/26/2018 5:54 PM BRINE TANK TENDER): S/p renal transplant. On immunosuppressants and steroids [...] years. Assessment & Plan (07/31/2020 9:02 AM BRINE TANK TENDER): She has a history of mild mitral [...] echocardiogram. Assessment & Plan (06/07/2019 9:02 AM BRINE TANK TENDER): This was mild on echo with a [...] years. 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 Patient understands that she should stay on the Fluconazole indefinitely since she requires immune suppression after her kidney transplant. Assessment & Plan (10/17/2018 9:30 AM CDT): CT in July 2018 was stable/slightly improved Continue Fluconazole for maintenance at dose of 200 mg po daily given her improved renal function nursing home fluconazole routine lab monitoring: CMP 10/10/2018 concerning for elevated liver enzymes. Will follow with repeat CMP next week. Patient understands that she should stay on the Fluconazole indefinitely since she requires immune suppression after her recent kidney transplant. Assessment & Plan (07/30/2018 4:18 PM BRINE TANK TENDER): -Continue Diflucan as chronic suppression Assessment & Plan (07/27/2018 5:04 PM BRINE TANK TENDER): -Continue Diflucan as chronic suppression Encounter for long-term (current) use of antibio tics 04/21/2018 Assessment & Plan (10/25/2019 6:08 PM CDT): Recent labs reviewed without concern for antibiotic toxicities. RTC 6 months for standard office visit this year. Atherosclerosis of cantwell co ronary artery of cantwell heart without angina pectoris 11/24/2016 Overview (05/18/2018): Coronary artery disease with history of previous Resolute drug-eluting stent to the mid LAD. Most recent cardiac catheterization in October of 2016 demonstrated a patent stent in the mid LAD. There was a 70% lesion in the fva-zw-gzyfdi right coronary artery with an iFR value of 0.68. This was treated with a 225 x 38 and and two 5 x 32 Synergy drug-eluting stents. Nuclear stress test November 29, 2017 showed normal perfusion without ischemia Assessment & Plan (10/29/2024 12:38 PM CDT): Circumflex HANDICAPPER HARNESS RACING. We will continue medical management. If persistent LV dysfunction/symptoms, can consider a HANDICAPPER HARNESS RACING PCI. Suspect left bundle-branch block maybe more obvious target for her LV dysfunction however if this does not improve with continued medical therapy. Recheck echo with next visit. Assessment & Plan (04/30/2024 2:42 PM CDT): HANDICAPPER HARNESS RACING of the circumflex, well collateralized by the [...] statin. Assessment & Plan (07/31/2020 9:01 AM BRINE TANK TENDER): She has a history of coronary disease [...] changes. Assessment & Plan (06/07/2019 9:04 AM BRINE TANK TENDER): She is angina free. She is on [...] daily). Assessment & Plan (05/18/2018 9:32 AM BRINE TANK TENDER): Currently angina free and had recent nuclear [...] management. Assessment & Plan (06/07/2019 9:04 AM BRINE TANK TENDER): She is 50-69% stenosis in left internal [...] today Assessment & Plan (07/19/2022 2:08 PM BRINE TANK TENDER): -Currently using tandem insulin pump and Dexcom, [...] today Assessment & Plan (06/02/2021 4:24 PM BRINE TANK TENDER): -Currently using tandem insulin pump and Dexcom, [...] up. Assessment & Plan (07/30/2018 4:18 PM BRINE TANK TENDER): Patient to have insulin pump placed back on today -F/U with Endocrine recommendations Assessment & Plan (07/30/2018 1:07 PM BRINE TANK TENDER): Maureen Somers is a 58 y.o. female [...] [place]. Assessment & Plan (07/29/2018 4:35 PM BRINE TANK TENDER): Maureen Somers is a 58 y.o. female [...] hs Assessment & Plan (07/27/2018 5:04 PM BRINE TANK TENDER): Patient wears an insulin pump at baseline. She does not feel comfortable restarting this today -Endocrine c/s, currently on insulin gtt, will f/u recommendations Assessment & Plan (07/27/2018 10:54 AM BRINE TANK TENDER): Maureen Somers is a 58 y.o. female [...] Carb ratio 0000-10 1200-8 Sensitivity 85 Target- [phone]. Prednisone 80 mg on 07/27 and 07/28. [...] changes. Assessment & Plan (07/26/2018 5:53 PM BRINE TANK TENDER): Maureen Somers is a 58 y.o. female [...] Carb ratio 0000-10 1200-8 Sensitivity 85 Target- [phone]. Plan: Recommend continuing on insulin drip tonight. Difficult to assess needs with postoperative stress, high dose steroids on board and very sensitive type 1 diabetic. Will reassess the needs tomorrow. Please continue the drip at atleast 0.5 units/kg body weight. If blood sugars are trending low, can titrate the dextrose drip. Assessment & Plan (06/27/2018 4:58 PM BRINE TANK TENDER): Her overall blood sugar average on the [...] 03/05/2021 Assessment & Plan (07/30/2018 4:17 PM BRINE TANK TENDER): -Continue Myfortic 360 BID -Decrease Envarsus to 4 mg/day; levels 9.8 today<--7.6 -Continue Pred 20 Assessment & Plan (07/27/2018 5:07 PM BRINE TANK TENDER): -Continue Myfortic 720 BID -Per patient's body weight, call for Envarsus 6; however, patient on chronic Diflucan, consider starting lower dose -Patient was 5 mg/kg Thymo; received 75 07/27 and will receive 175 today and 150 tomorrow -Continue Pred 80 CKD (chronic kidney disease) stage 5, GFR less than 15 ml/min (CMS/[facility]) 07/31/2015 03/05/2021 Overview (05/12/2018): T End-stage renal disease, on hemodialysis Fasagnt-Pcjuwvjc-Wibzlnlm. 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 Currently being evaluated for repeat transplantation with another living-related donor (her sister). 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 Assessment & Plan (07/31/2020 9:03 AM BRINE TANK TENDER): She continues on high-intensity statin and her LDL checked yesterday was 52. We will make no changes. Assessment & Plan (12/13/2019 8:40 AM CDT): She has excellent control 6 months ago under high-intensity statin. I will continue her current dose of rosuvastatin. Assessment & Plan (06/07/2019 9:01 AM BRINE TANK TENDER): She is on a high-intensity statin. A [...] time. Assessment & Plan (05/18/2018 9:31 AM BRINE TANK TENDER): Last LDL 58 in 10/2017 - Continue statin at current dose Encounters Date Type Department Care Team Description 06/23/2025 2:30 PM BRINE TANK TENDER Therapy [facility] Physical Therapy [address] [place] [address] Padma Lance, EDGE BURNISHER 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 (Primary Dx) 06/19/2025 8:15 AM BRINE TANK TENDER Therapy [facility] Therapy [address] [place] [address] Jacqueline Baum, PT 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 (Primary Dx) 06/18/2025 Results Follow-Up [facility] Cardiology [address] [place] [address] Office [facility] [address] [place] [phone] Sushil Reeves MD ECG 12 lead 06/12/2025 2:00 PM BRINE TANK TENDER Office Visit [facility] Cardiology [address] [place] [address] 3 [address] [place] [address] Sushil Reeves MD Chronic systolic heart failure (HCC) (Primary Dx) 06/12/2025 Telephone [facility] Radiology, Interventional Radiology [address] [facility] [address] [place] [id number] Crista Moore LPN 06/12/2025 Telephone [facility] Radiology [address] [facility] [address] Kalee Hays RN 06/11/2025 Telephone [facility] Transplant Kidney [address] [facility] [address] Mailstop [phone] [place] [address] Mayela Greenberg, KAVITHA 06/11/2025 Telephone [facility] Endocrinology Metabolism and Lipid [address] [facility] 13 [place] [address] [place] [address] Lashay Hein RN [facility] 06/10/2025 8:30 AM BRINE TANK TENDER Telemedicine [facility] Bone Health [address] [facility] 13th [place] [address] [place] [address] Sara Lennon, DANIA Other osteoporosis without current pathological fracture (Primary Dx) 06/10/[address] [facility] [address] [facility] 13th [place] [address] [place] [address] Sara Lennon NP 06/10/[address] [facility] [address] [facility] 13th [place] [address] [place] [address] Kevin Bell MD 06/06/2025 Documentation [facility] Scheduling [address] [place] [address] Moo Bejarano DOC 06/05/2025 1:00 PM BRINE TANK TENDER Therapy [facility] Physical Therapy [address] [place] [address] Jacqueline Baum, PT 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 (Primary Dx) 06/04/2025 Orders Only [facility] Nephrology [address] [facility] 5th [place] [address] [place] [address] Gabby Cardoza MD 06/03/2025 Documentation [facility] Physical Therapy [address] [place] [address] Jacqueline Baum, PT 06/03/2025 Documentation [facility] Physical Therapy [address] [place] [address] Jacqueline Baum, PT 06/03/2025 Plan of Care Documentation [facility] Physical Therapy [address] [place] [address] 06/02/2025 3:15 PM BRINE TANK TENDER Therapy [facility] Physical Therapy [address] [place] [address] Jacqueline Baum, PT 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 (Primary Dx); Rotator cuff arthropathy of both shoulders; Midline thoracic back pain, unspecified chronicity 05/20/2025 Telephone [facility] Health [address] [facility] 13th [place] [address] [place] [address] Sara Lennon NP 05/19/2025 Results Follow-Up [facility] Transplant Kidney [address] [facility] [address] Mailstop [phone] [place] [address] Ofelia Stewart RN COPY(IES) SENT TO:, Renal function panel, CBC with auto differential, Tacrolimus, Highly Sensitive, LC/MS/MS 05/16/2025 Orders Only [facility] Nephrology [address] [facility] 5th [place] [address] [place] [phone] Gabby Cardoza MD 05/13/2025 11:45 AM BRINE TANK TENDER Office Visit [facility] Dermatology [address] [facility] [address] [place] [phone] Ike Leary MD Pruritus, unspecified (Primary Dx); Neurotic excoriations; Telogen effluvium; History of kidney transplant; 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/13/2025 Telephone [facility] Transplant Kidney [address] [facility] [address] Mailstop [phone] [place] [address] Edwina Modi 05/13/2025 Telephone [facility] Transplant Kidney [address] [facility] [address] Mailstop [phone] [place] [address] Zuly Morris RN 05/13/2025 Telephone [facility] Transplant Kidney [address] [facility] [address] Mailstop [phone] [place] [address] Zuly Morris RN 05/12/2025 2:50 PM BRINE TANK TENDER - 05/12/2025 11:59 PM BRINE TANK TENDER Hospital Encounter [facility] [address] [place] [address] Encounter for aftercare following kidney transplant Discharge Disposition: Discharge to home or self care 05/07/2025 2:20 PM BRINE TANK TENDER Office Visit [facility] Bone Health [address] [facility] 13th [place] [address] [place] [address] Sara Lennon NP Chronic kidney disease-mineral and bone disorder (CKD-MBD) (Primary Dx); Other osteoporosis without current pathological fracture 05/07/2025 Orders Only [facility] Bone Health [address] [facility] 13th [place] [address] [place] [address] Sara Lennon NP Age-related osteoporosis without current pathological fracture (Primary Dx) 05/07/2025 Telephone [facility] Bone Health [address] [facility] 13th [place] [address] [place] [address] Sara Lennon NP 05/06/2025 Documentation [facility] Center at the [facility] [address] [facility] [address] [place] [address] Delio Jimenez MD Test Results 04/25/2025 Results Follow-Up [facility] Transplant Kidney [address] [facility] [address] Mailstop [phone] [place] [address] Mayela Greenberg RN HLA Donor Specific Antibody Report 04/24/2025 10:43 AM CDT - 04/24/2025 11:59 PM CDT Hospital Encounter [facility] [address] [place] [address] Encounter for aftercare following kidney transplant Discharge Disposition: Discharge to home or self care 04/24/2025 10:00 AM CDT Lab [facility] Endocrinology Metabolism and Lipid [address] [facility] 5th [place] [phone] Encounter for aftercare following kidney transplant; Anemia, unspecified type 04/24/2025 9:15 AM CDT Office Visit [facility] Medicine Nephrology [address] [facility] 5th [place] [address] [place] [address] Maribel Escalera MD Encounter for long-term (current) use of high-risk medication (Primary Dx); Encounter for aftercare following kidney transplant; Anemia, unspecified type; Hypertension, unspecified type; Kidney replaced by transplant; Renal osteodystrophy; Dyslipidemia 04/22/2025 Orders Only [facility] Nephrology [address] [facility] 5th [place] [address] [place] [address] Gabby Cardoza MD 04/21/2025 8:34 AM CDT - 04/21/2025 11:59 PM CDT Hospital Encounter [facility] Rad[facility] [address] [place] [address] Cervicalgia; Other chronic pain Discharge Disposition: Discharge to home or self care 04/15/2025 Telephone [facility] Endocrinology Metabolism and Lipid [address] [facility] 13th [place] [address] [place] [address] Lashay Hein RN CMN [facility] health 04/15/2025 Telephone [facility] Transplant Kidney [address] [facility] [address] Mailstop -[address] [place] [address] Mayela Greenberg RN 04/13/2025 Documentation [facility] [address] [place] [address] Advanced Medicine [address] [place] [address] Delio Jimenez MD Test Results 04/03/2025 Telephone [facility] Transplant Kidney [address] [facility] [address] Mailstop -[address] [place] [address] Mayela Greenberg RN 04/01/2025 12:25 PM CDT - 04/01/2025 11:59 PM CDT Hospital Encounter [facility] Radiology [facility] [address] [place] [address] Cervicalgia Discharge Disposition: Discharge to home or self care 04/01/2025 11:43 AM CDT - 04/01/2025 11:59 PM CDT Hospital Encounter [facility] [address] [facility] [address] [place] [address] Delio Jimenez MD Cervicalgia (Primary Dx); Midline thoracic back pain, unspecified chronicity; Spondylosis of lumbar region without myelopathy or radiculopathy Discharge Disposition: Discharge to home or self care 03/28/2025 [facility]phone [facility] [facility] Met[facility] [address] [facility] Medicine 13th [place] [address] [place] [phone] Jovita Langford RMA ROI ([facility]) 03/27/2025 Telephone [facility] Transplant Kidney [address] [facility] [address] Mailstop [phone] [place], [place] [phone] Mayela Greenberg RN 03/26/2025 Orders Only [facility] Medicine Nephrology [address] [facility] 5th [place] [address] [place] [address] Gabby Cardoza MD from Last 3 Months Immunizations Immunization Administration Dates Next Due Influenza, Quadrivalent, Jovita l Culture-based MDCK, Preservative Free, Antibiotic Free, Intramuscular 04/18/2019 Influenza, Quadrivalent, Spl it, Preservative Free, Intramuscular 03/04/2022,04/30/2021,03/12/2020 Influenza, Trivalent, Cell Culture-based MDCK, Preservative Free, Antibiotic Free, Intramuscular 04/28/2023 Influenza, Trivalent, IM (MDV) 04/18/2016,2012 Influenza, Trivalent, Preser vative Free, Intramuscular 07/02/2199,04/26/2024,04/24/2014,05/02,2010 Influenza, Unspecified 04/02/2013 Pfizer SARS-CoV-2 Monovalent Vaccination (12+ Yrs) PURPLE 09/03/2021,03/05/2021,10/02/2020,09/14 Pfizer Sars-Cov-2 Bivalent V accination (12+ YRS) 03/13/2022 Pneumococcal Conjugate PCV 13 02/09/2015, 014 Pneumococcal Conjugate Pcv20 05/12/2023 Pneumococcal Conjugate, Unspecified 04/02/2011 Pneumococcal Polysaccharide PPV23 04/26/2007 RSV, Bivalent, Protein Subun it Rsvpref, Diluent (Abrysvo) 05/16/2023 Tdap 07/28/2024 ZOSTER Recombinant 07/14/2023,05/12/2023 Surgical History Surgery Date Site/Laterality Comments TUNNELED [...] stage 5, GFR less than 15 ml/min (HCC) 07/31/2015 T End-stage renal diseas e, on hemodialysis Nufvkeb-Dtcocgll-Lhlggaxq. 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 Currently being evaluated for repeat transplantation with another living-related donor (her sister). ESRD (end stage renal disease) 06/06/2018 A dded automatically from request for surgery [id number] Hyperlipidemia 07/10/2006 Diabetes mellitus type 1, uncontrolled, with complications 07/26/2012 Insulin Pump and Dexc om Anemia 07/10/2006 PONV (postoperative nausea a nd vomiting) nausea only Arthritis Sleep apnea Wears CPAP Coronary artery disease LBBB (left bundle branch block) Neck pain Upper back pain Lower back pain Family History Medical History Relation Name Comments [...] on file Legal Sex Female 3:45 AM BRINE TANK TENDER Gender Identity Female 07/04/2024 5:02 PM BRINE TANK TENDER Sexual Orientation Not on file Last Filed Vital Signs Vital Sign Reading Time Taken Comments Blood Pressure 129/67 06/12/2025 1:42 PM BRINE TANK TENDER Pulse 82 06/12/2025 1:42 PM BRINE TANK TENDER Temperature 36.8 C (98.3 F) 04/24/2025 9:31 AM CDT Respiratory Rate 16 04/01/2025 11:50 AM CDT Oxygen Saturation 96% 06/12/2025 1:42 PM BRINE TANK TENDER Inhaled Oxygen Concentration - - Weight 77.1 kg (170 lb) 06/12/2025 1:42 PM BRINE TANK TENDER Height 149.9 cm (4' 11) 06/12/2025 1:42 PM BRINE TANK TENDER Body Mass Index 34.34 06/12/2025 1:42 PM BRINE TANK TENDER Plan of Treatment Health Maintenance Due Date Last Done Comments Albumin Creatinine Ratio, Urine 1962 Breast Cancer Screening-Mammogram 1962 Cervical Cancer Screening 1962 Depression Screening 1962 Dilated Eye Exam 1972 Regular Well Visit/Exam 18-64 1980 Foot Exam 11/17/2020 11/18/2019, 07/04, 04/18/2019, Additional history exists TSH Level 01/28/2025 01/29/2024 Covid-19 Vaccine (2024-08 6 season) 2025 03/13/2022, 09/03/2021, 03/05/2021, Additional history exists Hemoglobin A1C 10/21/2025 04/22/2025, 07/0 07/2024, 11/29/2024, Additional history exists Influenza Vaccine (Season Ended) 2026 07/02/2199, 04/26/2024, 04/28/2023, Additional history exists Lipid Panel 04/22/2026 04/22/2025, 07/0 07/2024, 11/29/2024, Additional history exists Colon Cancer Screening-Colonoscopy 04/26/2026 04/26/2016, 04/26/2016 eGFR 06/04/2026 06/04/2025, 05/03, 04/22/2025, Additional history exists DTaP/Tdap/Td Vaccine (2 - Td or Tdap) 07/28/2034 07/28/2024 Colon Cancer Screening-CT Colonography Discontinued 04/26/2016, 04/26/2016 Colon Cancer Screening-DNA Stool Discontinued 04/26/20 16, 04/26/2016 Colon Cancer Screening-FIT Discontinued 04/26/2016, Colon Cancer Screening-Sigmoidoscopy Discontinued 04/26/2016, 04/26/2016 Pneumococcal vaccine <65 Completed 023, 02/09/2015, 05/21/2014, Additional history exists Zoster Vaccine Completed 07/14/2023, 05/12/2023 Hepatitis B Screening Completed 01/29/2024 Hepatitis C Screening Completed 01/29/2024 , 07/12/2018, 11/29/2017, Additional history exists Goals Goal Patient Goal Type Associated Problems Recent Progress Patient-Stated? Author CCM Chronic Pain Care Plan Chronic Care Management On track(2024 2:54 PM BRINE TANK TENDER) Luz Sandoval RN Note: Problem: Chronic Pain Goals: 1. Minimize further functional decline 2. Maximize quality of life 3. Control pain Strategies: - Activity/exercise program recommendation - Conservative stepwise pain medicine strategy with multi-disciplinary approach - Recommend healthy lifestyle strategies and compensatory methods as needed Medical Devices Implanted Type Area Referral Clerk Device Identifier Shelf Expiration Date Model / Serial / Lot TerSurprise Ride [employer] Sophie Angio-Seal Vip 6fr Closere Device [id number] - [id number] - [id number] Implanted:Qty: 1 on 03/14/2024 by Richar Gurrola MD at [facility] Collagen Left: Common Femoral Artery [employer] Sophie 10/15/2024 [id number] / [id number] / [id number] Cardiac Stent X 2 N/A: Heart [employer] Surgery Gynecare Tvt 18x.5in System Transobturator Midurethral Sling [id number] - [id number] Implanted:Qty: 1 on 01/24/2022 by Norman Carver MD at [facility] N/A: Urethra [employer] [id number] 06/01/2022 [id number] / / Explanted Type Area Referral Clerk Device Identifier Shelf Expiration Date Model / Serial / Lot Circon-Surgite k [id number] Double-J 6fr 20cm 100cm 1 Step Insert Push Catheter [place] Suture - Sxx - [id number] Implanted:Qty: 1 on 07/26/2018 by Rachelle Austin MD PhD at [facility] Explanted:Qty: 1 on 08/27/2018 by Jean Claude Coffey, DANIA Stent Left: Ureter Circon-Surgitek 01/19/2023 [id number] / [id number] Description:Transplant urete r Procedures Procedure Name Priority Date/Time Associated Diagnosis Comments ECG 12-LEAD Routine 06/12/2025 1:45 PM BRINE TANK TENDER Chronic systolic heart failure (HCC) ALLOSURE KIDNEY DONOR-DERIVED CELL-FREE DNA (CFDNA) Routine 06/06/2025 6:09 PM BRINE TANK TENDER Encounter for aftercare following kidney transplant TACROLIMUS, HIGHLY SENSITIVE, LC/MS/MS Routine 06/04/2025 9:34 AM BRINE TANK TENDER RENAL FUNCTION PANEL Routine 06/04/2025 9:34 AM BRINE TANK TENDER CBC WITH AUTO DIFFERENTIAL Routine 06/04/2025 9:34 AM BRINE TANK TENDER COPY(IES) SENT TO: Routine 06/04/2025 9: 34 AM BRINE TANK TENDER TACROLIMUS, HIGHLY SENSITIVE, LC/MS/MS Routine 05/16/2025 9:52 AM BRINE TANK TENDER CBC WITH AUTO DIFFERENTIAL Routine 05/16/2025 9:52 AM BRINE TANK TENDER RENAL FUNCTION PANEL Routine 05/16/2025 9:52 AM BRINE TANK TENDER COPY(IES) SENT TO: Routine 05/16/2025 9: 52 AM BRINE TANK TENDER COPY(IES) SENT TO: Routine 05/16/2025 9: 52 AM BRINE TANK TENDER PROTEIN / CREATININE RATIO, URINE, RANDOM Routine 05/16/2025 9:52 AM BRINE TANK TENDER Kidney replaced by transplant RENAL TRANSPLANT W DOPPLERS Schedule ROSALBA, Read ROSALBA (Appt Today, Awaiting Results) 05/12/2025 3:45 PM BRINE TANK TENDER Encounter for aftercare following kidney transplant C TELOPEPTIDE (CTX) Routine 05/09/2025 2 :02 PM BRINE TANK TENDER Other osteoporosis without current pathological fracture ALKALINE PHOSPHATASE, BONE SPECIFIC Routine 05/09/2025 2:02 PM BRINE TANK TENDER Other osteoporosis without current pathological fracture PTH Routine 05/09/2025 2:01 PM BRINE TANK TENDER Age-related osteoporosis without current pathological fracture VITAMIN D 25 HYDROXY Routine 05/09/2025 2:01 PM BRINE TANK TENDER Age-related osteoporosis without current pathological fracture PHOSPHORUS Routine 05/09/2025 2:01 PM BRINE TANK TENDER Age-related osteoporosis without current pathological fracture HLA DONOR SPECIFIC ANTIBODY REPORT 04/24/2025 11:11 AM CDT HLA ANTIBODY SCREEN - DSA (CLASS I AND CLASS II) Routine 04/24/2025 11:11 AM CDT Encounter for aftercare following kidney transplant HLA ANTIBODY SCREEN BY SINGLE ANTIGEN Routine 04/24/2025 11:11 AM CDT Encounter for aftercare following kidney transplant URINALYSIS, MICROSCOPIC ONLY Routine 04/24/2025 10:43 AM CDT Encounter for aftercare following kidney transplant URINE CULTURE Routine 04/24/2025 10:43 AM CDT URINALYSIS AND REFLEX TO MICROSCOPIC AND CULTURE Routine 04/24/2025 10:43 AM CDT Encounter for aftercare following kidney transplant FOLATE Routine 04/24/2025 10:15 AM CDT Encounter for aftercare following kidney transplant VITAMIN B12 Routine 04/24/2025 10:15 AM CDT Encounter for aftercare following kidney transplant IRON PROFILE W/ IBC Routine 04/24/2025 10:15 AM CDT Encounter for aftercare following kidney transplant Anemia, unspecified type POCT URINALYSIS DIPSTICK Routine 04/24/2025 10:09 AM CDT Encounter for aftercare following kidney transplant TACROLIMUS, HIGHLY SENSITIVE, LC/MS/MS Routine 04/22/2025 9:38 AM CDT RENAL FUNCTION PANEL Routine 04/22/2025 9:38 AM CDT HEPATIC FUNCTION PANEL, SERUM Routine 04/22/2025 9:38 AM CDT LIPID PANEL Routine 04/22/2025 9:38 AM CDT CBC WITH AUTO DIFFERENTIAL Routine 04/22/2025 9:38 AM CDT HEMOGLOBIN A1C Routine 04/22/2025 9:38 AM CDT COPY(IES) SENT TO: Routine 04/22/2025 9: 38 AM CDT MRI CERVICAL SPINE WO CONTRAST Schedule Routine, Read Routine (OP Routine) 04/21/2025 9:34 AM CDT Cervicalgia Other chronic pain HEPATIC FUNCTION PANEL Routine 04/18/2025 11:38 AM CDT Elevated liver enzymes TACROLIMUS, HIGHLY SENSITIVE, LC/MS/MS Routine 04/10/2025 9:30 AM CDT COPY(IES) SENT TO: Routine 04/10/2025 9: 30 AM CDT RENAL FUNCTION PANEL Routine 04/10/2025 9:30 AM CDT Kidney replaced by transplant XR SPINE CERVICAL W FLEXION AND EXTENSION 6 OR MORE VIEWS Schedule Routine, Read Routine (OP Routine) 04/01/2025 12:39 PM CDT Cervicalgia TACROLIMUS, HIGHLY SENSITIVE, LC/MS/MS Routine 03/26/2025 9:32 AM CDT RENAL FUNCTION PANEL Routine 03/26/2025 9:32 AM CDT CBC WITH AUTO DIFFERENTIAL Routine 03/26/2025 9:32 AM CDT COPY(IES) SENT TO: Routine 03/26/2025 9: 32 AM CDT HEPATITIS C ANTIBODY Routine 01/29/2024 2:27 PM CDT Elevated liver enzymes TSH Routine 01/29/2024 2:27 PM CDT Elevated liver enzymes Other hyperlipidemia COLONOSCOPY IMAGES 04/26/2016 from Last 3 Months or Most Recently Relevant to Health Maintenance Results * ECG 12 lead (06/12/2025 1:45 PM BRINE TANK TENDER) us Sushil Reeves MD ECG ORDERABLES Final R esult * Allosure kidney donor-derived cell-free DNA (cFDNA) (06/06/2025 6:09 PM BRINE TANK TENDER) Allosure CFDNA 0.17% [facility] Comment: INTERPRETATION OF ALLOSURE KIDNEY RESULTS [...] For more information about AlloSure, please visit [employer] Style. Specimens from kidney retransplant recipients in whom [...] (1)Lelo et al., J Mol Diagn 2016; (2)Hussein et al., J Am Soc Nephrol 2017; (3)Amy et al., Pediatric Transplantation 2019; (4)Antonio et al., J Appl Lab Med 2017; (5)Nya et al., Kidney International 2020;(6) Ramon et al.,Transplantation Direct 2021; (7)Tyler et al., Transplantation Direct 2022 The AlloSure donor-derived cell-free DNA test was developed and its performance characteristics were determined by the [facility]. The test has not been cleared or approved by the U.S. Food and Drug Administration, nor is it currently required to be. The laboratory is certified under the Clinical Laboratory Improvement Amendments of 1988 (CLIA '88) and accredited by the [employer] (CAP) as qualified to perform high complexity clinical laboratory testing. The contents of this report are confidential and intended solely for the use of authorized personnel. AlloSure testing performed at [facility]. [address] [place] [id number] (CLIA No: [id number], CAP No: [id number]) Field Representative/Health Education: Umesh Martinez M.D. Plasma 06/06/2025 6:09 PM BRINE TANK TENDER us Maribel Escalera MD LAB BLOOD ORDERABL ES Final Result [facility] * (ABNORMAL) Tacrolimus, Highly Sensitive, LC/MS/MS (06/04/2025 9:34 AM BRINE TANK TENDER) Tacrolimus, Highly Sensitive, LC/MS/MS 3.0(L) mcg/L [facility] Comment: No definitive therapeutic or toxic ranges have been established. Optimal blood drug levels are influenced by type of transplant, patient response, time post- transplant, co-administration of other drugs, and drug formulation. The following trough range is a suggested guideline: 5.0-20.0 mcg/L. 06/04/2025 9:34 AM BRINE TANK TENDER 06/04/2025 9:34 AM BRINE TANK TENDER Narrative [facility] - 06/06/2025 9:36 AM BRINE TANK TENDER AP Gabby Cardoza MD LAB BLOOD ORDERABLES Final Resu lt Performing Organization Address City/[facility]/ZIP Co de Phone Number [facility] [address] [place] [address] * COPY(IES) SENT TO: (06/04/2025 9:34 AM BRINE TANK TENDER) COPY(IES) SENT TO: TOYA Comment: [facility] - COPY TO [facility] [address] [place] [address] 06/04/2025 9:34 AM BRINE TANK TENDER 06/04/2025 9:34 AM BRINE TANK TENDER Narrative [facility] - 06/06/2025 9:36 AM BRINE TANK TENDER AP Gabby Cardoza MD LAB BLOOD ORDERABLES Final Resu lt Performing Organization Address City/[facility] Co de Phone Number [facility] * (ABNORMAL) CBC with auto differential (06/04/2025 9:34 AM BRINE TANK TENDER) WBC 8.3 3.8 - 10.8 Thousand/u L [facility] RBC, POC 3.28(L) 3.80 - 5.10 Million/uL [facility] Hgb 9.8(L) 11.7 - 15.5 g/dL [facility] Hct 31.9(L) 35.9 - 46.0 % [facility] MCV 97.3 81.4 - 101.7 fL [facility] MCH 29.9 27.0 - 33.0 pg [facility] MCHC 30.7(L) 31.6 - 35.4 g/dL [facility] Comment: For adults, a slight decrease in the calculated MCHC value (in the range of 30 to 32 g/dL) is most likely not clinically significant; however, it should be interpreted with caution in correlation with other red cell parameters and the patient's clinical condition. Rdw 11.3 11.0 - 15.0 % [facility] Platelets 244 140 - 400 Thousand/u L [facility] MPV 11.0 7.5 - 12.5 fL [facility] Neutrophils, abs 5,793 1,500 - 7,800 cells/uL [facility] Lymphocytes, abs 1,328 850 - 3,900 cells/uL [facility] Monocyte abs 955(H) 200 - 950 cells/uL [facility] Eosinophils, abs 183 15 - 500 cells/uL [facility] Basophils, abs 42 0 - 200 cells/uL [facility] Neutrophils 69.8 % [facility] Lymphocyte pct 16.0 % [facility] Monocytes 11.5 % [facility] Eosinophils 2.2 % [facility] Basophils 0.5 % [facility] 06/04/2025 9:34 AM BRINE TANK TENDER 06/04/2025 9:34 AM BRINE TANK TENDER Narrative [facility] - 06/06/2025 9:36 AM BRINE TANK TENDER AP us Gabby Cardoza MD LAB BLOOD ORDERABLES Final Resu lt [facility] [address] [place] [address] * (ABNORMAL) Renal function panel (06/04/2025 9:34 AM BRINE TANK TENDER) Pathologist [facility] Glucose 274(H) 65 - 99 mg/dL [facility] Comment: Fasting reference interval For someone without known diabetes, a glucose value >125 mg/dL indicates that they may have diabetes and this should be confirmed with a follow-up test. BUN 46(H) 7 - 25 mg/dL [facility] Creatinine 1.88(H) 0.50 - 1.05 mg/dL [facility] eGFR 30(L) > OR = 60 mL/min/1.7 3m2 [facility] BUN/creat ratio 24(H) 6 - 22 (calc) [facility] Sodium 137 135 - 146 mmol/L [facility] Potassium, pl 4.0 3.5 - 5.3 mmol/L [facility] Chloride 99 98 - 110 mmol/L [facility] CO2 26 20 - 32 mmol/L [facility] Calcium 8.6 8.6 - 10.4 mg/dL [facility] Phosphorus, sr 3.4 2.5 - 4.5 mg/dL [facility] Albumin 3.6 3.6 - 5.1 g/dL [facility] 06/04/2025 9:34 AM BRINE TANK TENDER 06/04/2025 9:34 AM BRINE TANK TENDER Narrative [facility] - 06/06/2025 9:36 AM BRINE TANK TENDER AP Gabby Cardoza MD LAB BLOOD ORDERABLES Final Resu lt [facility] [address] [place] [address] * Tacrolimus, Highly Sensitive, LC/MS/MS (05/16/2025 9:52 AM BRINE TANK TENDER) [facility] Tacrolimus, Highly Sensitive, LC/MS/MS 5.6 mcg/L [facility] Comment: No definitive therapeutic or toxic ranges have been established. Optimal blood drug levels are influenced by type of transplant, patient response, time post- transplant, co-administration of other drugs, and drug formulation. The following trough range is a suggested guideline: 5.0-20.0 mcg/L. 05/16/2025 9:52 AM BRINE TANK TENDER 05/16/2025 9:53 AM BRINE TANK TENDER Narrative [facility] - 05/17/2025 3:13 PM BRINE TANK TENDER AP FASTING:YES FASTING: YES Gabby Cardoza MD LAB BLOOD ORDERABLES Final Resu lt Performing Organization Address [facility] de Phone Number [facility] [address] [place] [address] * COPY(IES) SENT TO: (05/16/2025 9:52 AM BRINE TANK TENDER) COPY(IES) SENT TO: [facility] Comment: [facility] K[facility] - COPY TO [address] [address] 05/16/2025 9:52 AM BRINE TANK TENDER 05/16/2025 9:53 AM BRINE TANK TENDER Narrative [facility] - 05/17/2025 3:13 PM BRINE TANK TENDER AP FASTING:YES FASTING: YES Gabby Cardoza MD LAB BLOOD ORDERABLES Final Resu lt Performing Organization Address [facility] de Phone Number [facility] * COPY(IES) SENT TO: (05/16/2025 9:52 AM BRINE TANK TENDER) COPY(IES) SENT TO: [facility] Comment: [facility] - COPY TO [address] [address] 05/16/2025 9:52 AM BRINE TANK TENDER 05/16/2025 9:53 AM BRINE TANK TENDER Narrative [facility] - 05/17/2025 5:09 AM BRINE TANK TENDER FASTING:YES FASTING: YES Gabby Cardoza MD LAB BLOOD ORDERABLES Final Resu lt Performing Organization Address [facility] de Phone Number [facility] * (ABNORMAL) CBC with auto differential (05/16/2025 9:52 AM BRINE TANK TENDER) WBC 7.8 3.8 - 10.8 Thousand/u L [facility] RBC, POC 3.49(L) 3.80 - 5.10 Million/uL [facility] Hgb 10.4(L) 11.7 - 15.5 g/dL [facility] Hct 34.6(L) 35.0 - 45.0 % [facility] MCV 99.1 80.0 - 100.0 fL [facility] MCH 29.8 27.0 - 33.0 pg [facility] MCHC 30.1(L) 32.0 - 36.0 g/dL [facility] Comment: For adults, a slight decrease in the calculated MCHC value (in the range of 30 to 32 g/dL) is most likely not clinically significant; however, it should be interpreted with caution in correlation with other red cell parameters and the patient's clinical condition. Rdw 11.8 11.0 - 15.0 % [facility] Platelets 252 140 - 400 Thousand/u L [facility] MPV 10.4 7.5 - 12.5 fL [facility] Neutrophils, abs 5,593 1,500 - 7,800 cells/uL [facility] Lymphocytes, abs 1,326 850 - 3,900 cells/uL [facility] Monocyte abs 632 200 - 950 cells/uL [facility] Eosinophils, abs 218 15 - 500 cells/uL [facility] Basophils, abs 31 0 - 200 cells/uL [facility] Neutrophils 71.7 % [facility] Lymphocyte pct 17.0 % [facility] Monocytes 8.1 % [facility] Eosinophils 2.8 % [facility] Basophils 0.4 % [facility] 05/16/2025 9:52 AM BRINE TANK TENDER 05/16/2025 9:53 AM BRINE TANK TENDER Narrative [facility] - 05/17/2025 3:13 PM BRINE TANK TENDER AP FASTING:YES FASTING: YES us Gabby Cardoza MD LAB BLOOD ORDERABLES Final Resu lt [facility] [address] [address] [phone] * (ABNORMAL) Protein / creatinine ratio, urine, random (05/16/2025 9:52 AM BRINE TANK TENDER) Creatinine, ur 102 20 - 275 mg/dL [facility] Protein/creati nine ratio 304(H) 24 - 184 mg/g creat [facility] Protein/Creati nine Ratio 0.304(H) 0.024 - 0.184 mg/mg creat [facility] Protein, ur, quant 31(H) 5 - 24 mg/dL [facility] Urine 05/16/2025 9:52 AM BRINE TANK TENDER 05/16/2025 9:53 AM BRINE TANK TENDER Narrative [facility] - 05/17/2025 5:09 AM BRINE TANK TENDER FASTING:YES FASTING: YES us Gabby Cardoza MD LAB URINE ORDERABLES Final Resu lt [facility] [address] [address] [phone] * (ABNORMAL) Renal function panel (05/16/2025 9:52 AM BRINE TANK TENDER) Glucose 200(H) 65 - 99 mg/dL [facility] Comment: Fasting reference interval For someone without known diabetes, a glucose value >125 mg/dL indicates that they may have diabetes and this should be confirmed with a follow-up test. BUN 58(H) 7 - 25 mg/dL [facility] Creatinine 2.70(H) 0.50 - 1.05 mg/dL [facility] eGFR 19(L) > OR = 60 mL/min/1.7 3m2 [facility] BUN/creat ratio 21 6 - 22 (calc) [facility] Sodium 135 135 - 146 mmol/L [facility] Potassium, pl 5.3 3.5 - 5.3 mmol/L [facility] Chloride 100 98 - 110 mmol/L [facility] CO2 24 20 - 32 mmol/L [facility] Calcium 9.1 8.6 - 10.4 mg/dL [facility] Phosphorus, sr 4.5 2.5 - 4.5 mg/dL [facility] Albumin 3.9 3.6 - 5.1 g/dL [facility] 05/16/2025 9:52 AM BRINE TANK TENDER 05/16/2025 9:53 AM BRINE TANK TENDER Narrative [facility] - 05/17/2025 3:13 PM BRINE TANK TENDER AP FASTING:YES FASTING: YES us Gabby Cardoza MD LAB BLOOD ORDERABLES Final Resu lt [facility] [address] [address] [phone] * US Renal Transplant W Dopplers (05/12/2025 3:45 PM BRINE TANK TENDER) Anatomical Region Laterality Modality Kidney N/A Ultrasound 05/12/2025 4:31 PM BRINE TANK TENDER Impressions 05/12/2025 5:00 PM BRINE TANK TENDER 1. Elevated left lower quadrant transplant kidney resistive indices which are stable from prior and may correlate with chronic rejection. Interval increase in the left renal transplant artery origin peak systolic velocity however no definite Doppler evidence of transplant renal artery stenosis. 2. Normal left lower quadrant transplant kidney morphology without hydronephrosis. The radiology attending physician has personally reviewed this study, and had reviewed and/or edited this written report and agrees with it. Electronically signed by: Zafar Damon M.D. Narrative 05/12/2025 5:00 PM BRINE TANK TENDER EXAMINATION: RENAL TRANSPLANT ULTRASOUND WITH DOPPLER HISTORY: Elevated creatinine, concern for renal artery stenosis. History of bilateral lower quadrant renal transplantation. COMPARISON: Ultrasound 02/19/2025 and MRI 03/18/2024 FINDINGS: The left iliac fossa transplant kidney measures 10.3 cm in length. Echogenicity is normal. There is no hydronephrosis. There are no renal calculi visualized. No perinephric fluid collection is seen. Bladder: The urinary bladder is normal Color Doppler and spectral analysis were used to evaluate the renal vasculature. Resistive indices in the transplant segmental arteries range from 0.83 to 0.87, and are elevated. These are not significantly changed from prior study. No focal flow abnormalities were seen in the transplant renal artery on color Doppler. The peak systolic velocities at the origin, mid aspect, and hilum of the transplant renal artery are 250 cm/sec (previously 202.2 cm/sec), 80 cm/sec, and 35 cm/sec, respectively. The proximal external iliac artery peak systolic velocity is 161 cm/sec. The visualized portions of the transplant renal vein are patent. There is no thrombosis. Procedure Note Zafar Damon MD - 05/12/2025 EXAMINATION: RENAL TRANSPLANT ULTRASOUND WITH DOPPLER HISTORY: Elevated creatinine, concern for renal artery stenosis. History of bilateral lower quadrant renal transplantation. COMPARISON: Ultrasound 02/19/2025 and MRI 03/18/2024 FINDINGS: The left iliac fossa transplant kidney measures 10.3 cm in length. Echogenicity is normal. There is no hydronephrosis. There are no renal calculi visualized. No perinephric fluid collection is seen. Bladder: The urinary bladder is normal Color Doppler and spectral analysis were used to evaluate the renal vasculature. Resistive indices in the transplant segmental arteries range from 0.83 to 0.87, and are elevated. These are not significantly changed from prior study. No focal flow abnormalities were seen in the transplant renal artery on color Doppler. The peak systolic velocities at the origin, mid aspect, and hilum of the transplant renal artery are 250 cm/sec (previously 202.2 cm/sec), 80 cm/sec, and 35 cm/sec, respectively. The proximal external iliac artery peak systolic velocity is 161 cm/sec. The visualized portions of the transplant renal vein are patent. There is no thrombosis. IMPRESSION: 1. Elevated left lower quadrant transplant kidney resistive indices which are stable from prior and may correlate with chronic rejection. Interval increase in the left renal transplant artery origin peak systolic velocity however no definite Doppler evidence of transplant renal artery stenosis. 2. Normal left lower quadrant transplant kidney morphology without hydronephrosis. The radiology attending physician has personally reviewed this study, and had reviewed and/or edited this written report and agrees with it. Electronically signed by: Zafar Damon M.D. [facility] Dipesh Escalera MD [facility] [place] PROCED[place] Final Result * C-Telopeptide, serum (05/09/2025 2:02 PM BRINE TANK TENDER) C telopeptide 762 pg/mL [facility]Andressa sampson [facility] [place], Comment: Reference Range: NOT ESTABLISHED Adult Female Reference Ranges for C-Telopeptide (CTx): 18-29 years: 64-640 pg/mL 30-39 years: 60-650 pg/mL 40-49 years: 50-465 pg/mL >49 years: Not Established No reference range is provided for postmenopausal women because of the increased rate of bone turnover post-menopause. It is recommended that results for postmenopausal women be compared to the premenopausal reference range as this will give a better indication of their rate of bone loss. For additional information, please refer to http://education.[employer]/faq/WDC711 (This link is being provided for informational/educational purposes only.) Blood 05/09/2025 2:02 PM BRINE TANK TENDER 05/09/2025 2:02 PM BRINE TANK TENDER Sara Lennon NP LAB BLOOD ORDERABLES Final Re sult Performing Organization Address [facility]/ZIP Co de Phone Number QUE[facility], [address] [place] [address] * Alkaline phosphatase, bone specific (05/09/2025 2:02 PM BRINE TANK TENDER) Pathologist [facility] Alk phos, bone 12.4 5.6 - 29.0 mcg/L [facility], Blood 05/09/2025 2:02 PM BRINE TANK TENDER 05/09/2025 2:02 PM BRINE TANK TENDER Sara Lennon NP LAB BLOOD ORDERABLES Final Re sult Performing Organization Address [facility]/ZIP Co de Phone Number QUEST [facility], [address] [place] [address] * Vitamin D 25 hydroxy (05/09/2025 2:01 PM BRINE TANK TENDER) Pathologist [facility] Vitamin D 25-OH 58 30 - 100 ng/mL [facility] Comment: Vitamin D Status 25-OH Vitamin D: Deficiency: <20 ng/mL Insufficiency: 20 - 29 ng/mL Optimal: > or = 30 ng/mL For 25-OH Vitamin D testing on patients on D2-supplementation and patients for whom quantitation of D2 and D3 fractions is required, the QuestAssureD(TM) 25-OH VIT D, (D2,D3), LC/MS/MS is recommended: order code 15771 (patients >2yrs). See Note 1 Note 1 For additional information, please refer to http://education.[employer]mar[employer]/faq/DXP301 (This link is being provided for informational/ educational purposes only.) Blood 05/09/2025 2:01 PM BRINE TANK TENDER 05/09/2025 2:02 PM BRINE TANK TENDER Sara Lennon NP LAB BLOOD ORDERABLES Final Re sult Performing Organization Address City/[facility]/ZIP Co de Phone Number QUEST [facility] [address] [place] [address] * Phosphorus (05/09/2025 2:01 PM BRINE TANK TENDER) Pathologist [facility] Phosphorus, sr 3.7 2.5 - 4.5 mg/dL [facility] Blood 05/09/2025 2:01 PM BRINE TANK TENDER 05/09/2025 2:02 PM BRINE TANK TENDER Sara Lennon NP LAB BLOOD ORDERABLES Final Re sult Performing Organization Address [facility]/ZIP Co de Phone Number [facility]ST [facility] [address] [place] [address] * (ABNORMAL) PTH (05/09/2025 2:01 PM BRINE TANK TENDER) Parathyroid hormone, intact 181(H) 16 - 77 pg/mL [facility] [facility] Comment: Interpretive Guide Intact PTH Calcium ------- Normal Parathyroid Normal Normal Hypoparathyroidism Low or Low Normal Low Hyperparathyroidism Primary Normal or High High Secondary High Normal or Low Tertiary High High Non-Parathyroid Hypercalcemia Low or Low Normal High Blood 05/09/2025 2:01 PM BRINE TANK TENDER 05/09/2025 2:02 PM BRINE TANK TENDER Sara Lennon NP LAB BLOOD ORDERABLES Final Re sult [facility] [address] [facility] [place] [address] * HLA Donor Specific Antibody Report (04/24/2025 11:11 AM CDT) Maribel Escalera MD LAB BLOOD ORDERABL ES Final Result * HLA Antibody Screen - DSA (Class I and Class II) (04/24/2025 11:11 AM CDT) Blood 04/24/2025 11:1 1 AM CDT 04/25/2025 7:51 AM CDT Narrative [facility] - 04/25/2025 7:51 AM CDT Maribel Escalera MD LAB BLOOD ORDERABL ES Final Result Performing Organization Address City/[facility]/ZIP Co de Phone Number [facility] * Collection Task for HLA Antibody Screen (04/24/2025 11:11 AM CDT) HLA Antibody Screen By Single Antigen Received Blood 04/24/2025 11:1 1 AM CDT 04/25/2025 10:49 AM CDT Maribel Escalera MD LAB BLOOD ORDERABL ES Final Result [facility] [place] [address] * (ABNORMAL) Urinalysis reflex to microscopic and culture Urine, clean voided (04/24/2025 10:43 AM CDT) Color, ur Straw Yellow Clarity, ur Clear Clear [facility] Specific gravity, ur 1.019 1.003 - 1.030 [facility] pH, urine 5.5 [facility] Comment: Interpretive Data U rine pH is affected by diet, medications, systemic acid-base disturbances, and renal tubular function. pH may affect urinary stone formation. For example, urine pH below 6.0 may help reduce the tendency for calcium phosphate stones and pH greater than 6.0 may reduce the tendency for uric acid stone formation. Source: [facility] Current Interpretive Data was last revised on 2017 Protein, ur ql Trace Negative [facility] Glucose, ur ql Negative Negative [facility] Ketones, ur Negative Negative [facility] Bilirubin, ur Negative Negative [facility] Blood, ur Negative Negative [facility] Urobilinogen, ur <2.0 <2.0 mg/dL [facility] Nitrite, ur Negative Negative [facility] Leukocyte esterase, ur 3+(A) Negative [facility] UA reflex comment Reflex to microscopic UA will be performed. [facility] Urine, clean voided 04/24/2025 10:43 AM CDT 04/24/2025 11:25 AM CDT us Maribel Escalera MD LAB MICROBIOLOGY - GENERAL ORDERABLES Final Result [facility] Department [place] [address] * (ABNORMAL) Urinalysis, microscopic only (04/24/2025 10:43 AM CDT) WBC, ur >50(A) 0 - 5 /HPF RBC, ur 3-5(A) 0 - 2 /HPF [facility] Epithelial cells, squamous, ur 1-5 0 - 5 /HPF [facility] Epithelial cells, renal, ur 1-5(A) 0 - 0 /HPF [facility] Epithelial cells, transitional, ur 1-5 0 - 0 /HPF [facility] Mucous, ur Present(A) [facility] Hyaline casts, ur 21-50(A) 0 - 10 /LPF [facility] Culture Reflex Comment Reflex to urine culture will be performed. [facility] Urine, clean voided 04/24/2025 10:43 AM CDT 04/24/2025 11:25 AM CDT Maribel Escalera MD LAB URINE ORDERABL ES Final Result Performing Organization Address City/[facility]/ZIP Co de Phone Number PASHA CREWS [facility] Department [place] [address] * Urine culture Urine, clean voided (04/24/2025 10:43 AM CDT) Report Final Report: Less than 100,000 colonies/mL (clinically insignificant growth based on current clinical standards) Organism (CLINICALLY INSIGNIFICANT GROWTH [facility] Urine, clean voided 04/24/2025 10:43 AM CDT 04/24/2025 3:08 PM CDT Narrative [facility] - 04/26/2025 8:10 AM CDT Urine culture reflexed based upon urinalysis results. Testing performed by [facility] ([phone]) Maribel Escalera MD LAB MICROBIOLOGY - GENERAL ORDERABLES Final Result Performing Organization Address [facility] Co de Phone Number PASHA [facility] Department [place] [address] * Iron profile w/ IBC (04/24/2025 10:15 AM CDT) Iron 81 30 - 160 ug/dL [facility] TIBC 248 220 - 420 ug/dL [facility] Iron saturation 32.7 11.0 - 52.0 % [facility] Blood 04/24/2025 10:1 5 AM CDT 04/24/2025 11:16 AM CDT Maribel Escalera MD LAB BLOOD ORDERABL ES Final Result [facility] * Folate (04/24/2025 10:15 AM CDT) Pathologist [facility] Folic acid >20.0 >=5.0 ng/mL Blood 04/24/2025 10:1 5 AM CDT 04/24/2025 11:16 AM CDT Maribel Escalera MD LAB BLOOD ORDERABL ES Final Result Performing Organization Address City/[facility]/ZIP Co de Phone Number [facility] Department [place] [address] * Vitamin B12 (04/24/2025 10:15 AM CDT) [facility] Vitamin B12 787 232 - 1,245 pg/mL [facility] Blood 04/24/2025 10:1 5 AM CDT 04/24/2025 11:16 AM CDT Maribel Escalera MD LAB BLOOD ORDERABL ES Final Result Performing Organization Address [facility] Co de Phone Number [facility] * (ABNORMAL) POCT urinalysis dipstick (04/24/2025 10:09 AM CDT) [facility] Glucose, ur, POC Negative Negative [facility] Bilirubin, ur, POC Negative Negative [facility] Ketones, ur, POC Negative Negative [facility] Specific [place], POC 1.015 1.003 - 1.030 [facility] Blood, ur, POC Negative Negative [facility] pH, ur, POC 5.0 5.0 - 8.0 [facility] Protein, ur, POC Negative Negative [facility] Urobilinogen, urine, POC 0.2 0.2 - 1.0 mg/dL [facility] Nitrite, ur, POC Negative Negative [facility] Leukocytes, ur, POC Small(A) Negative [facility] Lot Number [id number] [facility] Urine 04/24/2025 10:0 9 AM CDT Maribel Escalera MD POINT OF CARE TEST ORDERABLES Final Result Performing Organization Address City/[facility]/ZIP Co de Phone Number [facility] * Tacrolimus, Highly Sensitive, LC/MS/MS (04/22/2025 9:38 AM CDT) Pathologist [facility] Tacrolimus, Highly Sensitive, LC/MS/MS 5.3 mcg/L [facility] Comment: No definitive therapeutic or toxic ranges have been established. Optimal blood drug levels are influenced by type of transplant, patient response, time post- transplant, co-administration of other drugs, and drug formulation. The following trough range is a suggested guideline: 5.0-20.0 mcg/L. 04/22/2025 9:38 AM CDT 04/22/2025 9:39 AM CDT Narrative [facility] - 04/23/2025 3:42 PM CDT AP FASTING:YES FASTING: YES Gabby Cardoza MD LAB BLOOD ORDERABLES Final Resu lt Performing Organization Address City/[facility]/ZIP Co de Phone Number [facility] [address] [place] [address] * COPY(IES) SENT TO: (04/22/2025 9:38 AM CDT) [facility] COPY(IES) SENT TO: TOYA Comment: [facility] - COPY TO [facility] [address] [place] [address] 04/22/2025 9:38 AM CDT 04/22/2025 9:39 AM CDT Narrative [facility] - 04/23/2025 3:42 PM CDT AP FASTING:YES FASTING: YES Gabby Cardoza MD LAB BLOOD ORDERABLES Final Resu lt [facility] * (ABNORMAL) Hepatic Function Panel, Serum (04/22/2025 9:38 AM CDT) Pathologist [facility] Protein, sr 6.4 6.1 - 8.1 g/dL [facility] Albumin 3.9 3.6 - 5.1 g/dL [facility] GLOBULIN 2.5 1.9 - 3.7 g/dL (calc) [facility] Alb/glob ratio 1.6 1.0 - 2.5 (calc) [facility] Bilirubin, total 0.3 0.2 - 1.2 mg/dL [facility] Bilirubin, direct 0.1 < OR = 0.2 mg/dL [facility] Bilirubin, indirect 0.2 0.2 - 1.2 mg/dL (calc) [facility] Alk phos 66 37 - 153 U/L [facility] AST 38(H) 10 - 35 U/L [facility] ALT (SGPT) 32(H) 6 - 29 U/L [facility] 04/22/2025 9:38 AM CDT 04/22/2025 9:39 AM CDT Narrative [facility] - 04/23/2025 3:42 PM CDT AP FASTING:YES FASTING: YES us Gabby Cardoza MD LAB BLOOD ORDERABLES Final Resu lt [facility] [address] [facility] [place], [place] [address] * (ABNORMAL) CBC with auto differential (04/22/2025 9:38 AM CDT) Pathologist [facility] WBC 6.1 3.8 - 10.8 Thousand/u L [facility] RBC, POC 3.32(L) 3.80 - 5.10 Million/uL [facility] Hgb 9.8(L) 11.7 - 15.5 g/dL [facility] Hct 32.0(L) 35.0 - 45.0 % [facility] MCV 96.4 80.0 - 100.0 fL [facility] MCH 29.5 27.0 - 33.0 pg [facility] MCHC 30.6(L) 32.0 - 36.0 g/dL [facility] Comment: For adults, a slight decrease in the calculated MCHC value (in the range of 30 to 32 g/dL) is most likely not clinically significant; however, it should be interpreted with caution in correlation with other red cell parameters and the patient's clinical condition. Rdw 11.9 11.0 - 15.0 % [facility] Platelets 242 140 - 400 Thousand/u L [facility] MPV 10.9 7.5 - 12.5 fL [facility] Neutrophils, abs 4,063 1,500 - 7,800 cells/uL [facility] Lymphocytes, abs 1,257 850 - 3,900 cells/uL [facility] Monocyte abs 586 200 - 950 cells/uL [facility] Eosinophils, abs 153 15 - 500 cells/uL [facility] Basophils, abs 43 0 - 200 cells/uL [facility] Neutrophils 66.6 % [facility] Lymphocyte pct 20.6 % [facility] Monocytes 9.6 % [facility] Eosinophils 2.5 % [facility] Basophils 0.7 % [facility] 04/22/2025 9:38 AM CDT 04/22/2025 9:39 AM CDT Narrative [facility] - 04/23/2025 3:42 PM CDT AP FASTING:YES FASTING: YES us Gabby Cardoza MD LAB BLOOD ORDERABLES Final Resu lt [facility] [address] [place] [address] * (ABNORMAL) Hemoglobin A1c (04/22/2025 9:38 AM CDT) Hgb A1C 6.7(H) <5.7 % of total Hgb [facility] [...] A1c for diagnosis of diabetes for children. 04/22/2025 9:38 AM CDT 04/22/2025 9:39 AM CDT Narrative [facility] - 04/23/2025 3:42 PM CDT AP FASTING:YES FASTING: YES us Gabby Cardoza MD LAB BLOOD ORDERABLES Final Resu lt [facility] [address] [place] [address] * (ABNORMAL) Renal function panel (04/22/2025 9:38 AM CDT) Glucose 114(H) 65 - 99 mg/dL [facility] Comment: Fasting reference interval For someone without known diabetes, a glucose value between 100 and 125 mg/dL is consistent with prediabetes and should be confirmed with a follow-up test. BUN 50(H) 7 - 25 mg/dL [facility] Creatinine 2.25(H) 0.50 - 1.05 mg/dL [facility] eGFR 24(L) > OR = 60 mL/min/1.7 3m2 [facility] BUN/creat ratio 22 6 - 22 (calc) [facility] Sodium 138 135 - 146 mmol/L [facility] Potassium, pl 4.2 3.5 - 5.3 mmol/L [facility] Chloride 100 98 - 110 mmol/L [facility] CO2 27 20 - 32 mmol/L [facility] Calcium 9.0 8.6 - 10.4 mg/dL [facility] Phosphorus, sr 4.6(H) 2.5 - 4.5 mg/dL [facility] Albumin 3.9 3.6 - 5.1 g/dL [facility] 04/22/2025 9:38 AM CDT 04/22/2025 9:39 AM CDT Narrative [facility] - 04/23/2025 3:42 PM CDT AP FASTING:YES FASTING: YES us Gabby Cardoza MD LAB BLOOD ORDERABLES Final Resu lt Performing Organization Address [facility]/ZIP Co de Phone Number TOYA [facility] [address] [place] [address] * Lipid panel (04/22/2025 9:38 AM CDT) Cholesterol 109 <200 mg/dL [facility] HDL 51 > OR = 50 mg/dL [facility] Triglycerides 140 <150 mg/dL [facility] LDL 36 mg/dL (calc) [facility] Comment: Reference [...] LDL-C. Vega SS et al. IRON. 2013;310(19): 8953-3805 (http://education.[employer]marin/faq/DQG531) Chol/HDL ratio 2.1 <5.0 (calc) [facility] Non-HDL, (LDL+VLDL) 58 <130 mg/dL (calc) [facility] Comment: For patients with diabetes plus 1 major ASCVD risk factor, treating to a non-HDL-C goal of <100 mg/dL (LDL-C of <70 mg/dL) is considered a therapeutic option. 04/22/2025 9:38 AM CDT 04/22/2025 9:39 AM CDT Narrative [facility] - 04/23/2025 3:42 PM CDT AP FASTING:YES FASTING: YES Gabby Cardoza MD LAB BLOOD ORDERABLES Final Resu lt Performing Organization Address [facility]/ZIP Co de Phone Number TOYA [facility] [address] [place] [address] * MRI Cervical Spine WO Contrast (04/21/2025 9:34 AM CDT) Anatomical Region Laterality Modality Spine N/A Magnetic Resonan ce 04/21/2025 10:2 2 AM CDT Impressions 04/21/2025 10:22 AM CDT 1. Superior endplate compression of T1 vertebral with underlying marrow edema signal, might represent late acute-subacute compression fracture. Attention on follow-up is recommended. 2. Mild level degenerative changes of the cervical spine as described above. Electronically signed by: MD Charles Braxton 04/21/2025 10:22 AM CDT EXAMINATION: Magnetic resonance imaging (MRI) of the cervical spine without contrast HISTORY: 65 years-old Female with Neck pain, chronic. TECHNIQUE: Multiplanar multi-weighted MRI of the cervical spine was performed without intravenous contrast using the standard protocol. COMPARISON: Radiograph of the cervical spine 04/01/2025 FINDINGS: The alignment of the cervical spine is normal. Superior endplate compression of T1 with undermining marrow edema signal. Mild retroverted dens process. The craniocervical junction is normal. The visualized portions of the skull base and the posterior fossa are normal. The spinal cord demonstrates normal signal intensity on all sequences. Mild multilevel degenerative changes of the cervical spine are seen. There are no annular fissures identified. No soft tissue abnormality is identified. Normal signal voids are present in the vertebral arteries. C2-C3: Disc osteophyte complex. There is mild facet arthropathy. There is no uncovertebral joint disease. There is no neuroforaminal stenosis. There is no spinal canal stenosis. C3-C4: Disc osteophyte complex. There is mild facet arthropathy. There is moderate right and mild left uncovertebral joint disease. There is moderate right and mild left neuroforaminal stenosis. There is no spinal canal stenosis. C4-C5: Disc osteophyte complex. There is mild facet arthropathy. There is mild uncovertebral joint disease. There is mild neuroforaminal stenosis. There is no spinal canal stenosis. C5-C6: Disc osteophyte complex. There is mild right and moderate left facet arthropathy. There is moderate uncovertebral joint disease. There is moderate neuroforaminal stenosis. There is no spinal canal stenosis. C6-C7: Disc osteophyte complex. There is mild facet arthropathy. There is no uncovertebral joint disease. There is no neuroforaminal stenosis. There is no spinal canal stenosis. C7-T1: The disk is normal in configuration. There is no facet arthropathy. There is no uncovertebral joint disease. There is no neuroforaminal stenosis. There is no spinal canal stenosis. Procedure Note Lary Reeder MD PhD - 04/21/2025 EXAMINATION: Magnetic resonance imaging (MRI) of the cervical spine without contrast HISTORY: 65 years-old Female with Neck pain, chronic. TECHNIQUE: Multiplanar multi-weighted MRI of the cervical spine was performed without intravenous contrast using the standard protocol. COMPARISON: Radiograph of the cervical spine 04/01/2025 FINDINGS: The alignment of the cervical spine is normal. Superior endplate compression of T1 with undermining marrow edema signal. Mild retroverted dens process. The craniocervical junction is normal. The visualized portions of the skull base and the posterior fossa are normal. The spinal cord demonstrates normal signal intensity on all sequences. Mild multilevel degenerative changes of the cervical spine are seen. There are no annular fissures identified. No soft tissue abnormality is identified. Normal signal voids are present in the vertebral arteries. C2-C3: Disc osteophyte complex. There is mild facet arthropathy. There is no uncovertebral joint disease. There is no neuroforaminal stenosis. There is no spinal canal stenosis. C3-C4: Disc osteophyte complex. There is mild facet arthropathy. There is moderate right and mild left uncovertebral joint disease. There is moderate right and mild left neuroforaminal stenosis. There is no spinal canal stenosis. C4-C5: Disc osteophyte complex. There is mild facet arthropathy. There is mild uncovertebral joint disease. There is mild neuroforaminal stenosis. There is no spinal canal stenosis. C5-C6: Disc osteophyte complex. There is mild right and moderate left facet arthropathy. There is moderate uncovertebral joint disease. There is moderate neuroforaminal stenosis. There is no spinal canal stenosis. C6-C7: Disc osteophyte complex. There is mild facet arthropathy. There is no uncovertebral joint disease. There is no neuroforaminal stenosis. There is no spinal canal stenosis. C7-T1: The disk is normal in configuration. There is no facet arthropathy. There is no uncovertebral joint disease. There is no neuroforaminal stenosis. There is no spinal canal stenosis. IMPRESSION: 1. Superior endplate compression of T1 vertebral with underlying marrow edema signal, might represent late acute-subacute compression fracture. Attention on follow-up is recommended. 2. Mild level degenerative changes of the cervical spine as described above. Electronically signed by: Lary Reeder MD us Delio Jimenez MD IMG MRI PROCEDURES Final Resu lt * (ABNORMAL) Hepatic function panel (04/18/2025 11:38 AM CDT) Pathologist [facility] Protein, Total 6.4 6.4 - 8.4 g/dL [facility] Albumin 3.8 3.6 - 5.1 g/dL [facility] Globulin 2.6 2.2 - 4.0 g/dL (calc) [facility] Alb/glob ratio 1.5 0.9 - 2.3 (calc) [facility] Bilirubin, total 0.3 0.2 - 1.2 mg/dL [facility] Bilirubin, direct 0.1 < OR = 0.2 mg/dL [facility] Bilirubin, indirect 0.2 0.2 - 1.2 mg/dL (calc) [facility] Alk phos 58 37 - 153 U/L [facility] AST 37(H) 10 - 35 U/L [facility] ALT (SGPT) 30(H) 6 - 29 U/L [facility] Blood 04/18/2025 11:3 8 AM CDT 04/18/2025 11:39 AM CDT Narrative [facility] - 04/19/2025 6:09 AM CDT FASTING:NO FASTING: NO us Shawna Joevl NP LAB BLOOD ORDERABLES Final Result [facility] [address] [address] [address] * Tacrolimus, Highly Sensitive, LC/MS/MS (04/10/2025 9:30 AM CDT) Pathologist [facility] Tacrolimus, Highly Sensitive, LC/MS/MS 6.0 mcg/L [facility] Comment: No definitive therapeutic or toxic ranges have been established. Optimal blood drug levels are influenced by type of transplant, patient response, time post- transplant, co-administration of other drugs, and drug formulation. The following trough range is a suggested guideline: 5.0-20.0 mcg/L. 04/10/2025 9:30 AM CDT 04/10/2025 9:31 AM CDT Marah Mittal MD LAB BLOOD ORDERAB LES Final Result Performing Organization Address City/[facility]/ZIP Co de Phone Number [facility] [address] [place] [address] * COPY(IES) SENT TO: (04/10/2025 9:30 AM CDT) COPY(IES) SENT TO: [facility] Comment: [facility] - COPY TO [address] [address] 04/10/2025 9:30 AM CDT 04/10/2025 9:31 AM CDT Marah Mittal MD LAB BLOOD ORDERAB LES Final Result Performing Organization Address City/[facility]/ZIP Co de Phone Number QUEST * (ABNORMAL) Renal function panel (04/10/2025 9:30 AM CDT) Glucose 104(H) 65 - 99 mg/dL [facility] Comment: Fasting reference interval For someone without known diabetes, a glucose value between 100 and 125 mg/dL is consistent with prediabetes and should be confirmed with a follow-up test. BUN 67(H) 7 - 25 mg/dL [facility] Creatinine 2.62(H) 0.50 - 1.05 mg/dL [facility] eGFR 20(L) > OR = 60 mL/min/1.7 3m2 [facility] BUN/creat ratio 26(H) 6 - 22 (calc) [facility] Sodium 139 135 - 146 mmol/L [facility] Potassium, pl 4.7 3.5 - 5.3 mmol/L [facility] Chloride 104 98 - 110 mmol/L [facility] CO2 25 20 - 32 mmol/L [facility] Calcium 9.4 8.6 - 10.4 mg/dL [facility] Phosphorus, sr 5.0(H) 2.5 - 4.5 mg/dL [facility] Albumin 3.9 3.6 - 5.1 g/dL [facility] Blood 04/10/2025 9:30 AM CDT 04/10/2025 9:31 AM CDT us Marah Mittal MD LAB BLOOD ORDERAB LES Final Result [facility] [address] [place] [address] * XR Spine Cervical W Flexion And Extension 6 or More Views (04/01/2025 12:39 PM CDT) Anatomical Region Laterality Modality Spine N/A Computed Radiogr aphy 04/01/2025 3:38 PM CDT Impressions 04/01/2025 4:24 PM CDT 1. Mild degenerative disc disease of C5-C6 and C6-C7. Dictated by: Dipesh Alvarado M.D. The radiology attending physician has personally reviewed this study, and had reviewed and/or edited this written report and agrees with it. Electronically signed by: Nikolay Xiong M.D. Narrative 04/01/2025 4:24 PM CDT EXAMINATION: XR SPINE CERVICAL W FLEXION AND EXTENSION 6 OR MORE VIEWS HISTORY: Neck pain, cervicalgia COMPARISON: X-ray dated 03/30/2023. FINDINGS: 6 views of the cervical spine were submitted for evaluation. Limited by body habitus, the lateral radiographs demonstrates cervical spine to C6. Mild dextrocurvature of the thoracic spine. The vertebral body heights and intervertebral disc spaces are maintained. There is mild degenerative disc disease of the C5-C6 and C6-C7. Normal translation upon flexion and extension. No abnormal prevertebral soft tissue swelling. No acute fracture or dislocation. Procedure Note Nikolay Xiong MD - 04/01/2025 EXAMINATION: XR SPINE CERVICAL W FLEXION AND EXTENSION 6 OR MORE VIEWS HISTORY: Neck pain, cervicalgia COMPARISON: X-ray dated 03/30/2023. FINDINGS: 6 views of the cervical spine were submitted for evaluation. Limited by body habitus, the lateral radiographs demonstrates cervical spine to C6. Mild dextrocurvature of the thoracic spine. The vertebral body heights and intervertebral disc spaces are maintained. There is mild degenerative disc disease of the C5-C6 and C6-C7. Normal translation upon flexion and extension. No abnormal prevertebral soft tissue swelling. No acute fracture or dislocation. IMPRESSION: 1. Mild degenerative disc disease of C5-C6 and C6-C7. Dictated by: Dipesh Alvarado M.D. The radiology attending physician has personally reviewed this study, and had reviewed and/or edited this written report and agrees with it. Electronically signed by: Nikolay Xiong M.D. us Delio Jimenez MD IMG XR PROCEDURES Final Resul t * Tacrolimus, Highly Sensitive, LC/MS/MS (03/26/2025 9:32 AM CDT) Tacrolimus, Highly Sensitive, LC/MS/MS 12.5 mcg/L [facility] Comment: No definitive therapeutic or toxic ranges have been established. Optimal blood drug levels are influenced by type of transplant, patient response, time post- transplant, co-administration of other drugs, and drug formulation. The following trough range is a suggested guideline: 5.0-20.0 mcg/L. 03/26/2025 9:32 AM CDT 03/26/2025 9:33 AM CDT Charles [facility] - 03/27/2025 4:23 PM CDT AP FASTING:YES FASTING: YES us Gabby Cardoza MD LAB BLOOD ORDERABLES Final Resu lt [facility] [address] [facility] [place] [address] * COPY(IES) SENT TO: (03/26/2025 9:32 AM CDT) COPY(IES) SENT TO: [facility] Comment: [facility] - COPY TO ACCT [address] [place] [address] 03/26/2025 9:32 AM CDT 03/26/2025 9:33 AM CDT Narrative [facility] - 03/27/2025 4:23 PM CDT AP FASTING:YES FASTING: YES us Gabby Cardoza MD LAB BLOOD ORDERABLES Final Resu lt [facility] * (ABNORMAL) CBC with auto differential (03/26/2025 9:32 AM CDT) WBC 5.4 3.8 - 10.8 Thousand/u L [facility] RBC, POC 3.39(L) 3.80 - 5.10 Million/uL [facility] Hgb 10.2(L) 11.7 - 15.5 g/dL [facility] Hct 32.5(L) 35.0 - 45.0 % [facility] MCV 95.9 80.0 - 100.0 fL [facility] MCH 30.1 27.0 - 33.0 pg [facility] MCHC 31.4(L) 32.0 - 36.0 g/dL [facility] Comment: For adults, a slight decrease in the calculated MCHC value (in the range of 30 to 32 g/dL) is most likely not clinically significant; however, it should be interpreted with caution in correlation with other red cell parameters and the patient's clinical condition. Rdw 12.2 11.0 - 15.0 % [facility] Platelets 242 140 - 400 Thousand/u L [facility] MPV 10.3 7.5 - 12.5 fL [facility] Neutrophils, abs 3,224 1,500 - 7,800 cells/uL [facility] Lymphocytes, abs 1,453 850 - 3,900 cells/uL [facility] Monocyte abs 610 200 - 950 cells/uL [facility] Eosinophils, abs 92 15 - 500 cells/uL [facility] Basophils, abs 22 0 - 200 cells/uL [facility] Neutrophils 59.7 % [facility] Lymphocyte pct 26.9 % [facility] Monocytes 11.3 % [facility] Eosinophils 1.7 % [facility] Basophils 0.4 % [facility] 03/26/2025 9:32 AM CDT 03/26/2025 9:33 AM CDT Narrative [facility] - 03/27/2025 4:23 PM CDT AP FASTING:YES FASTING: YES us Gabby Cardoza MD LAB BLOOD ORDERABLES Final Resu lt [facility] [address] [facility] [place] [address] * (ABNORMAL) Renal function panel (03/26/2025 9:32 AM CDT) Pathologist [facility] Glucose 107(H) 65 - 99 mg/dL [facility] Comment: Fasting reference interval For someone without known diabetes, a glucose value between 100 and 125 mg/dL is consistent with prediabetes and should be confirmed with a follow-up test. BUN 60(H) 7 - 25 mg/dL [facility] Creatinine 2.47(H) 0.50 - 1.05 mg/dL [facility] eGFR 22(L) > OR = 60 mL/min/1.7 3m2 [facility] BUN/creat ratio 24(H) 6 - 22 (calc) [facility] Sodium 139 135 - 146 mmol/L [facility] Potassium, pl 5.7(H) 3.5 - 5.3 mmol/L [facility] Chloride 105 98 - 110 mmol/L [facility] CO2 23 20 - 32 mmol/L [facility] Calcium 9.7 8.6 - 10.4 mg/dL [facility] Phosphorus, sr 4.4 2.5 - 4.5 mg/dL [facility] Albumin 4.2 3.6 - 5.1 g/dL [facility] 03/26/2025 9:32 AM CDT 03/26/2025 9:33 AM CDT Narrative [facility] - 03/27/2025 4:23 PM CDT AP FASTING:YES FASTING: YES us Gabby Cardoza MD LAB BLOOD ORDERABLES Final Resu lt Performing Organization Address City/[facility]/ZIP Co de Phone Number [facility] [address] [place] [address] * Hepatitis C antibody Blood (01/29/2024 2:27 PM CDT) Pathologist [facility] Hep C Ab Nonreactive Nonreactive Comment: Interpretive [...] last revised on 2019. Testing performed by: [facility], [address] [place] [address], [place]., [address] Blood 01/29/2024 2:27 PM CDT 01/29/2024 5:02 PM CDT us Shawna Jovel NP LAB MICROBIOLOGY - GENERAL ORDERABLES Final Result [facility] [address] [facility]. Department [place] [address] * TSH (01/29/2024 2:27 PM CDT) Thyroid Stimulating Hormone 0.99 0.30 - 4.20 mcIUnit/mL Blood 01/29/2024 2:27 PM CDT 01/29/2024 2:39 PM CDT Shawna Jovel NP LAB BLOOD ORDERABLES Edite d Result - Final [facility] [address] [facility]. [place] [address] * COLONOSCOPY IMAGES (04/26/2016) Anatomical Region Laterality Modality Other Narrative 04/26/2016 Ordered by an unspecified provider. Historical Provider GI PROCEDURE ORDERABLES F inal Result from Last 3 Months or Most Recently Relevant to Health Maintenance Insurance [facility] MEDICARE [facility] MEDICARE [facility] MEDICARE [facility] [place] [place] [address] Advance Directives For more information, please contact: [phone] * Full Code (Latest Code Status on [...] Communication Atul Somers Spouse Health Care Agent [email or web address] Care Teams Job Placement Specialist Relationship Specialty Start Date End Date Juan F Avila MD [address] [place] [address] PCP - General Internal Medicine 07/10/24 Mayela Greenberg RN [address] [address] Registered Nurse 07/27/18 Mayela Greenberg RN [address] [address] Registered Nurse 08/07/18 Jacqueline Baum, PT Physical Therapist Physical Therapy 10/30/23 Ricco Dunn MD [address] [facility] ENDOCRINOLOGY, [facility] [address], [place] [address] Referring Physician Endocrinology Diabetes & Metabolism 07/10/24 Jacqueline Baum, PT Physical Therapist Physical Therapy 06/02/25
--- OUTSIDE RECORDS SUMMARY | 2025-06-24 14:42 | XMS_ITS | Encounter Summary ---
Author Organization [facility] Healthcare Address [address] [place] [address] Care Team Providers Care Birthing Nurse Name Role Phone Mayela Greenberg RN Unavailable [phone] Mayela Greenberg RN Unavailable [phone] Jacqueline Baum PT Unavailable Unavailabl e Ricco Dunn MD Unavailable [phone] Juan F Avila MD Primary Care Provider [phone] Jacqueline Baum PT Unavailable Unavailabl e Encounter Details Date Type Department Care Team (Late st Contact Info) Description 04/25/2025 Results Follow-Up [facility] and [facility] Transplant Kidney [address] [facility] [address] [phone] [place] [address] Mayela Greenberg RN [address] [facility] [address] [place] [address] HLA Donor Specific Antibody Report Social History [...] Never true 11/22/2024 AUDIT-C Answer Date Recorded Frequency of Alcohol Consumption Not on file 04/01/2025 Q2: How many drinks containi ng alcohol do you have on a typical day when you are drinking? Patient does not drink Frequency of Binge Drinking Not on file 03/05 Personal Safety Answer Date Recorded Have you ever been in or are you currently in a harmful physical or emotional relationship or is someone making you feel afraid or unsafe? 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 documented in this encounter Plan of Treatment Not on file documented as of this encounter Goals Goal Patient Goal Type Associated Problems Recent Progress Patient-Stated? Author CCM Chronic Pain Care Plan Chronic Care Management On track(2024 2:54 PM TREE SURGEON HELPER) Luz Sandoval RN Note: Problem: Chronic Pain Goals: 1. Minimize further functional decline 2. Maximize quality of life 3. Control pain Strategies: - Activity/exercise program recommendation - Conservative stepwise pain medicine strategy with multi-disciplinary approach - Recommend healthy lifestyle strategies and compensatory methods as needed documented as of this encounter Visit Diagnoses Not on filedocumented in this encounter Care Teams Birthing Nurse Relationship Specialty Start Date End Date Juan F Avila MD [address] [place] [address] PCP - General Internal Medicine 07/10/24 Mayela Greenberg RN [address] [address] Registered Nurse 07/27/18 Mayela Greenberg, RN [address] [facility] [address] [place] [address] Registered Nurse 08/07/18 Jacqueline Baum, PT Physical Therapist Physical Therapy 10/30/23 Ricco Dunn MD [address] [facility] DIV IM ENDOCRINOLOGY, [facility] [address] [place] [address] Referring Physician Endocrinology Diabetes & Metabolism 07/10/24 Jacqueline Baum, PT Physical Therapist Physical Therapy 06/02/25 documented as of this encounter
--- OUTSIDE RECORDS SUMMARY | 2025-06-24 14:42 | XMS_ITS | Encounter Summary ---
Author Organization [facility] Healthcare Address [address] [place] [address] Care Team Providers Care Contract Forester Name Role Phone Mayela Greenberg RN Unavailable [phone] Mayela Greenberg RN Unavailable [phone] Jacqueline Baum PT Unavailable Unavailabl e Ricco Dunn MD Unavailable [phone] Juan F Avila MD Primary Care Provider [phone] Jacqueline Baum PT Unavailable Unavailabl e Encounter Details Date Type Department Care Team (Late st Contact Info) Description 05/19/2025 Results Follow-Up [facility] and [facility] Transplant Kidney [address] [facility] [address] [phone] [place], [place] [id number] Ofelia Humphries, KAVITHA [address] [facility] [facility] [address] [place] [address] COPY(IES) SENT TO:, Renal function panel, CBC with auto differential, Tacrolimus, Highly Sensitive, LC/MS/MS Social History Tobacco Use Types Packs/Day Years [...] on file Legal Sex Female 3:45 AM DEVELOPER DESIGNER Gender Identity Female 07/04/2024 5:02 PM DEVELOPER DESIGNER Sexual Orientation Not on file documented as of this encounter Miscellaneous Notes * Result Encounter Note - Ofelia Humphries RN - 05/19/2025 10:09 AM DEVELOPER DESIGNER Noted continued increase in pt's SCr. UPE 0.3. Per Dr. Ngo, add pt to Monday meeting if no improvement in SCr to discuss possible bx which had not been discussed previously due to blaming the increase on possible cardiorenal physiology. Pt added to Monday meeting. LOPER DESIGNER documented in this encounter Plan of Treatment Not on file documented as of this encounter Goals Goal Patient Goal Type Associated Problems Recent Progress Patient-Stated? Author CCM Chronic Pain Care Plan Chronic Care Management On track(2024 2:54 PM DEVELOPER DESIGNER) No Luz Weaver RN Note: Problem: Chronic Pain Goals: 1. Minimize further functional decline 2. Maximize quality of life 3. Control pain Strategies: - Activity/exercise program recommendation - Conservative stepwise pain medicine strategy with multi-disciplinary approach - Recommend healthy lifestyle strategies and compensatory methods as needed documented as of this encounter Visit Diagnoses Not on filedocumented in this encounter Care Teams Contract Forester Relationship Specialty Start Date End Date Juan F Avila MD [address] [place] [address] PCP - General Internal Medicine 07/10/24 Mayela Greenberg, RN [address] [facility] [address] [place] [address] Registered Nurse 07/27/18 Mayela Greenberg RN [address] [facility] [address] [place] [address] Registered Nurse 08/07/18 Jacqueline Baum, PT Physical Therapist Physical Therapy 10/30/23 Ricco Dunn MD [address] [place] [address] DIV IM ENDOCRINOLOGY, [facility] [address] [place] [address] Referring Physician Endocrinology Diabetes & Metabolism 07/10/24 Jacqueline Baum, PT Physical Therapist Physical Therapy 06/02/25 documented as of this encounter
--- OUTSIDE RECORDS SUMMARY | 2025-06-24 14:42 | XMS_ITS ---
Author Organization [facility] Address [address] [place] [address] Care Team Providers Care Service Observer Name Role Phone Mayela Greenberg RN Unavailable [phone] Mayela Greenberg RN Unavailable [phone] Jacqueline Baum PT Unavailable Unavailabl e Ricco Dunn MD Unavailable [phone] Juan F Avila MD Primary Care Provider [phone] Jacqueline Baum PT Unavailable Unavailabl e Transplant Episode Kidney Recipient [facility] ([place], [place]) - [facility] Organ Received: Left Kidney Transplanted on 07/26/2018 Marked as Active Follow-up on 07/26/2018 Kidney CoordinatorMayela Greenberg RN Fax: N/A Email: N/A [place] Organ Diagnosis Organ Primary Contributory Kidney Diabetes - Type II Insulin Dep/A dult Onset Retransplant Diagnosis Organ Primary Contributory Kidney Diabetes Mellitus - Type I Infection History Noted Survival Infection Treatment Organism Resolved 03/27/2025 6 years 8 months Acute UTI Donor Information Organ ABO Source Meets Risk [...] Name Role Phone Fax Email Mayela Greenberg, KAVITHA Kidney Coordinator [phone] N/A N/A Maria Isabel Peterson Primary Director Process Improvement N/A N/A N/A Mayela Greenberg, dock workerDisplay Manager [phone] N/A N/A Arabella Cerda Secondary Director Process Improvement N/A N/A N/A Surinder Whitaker MD Referring Physician [phone] N/A Amelie Zamorano Medicaid Analyst [phone] N/A N/A Randee Navarro RN Secondary Coordinator Secondary Kidney Coordinator [phone] N/A N/A Rachelle Austin MD PhD Surgeon [phone] N/A Events Post-Transplant Pre-Transplant Admitted: 07/26/2018 Referred: 02/11/2015 Transplanted: 07/26/2018 Evaluation began: 5 Discharged: 07/30/2018 UNOS qualified: 01/28/2015 Center waitlisted: 7 Dialysis History Dialysis History Start End Type Comments Center 01/28/2015 07/26/2018 Hemodialysis Brayanluciana Vladimir CASTANEDA Sanjay [facility] D[facility] Dialysis Center Information Center Phone Fax Address [facility] [phone] [facility] [address]
--- OUTSIDE RECORDS SUMMARY | 2025-06-24 14:42 | XMS_ITS | Clinical Summary ---
Author Organization [facility] Address [address] [place] [address] Care Team Providers Care Repair Armature Winder Helper Name Role Phone Unavailable Primary Care Provider [...] 2 - PCV) 04/02/2016 04/02/2015 COVID-19 Vaccine ( - 2024-2 6 season) 2025 Influenza Adult (#1) 2025 04/02/2015 RSV Immunization or 60+ Years (1 - 1-dose 75+ series) 2037 Hepatitis A Vaccines Aged Out No long er eligible based on patient's age to complete [...]
--- OUTSIDE RECORDS SUMMARY | 2025-06-24 14:42 | XMS_ITS | Encounter Summary ---
Author Organization [facility] Address [address] [place] [address] Phone Care Team Providers Care Government Minister Name Role Phone Juan F Avila MD Primary Care Provider [phone] Mayela Greenberg RN Unavailable [phone] Mayela Greenberg RN Unavailable [phone] Jacqueline Baum PT Unavailable Unavailabl e Ricco Dunn MD Unavailable [phone] Juan F Avila MD Primary Care Provider [phone] Jacqueline Baum PT Unavailable Unavailabl e Encounter [...] on file Legal Sex Female 3:45 AM TYPING ELEMENT MACHINE OPERATOR Gender Identity Female 07/04/2024 5:02 PM TYPING ELEMENT MACHINE OPERATOR Sexual Orientation Not on file documented [...] documented as of this encounter Care Teams Government Minister Relationship Specialty Start Date End Date Juan F Avila MD PCP - General 09/01/16 07/09/24 Juan F Avila MD [address] [place] [address] PCP - General Internal Medicine 07/10/24 Mayela Greenberg RN [address] [address] Registered Nurse 07/27/18 Mayela Greenberg, RN [address] [address] Registered Nurse 08/07/18 Jacqueline Baum, PT Physical Therapist Physical Therapy 10/30/23 Ricco Dunn MD [address] [place] [address] DIV IM ENDOCRINOLOGY, [facility] [address] [address] Referring Physician Endocrinology Diabetes & Metabolism 07/10/24 Jacqueline Baum, PT Physical Therapist Physical Therapy 06/02/25 documented as of this encounter
== END 2025-06-24 14:34 | disposition home or self-care (01) ==
LOC: CHSIMG 14:35
PROVIDERS: PCP Internal Medicine; Visit Provider Internal Medicine
DX: M25.512 Pain in left shoulder (principal); M19.012 Primary osteoarthritis, left shoulder
CPT/HCPCS: 73030